=== PATIENT | female | born 1960 | race Caucasian/White ===

== ENCOUNTER 2019-09-30 13:43 | Outpatient (CLI) | payer MEDICARE, MEDICAID, SELFPAY ==
--- NOTE | 2019-09-30 13:53 | USCV_ITS ---
BarbraTorie blair Age: 59 Gender: F : 1960 Exam Date: 09/30/2019 14:28 Ordering Phys: Carlito Donato MD (Andy) ([email or web address] – [place]) Technologist: Cinthia Hearn Exam Location: [facility] [place] Indication: STENOSIS Risk Factors: Previous Vascular Surgery: Right Brachial BP: / Left Brachial BP: / Right Left Velocity (cm/s) Spectral Plaque Velocity (cm/s) Spectral Plaque Syst/Diast Broadening Syst/Diast Broadening 68.40/ 13.20 Prox CCA 75.90 / 25.30 75.00/ 19.80 Mid CCA 77.90 / 19.20 57.30/ 17.60 Distal CCA 70.90 / 28.30 65.70/ 18.40 Prox ICA 72.70 / 28.50 78.60/ 23.10 Mid ICA 112.70/ 37.10 84.20/ 32.80 Distal ICA 141.20/ 30.00 131.30 ECA 186.60 1.12 ICA/CCA 1.81 Antegrade Vertebral Antegrade 59.60/ 14.10 cm/s 81.30/ 21.40 cm/s Tri Subclavian Tri 119.8 56.30 0 CONCLUSIONS Right ICA stenosis <50%. Mild atheromatous plaque right carotid bulb/ICA. Left ICA stenosis <50%. Mild atheromatous plaque left carotid bulb/ICA. Normal antegrade Doppler flow noted in the right vertebral artery. Normal antegrade Doppler flow noted in the left vertebral artery. Americo Hopkins MD (Electronically Signed) Final Date: 30 September 2019 16:59 S
== END 2019-09-30 13:44 | disposition home or self-care (01) ==
PROVIDERS: Family Provider Family Medicine; PCP Family Medicine; Visit Provider Thoracic Surgery (Cardiothoracic Vascular Surgery)
DX: I65.23 Occlusion and stenosis of bilateral carotid arteries (principal)
CPT/HCPCS: 93880

== ENCOUNTER → 2020-05-05 11:37 | Outpatient (BNVA) | payer MEDICARE, MEDICAID, SELFPAY | PROVIDERS: Family Provider Family Medicine; PCP Family Medicine; Visit Provider Family Medicine | DX: S90.32XA Contusion of left foot, initial encounter (principal); N63.20 Unspecified lump in the left breast, unspecified quadrant; S99.929A Unspecified injury of unspecified foot, initial encounter; G89.11 Acute pain due to trauma; M25.511 Pain in right shoulder | CPT/HCPCS: 73030; 73630 ==

== ENCOUNTER → 2020-05-19 09:16 | Outpatient (BNVA) | payer MEDICARE, MEDICAID, SELFPAY | PROVIDERS: Family Provider Family Medicine; PCP Family Medicine; Visit Provider Family Medicine | DX: E78.5 Hyperlipidemia, unspecified (principal); E13.9 Other specified diabetes mellitus without complications; N63.20 Unspecified lump in the left breast, unspecified quadrant; S40.011A Contusion of right shoulder, initial encounter; S90.32XA Contusion of left foot, initial encounter; I10 Essential (primary) hypertension | CPT/HCPCS: 80053; 80061; 83036; 85025 ==

== ENCOUNTER 2020-05-29 10:00 | Outpatient (CLI) | payer MEDICARE, MEDICAID, SELFPAY ==
--- NOTE | 2020-05-29 10:00 | MM_ITS ---
WS: [id number] Bilateral diagnostic digital mammogram, 05/29/2020 Clinical Data: lump lower left breast Comparison: None. Findings: The breast parenchymal pattern shows fat replacement. There is a marker on the left breast at the inf erior aspect below the areola at approximately the 6:00 position. No masses are seen. There are no ab normal calcifications present. Additional compression views in the CC and MLO projection reveal no ab normalities in the region of the marker. MM/[place] [id number] Impression: 1. Negative bilateral mammogram. 2. Recommend left breast ultrasound. BIRADS: 2-Benign FOLLOW UP: See Report The CAD gun stock checker was used.
--- NOTE | 2020-05-29 10:08 | US_ITS ---
WS: [id number] Left breast ultrasound, 05/29/2020 Clinical Data: LEFT BREAST LUMP Comparison: None. Findings: Imaging at the 6:00 position of the left breast at the site of the marker revealed only normal breast tissue. No cysts or masses could be seen. US/US breast LT limited* [id number] Impression: 1. Normal left breast imaging from the 5:00 to 7:00 position at the left breast . 2. Recommend annual screening mammograms. 3. Recommend clinical follow-up of any palpable lesion. BIRADS: 2-Benign FOLLOW UP: 1 Year Follow-up
== END 2020-05-29 10:01 | disposition home or self-care (01) ==
LOC: RADSHAW 10:04
PROVIDERS: PCP Family Medicine; Visit Provider Family Medicine
DX: N63.25 Unspecified lump in the left breast, overlapping quadrants (principal)
CPT/HCPCS: 76642; 77066

== ENCOUNTER → 2020-09-14 10:31 | Outpatient (BNVA) | payer MEDICARE, MEDICAID, SELFPAY | PROVIDERS: PCP Family Medicine; Visit Provider Family Medicine | DX: E13.9 Other specified diabetes mellitus without complications (principal) | CPT/HCPCS: 80048; 83036 ==

== ENCOUNTER 2020-10-20 15:05 | Outpatient (CLI) | payer MEDICARE, MEDICAID, SELFPAY ==
--- NOTE | 2020-10-20 15:15 | MR_ITS ---
WS: [id number] MRI RIGHT SHOULDER NONCONTRAST TECHNIQUE: Sagittal T2, coronal T1, T2 and proton density imaging. Axial gradient PDE imaging. CLINICAL INFORMATION: M75.101 - Unspecified rotator cuff tear or rupture of right shoulder, not speci fied as traumatic COMPARISON: None. FINDINGS: Mild degenerative arthritis AC joint with mild downsloping of the acromion. Subacromial and subdeltoi d fluid. Chronic full-thickness tear involving the supraspinatus with retraction to the level of the glenohumeral joint. Infraspinatus is intact with T2 signal abnormality consistent with tendinopathy. Mild chronic thinning of the infraspinatus distally. Normal teres minor. Normal subscapularis tendon. Small subcoracoid effusion. Biceps tendon appears intact within the bicipital groove. Normal biceps l abral anchor. Intra-articular biceps tendon appears intact. Glenoid labrum appears grossly normal. Donovan bchondral cystic change involving the greater tuberosity. MR/MR shoulder RT wo con* [id number] IMPRESSION: 1. High-grade full-thickness supraspinatus tear appears chronic with retractio n to the level of the glenohumeral joint. 2. Tendinopathy involving the infraspinatus distally which appears intact. 3. Teres minor and subscapularis are intact. 4. Moderate degenerative arthritis at the AC joint with subacromial and subdel toid fluid. Mild downsloping acromion with slight subacromial spurring. 5. Normal biceps tendon in the bicipital groove. Normal biceps labral anchor. 6. Small subcoracoid effusion.
== END 2020-10-20 15:06 | disposition home or self-care (01) ==
LOC: RADSHAW 15:09
PROVIDERS: PCP Family Medicine; Visit Provider Orthopaedic Surgery
DX: M75.101 Unspecified rotator cuff tear or rupture of right shoulder, not specified as traumatic (principal); M25.411 Effusion, right shoulder; M19.011 Primary osteoarthritis, right shoulder
CPT/HCPCS: 73221

== ENCOUNTER 2020-11-04 06:00 | Day surgery (SDC) | payer MEDICARE, MEDICAID, SELFPAY ==
[2020-11-04 10:20] VITALS: BMI 31.8
--- NOTE | 2020-11-04 10:27 | ECG_ITS ---
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 Measurements Intervals [place] Rate: 62 P: 74 IA: 166 QRS: 73 QRSD: 98 T: 82 QT: 411 QTc: 418 Interpretive Statements SINUS RHYTHM INCOMPLETE RIGHT BUNDLE BRANCH BLOCK [90+ ms QRS DURATION, TERMINAL R IN V1/V2, 40+ ms S IN I/aVL/V4/V5/V6] MINIMAL ST DEPRESSION [0.025+ mV ST DEPRESSION] Compared to ECG 09/21/2015 11:24:38 Incomplete right bundle-branch block now present ST (T wave) deviation now present Sinus bradycardia no longer present T-wave abnormality no longer present Electronically Signed On 11-04-2020 19:55:08 CDT by Jony Arellano M.D. [id number]
--- NOTE | 2020-11-04 10:38 | P.ANESASSM_ITS ---
Pre-Anesthetic Assessment Pre-Anesthetic Assessment: Height/Weight: Height 1.6 m Weight 81.647 kg Preop Diagnosis: Rotator cuff tear Right shoulder Proposed Procedure: Operation Date: 11/12/20 08:35 Proposed Procedures p right Rotator Cuff Repair [id number] M75.101(Right) - Sang Hennessy MD Familial anesthetic complications: none Social: Social History: Tobacco and No alcohol Exam: Pre-Anes Outpt Exam: alert, oriented x 3, clear to auscultation bilaterally and regular rate & rhythm Airway: Cervical ROM: WNL MP: 3 Dentition: Other (none) Pulmonary: Comments: bronchitis ocassional CV/HEM: CV/HEM: CAD (10 stents before cabg) and HTN Comments: CABG 2008 - doing very well, achieves 4 mets GI: GI: GERD Metabolic: Metabolic: DM and Hyperlipidemia Musc/skel: Musc/skel: OA/DJD Anesthetic Plan: ASA status: 3 Anesthesia: General and Regional (specify below) Risk of > 500 ml blood loss (7ml/kg in children): No PFSH Anesthesia PFSH: Medical History (Updated 11/02/20 @ 11:33 by Sang Hennessy MD) Anxiety ASHD (arteriosclerotic heart disease) Carotid stenosis, bilateral Coracoid impingement of right shoulder Depression Diabetes 1.5, managed as type 2 Dyslipidemia Essential hypertension Lumbar disc disease Renal insufficiency Tobacco abuse Traumatic injury of foot Surgical History (Updated 11/04/20 @ 10:25 by Mitzi Brown) S/P CABG (coronary artery bypass graft) S/P carotid endarterectomy Carotid endarterectomy on the left Family History Other CAD (coronary artery disease) Hypertension Social History Smoking and tobacco status: current every day smoker cigarettes Packs smoked per day: 1.5 Alcohol intake: never Household members: spouse Marital status: Current occupational status: retired Previous occupational history: [employer] Current gender identity: Female Lynette/Church: [employer] Data Anesthesia Cardiac Studies: 2 No Data to Display
[2020-11-04 10:51] LABS: Basophils % 0.3 %; Eosinophils # 0.2 10^3/uL (0.0-0.8); Eosinophils % 1.9 %; Hematocrit 42.5 % (37.0-47.0); Hemoglobin 13.5 g/dL (11.5-15.3); Lymphocytes # 4.4 10^3/uL (0.8-4.8); Lymphocytes % 42.6 %; Mean Corpuscular HGB Conc 31.8 g/dL (30.0-36.0); Mean Corpuscular Hemoglobin 29.9 pg (28.0-34.0); Mean Corpuscular Volume 94.2 fL (81-99); Mean Platelet Volume 11.3 fL (7.4-10.4); Monocytes # 0.7 10^3/uL (0.2-0.9); Monocytes % 6.4 %; Neutrophils % 48.7 %; Nucleated Red Blood Cells % 0 %; Platelet Count 344 10^3/cmm (130-400); Red Blood Count 4.51 10^6/uL (4.1-5.3); Red Cell Distribution Width 13.8 % (12.1-15.1); White Blood Count 10.3 10^3/uL (4.0-10.0)
[2020-11-04 11:10] LABS: Anion Gap 14.5 (5-19); Blood Urea Nitrogen 17 mg/dL (8-23); Calcium 8.8 mg/dL (8.5-10.5); Carbon Dioxide 25 mmol/L (22-29); Chloride 101 mmol/L (98-107); Glomerular Filtration Rate 63.7 mL/min (90-130); Glucose 148 mg/dL (65-115); Osmolality Calculated 286 mOsm/kg (285-295); Potassium 4.5 mmol/L (3.5-5.1); Sodium 136 mmol/L (136-145)
== END 2020-11-04 06:01 | disposition home or self-care (01) ==
LOC: OR 10-07 14:37
PROVIDERS: Anesthesiology; PCP Family Medicine; Visit Provider Orthopaedic Surgery
DX: Z01.818 Encounter for other preprocedural examination (principal)
CPT/HCPCS: 80048; 85025

== ENCOUNTER → 2020-11-04 | Day surgery (SDC) | payer MEDICARE, MEDICAID, SELFPAY | PROVIDERS: PCP Family Medicine; Visit Provider Orthopaedic Surgery | DX: Z01.818 Encounter for other preprocedural examination (principal); M75.101 Unspecified rotator cuff tear or rupture of right shoulder, not specified as traumatic | CPT/HCPCS: 93005; J2795 ==

== ENCOUNTER → 2020-11-13 16:08 | Outpatient (BNVA) | payer MEDICARE, MEDICAID, SELFPAY | PROVIDERS: PCP Family Medicine; Visit Provider Orthopaedic Surgery | DX: Z20.822 Contact with and (suspected) exposure to COVID-19 (principal) | CPT/HCPCS: 87635 ==

== ENCOUNTER 2020-11-19 09:21 | Day surgery (SDC) | payer MEDICARE, MEDICAID, SELFPAY ==
[2020-11-19] VITALS (8 sets, daily range): BP systolic 102–188; BP diastolic 35–89; PULSE 56–64; RESP 16–23; TEMP 36.2–36.4; O2SAT 92–96; BMI 32.8
--- NOTE | 2020-11-19 09:51 | P.ANESUD_ITS ---
Pre-Anesthetic Update Pre-Anesthetic Assessment: Date of Surgery/Procedure: 11/19/20 Preop Saray gnosis: Rotator cuff tear Right shoulder Proposed Procedure: Operation Date: 11/19/20 12:10 Proposed Procedures p right Rotator Cuff Repair [id number] M75.101(Right) - Sang Hennessy MD Any changes to Pre-Anesthetic Assessment?: No Exam: Pre-Anes Outpt Exam: alert, oriented x 3, clear to auscultation bilaterally and regular rate & rhythm Cardiac Studies: No Data to Display
[2020-11-19] MEDS: sodium chloride 0.9% 1,000 ML 30 ML IV (10:00)
[2020-11-19 10:07] LABS: Glucose Point of Care 151 mg/dL (70-110)
--- NOTE | 2020-11-19 10:29 | W.PM.OPSUD ---
Surgery/Procedure H&P Update DATE OF PROCEDURE: November 19, 2020 DATE H&P PERFORMED: 11/02/20 PREOP DIAGNOSIS: Rotator cuff tear Right shoulder PLANNED PROCEDURE: Operation Date: 11/19/20 12:10 Proposed Procedures p right Rotator Cuff Repair [id number] M75.101(Right) - Sang Hennessy MD
[2020-11-19] MEDS: midazolam 1 mg/mL INJ 5 ML 5 MG IVP (10:40)
--- NOTE | 2020-11-19 10:41 | ANES.PROC ---
Anesthesia Procedures Procedure/Date: 11/19/20 Nerve Block ^: Nerve Block 1: Main Anesthesia: general anesthesia Time Out Performed: Yes Consent: requested by attending/covering physician, from patient, risks and benefits reviewed and patient agrees to proceed Nerve block location: interscalene (right) Anesthesia monitors applied: pulse oximetry, EKG, BP cuff and oxygen Nerve block position: semi sitting Anesthetic Used: ropivicaine 0.5% Amount of anesthesia used (mL): 30 Ultrasound used to: recognize landmarks, visualize and ID brachial plexus and visualize and ID interscalene groove Nerve Stimulator Used?: No Interscalene/Femoral BLK: 2 stimuplex 22 g needle used for position and inplane approach and visualize local anesthetic spread Injection: neg aspiration of heme Patient Tolerated Procedure: well Complications: none
[2020-11-19] MEDS: fentaNYL 50 mcg/mL INJ 2mL 100 MCG IVP (10:42)
[2020-11-19] MEDS: EPINEPHrine 1 mg/mL INJ 2 MG (13:44)
--- NOTE | 2020-11-19 14:44 | P.OP_ITS ---
Operative Report Date of procedure: November 19, 2020 Pre-op Diagnosis: Rotator cuff tear Right shoulder Post-op diagnosis: same Post-op Diagnosis: Rotator cuff tear right shoulder, impingement Post-op Findings: High-grade bursal tear right rotator cuff Procedure Done: Arthroscopic repair right rotator cuff Implants: 4.5 mm Rendon and Nephew Helicoil anchor. Rendon and Nephew Regeneten patch Pathology: none sent Surgeon: Sang Hennessy Anesthesia: General and Nerve Block (Interscalene) Estimated blood loss (mL): 5 Findings: The patient had a high-grade bursal tear of the right rotator cuff approximately a centimeter and a half from anterior to posterior with a centimeter retraction. She had no glenohumeral degenerative changes. Her labrum was healthy. Her biceps tendon was healthy. She had prominent anterior spurring of her acromion Condition: stable Disposition: PACU Procedure: The patient was given a interscalene block in the holding taken to the operating room. She was given 2 g of Ancef. She was provided with a general anesthesia and positioned in the lateral position with the right arm in 15 pounds of traction. A timeout was performed. A posterior portal was made 2 cm inferior medial to the posterior corner of the acromion. A scope cannula and trocar were driven into the glenohumeral joint. An anterior working portal was made beneath the biceps tendon. The diagnostic portion of the arthroscopy was performed. There is no chondromalacia, labral or biceps pathology. The articular side of the rotator cuff was inspected and found to be intact. Arthroscopy equipment was removed and then directed to the subacromial space. A lateral portal was opened up with a scalpel and a cannula introduced. Similar cannulas placed through the anterior portal. The high-grade bursal tear was removed. The undersurface acromion revealed some spurring. Through the lateral portal the Rendon and Nephew Werewolf probe was introduced. The anterior inferior edge of acromion was outlined. A 5.5 mm acromionizer is used in approximately 4 mm of anterior inferior acromion removed. This provided a vascular subacromial surface that would facilitate healing of the intended bioinductive implant. Next the greater tuberosity was debrided with the acromionizer shaver. Through a lateral stab wound a Rendon and Nephew Helicoil 4.5 mm anchor was placed with a tape suture. A Rendon and Nephew FirstPass suture passer used to shuttle each li mb of tape through the lateral apex of the bursal tear. The tear was lateralized over the debrided bone with a sliding Arizmendi knot and alternating half hitches. Next through a lower lateral portal the Regeneten implant was introduced. It was fixed medially and anteriorly and posteriorly with 3 soft tissue stables and out laterally and anterior laterally with 3 bone ursula all with good purchase. Arthroscopy was removed. Portals were closed with 3-0 Prolene. Sterile 4 x 4's and OpSite dressings were applied. The patient was placed in a sling, extubated, and taken to recovery room in stable condition.
--- NOTE | 2020-11-19 15:52 | PC.NURSE ---
PT'S TOOK ALL HER BELONGINGS WITH HIM WHEN PT WENT TO SURGERY AND BROUGHT THEM BACK TO HER AT POST OP.
--- NOTE | 2020-11-19 16:56 | PC.NURSE ---
pt waiting on ready transport.
== END 2020-11-19 18:00 | disposition home or self-care (01) ==
PROVIDERS: PCP Family Medicine; Visit Provider Orthopaedic Surgery
PROC: (CPT 29827; principal; 2020-11-19 12:00)
DX: M75.101 Unspecified rotator cuff tear or rupture of right shoulder, not specified as traumatic (principal); M25.811 Other specified joint disorders, right shoulder; M19.011 Primary osteoarthritis, right shoulder; G89.29 Other chronic pain; Z79.891 Long term (current) use of opiate analgesic; F41.9 Anxiety disorder, unspecified; F32.9 Major depressive disorder, single episode, unspecified; E78.5 Hyperlipidemia, unspecified; I10 Essential (primary) hypertension; E13.9 Other specified diabetes mellitus without complications; F17.210 Nicotine dependence, cigarettes, uncomplicated; Z95.1 Presence of aortocoronary bypass graft; Z82.49 Family history of ischemic heart disease and other diseases of the circulatory system
CPT/HCPCS: 29827; 36416; 64415; 76942; 82962; 96374; 96375; C1713; J0171; J0690; J1100; J2250; J2405; J2704; J3010; J3490; J7030

== ENCOUNTER 2021-05-18 10:16 | Outpatient (CLI) | payer MEDICARE, MEDICAID, SELFPAY ==
--- NOTE | 2021-05-18 10:21 | XR_ITS ---
WS: [id number] LUMBAR SPINE TECHNIQUE: 3 views of the lumbar spine CLINICAL INFORMATION: worsening back pain COMPARISON: None. FINDINGS: Mild lumbar curve convex right. 5 nonrib-bearing lumbar vertebral bodies. Iliac stents. Slight marjan listhesis L4 on L5 measuring 4 mm. Disc space narrowing worse L4-5 and L5-S1. Chronic anterior wedgin g lower thoracic spine. Advanced facet arthropathy L4-5. IMPRESSION: 1. Mild lumbar curve convex right. No acute compression. 2. Grade 1 anterolisthesis L4 on L5. 3. Disc space narrowing worse L4-L5 and L5-S1. 4. Advanced facet arthropathy L4-5.
== END 2021-05-18 10:17 | disposition home or self-care (01) ==
PROVIDERS: PCP Family Medicine; Visit Provider Family Medicine
DX: M54.50 Low back pain, unspecified (principal); M47.816 Spondylosis without myelopathy or radiculopathy, lumbar region
CPT/HCPCS: 72100

== ENCOUNTER → 2021-11-16 11:13 | Outpatient (BNVA) | payer MEDICARE, MEDICAID, SELFPAY | PROVIDERS: PCP Family Medicine; Visit Provider Family Medicine | DX: E78.5 Hyperlipidemia, unspecified (principal); I10 Essential (primary) hypertension; E11.8 Type 2 diabetes mellitus with unspecified complications; M51.9 Unspecified thoracic, thoracolumbar and lumbosacral intervertebral disc disorder; Z72.0 Tobacco use | CPT/HCPCS: 80053; 80061; 83036; 85025 ==

== ENCOUNTER → 2022-03-14 13:44 | Outpatient (BNVA) | payer MEDICARE, MEDICAID, SELFPAY | PROVIDERS: PCP Family Medicine; Visit Provider Internal Medicine | DX: I25.10 Atherosclerotic heart disease of native coronary artery without angina pectoris (principal); I10 Essential (primary) hypertension; F17.210 Nicotine dependence, cigarettes, uncomplicated; Z95.1 Presence of aortocoronary bypass graft | CPT/HCPCS: 99214 ==

== ENCOUNTER → 2022-04-25 09:48 | Outpatient (BNVA) | payer MEDICARE, MEDICAID, SELFPAY | PROVIDERS: PCP Family Medicine; Visit Provider Family Medicine | DX: E13.9 Other specified diabetes mellitus without complications (principal); I10 Essential (primary) hypertension; L82.1 Other seborrheic keratosis; M51.9 Unspecified thoracic, thoracolumbar and lumbosacral intervertebral disc disorder | CPT/HCPCS: 80053; 83036 ==

== ENCOUNTER 2022-05-20 08:21 | Outpatient (CLI) | payer MEDICARE, MEDICAID, SELFPAY ==
--- NOTE | 2022-05-20 08:30 | USCV_ITS ---
Torie Belle Age: 62 Gender: F : 1960 Exam Date: 05/20/2022 08:54 Ordering Phys: Shaun Hickey M.D ([email or web address]) Technologist: Jerry Clarke Exam Location: [facility] – [place] Indication: lt side endart Risk Factors: Smoker Previous Vascular Surgery: Right Brachial BP: / Left Brachial BP: / Right Left Velocity (cm/s) Spectral Plaque Velocity (cm/s) Spectral Plaque Syst/Diast Broadening Syst/Diast Broadening 81.60/ 11.00 Prox CCA 82.30 / 17.10 68.40/ 9.90 Mid CCA 99.40 / 14.00 73.90/ 13.20 Hetro Distal CCA 75.20 / 13.70 116.50/18.60 Hetro Prox ICA 106.10/ 16.20 155.40/29.50 Hetro Mid ICA 134.90/ 28.80 166.20/34.20 Distal ICA 160.10/ 36.00 167.80 ECA 223.10 2.04 ICA/CCA 1.61 Antegrade Vertebral Antegrade 102.5/ 15.50 cm/s 136.7/ 21.60 cm/s 0 0 Tri Subclavian Tri 144.5 232.1 0 0 FINDINGS Comparison:. 09/30/19 Mild, new elevation of systolic velocities. Mild carotid atherosclerosis. Antegrade vertebral arteries. CONCLUSIONS Bilateral ICA stenosis less than 50%. Velocities have progressed since the prior exam. Dr. Jacey Corona DO (Electronically Signed) Final Date: 20 May 2022 10:36 S
== END 2022-05-20 08:22 | disposition home or self-care (01) ==
LOC: RAD 08:22
PROVIDERS: PCP Family Medicine; Visit Provider Internal Medicine
DX: I65.23 Occlusion and stenosis of bilateral carotid arteries (principal)
CPT/HCPCS: 93880

== ENCOUNTER 2022-05-26 08:45 | Outpatient (CLI) | payer MEDICARE, MEDICAID, SELFPAY ==
--- NOTE | 2022-05-26 09:10 | XRR_ITS ---
PROCEDURE INFORMATION: Exam: XR Chest Exam date and time: 05/26/2022 9:26 AM Age: 62 years old Clinical indication: Sternal or substernal pain. Prior triple bypass. Sternal pain. TECHNIQUE: Imaging protocol: Radiologic exam of the chest. Views: 2 views. COMPARISON: CR XR chest 2V* [id number] 09/21/2015 11:41 AM FINDINGS: Lungs: Calcified right hilar lymph nodes. Subsegmental atelectasis or scarring in the lower chest bilaterally. There is mild peribronchial wall thickening. Pleural spaces: No pleural effusion. No pneumothorax. Heart/Mediastinum: Coronary stents are seen. Mediastinal clips are noted. Cardiomegaly appears worsened; an underlying pericardial effusion is a consideration. No gross evidence of pneumomediastinum. Bones/joints: Median sternotomy wires are noted. No gross fracture. XR/XR chest 2V* [id number] IMPRESSION: 1. Cardiomegaly appears worsened; an underlying pericardial effusion is a consideration. 2. There is mild peribronchial wall thickening; query viral infection/bronchitis, chronic bronchitis and/or asthma.
== END 2022-05-26 08:46 | disposition home or self-care (01) ==
LOC: RAD 08:50
PROVIDERS: PCP Family Medicine; Visit Provider Thoracic Surgery (Cardiothoracic Vascular Surgery)
DX: R07.89 Other chest pain (principal); I51.7 Cardiomegaly; I31.39 Other pericardial effusion (noninflammatory); I65.23 Occlusion and stenosis of bilateral carotid arteries; Z95.1 Presence of aortocoronary bypass graft; Z98.890 Other specified postprocedural states; F17.210 Nicotine dependence, cigarettes, uncomplicated
CPT/HCPCS: 71046; 99213

== ENCOUNTER 2022-07-12 07:09 | Outpatient (CLI) | payer MEDICARE, MEDICAID, SELFPAY ==
--- NOTE | 2022-07-12 07:15 | USCV_ITS ---
Barbra Torie Age: 62 Gender: F : 1960 Exam Date: 07/12/2022 07:35 Ordering Phys: Carlito Donato MD (Andy) Technologist: Edmar Dickinson [place] [facility] [place]: sob BP: 140 / 60 HR: 57 Rhythm: Sinus Technical Quality: Adequate MEASUREMENTS (Male / Female) Normal Values 2D ECHO LV Diastolic Diameter PLAX 5.2 cm 4.2 - 5.9 / 3.9 - 5.3 cm LV Systolic Diameter PLAX 3.6 cm IVS Diastolic Thickness 0.9 cm 0.6 - 1.0 / 0.6 - 0.9 cm IVS Systolic Thickness 1.4 cm LVPW Diastolic Thickness 1.0 cm 0.6 - 1.0 / 0.6 - 0.9 cm LVPW Systolic Thickness 1.6 cm LVOT Diameter 2.0 cm LV Ejection Fraction 2D Teich 58.4 % LV Ejection Fraction MOD 2C 56.0 % LV Ejection Fraction 2C AL 55.0 % LA Diameter 3.5 cm LA Width 3.9 cm LA Height 5.0 cm RA Width 3.3 cm RA Height 4.6 cm Aorta at Sinotubular Diameter 2.0 cm IVC Diameter 1.5 cm M-MODE Aortic Annulus Diameter 2.7 cm LA Ao Ratio MM 1.3 MV E Point Septal Separation 0.9 cm DOPPLER AV Peak Velocity 213.5 cm/s LVOT Peak Velocity 131.0 cm/s AV Area Cont Eq vti 2.0 cm squared AV Area Cont Eq pk 1.9 cm squared MV Peak Velocity 117.0 cm/s MV Area PHT 3.9 cm squared Mitral E to A Ratio 0.8 MV E' Velocity 48.0 cm/s Mitral E to MV E' Ratio 8.7 Mitral E to LV E' Lateral Ratio 8.5 Mitral E to LV E' Septal Ratio 9.1 TR Peak Velocity 324.3 cm/s TR Peak Gradient 42.1 mmHg TR Mean Velocity 246.5 cm/s TR Mean Gradient 26.3 mmHg TR Velocity Time Integral 109.9 cm Right Atrial Pressure 3.0 mmHg Pulmonary Artery Systolic Pressu 45.1 mmHg PV Peak Velocity 99.7 cm/s RV Acceleration Time 0.1 s RV Ejection Time 0.3 s RV AcT/ET 0.3 FINDINGS Left Ventricle Left ventricle is normal in size. LV systolic function is normal with EF of 55 to 60%. No regional wall motion abnormalities are seen. Grade 1 diastolic dysfunction Right Ventricle Normal in size and function Right Atrium Normal in size Left Atrium Normal in size Mitral Valve Structurally normal mitral valve. Mild mitral regurgitation Aortic Valve Structurally normal aortic valve. No significant stenosis. Moderate aortic regurgitation. Tricuspid Valve Mild tricuspid regurgitation. RVSP is 45-50mmHg. This is consistent with moderate pulmonary hypertension Pulmonic Valve Not well visualized. Mild pulmonic regurgitation Pericardium Normal Aorta Normal in size IVC Appears to be normal. CONCLUSIONS LV systolic function is normal with EF of 55-60% Grade 1 diastolic dysfunction Mild mitral regurgitation Moderate aortic regurgitation Mild tricuspid regurgitation Moderate pulmonary hypertension Mild pulmnoic regurgitation No comparison studies are available Shaun Hickey MD (Electronically Signed) Final Date: 26 July 2022 17:42 S
== END 2022-07-12 07:10 | disposition home or self-care (01) ==
LOC: RAD 07:11
PROVIDERS: PCP Family Medicine; Visit Provider Thoracic Surgery (Cardiothoracic Vascular Surgery)
DX: I08.3 Combined rheumatic disorders of mitral, aortic and tricuspid valves (principal); R06.02 Shortness of breath
CPT/HCPCS: 93306

== ENCOUNTER → 2022-07-18 14:06 | Outpatient (BNVA) | payer MEDICARE, MEDICAID, SELFPAY | PROVIDERS: PCP Family Medicine; Visit Provider Podiatrist Foot & Ankle Surgery | DX: Q82.8 Other specified congenital malformations of skin (principal); E13.9 Other specified diabetes mellitus without complications; Z79.84 Long term (current) use of oral hypoglycemic drugs | CPT/HCPCS: 17110; 73630; 99204 ==

== ENCOUNTER → 2022-08-05 08:51 | Outpatient (BNVA) | payer MEDICARE, MEDICAID, SELFPAY | PROVIDERS: PCP Family Medicine; Visit Provider Podiatrist Foot & Ankle Surgery | DX: E13.9 Other specified diabetes mellitus without complications (principal); Q82.8 Other specified congenital malformations of skin; G62.9 Polyneuropathy, unspecified; Z79.84 Long term (current) use of oral hypoglycemic drugs | CPT/HCPCS: 11055; 99214 ==

== ENCOUNTER → 2022-09-20 15:24 | Outpatient (BNVA) | payer MEDICARE, MEDICAID, SELFPAY | PROVIDERS: PCP Family Medicine; Visit Provider Internal Medicine | DX: I25.10 Atherosclerotic heart disease of native coronary artery without angina pectoris (principal); I77.9 Disorder of arteries and arterioles, unspecified; I10 Essential (primary) hypertension; F17.210 Nicotine dependence, cigarettes, uncomplicated; Z95.1 Presence of aortocoronary bypass graft | CPT/HCPCS: 99214 ==

== ENCOUNTER 2023-01-11 09:43 | Outpatient (CLI) | payer MEDICARE, MEDICAID, SELFPAY ==
--- NOTE | 2023-01-11 10:00 | USCV_ITS ---
Torie Belle Age: 62 Gender: F : 1960 Exam Date: 01/11/2023 10:00 Ordering Phys: Carlito Donato MD (Andy) ([email or web address] [place]) Technologist: CT Exam Location: [facility] [place] Indication: stenosis Risk Factors: Previous Vascular Surgery: Right Brachial BP: / Left Brachial BP: / Right Left Velocity (cm/s) Spectral Plaque Velocity (cm/s) Spectral Plaque Syst/Diast Broadening Syst/Diast Broadening 67.50/ 13.70 Prox CCA 92.70 / 17.70 76.00/ 13.40 Mid CCA 79.70 / 14.90 85.90/ 14.90 Distal CCA 87.70 / 21.70 121.10/22.30 Prox ICA 124.60/ 27.00 121.10/29.40 Mid ICA 202.60/ 41.60 161.10/32.00 Distal ICA 198.60/ 43.70 208.50 ECA 170.50 1.88 ICA/CCA 2.19 Antegrade Vertebral Antegrade 101.4/ 18.10 cm/s 100.8/ 19.50 cm/s 0 0 Bi Subclavian Bi 148.6 210.5 0 0 FINDINGS hx of lt cea CONCLUSIONS Right ICA stenosis <50%, at the upper end of the range. Moderate calcified atheromatous plaque right carotid bulb/ICA. Left ICA stenosis 50-69%, at the lower end of the range near 50% LEFT CEA Normal antegrade Doppler flow noted in the right vertebral artery. Normal antegrade Doppler flow noted in the left vertebral artery. Americo Hopkins MD (Electronically Signed) Final Date: 11 January 2023 11:22 S
== END 2023-01-11 09:44 | disposition home or self-care (01) ==
PROVIDERS: PCP Family Medicine; Visit Provider Thoracic Surgery (Cardiothoracic Vascular Surgery)
DX: I65.23 Occlusion and stenosis of bilateral carotid arteries (principal)
CPT/HCPCS: 93880

== ENCOUNTER → 2023-01-19 12:58 | Outpatient (BNVA) | payer MEDICARE, MEDICAID, SELFPAY | PROVIDERS: PCP Family Medicine; Visit Provider Thoracic Surgery (Cardiothoracic Vascular Surgery) | DX: I65.23 Occlusion and stenosis of bilateral carotid arteries (principal); I10 Essential (primary) hypertension; F17.210 Nicotine dependence, cigarettes, uncomplicated | CPT/HCPCS: 99213 ==

== ENCOUNTER → 2023-01-30 08:11 | Outpatient (BNVA) | payer MEDICARE, MEDICAID, SELFPAY | PROVIDERS: PCP Family Medicine; Visit Provider Podiatrist Foot & Ankle Surgery | DX: E11.42 Type 2 diabetes mellitus with diabetic polyneuropathy (principal); Z79.84 Long term (current) use of oral hypoglycemic drugs; G62.9 Polyneuropathy, unspecified; L84 Corns and callosities | CPT/HCPCS: 99213 ==

== ENCOUNTER → 2023-03-28 13:47 | Outpatient (BNVA) | payer MEDICARE, MEDICAID, SELFPAY | PROVIDERS: PCP Family Medicine; Visit Provider Internal Medicine | DX: I25.10 Atherosclerotic heart disease of native coronary artery without angina pectoris (principal); I77.9 Disorder of arteries and arterioles, unspecified; I10 Essential (primary) hypertension; F17.210 Nicotine dependence, cigarettes, uncomplicated; Z95.1 Presence of aortocoronary bypass graft | CPT/HCPCS: 99214 ==

== ENCOUNTER → 2023-04-17 09:46 | Outpatient (BNVA) | payer MEDICARE, MEDICAID, SELFPAY | PROVIDERS: PCP Family Medicine; Visit Provider Podiatrist Foot & Ankle Surgery | DX: G62.9 Polyneuropathy, unspecified; L84 Corns and callosities; Q82.8 Other specified congenital malformations of skin; E11.42 Type 2 diabetes mellitus with diabetic polyneuropathy; L60.8 Other nail disorders; Z79.84 Long term (current) use of oral hypoglycemic drugs | CPT/HCPCS: 11055; 11721; 99204 ==

== ENCOUNTER 2023-05-08 06:11 | Outpatient (CLI) | payer MEDICARE, MEDICAID, SELFPAY ==
--- NOTE | 2023-05-08 06:30 | MR_ITS ---
WS: [id number] MRI PELVIS, WITH AND WITHOUT CONTRAST. COMPARISON: Soft tissue ultrasound 03/23/2023 Multiplanar, multisequence imaging is performed with and without contrast. MultiHance 16 mL IV. Reidentified is a soft tissue mass in the LEFT perineum that was previously described by ultrasound. Mass has significantly decreased in size as compared to the prior ultrasound. This mass is within the LEFT perineal soft tissues and measures 1.7 x 1.4 x 1.3 cm this is intermediate signal on the T1 seq uences and increased but heterogeneous on the T2 sequences. There is peripheral and internal enhancem ent. There is a mild amount of soft tissue inflammation in the adjacent perineal soft tissues. There does not appear to be in connection to the rectum or the vaginal canal. Abnormal soft tissue surrounding the RIGHT hip and extending into the RIGHT obturator externus muscle s and the muscle surrounding the RIGHT hip. Soft tissue mass with peripheral enhancement measures 4.3 x 2.3 cm and is closely associated with the RIGHT femoral head, hip joint and the obturator muscle g roup. Mild thickening and enhancement of the synovium. There is additional very mild edema with enhan cement involving the obturator muscle of the LEFT hip also. There is no evidence for synovitis on the LEFT hip. Increased T2 signal with enhancement involving the hamstring attachments at the ischial tu berosities. IMPRESSION: 1. Moderate decrease in size of the LEFT perineum heterogeneous mass which does enhance. Mass now tea sures 1.7 x 1.4 x 1.3 cm. Complex abscess within the differential. Due to the decrease in size this i s less likely neoplastic. As there is enhancement and has not completely resolved recommend continued close follow-up. Surgical excision may be necessary. 2. Abnormal appearance to the RIGHT hip. There is marked thickening with enhancement of the synovium with edema and cystic changes extending into the obturator muscles. There may be some small loose bod ies. No enhancement within the femoral head. There are additional changes of mild myositis involving the LEFT hip obturator muscles and hamstring attachments to the ischial tuberosities consider evaluat ion by rheumatology. In particular the RIGHT hip needs further evaluation due to the extensive synovi tis.
[2023-05-08] MEDS: gadobenate dimeglumine 20 mL vial IV (07:30)
== END 2023-05-08 06:12 | disposition home or self-care (01) ==
LOC: RAD 06:12
PROVIDERS: PCP Family Medicine; Visit Provider Surgery
DX: K66.8 Other specified disorders of peritoneum (principal)
CPT/HCPCS: 72197; A9577

== ENCOUNTER → 2023-06-08 13:49 | Outpatient (BNVA) | payer MEDICARE, MEDICAID, SELFPAY | PROVIDERS: PCP Family Medicine; Visit Provider Surgery | DX: Z09 Encounter for follow-up examination after completed treatment for conditions other than malignant neoplasm (principal) | CPT/HCPCS: 99213 ==

== ENCOUNTER 2023-06-21 08:30 | Outpatient (CLI) | payer MEDICARE, MEDICAID, SELFPAY ==
--- NOTE | 2023-06-21 08:15 | USCV_ITS ---
Torie Belle Age: 63 Gender: F : 1960 Exam Date: 06/21/2023 08:44 Ordering Phys: Carlito Donato MD (Andy) ([email or web address] [place]) Technologist: MORRIS [place] [facility] [place] Indication: H/O LEFT CEA. EVAL FOR CAROTID STENOSIS Risk Factors: Previous Vascular Surgery: Right Brachial BP: / Left Brachial BP: / Right Left Velocity (cm/s) Spectral Plaque Velocity (cm/s) Spectral Plaque Syst/Diast Broadening Syst/Diast Broadening 119.10/13.20 Prox CCA 112.50/ 20.90 88.00/ 13.70 Mid CCA 91.40 / 17.10 91.40/ 10.30 Distal CCA 98.30 / 21.40 120.70/19.30 Prox ICA 165.60/ 27.60 125.30/21.10 Mid ICA 183.30/ 28.00 136.70/29.90 Distal ICA 153.00/ 35.60 191.10 ECA 154.50 1.15 ICA/CCA 1.63 Antegrade Vertebral Antegrade 88.20/ 12.10 cm/s 115.1/ 27.00 cm/s 0 Tri Subclavian Tri 143.3 369.8 0 0 CONCLUSIONS Right ICA stenosis <50% at the upper end of the range.Moderate atheromatous plaque right carotid bulb/ICA. Left ICA stenosis 50-69%. Left CEA. Intimal thickening in the common carotid arteries and internal carotid arteries bilaterally. Normal antegrade Doppler flow noted in the right vertebral artery. Normal antegrade Doppler flow noted in the left vertebral artery. Americo Hopkins MD (Electronically Signed) Final Date: 21 June 2023 10:36 S
== END 2023-06-21 08:31 | disposition home or self-care (01) ==
LOC: RAD 08:30
PROVIDERS: PCP Family Medicine; Visit Provider Thoracic Surgery (Cardiothoracic Vascular Surgery)
DX: I65.23 Occlusion and stenosis of bilateral carotid arteries (principal)
CPT/HCPCS: 93880

== ENCOUNTER → 2023-07-17 08:47 | Outpatient (BNVA) | payer MEDICARE, MEDICAID, SELFPAY | PROVIDERS: PCP Family Medicine; Visit Provider Surgery | DX: N90.89 Other specified noninflammatory disorders of vulva and perineum (principal) | CPT/HCPCS: 99213 ==

== ENCOUNTER → 2023-07-19 10:21 | Outpatient (BNVA) | payer MEDICARE, MEDICAID, SELFPAY | PROVIDERS: PCP Family Medicine; Visit Provider Nurse Practitioner | DX: R39.9 Unspecified symptoms and signs involving the genitourinary system (principal) | CPT/HCPCS: 81000 ==

== ENCOUNTER → 2023-07-20 13:03 | Outpatient (BNVA) | payer MEDICARE, MEDICAID, SELFPAY | PROVIDERS: PCP Family Medicine; Visit Provider Thoracic Surgery (Cardiothoracic Vascular Surgery) | DX: I65.23 Occlusion and stenosis of bilateral carotid arteries (principal); F17.210 Nicotine dependence, cigarettes, uncomplicated; I10 Essential (primary) hypertension | CPT/HCPCS: 99213 ==

== ENCOUNTER → 2023-07-24 09:07 | Outpatient (BNVA) | payer MEDICARE, MEDICAID, SELFPAY | PROVIDERS: PCP Family Medicine; Visit Provider Podiatrist Foot & Ankle Surgery | DX: M20.11 Hallux valgus (acquired), right foot (principal); G62.9 Polyneuropathy, unspecified; L84 Corns and callosities; Q82.8 Other specified congenital malformations of skin; E11.42 Type 2 diabetes mellitus with diabetic polyneuropathy; L60.8 Other nail disorders; Z79.84 Long term (current) use of oral hypoglycemic drugs; Z46.89 Encounter for fitting and adjustment of other specified devices | CPT/HCPCS: 11721; 97760; 99213; L3100 ==

== ENCOUNTER 2023-07-24 11:32 | Outpatient (CLI) | payer MEDICARE, MEDICAID, SELFPAY | END 2023-07-24 11:33 | disposition home or self-care (01) | LOC: SPT 11:32 | PROVIDERS: PCP Family Medicine; Visit Provider Podiatrist Foot & Ankle Surgery | DX: Z46.89 Encounter for fitting and adjustment of other specified devices (principal); M20.11 Hallux valgus (acquired), right foot | CPT/HCPCS: 97760; L3100 ==

== ENCOUNTER 2023-08-18 09:15 | Outpatient (CLI) | payer MEDICARE, MEDICAID, SELFPAY ==
--- NOTE | 2023-08-18 10:15 | USCV_ITS ---
Torie Belle Age: 63 Gender: F : 1960 Exam Date: 08/18/2023 09:41 Ordering Phys: Shaun Hickey M.D ([email or web address]) Technologist: MORRIS [place] [facility] [place] Indication: CHEST PAIN AND SHORTNESS OF BREATH BP: 150 / 60 HR: 52 Rhythm: Sinus Technical Quality: Adequate MEASUREMENTS (Male / Female) Normal Values 2D ECHO LVOT Diameter 2.0 cm LV Ejection Fraction MOD 2C 53.5 % LV Ejection Fraction 2C AL 53.2 % LA Diameter 3.7 cm LA Width 3.9 cm LA Height 5.1 cm RA Width 3.0 cm RA Height 4.3 cm Aorta at Sinotubular Diameter 2.1 cm IVC Diameter 1.3 cm M-MODE Aortic Annulus Diameter 2.6 cm LA Ao Ratio MM 1.3 MV E Point Septal Separation 1.7 cm DOPPLER AV Peak Velocity 199.0 cm/s LVOT Peak Velocity 146.0 cm/s AV Area Cont Eq vti 2.3 cm squared AV Area Cont Eq pk 2.2 cm squared MV Peak Velocity 99.0 cm/s MV Area PHT 3.0 cm squared Mitral E to A Ratio 1.3 MV E' Velocity 54.0 cm/s Mitral E to MV E' Ratio 10.9 Mitral E to LV E' Lateral Ratio 10.5 Mitral E to LV E' Septal Ratio 11.4 TR Peak Velocity 226.5 cm/s TR Peak Gradient 20.5 mmHg TR Mean Velocity 170.9 cm/s TR Mean Gradient 12.9 mmHg TR Velocity Time Integral 77.6 cm TV Peak E Velocity 51.0 cm/s Right Atrial Pressure 3.0 mmHg Pulmonary Artery Systolic Pressu 23.5 mmHg PV Peak Velocity 95.0 cm/s RV Acceleration Time 0.2 s RV Ejection Time 0.4 s RV AcT/ET 0.4 FINDINGS Left Ventricle LV systolic function is normal with EF of 50 to 55%. No regional wall motion abnormalities. Right Ventricle Normal in size and function Right Atrium Normal in size Left Atrium Dilated Mitral Valve Structurally normal mitral valve. Mild to moderate mitral regurgitation. Aortic Valve Structurally normal aortic valve. No significant stenosis. Moderate aortic regurgitation Tricuspid Valve Mild tricuspid regurgitation. Pulmonic Valve Not well visualized. Mild to moderate pulmonic regurgitation. Pericardium Normal Aorta Normal in size IVC Appears to be normal CONCLUSIONS LV systolic function is normal with EF 50 to 55%. Left atrial dilation Mild to moderate mitral regurgitation Moderate aortic regurgitation Mild tricuspid regurgitation Mild to moderate pulmonic regurgitation. Shaun Hickey MD (Electronically Signed) Final Date: 31 August 2023 17:05 S
== END 2023-08-18 09:16 | disposition home or self-care (01) ==
LOC: RAD 09:16
PROVIDERS: PCP Family Medicine; Visit Provider Internal Medicine
DX: R06.02 Shortness of breath (principal)
CPT/HCPCS: 93306

== ENCOUNTER → 2023-08-23 12:39 | Outpatient (BNVA) | payer MEDICARE, MEDICAID, SELFPAY | PROVIDERS: PCP Family Medicine; Visit Provider Internal Medicine Cardiovascular Disease | DX: R07.9 Chest pain, unspecified (principal); I25.10 Atherosclerotic heart disease of native coronary artery without angina pectoris; Z98.890 Other specified postprocedural states; I10 Essential (primary) hypertension; E78.5 Hyperlipidemia, unspecified; I65.23 Occlusion and stenosis of bilateral carotid arteries; Z95.1 Presence of aortocoronary bypass graft; Z72.0 Tobacco use | CPT/HCPCS: 99214 ==

== ENCOUNTER 2023-09-05 08:44 | Outpatient (CLI) | payer MEDICARE, MEDICAID, SELFPAY ==
--- NOTE | 2023-09-05 | ECG_ITS ---
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 Interpretive Statements NAME OF STUDY: LEXISCAN SESTAMIBI STRESS TEST INDICATION: [Chest Pain] Procedure: At the baseline, the blood pressure was 207/60 mmHg with a heart rate of 79 bpm. The electrocardiogram showed normal sinus rhythm, normal axis with normal ST and T's. Interventricular conduction delay. The Lexiscan was infused over a period of 20 seconds. A total of 0.4 mg of Lexiscan was infused. The stress phase was continued for a total of 5 minutes. Heart rate was at the end of stress phase was 87 bpm and a blood pressure of 157/61 mmHg. The EKG at the peak infusion revealed normal sinus rhythm with no significant ST-T wave changes. Sestamibi was injected 20 seconds after the Lexiscan infusion. Blood pressure at the end of recovery phase was not recorded. Heart rate was 87 bpm. Conclusion: 1. Normal EKG response to Lexiscan infusion 2. No Lexiscan induced chest pain or cardiac arrhythmia. 3. Normal blood pressure and heart rate response. 4. Sestamibi/sestamibi perfusion scan pending; see separate report. Electronically Signed On 09-10-2023 12:04:00 VEGETABLE FARMWORKER by Shaun Hickey M.D. [email or web address]
[2023-09-05 08:46] VITALS: BMI 28.5
--- NOTE | 2023-09-05 08:50 | NMCV_ITS ---
NM homer perf SPECT r/s* [id number] Torie Belle Age: 63 Gender: F : 1960 Exam Date: 09/05/2023 09:46 Ordering Phys: Eliel Marcelino MD ([email or web address]) Technologist: KENYA Almanza Exam Location: [facility] Indications: ATHEROSCLEROTIC HEART DISEASE STRESS TEST Please see separate stress test report in [facility] for full findings IMAGE PROTOCOL Rest/Stress 1 Lexiscan Day Radiopharmaceutical Dose (mCi) Administration Site Administered by Rest: Tc-99m 10.6 IV KENYA Robledo Sestamibi Stress:Tc-99m 32.7 IV KENYA Robledo Sestamibi Rest: 09/05/2023 60 Discovery 630 Stress: 09/05/2023 30 Discovery 630 0.4mg Lexiscan. Images obtained in supine and prone position. SPECT RESULTS Technical Quality: Excellent Raw Data Analysis: Normal Image Corrections: No attenuation or motion correction applied Summed Stress Score: 15 Summed Rest Score: 7 Summed Difference Score: 8 PERFUSION FINDINGS There is a partially reversible perfusion defect seen in apical, apical anterior and anterior fajardo. This is consistent with large sized prior infarct with significant monique-infarct ischemia in LAD territory. There is a large sized area of reversible perfusion defect noted in lateral and anterolateral fajardo. This is consistent with large sized area of ischemia in left circumflex artery territory. FUNCTIONAL RESULTS (calculated via Gated SPECT) Stress Image LV EF (%): 34 Stress EDV (mL):167 TID: 1.1 Stress ESV (mL):110 FUNCTIONAL FINDINGS: LV systolic function is moderate to severely reduced with EF of 34%. Moderate to severe global hypokinesis. IMPRESSIONS 1. Abnormal myocardial perfusion imaging with large sized prior infarct in LAD territory with significant monique-infarct ischemia. 2. Moderate sized area of ischemia seen in left circumflex artery territory. 3. LV systolic function is moderate to severely reduced with EF of 34%. Shaun Hickey MD (Electronically Signed) Final Date: 09 September 2023 13:33 S
[2023-09-05 10:58] VITALS: BP 157/68; PULSE 72
[2023-09-05] MEDS: regadenoson 0.4 Mg/5 ml Syringe IVP (10:59)
== END 2023-09-05 08:45 | disposition home or self-care (01) ==
PROVIDERS: PCP Family Medicine; Visit Provider Internal Medicine Cardiovascular Disease
DX: R07.9 Chest pain, unspecified (principal)
CPT/HCPCS: 36415; 78452; 93017; 96374; A9500; J2785

== ENCOUNTER 2023-09-19 12:34 | Outpatient (CLI) | payer MEDICARE, MEDICAID, SELFPAY ==
--- NOTE | 2023-09-19 12:41 | XRR_ITS ---
PROCEDURE INFORMATION: Exam: XR Lumbosacral Spine Exam date and time: 09/19/2023 1:00 PM Age: 63 years old Clinical indication: Low back pain; Additional info: Spondylolisthesis TECHNIQUE: Imaging protocol: Radiologic exam of the lumbosacral spine. Views: 2 or 3 views. COMPARISON: CR XR lumbar spine 2-3V* [id number] 05/18/2021 10:27 AM FINDINGS: Bones/joints: There is mild anterolisthesis of L4 over L5 due to severe bilateral facet joint arthropathy. No compression deformity of vertebral bodies. There is narrowing of the L4-L5 and L5-S1 disc spaces with endplate osteophytes. No dynamic instability. Soft tissues: Unremarkable. Vasculature: There is a right common iliac stent. There are aortic calcifications. XR/XR lumbar spine f/e only [id number] IMPRESSION: Multilevel [id number]-[id number]-[id number] degenerative of the lumbar spine, most prominent at L4-L5.
== END 2023-09-19 12:35 | disposition home or self-care (01) ==
LOC: RAD 12:36
PROVIDERS: PCP Family Medicine; Visit Provider Nurse Practitioner
DX: M43.16 Spondylolisthesis, lumbar region (principal); M47.817 Spondylosis without myelopathy or radiculopathy, lumbosacral region; M48.07 Spinal stenosis, lumbosacral region
CPT/HCPCS: 72120

== ENCOUNTER → 2023-09-20 11:35 | Outpatient (BNVA) | payer MEDICARE, MEDICAID, SELFPAY | PROVIDERS: PCP Family Medicine; Visit Provider Internal Medicine | DX: I25.10 Atherosclerotic heart disease of native coronary artery without angina pectoris (principal); I77.9 Disorder of arteries and arterioles, unspecified; I10 Essential (primary) hypertension; F17.210 Nicotine dependence, cigarettes, uncomplicated | CPT/HCPCS: 99214 ==

== ENCOUNTER → 2023-09-22 11:01 | Outpatient (BNVA) | payer MEDICARE, MEDICAID, SELFPAY | PROVIDERS: PCP Family Medicine; Visit Provider Family Medicine | DX: E13.9 Other specified diabetes mellitus without complications (principal); E78.5 Hyperlipidemia, unspecified | CPT/HCPCS: 80053; 80061; 83036; 84439; 84443; 85025 ==

== ENCOUNTER 2023-09-27 13:32 | Outpatient (CLI) | payer MEDICARE, MEDICAID, SELFPAY ==
--- NOTE | 2023-09-27 13:42 | MR_ITS ---
WS: [id number] MRI LUMBAR SPINE NONCONTRAST HISTORY: VERTEBROGENIC LOW BACK PAIN , Low back pain radiating to LEFT hip. COMPARISON: None available. TECHNIQUE: Sagittal and axial multisequence imaging is submitted. Mild cervical stenosis at C5-6 due to osteophyte and facet disease. T8-9 central disc protrusion cont acting the ventral thoracic cord but no stenosis. Mild increase in lumbar lordosis. L4 anterolisthesis by 2.7 mm. Disc spaces and vertebral body heights are well-preserved. Conus terminates normally at L1. L1-L2: Normal. L2-L3: Mild bilateral facet joint arthritis. No stenosis. L3-L4: Mild annular disc bulging with moderate ligamentum flavum and facet arthritis. No stenosis. L4-L5: Mild annular disc bulging. Moderate bilateral facet joint arthritis. No focal disc protrusions . L5-S1: Very mild disc bulging. No significant stenosis. There is a very shallow RIGHT foraminal disc protrusion without stenosis. Paravertebral soft tissues are normal. IMPRESSION: 1. Grade 1 anterolisthesis of L4 by 2.7 mm. 2. No significant central or foraminal stenosis. 3. Facet joint arthropathy most significant at L3-4 and L4-5.
== END 2023-09-27 13:33 | disposition home or self-care (01) ==
LOC: RAD 13:32
PROVIDERS: PCP Family Medicine; Visit Provider Nurse Practitioner
DX: M47.816 Spondylosis without myelopathy or radiculopathy, lumbar region (principal)
CPT/HCPCS: 72148

== ENCOUNTER 2023-12-19 08:37 | Outpatient (CLI) | payer MEDICARE, MEDICAID, SELFPAY ==
--- NOTE | 2023-12-19 09:00 | USCV_ITS ---
Torie Belle Age: 63 Gender: F : 1960 Exam Date: 12/19/2023 08:57 Ordering Phys: Carlito Donato MD (Andy) [email or web address] [place] Technologist: KONRAD Exam Location: [facility] – [place] Indication: RECHECK ON LCEA AND STENOSIS Risk Factors: Unknown Previous Vascular Surgery: L CEA Right Brachial BP: / Left Brachial BP: / Right Left Velocity (cm/s) Spectral Plaque Velocity (cm/s) Spectral Plaque Syst/Diast Broadening Syst/Diast Broadening 62.90/ 17.20 Prox CCA 95.40 / 19.30 110.90/21.60 Mid CCA 92.50 / 16.40 100.00/17.20 Distal CCA 83.70 / 13.50 109.10/27.10 Prox ICA 92.40 / 16.40 115.40/27.10 Mid ICA 188.30/ 28.50 140.60/30.30 Distal ICA 175.10/ 34.30 173.00 ECA 130.60 1.30 ICA/CCA 2.30 Antegrade Vertebral Antegrade 89.90/ 17.00 cm/s 109.2/ 12.30 cm/s 0 Bi Subclavian Tri 130.0 49.50 0 CONCLUSIONS Right ICA stenosis <50%. Moderate atheromatous plaque right carotid bulb/ICA. Left ICA stenosis <50%. Left CEA. Mild stenosis mid ICA unchanged since 2022 Intimal thickening in the common carotid arteries and internal carotid arteries bilaterally. Normal antegrade Doppler flow noted in the right vertebral artery. Normal antegrade Doppler flow noted in the left vertebral artery. Americo Hopkins MD (Electronically Signed) Final Date: 19 Dec 2023 13:15 S
== END 2023-12-19 08:38 | disposition home or self-care (01) ==
LOC: RAD 08:37
PROVIDERS: PCP Family Medicine; Visit Provider Thoracic Surgery (Cardiothoracic Vascular Surgery)
DX: I65.23 Occlusion and stenosis of bilateral carotid arteries (principal)
CPT/HCPCS: 93880

== ENCOUNTER 2023-12-19 20:00 | Outpatient (CLI) | payer MEDICARE, MEDICAID, SELFPAY | END 2023-12-19 20:01 | disposition home or self-care (01) | LOC: SLEEP 12-20 18:54 | PROVIDERS: PCP Family Medicine; Visit Provider Anesthesiology Pain Medicine | DX: G47.33 Obstructive sleep apnea (adult) (pediatric) (principal) | CPT/HCPCS: 95810 ==

== ENCOUNTER → 2023-12-21 12:48 | Outpatient (BNVA) | payer MEDICARE, MEDICAID, SELFPAY | PROVIDERS: PCP Family Medicine; Visit Provider Internal Medicine | DX: I25.10 Atherosclerotic heart disease of native coronary artery without angina pectoris (principal); I77.9 Disorder of arteries and arterioles, unspecified; I10 Essential (primary) hypertension; F17.210 Nicotine dependence, cigarettes, uncomplicated | CPT/HCPCS: 99214 ==

== ENCOUNTER → 2024-01-15 12:28 | Outpatient (BNVA) | payer MEDICARE, MEDICAID, SELFPAY | PROVIDERS: PCP Family Medicine; Visit Provider Thoracic Surgery (Cardiothoracic Vascular Surgery) | DX: I65.23 Occlusion and stenosis of bilateral carotid arteries (principal); F17.210 Nicotine dependence, cigarettes, uncomplicated; I10 Essential (primary) hypertension | CPT/HCPCS: 99213 ==

== ENCOUNTER 2024-03-18 20:00 | Outpatient (CLI) | payer MEDICARE, MEDICAID, SELFPAY | END 2024-03-18 20:01 | disposition home or self-care (01) | LOC: SLEEP 03-19 00:53 | PROVIDERS: PCP Family Medicine; Visit Provider Anesthesiology Pain Medicine | DX: G47.33 Obstructive sleep apnea (adult) (pediatric) (principal) | CPT/HCPCS: 95811 ==

== ENCOUNTER → 2024-03-22 10:12 | Outpatient (BNVA) | payer MEDICARE, MEDICAID, SELFPAY | PROVIDERS: PCP Family Medicine; Visit Provider Family Medicine | DX: E13.9 Other specified diabetes mellitus without complications (principal) | CPT/HCPCS: 80053; 80061; 83036; 85025 ==

== ENCOUNTER → 2024-06-12 09:34 | Outpatient (BNVA) | payer MEDICARE, MEDICAID, SELFPAY | PROVIDERS: PCP Family Medicine; Visit Provider Family Medicine | DX: E87.5 Hyperkalemia (principal) | CPT/HCPCS: 80048 ==

== ENCOUNTER 2024-06-13 11:56 | Outpatient (CLI) | payer MEDICARE, MEDICAID, SELFPAY ==
--- NOTE | 2024-06-13 12:15 | USCV_ITS ---
BarbraTorie Age: 64 Gender: F : 1960 Exam Date: 06/13/2024 12:07 Ordering Phys: Carlito Donato MD (Andy) ([email or web address] [place] Technologist: Exam Location: [facility] [place] Indication: Risk Factors: Previous Vascular Surgery: Right Brachial BP: / Left Brachial BP: / Right Left Velocity (cm/s) Spectral Plaque Velocity (cm/s) Spectral Plaque Syst/Diast Broadening Syst/Diast Broadening 105.70/16.20 Prox CCA 82.20 / 17.80 100.20/14.40 Mid CCA 126.00/ 22.90 109.30/16.20 Distal CCA 125.20/ 20.20 120.80/12.60 Prox ICA 76.30 / 9.60 105.40/15.20 Mid ICA 199.60/ 27.10 113.10/15.20 Distal ICA 196.10/ 22.70 211.00 ECA 182.60 1.10 ICA/CCA 1.60 Antegrade Vertebral Antegrade 95.10/ 10.00 cm/s 96.00/ cm/s Bi Subclavian Bi 226.5 283.9 0 0 FINDINGS copy messenger 12/19/23 CONCLUSIONS Right ICA stenosis <50%. Mild atheromatous plaque right carotid bulb/ICA. Left ICA stenosis 50-69% in the mid ICA unchanged. Prior Left CEA. Moderate atheromatous plaque left carotid Normal antegrade Doppler flow noted in the right vertebral artery. Normal antegrade Doppler flow noted in the left vertebral artery. . Americo Hopkins MD (Electronically Signed) Final Date: 14 June 2024 10:21 S
== END 2024-06-13 11:57 | disposition home or self-care (01) ==
LOC: RAD 11:57
PROVIDERS: PCP Family Medicine; Visit Provider Thoracic Surgery (Cardiothoracic Vascular Surgery)
DX: I65.22 Occlusion and stenosis of left carotid artery (principal)
CPT/HCPCS: 93880

== ENCOUNTER 2024-12-13 06:52 | Outpatient (CLI) | payer MEDICARE, MEDICAID, SELFPAY ==
--- NOTE | 2024-12-13 06:55 | USCV_ITS ---
Barbra Torie Age: 64 Gender: F : 1960 Exam Date: 12/13/2024 07:06 Ordering Phys: Shaun Hickey M.D ([email or web address]) Technologist: COLLETTE [place]am [place] [facility] [place]ication: bilat stenosis lt sided endarterectomy Risk Factors: Previous Vascular Surgery: Right Brachial BP: / Left Brachial BP: / Right Left Velocity (cm/s) Spectral Plaque Velocity (cm/s) Spectral Plaque Syst/Diast Broadening Syst/Diast Broadening 104.80/15.40 Prox CCA 77.40 / 10.80 88.70/ 10.50 Mid CCA 96.10 / 15.00 85.90/ 11.60 Distal CCA 97.50 / 12.50 106.60/16.20 Prox ICA 145.80/ 24.60 121.10/16.10 Mid ICA 142.20/ 26.40 106.40/13.80 Distal ICA 88.70 / 20.00 230.90 ECA 88.30 1.20 ICA/CCA 1.50 Antegrade Vertebral Antegrade 99.70/ 12.90 cm/s 67.90/ 11.30 cm/s Bi Subclavian Bi 158.4 183.7 0 0 CONCLUSIONS Right ICA stenosis <50%. Moderate atheromatous plaque right carotid bulb/ICA. Left ICA stenosis 50-69%. Prior LEFT CEA. Mild atheromatous plaque left carotid bulb/ICA. Normal antegrade Doppler flow noted in the right vertebral artery. Normal antegrade Doppler flow noted in the left vertebral artery. Americo Hokpins MD (Electronically Signed) Final Date: 13 Dec 2024 09:37 S
== END 2024-12-13 06:53 | disposition home or self-care (01) ==
PROVIDERS: PCP Family Medicine; Visit Provider Internal Medicine
DX: I65.23 Occlusion and stenosis of bilateral carotid arteries (principal)
CPT/HCPCS: 93880

== ENCOUNTER 2024-12-29 19:03 | Inpatient (IN) | payer OTHER, MEDICAID, SELFPAY ==
[2024-12-29] VITALS (7 sets, daily range): BP systolic 161–198; BP diastolic 50–113; PULSE 59–68; RESP 15–18; TEMP 36.3–36.6; O2SAT 96–100; BMI 20.2
--- NOTE | 2024-12-29 19:25 | ECG_ITS ---
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1960 Requested By: Yuval Newman Order Number: [id number] Dayanara MD: SONA DE LA ROSA Measurements Intervals [place] Rate: 61 P: 95 RI: 177 QRS: 90 QRSD: 125 T: 90 QT: 457 QTc: 462 Interpretive Statements SINUS RHYTHM POSSIBLE RIGHT ATRIAL ENLARGEMENT [0.25mV P-WAVE] POSSIBLE RIGHT VENTRICULAR CONDUCTION DELAY [RSR (QR) IN V1/V2] NONSPECIFIC ST & T-WAVE ABNORMALITY Compared to ECG 11/04/2020 10:58:42 T-wave abnormality now present Incomplete right bundle-branch block no longer present ST (T wave) deviation no longer present Electronically Signed On 12-30-2024 19:04:03 CDT by SONA DE LA ROSA [email or web address]
[2024-12-29 19:38] LABS: Glucose Point of Care 287 mg/dL (70-110)
[2024-12-29 19:59] LABS: Basophils # 0.1 10^3/uL (0.0-0.1); Basophils % 0.5 %; Eosinophils # 0.3 10^3/uL (0.0-0.8); Eosinophils % 2.4 %; Hematocrit 34.8 % (36-47); Lymphocytes # 3.1 10^3/uL (0.8-4.8); Mean Corpuscular HGB Conc 31.9 g/dL (30-55); Mean Corpuscular Hemoglobin 31.1 pg (27-33); Mean Corpuscular Volume 97.5 fl (85-98); Mean Platelet Volume 11.6 fL (7.4-10.4); Monocytes # 0.9 10^3/uL (0.2-0.9); Neutrophils # 6.46 10^3/uL (1.8-7.7); Neutrophils % 59.7 %; Nucleated Red Blood Cells % 0 %; Platelet Count 405 10^3/cmm (157-399); Red Blood Count 3.57 10^6/uL (3.85-5.65); Red Cell Distribution Width 13.4 % (12.1-15.1); White Blood Count 10.81 10^3/uL (3.29-11.43)
[2024-12-29 20:20] LABS: Alanine Aminotransferase 128 U/L (0-33); Albumin Level 3.7 g/dL (3.5-5.2); Alkaline Phosphatase 344 U/L (35-105); Anion Gap 20.2 (5-19); Aspartate Amino Transferase 261 U/L (0-32); Blood Urea Nitrogen 57 mg/dL (8-23); Calcium 9.7 mg/dL (8.5-10.5); Carbon Dioxide 20 mmol/L (22-29); Chloride 101 mmol/L (98-107); Creatinine Clr Calc Pharmacy 17.0931; Globulin 4.7 g/dL (1.3-4.6); Glomerular Filtration Rate 17.7 mL/min (90-130); Glucose 253 mg/dL (65-115); Lipase 143 U/L (13-60); Magnesium 2.3 mg/dL (1.7-2.3); Osmolality Calculated 310 mOsm/kg (285-295); Potassium 3.2 mmol/L (3.5-5.1); Sodium 138 mmol/L (136-145); Total Bilirubin 2.1 mg/dL (0.15-1.2); Total Protein 8.4 g/dL (6.6-8.7)
[2024-12-29 20:21] LABS: Bilirubin Urine Negative (Negative); Blood Urine 3+ (Negative); Glucose Urine UA Negative (Normal); Ketones Urine Negative (Negative); Leukocyte Esterase Urine 1+ (Negative); Nitrate Urine Negative (Negative); Protein Urine 3+ (Negative); Specific Gravity, Urine 1.015 (1.005-1.030); Urine Appearance Turbid (CLEAR); Urine Color Dark Yellow (Yellow); pH Urine 5.5 (5-7)
[2024-12-29 20:22] LABS: Lactic Sepsis W/Reflex 1.6 mmol/L (0.5-2.2)
[2024-12-29 20:26] LABS: Add Urine Microscopic? YES; Bacteria Urine EXCEEDS /hpf; Hyaline Casts Urine 5.36 /lpf; RBC Urine 51-100 /hpf (0-2)
--- NOTE | 2024-12-29 20:34 | CTR_ITS ---
PROCEDURE INFORMATION: Exam: CT Chest Without Contrast; Diagnostic Exam date and time: 12/29/2024 8:53 PM Age: 64 years old Clinical indication: Abnormal findings; Abnormal lab test; Abnormal kidney function lab tests and elevated lipase and elevated liver enzymes; Other: N/a; Prior surgery; Surgery date: 6+ months; Surgery type: Cabg; General weakness with anemia and elevated lfts and lipase. Acute renal failure. ; Additional info: Weakness, anemia, acute renal failure, elevated lfts TECHNIQUE: Imaging protocol: Diagnostic computed tomography of the chest without contrast. Radiation optimization: All CT scans at this facility use at least one of these dose optimization techniques: automated exposure control; mA and/or kV adjustment per patient size (includes targeted exams where dose is matched to clinical indication); or iterative reconstruction. COMPARISON: CR XR chest 2V* [id number] 05/26/2022 9:26 AM RADIATION DOSE METRICS: Total DLP (mGy-cm): 436.46 FINDINGS: Lungs: Unremarkable. No consolidation. No masses. Pleural spaces: Unremarkable. No pneumothorax. No pleural effusion. Heart: Unremarkable. No cardiomegaly. No pericardial effusion. Coronary arteries: Postsurgical changes of prior CABG. Lymph nodes: Unremarkable. No enlarged lymph nodes. Vasculature: Scattered atherosclerosis within the aortic arch. Bones/joints: Unremarkable. No acute fracture. Soft tissues: Unremarkable. PROCEDURE INFORMATION: Exam: CT Abdomen And Pelvis Without Contrast Exam date and time: 12/29/2024 8:53 PM Age: 64 years old Clinical indication: Abnormal findings; Abnormal lab test; Abnormal kidney function lab tests and elevated lipase and elevated liver enzymes; Other: N/a; Prior surgery; Surgery date: 6+ months; Surgery type: Cabg; General weakness with anemia and elevated lfts and lipase. Acute renal failure. ; Additional info: Weakness, anemia, acute renal failure, elevated lfts TECHNIQUE: Imaging protocol: Computed tomography of the abdomen and pelvis without contrast. Radiation optimization: All CT scans at this facility use at least one of these dose optimization techniques: automated exposure control; mA and/or kV adjustment per patient size (includes targeted exams where dose is matched to clinical indication); or iterative reconstruction. COMPARISON: MR pelvis wo/w con [id number] 05/08/2023 6:46 AM RADIATION DOSE METRICS: Total DLP (mGy-cm): 436.46 FINDINGS: Lungs: Unremarkable. Liver: Calcified granulomas within liver. Gallbladder and biliary ducts: Distended gallbladder without gallstones. Pancreas: Normal. No ductal dilation. Spleen: Punctate calcified granulomas within the spleen. Adrenal glands: Normal. No mass. Kidneys and ureters: No hydronephrosis or obstructing calculi bilaterally. Stomach and bowel: Large colonic stool burden. Few scattered colonic diverticula. No small bowel obstruction. Appendix: No evidence of appendicitis. Intraperitoneal space: Unremarkable. No free air. No significant fluid collection. Vasculature: Severe atherosclerosis. Lymph nodes: Unremarkable. No enlarged lymph nodes. Urinary bladder: Urinary bladder is underdistended and demonstrates mural thickening. Reproductive: Unremarkable as visualized. Bones/joints: No acute displaced fracture. Moderate narrowing of right acetabular femoral joint. Mild compression deformity of superior endplate of L3 vertebral body with approximately 10% loss of vertebral body height. No retropulsion. Soft tissues: Unremarkable. CT/[place] [id number] IMPRESSION: No acute intrathoracic findings. IMPRESSION: 1. No acute abdominopelvic findings. 2. Distended gallbladder without gallstones. No intra or extrahepatic biliary ductal dilatation. 3. Sequela of prior healed granulomatous disease. 4. Large colonic stool burden which may be seen with constipation. 5. Mural bladder wall thickening, most likely due to underdistention. Correlate with urinalysis to exclude cystitis. 6. Few scattered colonic diverticula without CT evidence of acute diverticulitis.
[2024-12-29 20:36] LABS: Coarse Granular Casts Urine 0-4 /lpf; UA Slide Review UA Slide Review Perf
[2024-12-29 20:51] LABS: Glucose Point of Care 245 mg/dL (70-110)
[2024-12-29] MEDS: sodium chloride 0.9% 1,000 ML 999 ML IV (22:07)
[2024-12-29] MEDS: potassium chloride ER 20 mEq Tablet 40 MEQ PO (22:07)
[2024-12-29] MEDS: cefTRIAXone 1,000 mg SDV 1000 MG IVP (22:07)
--- NOTE | 2024-12-29 22:22 | CTR_ITS ---
PROCEDURE INFORMATION: Exam: CT Thoracic Spine Without Contrast Exam date and time: 12/29/2024 8:53 PM Age: 64 years old Clinical indication: Pain in thoracic spine; C/O back pain. No injury. TECHNIQUE: Imaging protocol: Computed tomography of the thoracic spine without contrast. Radiation optimization: All CT scans at this facility use at least one of these dose optimization techniques: automated exposure control; mA and/or kV adjustment per patient size (includes targeted exams where dose is matched to clinical indication); or iterative reconstruction. COMPARISON: MR lumbar spine wo con* [id number] 09/27/2023 2:30 PM RADIATION DOSE METRICS: Total DLP (mGy-cm): 436.46 FINDINGS: Bones/joints: Diffuse osseous demineralization. No acute compression deformity or traumatic subluxation within thoracic spine. Vertebral body heights are relatively well-maintained. Mild multilevel narrowing of intervertebral disc spaces. Extensive anterior osteophyte formation. Soft tissues: Unremarkable. CT/CT thoracic spine recon [id number] IMPRESSION: 1. No acute compression deformity or traumatic subluxation. 2. Moderate multilevel degenerative change.
--- NOTE | 2024-12-29 22:22 | CTR_ITS ---
PROCEDURE INFORMATION: Exam: CT Lumbar Spine Without Contrast Exam date and time: 12/29/2024 8:53 PM Age: 64 years old Clinical indication: Low back pain; C/O back pain. No injury. TECHNIQUE: Imaging protocol: Computed tomography of the lumbar spine without contrast. Radiation optimization: All CT scans at this facility use at least one of these dose optimization techniques: automated exposure control; mA and/or kV adjustment per patient size (includes targeted exams where dose is matched to clinical indication); or iterative reconstruction. COMPARISON: MR lumbar spine wo con* [id number] 09/27/2023 2:30 PM RADIATION DOSE METRICS: Total DLP (mGy-cm): 436.46 FINDINGS: Bones/joints: Compression deformity of superior endplate of L3 vertebral body (, 04/02). A proximally 40% loss of vertebral body height within midportion. No retropulsion. Remaining vertebral bodies are relatively well-maintained. Intervertebral disc spaces are relatively well-maintained. Moderate multilevel bilateral facet joint arthritis. Soft tissues: Unremarkable. CT/CT lumbar spine recon [id number] IMPRESSION: Acute compression deformity of superior endplate of L3 vertebral body with approximately 40% loss of vertebral body height within mid portion. No retropulsion.
--- NOTE | 2024-12-29 22:29 | W.ED.GENADLT ---
HPI - General Adult General: Chief complaint: General Medical Stated complaint: Weakness Time Seen by Provider: 12/29/24 20:07 History of Present Illness: Patient is a 64-year-old female presenting with progressive generalized weakness that began on Monday and has significantly worsened today. She reports difficulty lifting both legs and arms, with particular emphasis on bilateral lower extremity weakness. She is unable to elevate her legs off the stretcher. Patient also reports loss of appetite and some congestion, noting difficulty coughing effectively. She denies shortness of breath, chest pain, or abdominal pain. Of note, patient reports recent episodes of black stools occurring twice in the past few days. She denies use of Pepto-Bismol or other medications that might cause black stools. No history of GI bleeding. Patient denies being around sick contacts. No vomiting reported. Related Data Home Medications ?Medication ?Instructions ?Recorded ?Confirmed aspirin 81 mg tablet,delayed 81 mg PO QDAY 08/26/19 06/12/24 release (Adult Low Dose Aspirin) diphenhydramine HCl 25 mg capsule 25 mg PO BID PRN Allergy Symptoms 08/26/19 06/12/24 (Benadryl) Previous Rx's ?Medication ?Instructions ?Recorded Diabetic Shoes #1 ea 07/18/22 Heated and molding inserts #1 ea 07/18/22 alcohol swabs (Alcohol Pads) See Rx Instructions .Route 02/16/23 .COMPLEX #100 pad blood glucose control, normal #1 ea 02/16/23 (OneTouch Ultra Control solution) blood-glucose meter (OneTouch #1 ea 02/16/23 Ultra2 Meter) hydrocodone 7.5 mg-acetaminophen 1 tab PO Q12H PRN pain 30 days #46 05/26/23 325 mg tablet tabs Toe alignment splint #1 ea 07/24/23 cyclobenzaprine 10 mg tablet See Rx Instructions .Route 07/24/23 .COMPLEX #60 tabs nitroglycerin 0.4 mg sublingual 0.4 mg sublingual Q5M PRN chest 08/23/23 tablet pain #25 tabs CPAP 5-10cm setting #1 ea 03/22/24 CPAP mask, tubing, supplies #1 ea 03/22/24 hydrochlorothiazide 25 mg tablet See Rx Instructions .Route 04/22/24 .COMPLEX #90 tabs metformin 1,000 mg tablet See Rx Instructions .Route 05/27/24 .COMPLEX #60 tabs diabetic shoes with 3 inserts #1 ea 06/03/24 blood sugar diagnostic (OneTouch #50 ea 06/12/24 Ultra Test strips) lancets 28 gauge (Easy Touch #100 ea 06/12/24 Safety Lancets) trazodone 50 mg tablet See Rx Instructions .Route 06/24/24 .COMPLEX #90 tabs metoprolol succinate 50 mg See Rx Instructions .Route 07/19/24 tablet,extended release 24 hr .COMPLEX #180 tabs alprazolam 0.5 mg tablet 0.5 mg PO BID PRN sleep #45 tabs 09/06/24 potassium chloride 10 mEq See Rx Instructions .Route 10/14/24 capsule,extended release .COMPLEX #90 caps amlodipine 5 mg tablet See Rx Instructions .Route 11/18/24 .COMPLEX #90 tabs albuterol sulfate 90 mcg/actuation See Rx Instructions .Route 11/21/24 aerosol inhaler .COMPLEX #8.5 grams bupropion HCl 300 mg 24 hr tablet, 300 mg PO QAM #30 tabs 12/16/24 extended release (Wellbutrin XL) furosemide 20 mg tablet 20 mg PO QAM #30 tabs 12/19/24 glipizide 5 mg tablet 2.5 mg (1/2 x 5 mg) PO BID #60 tabs 12/19/24 rosuvastatin 10 mg tablet See Rx Instructions .Route 12/19/24 .COMPLEX #30 tabs sulindac 200 mg tablet See Rx Instructions .Route 12/19/24 .COMPLEX #60 tabs Allergies Allergy/AdvReac Type Severity Reaction Status Date / Time niacin (From Niaspan Allergy Intermediate ADR-Itching Verified 05/03/24 10:26 Extended-Release) prednisone AdvReac Intermediate ADR-Gastrointestinal Verified 05/03/24 10:26 Upset [facility] ED [facility]: Medical History (Updated 12/29/24 @ 22:34 by Yuval Newman MD) AWILDA (obstructive sleep apnea) Lower extremity edema Chronic pain Chest pain Moderate major depression Lumbar disc disease Coracoid impingement of right shoulder Traumatic injury of foot Tobacco abuse ASHD (arteriosclerotic heart disease) Carotid stenosis, bilateral Dyslipidemia Essential hypertension Anxiety Depression Diabetes 1.5, managed as type 2 Renal insufficiency Lumbar disc disease Surgical History S/P CABG (coronary artery bypass graft) S/P carotid endarterectomy Carotid endarterectomy on the left Family History Sister Cancer stomach Mother No problems noted. Sister No problems noted. Other CAD (coronary artery disease) Dementia Depression Diabetes Heart disease Hyperlipidemia Hypertension Hypothyroidism Stroke TIA (transient ischemic attack) Denies family history of Immunodeficiency disorder Autoimmune disease Clotting disorder Chronic kidney disease (CKD) Lung disease Social History Smoking and tobacco/nicotine status: current every day tobacco/nicotine user cigarettes Packs smoked per day: 0.5 Alcohol intake: never Substance/Drug Use: never Household members: spouse Marital status: Number of children: 0 Current occupational status: retired and disabled Previous occupational history: [employer] Current gender identity: Female Lynette/Voodoo: Rastafarian Special lynette needs: No Agree to transfusion: Yes Course Vital Signs: Vital signs: Vital Signs Temperature 97.9 F 12/29/24 19:21 Pulse Rate 59 L 12/29/24 20:15 Respiratory Rate 16 12/29/24 20:15 Blood Pressure 195/82 12/29/24 22:11 Pulse Oximetry 97 12/29/24 22:11 Oxygen Delivery Me thod Room Air 12/29/24 19:21 MDM - General Adult Medical Decision Making ROS: Constitutional: Reports weakness and decreased appetite Respiratory: Reports congestion with ineffective cough, denies shortness of breath Cardiovascular: Denies chest pain Gastrointestinal: Reports black stools, denies abdominal pain Musculoskeletal: Reports bilateral upper and lower extremity weakness All other systems reviewed and negative MEDICATIONS AND ALLERGIES: Current Medications: - Metformin - Glipizide - Potassium - Hydrochlorothiazide - Citalopram - Metoprolol - Aspirin 81mg - Rosuvastatin - Alprazolam - Cyclobenzaprine - Hydrocodone - Amlodipine Allergies: None reported PAST HISTORICAL DATA: Past Medical History: - Hypertension - Diabetes Past Surgical History: - CABG (2008) - Carotid artery surgery Social History: - Current smoker (1 pack per day) - Denies alcohol use VITAL SIGNS: Initial Vitals: BP: 198/113 HR: 59 RR: 16 Temp: 97.9?F O2 Sat: 100% on room air Repeat Vital: BP: 174/55 PHYSICAL EXAM: General: Patient appears frail but in no acute distress HEENT: Pale conjunctiva, dry mucous membranes Neck: Supple Respiratory: Lungs clear, no increased work of breathing Cardiovascular: Regular rate and rhythm Chest: Well-healed sternotomy scar noted Abdomen: Soft, nontender Extremities: No clubbing, cyanosis, or edema Neurological: - Profound bilateral lower extremity weakness with inability to elevate legs off stretcher - Absent or significantly diminished patellar reflexes bilaterally - Equal hospital pharmacist strength in bilateral upper extremities - No pronator drift INITIAL IMPRESSION AND PLAN: Given the history and presentation, 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 Additional considerations include GI bleeding, metabolic derangement, and spinal cord pathology. Plan: 1. IV access and fluid resuscitation 2. Complete blood count, comprehensive metabolic panel 3. CT chest, abdomen, and pelvis 4. Urinalysis 5. MRI head and cervical spine 6. Neurology consultation 7. Hospitalist consultation 8. Negative inspiratory flow monitoring TEST INTERPRETATIONS: Labs: - WBC: 10.8 - Hgb: 11.1 (previous 11.3 in Mar 2024) - Hct: 34 - Platelets: 405 - Sodium: 138 - Potassium: 3.2 - Bicarbonate: 20 - BUN: 57 (previous 21) - Creatinine: 2.7 (previous 1.2) - Bilirubin: 2.1 - AST: 261 - ALT: 128 - Alk Phos: 344 - Lipase: 143 Urinalysis: - RBC: 51-100 - WBC: 11-20 - Squamous epithelial cells: 11-20 - Blood: 3+ - Protein: 3+ Imaging: CT Chest: No acute findings CT Abdomen/Pelvis: - Distended gallbladder without stones - Large colonic stool burden - Bladder wall thickening - Scattered colonic diverticula without diverticulitis PROCEDURES: Peripheral IV access established Digital rectal exam performed CONSIDERED BUT NOT PERFORMED: IVIG treatment considered but deferred due to multiple concurrent medical issues and pending further neurological workup FINAL IMPRESSION: Based on all the above, my clinical impression is most compatible with: 1. 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 Urinary Tract Infection 3. Acute Kidney Injury 4. Elevated Liver Function Tests 5. Hypokalemia CLINICAL DISPOSITION: The patient's current condition is serious but stable in my estimation and the most appropriate and indicated disposition at this time is admission to the hospital under hospitalist service. Admission is warranted due to: 1. Progressive neurological symptoms concerning for Guillain-Arora? Syndrome requiring close monitoring 2. Acute kidney injury requiring IV fluid resuscitation and monitoring 3. Active urinary tract infection requiring IV antibiotics 4. Abnormal liver function tests requiring further evaluation 5. Need for specialized neurological evaluation and potential IVIG treatment RISK STRATIFICATION AND CLINICAL DECISION RULES APPLIED: No specific clinical decision rules were applicable to this presentation given the clear indication for admission based on multiple acute medical issues and neurological symptoms. CASE SUMMARY: 64-year-old female with multiple comorbidities presented with progressive generalized weakness over several days, particularly affecting bilateral lower extremities. Initial workup revealed acute kidney injury, urinary tract infection, and elevated liver function tests. Physical examination demonstrated significant bilateral lower extremity weakness with diminished reflexes, raising concern for Guillain-Arora? Syndrome. Patient received IV fluids, antibiotics, and potassium replacement. Neurology was consulted, and MRI studies were ordered. Patient admitted to hospital under hospitalist service for further management and monitoring. Lab Data I reviewed the patient's lab results. 12/29/24 19:41 12/29/24 19:41 Radiology Impressions Chest/Abdomen/Pelvis CT 12/29/24 20:34 IMPRESSION: No acute intrathoracic findings. IMPRESSION: 1. No acute abdominopelvic findings. 2. Distended gallbladder without gallstones. No intra or extrahepatic biliary ductal dilatation. 3. Sequela of prior healed granulomatous disease. 4. Large colonic stool burden which may be seen with constipation. 5. Mural bladder wall thickening, most likely due to underdistention. Correlate with urinalysis to exclude cystitis. 6. Few scattered colonic diverticula without CT evidence of acute diverticulitis. Laboratory Results WBC 10.81 10^3/uL (3.29-11.43) 12/29/24 19: RBC 3.57 10^6/uL (3.85-5.65) L 12/29/24 19:41 Hgb 11.10 g/dL (11.27-16.99) L 12/29/24 19: Hct 34.8 % (36-47) L 12/29/24 19: MCV 97.5 fl (85-98) 12/29/24 19: MCH 31.1 pg (27-33) 12/29/24 19:41 MCHC 31.9 g/dL (30-55) 12/29/24 19:41 RDW 13.4 % (12.1-15.1) 12/29/24 19:41 Plt Count 405 10^3/cmm (157-399) H 12/29/24 19:41 MPV 11.6 fL (7.4-10.4) H 12/29/24 19:41 Neut % (Auto) 59.7 % 12/29/24 19:41 Lymph % (Auto) 29.0 % 12/29/24 19:41 Trigg % (Auto) 8.0 % 12/29/24 19:41 Eos % (Auto) 2.4 % 12/29/24 19:41 Baso % (Auto) 0.5 % 12/29/24 19:41 Neut # (Auto) 6.46 10^3/uL (1.8-7.7) 12/29/24 19:41 Lymph # (Auto) 3.1 10^3/uL (0.8-4.8) 12/29/24 19:41 Trigg # (Auto) 0.9 10^3/uL (0.2-0.9) 12/29/24 19:41 Eos # (Auto) 0.3 10^3/uL (0.0-0.8) 12/29/24 19:41 Baso # (Auto) 0.1 10^3/uL (0.0-0.1) 12/29/24 19:41 Nucleated RBC % (auto) 0 % 12/29/24 19:41 Nucleated RBCs # 0.0 /100WBC 12/29/24 19:41 Sodium 138 mmol/L (136-145) 12/29/24 19:41 Potassium 3.2 mmol/L (3.5-5.1) L 12/29/24 19:41 Chloride 101 mmol/L (98-107) 12/29/24 19:41 Carbon Dioxide 20 mmol/L (22-29) L 12/29/24 19:41 Anion Gap 20.2 (5-19) H 12/29/24 19:41 BUN 57 mg/dL (8-23) H 12/29/24 19:41 Creatinine 2.7 mg/dL (0.5-0.9) H 12/29/24 19:41 GFR Calculation 17.7 mL/min (90-130) L 12/29/24 19:41 Glucose 253 mg/dL (65-115) H 12/29/24 19:41 POC Glucose 245 mg/dL (70-110) H 12/29/24 20:35 Calculated Osmolality 310 mOsm/kg (285-295) H 12/29/24 19:41 Lactic Acid 1.6 mmol/L (0.5-2.2) 12/29/24 19:41 Calcium 9.7 mg/dL (8.5-10.5) 12/29/24 19:41 Magnesium 2.3 mg/dL (1.7-2.3) 12/29/24 19:41 Total Bilirubin 2.1 mg/dL (0.15-1.2) H 12/29/24 19:41 AST 261 U/L (0-32) H 12/29/24 19:41 ALT 128 U/L (0-33) H 12/29/24 19:41 Alkaline Phosphatase 344 U/L (35-105) H 12/29/24 19:41 Total Protein 8.4 g/dL (6.6-8.7) 12/29/24 19:41 Albumin 3.7 g/dL (3.5-5.2) 12/29/24 19:41 Globulin 4.7 g/dL (1.3-4.6) H 12/29/24 19:41 Lipase 143 U/L (13-60) H 12/29/24 19:41 Urine Color Dark yellow (Yellow) A 12/29/24 20:10 Urine Appearance Turbid (CLEAR) A 12/29/24 20:10 Urine pH 5.5 (5-7) 12/29/24 20:10 Ur Specific [place] 1.015 (1.005-1.030) 12/29/24 20:10 Urine Protein 3+ (Negative) A 12/29/24 20: Urine Glucose (UA) Negative (Normal) 12/29/24 20:10 Urine Ketones Negative (Negative) 12/29/24 20:10 Urine Blood 3+ (Negative) A 12/29/24 20:10 Urine Nitrate Negative (Negative) 12/29/24 20: Urine Bilirubin Negative (Negative) 12/29/24 20:10 Urine Urobilinogen 1.0 mg/dL (Negative) 12/29/24 20:10 Ur Leukocyte Esterase 1+ (Negative) A 12/29/24 20:10 Urine RBC 51-100 /hpf (0-2) H 12/29/24 20:10 Urine WBC 11-20 /hpf (0-5) H 12/29/24 20:10 Ur Squamous Epith Cells 11-20 /hpf (0-5) H 12/29/24 20:10 Amorphous Sediment Not Reportable 12/29/24 20:10 Urine Bacteria Exceeds /hpf (NONE) 12/29/24 20:10 Hyaline Casts 5.36 /lpf 12/29/24 20:10 Fine Granular Casts 5-10 /lpf H 12/29/24 20:10 Coarse Granular Casts 0-4 /lpf H 12/29/24 20:10 All radiology interpretation(s) finalized by discharge Discharge Plan Discharge Patient Disposition: Admitted As Inpatient Clinical Impression: Leg weakness, bilateral, Acute renal failure, Elevated liver function tests, Urinary tract infection, Acute hypokalemia Condition: Stable Coding Level of Care Code ED [place] for Vinicius Bailey
[2024-12-30] VITALS (10 sets, daily range): BP systolic 151–172; BP diastolic 50–55; PULSE 59–82; RESP 16–18; TEMP 36.4–36.8; O2SAT 92–99
--- NOTE | 2024-12-30 01:46 | P.HP_ITS ---
Providers/Chief Complaint 2 Admitting Physician: Dinora Raymond MD Primary Care Provider: Tera Maher MD Chief Complaint: Weakness History of Present Illness Torie Belle is a 64 year old female Medications/Allergies Home Medications ?Medication ?Instructions ?Recorded ?Confirmed ?Last Taken ?Type aspirin 81 mg tablet,delayed 81 mg PO QDAY 08/26/1912/29/24 History release (Adult Low Dose Aspirin) diphenhydramine HCl 25 mg capsule 25 mg PO BID PRN All ergy Symptoms 08/26/19 12/29/24 12/29/24 History (Benadryl) Diabetic Shoes #1 ea 07/18/22 12/29/24 Unkn own Rx Heated and molding inserts #1 ea 07/18/22 12/29/24 Un known Rx alcohol swabs (Alcohol Pads) See Rx Instructions .Rout e 02/16/23 12/29/24 Unknown Rx .COMPLEX #100 pad blood glucose control, normal #1 ea 02/16/23 12/29/24 Unknown Rx (OneTouch Ultra Control solution) blood-glucose meter (OneTouch #1 ea 02/16/23 12/29/24 Unknown Rx Ultra2 Meter) hydrocodone 7.5 mg-acetaminophen 1 tab PO Q12H PRN anabelle n 30 days #46 05/26/23 12/29/24 12/29/24 Rx 325 mg tablet tabs Toe alignment splint #1 ea 07/24/23 12/29/24 Unkn own Rx nitroglycerin 0.4 mg sublingual 0.4 mg sublingual Q5M PRN chest 08/23/23 12/29/24 Unknown Rx tablet pain #25 tabs hydrochlorothiazide 25 mg tablet See Rx Instructions . Route 04/22/24 12/29/24 12/29/24 Rx .COMPLEX #90 tabs metformin 1,000 mg tablet See Rx Instructions .Route 1 12/29/24 12/29/24 Rx .COMPLEX #60 tabs diabetic shoes with 3 inserts #1 ea 06/03/24 12/29/24 Unknown Rx blood sugar diagnostic (OneTouch #50 ea 06/12/2412/29 Unknown Rx Ultra Test strips) lancets 28 gauge (Easy Touch #100 ea 06/12/24 12/29/24 Unknown Rx Safety Lancets) trazodone 50 mg tablet See Rx Instructions .Route 1 08/24/23 12/29/24 12/28/24 Rx .COMPLEX #90 tabs metoprolol succinate 50 mg See Rx Instructions .Route 07/19/24 12/29/24 12/29/24 Rx tablet,extended release 24 hr .COMPLEX #180 tabs alprazolam 0.5 mg tablet 0.5 mg PO BID PRN sleep #45 tabs 09/06/24 12/29/24 12/25/24 Rx potassium chloride 10 mEq See Rx Instructions .Route 0 10/14/24 12/29/24 12/29/24 Rx capsule,extended release .COMPLEX #90 caps furosemide 20 mg tablet 20 mg PO QAM #30 tabs 12/29/24 Unknown Rx glipizide 5 mg tablet 2.5 mg (1/2 x 5 mg) PO BID # 60 tabs 12/19/24 12/29/24 12/29/24 Rx rosuvastatin 10 mg tablet See Rx Instructions .Route 0 12/19/24 12/29/24 12/28/24 Rx .COMPLEX #30 tabs sulindac 200 mg tablet See Rx Instructions .Route 0 12/19/24 12/29/24 12/29/24 Rx .COMPLEX #60 tabs albuterol sulfate 90 mcg/actuation See Rx Instructions .Route 12/29/24 12/29/24 Unknown History aerosol inhaler .COMPLEX PRN Shortness Of Br eath cyclobenzaprine 10 mg tablet See Rx Instructions .Rout e 12/29/24 12/29/24 Unknown History .COMPLEX PRN Muscle Spasm Allergies Allergy/AdvReac Type Severity Reaction Status Date / Time niacin (From Niaspan Allergy Intermediate ADR-Itching Verified 05/03/24 10:26 Extended-Release) prednisone AdvReac Intermediate ADR-Gastrointestinal Verified 05/03/24 10:26 Upset PFSH Acute 2 PFSH: Medical History (Updated 12/29/24 @ 22:34 by Yuval Newman MD) AWILDA (obstructive sleep apnea) Lower extremity edema Chronic pain Chest pain Moderate major depression Lumbar disc disease Coracoid impingement of right shoulder Traumatic injury of foot Tobacco abuse ASHD (arteriosclerotic heart disease) Carotid stenosis, bilateral Dyslipidemia Essential hypertension Anxiety Depression Diabetes 1.5, managed as type 2 Renal insufficiency Lumbar disc disease Surgical History S/P CABG (coronary artery bypass graft) S/P carotid endarterectomy Carotid endarterectomy on the left Family History Sister Cancer stomach Mother No problems noted. Sister No problems noted. Other CAD (coronary artery disease) Dementia Depression Diabetes Heart disease Hyperlipidemia Hypertension Hypothyroidism Stroke TIA (transient ischemic attack) Denies family history of Immunodeficiency disorder Autoimmune disease Clotting disorder Chronic kidney disease (CKD) Lung disease Social History Smoking and tobacco/nicotine status: current every day tobacco/nicotine user cigarettes Packs smoked per day: 0.5 Alcohol intake: never Substance/Drug Use: never Household members: spouse Marital status: Number of children: 0 Current occupational status: retired and disabled Previous occupational history: [employer] Current gender identity: Female Lynette/Congregation: [employer] Special lynette needs: No Agree to transfusion: Yes Vitals/I&O/Wt Last Vital Signs Temp 97.4 F L 12/29/24 23:55 Pulse 68 12/29/24 23:55 Resp 15 12/29/24 23:55 BP 191/65 12/29/24 23:55 Pulse Ox 92 12/30/24 00:14 O2 Del Method Room Air 12/30/24 00:14 12/29/24 12/29/24 12/30/24 14:59 22:59 06:59 Intake Total 1000 / 1000 Balance 1000 / 1000 Weight last 48 hrs Weight 51.71 kg Weight 51.71 kg Data 12/29/24 19:41 12/29/24 19:41 A&P PDMP PDMP Reviewed: Not Reviewed Coding Level of Care Code Acute Code for Chg Fwd
--- NOTE | 2024-12-30 03:18 | PC.NURSE ---
patient came to floor from the ER department per wheel chair, patient alert and oriented to person date time and place. patients blood pressure elevated to 191/65. hospitalist dr mckeon notified, waiting on orders at this time. patient is on room air and sating in the mid 90's. patient has an ultrasound guided 20g in her right ac space, flushes well. patient gets up to bedside commode with 1 assist. patient has no complaints of pain or discomfort at this time.
[2024-12-30 06:46] LABS: Glucose Point of Care 166 mg/dL (70-110)
--- NOTE | 2024-12-30 07:00 | MRR_ITS ---
PROCEDURE INFORMATION: Exam: MR Head Without Contrast Exam date and time: 12/30/2024 7:07 AM Age: 64 years old Clinical indication: Weakness, extremity; Bilateral; Additional info: Lower extremity weakness TECHNIQUE: Imaging protocol: Magnetic resonance imaging of the head without contrast. COMPARISON: US CV carotid duplex BI* [id number] 06/13/2024 12:07 PM FINDINGS: Brain: There is no mass effect, midline shift, extra-axial fluid collection or acute infarct. Small foci of susceptibility are noted in the hemispheres, possibly representing sites of remote prior hemorrhage. Underlying vascular malformation such as cavernoma is can not be excluded. There is cortical signal abnormality in the right posterior parietal lobe, indeterminate but probably chronic. Suggest contrast enhanced MRI of the brain to further assess. There is heterogeneous signal within the lucie, probably representing chronic disease. Cerebral ventricles: Normal. No ventriculomegaly. Bones: Unremarkable. Paranasal sinuses: Normal as visualized. No acute sinusitis. Mastoid air cells: Normal as visualized. No mastoid effusion. Orbital cavities: Unremarkable. Soft tissues: Unremarkable. MR/MR head wo con* [id number] IMPRESSION: No definite acute intracranial process. Signal abnormality within the right parietal lobe and lucie, age-indeterminate but probably chronic. Contrast MRI of the brain is suggested to more completely assess. Evidence of remote prior hemorrhage, possibly associated underlying vascular malformation such as cavernomas.
--- NOTE | 2024-12-30 07:00 | MRR_ITS ---
PROCEDURE INFORMATION: Exam: MR Cervical Spine Without Contrast Exam date and time: 12/30/2024 7:32 AM Age: 64 years old Clinical indication: Weakness; Additional info: Lower extremity weakness TECHNIQUE: Imaging protocol: Magnetic resonance imaging of the cervical spine without contrast. COMPARISON: MR head wo con* [id number] 12/30/2024 7:07 AM FINDINGS: Bones/joints: Vertebral body heights are preserved. Slight degenerative anterior positioning of C4 on C5, C5 on C6 and C6 relative to C7 on the order of 1 mm at each level. Lower cervical spondylosis is noted with disc ridging, facet arthropathy and uncovertebral spurring. Spinal cord: Normal signal. No cord compression. C2-C3: No significant disc bulge or herniation. No severe spinal canal stenosis. No significant neural foraminal narrowing. C3-C4: At C3-C4 there is mild disc ridging, or on the left but no cord impingement and moderate left neural foraminal narrowing. C4-C5: At C4-C5 there is disc ridging with arthropathy and uncovertebral spurring causing concentric narrowing of the canal around the cord but no compression. There is minor neural foraminal narrowing. C5-C6: At C5-C6 there is disc ridging, more prominent on the left which effaces the anterior thecal sac and flattens the anterior surface of the cord. There is mild neural foraminal narrowing more on the left. C6-C7: At C6-C7 there is disc ridging more on the left which effaces the anterior thecal sac but does not compress the cord. There is mild neural foraminal narrowing. C7-T1: No significant disc bulge or herniation. No severe spinal canal stenosis. No significant neural foraminal narrowing. Soft tissues: Unremarkable. Vasculature: Expected flow voids in the vertebral arteries. MR/MR cervical spin wo con* [id number] IMPRESSION: Cervical spondylosis as noted.
--- NOTE | 2024-12-30 08:12 | USR_ITS ---
PROCEDURE INFORMATION: Exam: US Abdomen, Limited; Right Upper Quadrant Exam date and time: 12/30/2024 12:21 PM Age: 64 years old Clinical indication: Screening exam; Other: US liver and gallbladder; Additional info: US liver and gallbladder, ate at 4am. Will scan around 11-12. CR TECHNIQUE: Imaging protocol: Real time ultrasound of the abdomen with image documentation. Limited exam focused on the right upper quadrant. COMPARISON: US pelvic limited [id number] 03/23/2023 3:12 PM FINDINGS: Liver: The liver measures 13.6 cm. Scattered subcentimeter granulomas in the liver. Gallbladder: No gallbladder wall thickening. There is no pericholecystic fluid. Scattered debris, sludge and/or cholelithiasis within the gallbladder. No definitive vascular polypoid lesion is noted within the gallbladder. Biliary ducts: The common bile duct measures 4 mm and is nondilated. Pancreas: Visualized pancreas is unremarkable. Right kidney: The right kidney measures 9.8 cm. No right hydronephrosis. Portal venous: The portal vein is patent with normal direction of flow with a peak systolic velocity of 43 cm/s. US/US gall bladder [id number] IMPRESSION: Cholelithiasis and/or gallbladder sludge without definitive sonographic evidence to suggest acute cholecystitis.
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
[2024-12-30 09:24] LABS: Basophils # 0.1 10^3/uL (0.0-0.1); Basophils % 0.5 %; Eosinophils # 0.3 10^3/uL (0.0-0.8); Eosinophils % 2.4 %; Hematocrit 35.5 % (36-47); Lymphocytes # 2.7 10^3/uL (0.8-4.8); Lymphocytes % 22.3 %; Mean Corpuscular HGB Conc 31.5 g/dL (30-55); Mean Corpuscular Hemoglobin 31.5 pg (27-33); Mean Corpuscular Volume 99.7 fl (85-98); Mean Platelet Volume 11.2 fL (7.4-10.4); Monocytes # 1.3 10^3/uL (0.2-0.9); Monocytes % 10.7 %; Neutrophils # 7.56 10^3/uL (1.8-7.7); Neutrophils % 63.5 %; Nucleated Red Blood Cells % 0 %; Platelet Count 365 10^3/cmm (157-399); Red Blood Count 3.56 10^6/uL (3.85-5.65); Red Cell Distribution Width 13.3 % (12.1-15.1); White Blood Count 11.89 10^3/uL (3.29-11.43)
[2024-12-30 09:31] LABS: Erythrocyte Sedimentation Rate 81 mm/hr (0-15)
[2024-12-30 09:39] LABS: Estmated Average Glucose 134; Hemoglobin A1C 6.3 % (4.0-6.0)
[2024-12-30] MEDS: sodium chloride 0.9% 1,000 ML 75 ML IV ×2 (09:44→22:35)
[2024-12-30] MEDS: nicotine 14 mg Patch 1 PATCH TRANSDERMA (09:44)
[2024-12-30] MEDS: pantoprazole 40 mg SDV IVP (09:44)
[2024-12-30 09:48] LABS: Lactic Sepsis W/Reflex 1.8 mmol/L (0.5-2.2)
[2024-12-30 09:55] LABS: HIV 1 & 2 Antibody Non-Reactive (Non-Reactiv); HIV 1 & 2 Antigen Non-Reactive (Non-Reactiv)
[2024-12-30 09:59] LABS: Procalcitonin 0.39 ng/mL (0-0.5); Thyroid Stimulating Hormone 4.49 uIU/mL (0.27-4.20)
[2024-12-30 10:00] LABS: Hepatitis A Antibody IgM Non-Reactive (Nonreactive); Hepatitis B Core IgM Non-Reactive (Nonreactive); Hepatitis B Surface Antigen Non-Reactive (Nonreactive); Hepatitis C Virus Antibody Non-Reactive (Nonreactive)
[2024-12-30 10:10] LABS: Alanine Aminotransferase 140 U/L (0-33); Albumin Level 3.3 g/dL (3.5-5.2); Alkaline Phosphatase 324 U/L (35-105); Anion Gap 18.9 (5-19); Aspartate Amino Transferase 314 U/L (0-32); Blood Urea Nitrogen 49 mg/dL (8-23); C Reactive Protein 22.7 mg/L (0.0-4.9); Calcium 9.1 mg/dL (8.5-10.5); Carbon Dioxide 18 mmol/L (22-29); Chloride 109 mmol/L (98-107); Gamma Glutamyl Transferase 298 U/L (5-36); Glomerular Filtration Rate 21.3 mL/min (90-130); Glucose 106 mg/dL (65-115); Osmolality Calculated 307 mOsm/kg (285-295); Potassium 3.9 mmol/L (3.5-5.1); Sodium 142 mmol/L (136-145); Total Bilirubin 1.8 mg/dL (0.15-1.2); Total Protein 7.3 g/dL (6.6-8.7)
[2024-12-30 10:37] LABS: Creatine Phosphokinase 8119 U/L (26-192)
[2024-12-30 10:40] LABS: Glucose Point of Care 112 mg/dL (70-110)
[2024-12-30 11:15] LABS: Free T4 Free Thyroxine 0.57 ng/dL (0.82-1.77)
[2024-12-30 11:41] LABS: Vitamin B12 424 pg/mL (232-1245)
--- NOTE | 2024-12-30 11:56 | PM.CONSULT ---
Providers/Reason For Consult Consulting Physician/Specialty*: Roshan Reason for Consult*: weakness Requesting Physician: Trent Attending Physician: Filipe Islas Primary Care Provider: Tera Maher MD History of Present Illness History of Present Illness 64 year old woman with a history of triple bypass surgery (in 2008) and prior compression fracture of the back (fell backward off of porch when she passed out a few years ago), presents with muscle weakness that began about a week ago. The patient reports a significant unintentional weight loss, from 225 pounds two years ago to 114 pounds currently, which they attribute in part to taking (and recently discontinuing) Wellbutrin two weeks ago. The patient denies muscle pain, joint pain, feeling achy, fever, chills, double vision, trouble chewing, chest pain, and shortness of breath. Bowel movements are reported as normal. The patient describes a prior episode three years ago where she blacked out and fell backward off of the porch, landing on a step. She did not seek medical attention at that time. The patient was able to walk until the day before this encounter, with the inability to walk beginning yesterday morning. There is no history of recent falls or passing out prior to this visit. The patient denies eating shellfish. The patient is concerned about the cause of their symptoms and is undergoing further evaluation. Review of Systems General: Reports: 10 or more systems reviewed and unremarkable except in HPI and below Const: Reports: change in weight; Denies: fever(s), chills, body aches, change in appetite, fatigue, malaise or diaphoresis Eyes: Denies: change in vision or blurry vision ENMT: Denies: throat pain or odynophagia Card: Reports: other (Stress test August 2023 old LAD no vascular compromise); Denies: chest pain, palpitations, swelling of feet/ankles, lightheadedness, syncope, dyspnea on exertion or orthopnea Resp: Denies: dyspnea or productive cough GI: Denies: abdominal pain, nausea, vomiting, dysphagia, diarrhea or constipation : Denies: flank pain or difficulty voiding Musc: Reports: back pain (Follow with Dr. Odonnell) and muscle weakness; Denies: extremity pain, joint swelling, joint stiffness, muscle cramps or decrease in muscle mass Skin/Breast: Denies: rash Neuro: Reports: weakness in extremities, lack of coordination and difficulty walking; Denies: headache(s), numbness in extremities, sensory changes or behavioral changes Psych: Denies: anxiety, depression or mood swings Endo: Reports: polyuria (She is diabetic, well-controlled) and polydipsia [place]/Lymph: Denies: easy bruising or easy bleeding Medications/Allergies Home Medications ?Medication ?Instructions ?Recorded ?Confirmed ?Last Taken ?Type aspirin 81 mg tablet,delayed 81 mg PO QDAY 08/26/19 12/29/24 12/29/24 History release (Adult Low Dose Aspirin) diphenhydramine HCl 25 mg capsule 25 mg PO BID PRN Allergy Symptoms 08/26/19 12/29/24 12/29/24 History (Benadryl) Diabetic Shoes #1 ea 07/18/22 12/29/24 Unknown Rx Heated and molding inserts #1 ea 07/18/22 12/29/24 Unknown Rx alcohol swabs (Alcohol Pads) See Rx Instructions .Route 02/16/23 12/29/24 Unknown Rx .COMPLEX #100 pad blood glucose control, normal #1 ea 02/16/23 12/29/24 Unknown Rx (OneTouch Ultra Control solution) blood-glucose meter (OneTouch #1 ea 02/16/23 12/29/24 Unknown Rx Ultra2 Meter) hydrocodone 7.5 mg-acetaminophen 1 tab PO Q12H PRN pain 30 days #46 05/26/23 12/29/24 12/29/24 Rx 325 mg tablet tabs Toe alignment splint #1 ea 07/24/23 12/29/24 Unknown Rx nitroglycerin 0.4 mg sublingual 0.4 mg sublingual Q5M PRN chest 08/23/23 12/29/24 Unknown Rx tablet pain #25 tabs hydrochlorothiazide 25 mg tablet See Rx Instructions .Route 04/22/24 12/29/24 12/29/24 Rx .COMPLEX #90 tabs metformin 1,000 mg tablet See Rx Instructions .Route 05/27/24 12/29/24 12/29/24 Rx .COMPLEX #60 tabs diabetic shoes with 3 inserts #1 ea 06/03/24 12/29/24 Unknown Rx blood sugar diagnostic (OneTouch #50 ea 06/12/24 12/29/24 Unknown Rx Ultra Test strips) lancets 28 gauge (Easy Touch #100 ea 06/12/24 12/29/24 Unknown Rx Safety Lancets) trazodone 50 mg tablet See Rx Instructions .Route 06/24/24 12/29/24 12/28/24 Rx .COMPLEX #90 tabs metoprolol succinate 50 mg See Rx Instructions .Route 07/19/24 12/29/24 12/29/24 Rx tablet,extended release 24 hr .COMPLEX #180 tabs alprazolam 0.5 mg tablet 0.5 mg PO BID PRN sleep #45 tabs 09/06/24 12/29/24 12/25/24 Rx potassium chloride 10 mEq See Rx Instructions .Route 10/14/24 12/29/24 12/29/24 Rx capsule,extended release .COMPLEX #90 caps furosemide 20 mg tablet 20 mg PO QAM #30 tabs 12/19/24 12/29/24 Unknown Rx glipizide 5 mg tablet 2.5 mg (1/2 x 5 mg) PO BID #60 tabs 12/19/24 12/29/24 12/29/24 Rx rosuvastatin 10 mg tablet See Rx Instructions .Route 12/19/24 12/29/24 12/28/24 Rx .COMPLEX #30 tabs sulindac 200 mg tablet See Rx Instructions .Route 12/19/24 12/29/24 12/29/24 Rx .COMPLEX #60 tabs albuterol sulfate 90 mcg/actuation See Rx Instructions .Route 12/29/24 12/29/24 Unknown History aerosol inhaler .COMPLEX PRN Shortness Of Breath cyclobenzaprine 10 mg tablet See Rx Instructions .Route 12/29/24 12/29/24 Unknown History .COMPLEX PRN Muscle Spasm Allergies Allergy/AdvReac Type Severity Reaction Status Date / Time niacin (From Niaspan Allergy Intermediate ADR-Itching Verified 05/03/24 10:26 Extended-Release) prednisone AdvReac Intermediate ADR-Gastrointestinal Verified 05/03/24 10:26 Upset Current Medications Generic Name Dose Route Start Last Admin Trade Name Freq PRN Reason Stop Dose Admin Sodium Chloride 1,000 mls @ 75 mls/hr 12/30/24 08:15 12/30/24 09:44 Sodium Chloride 0.9% IV 75 mls/hr .[id number] KENA Administration Nicotine 1 patch 12/30/24 09:00 12/30/24 09:44 Nicotine 14 Mg Patch TRANSDERMA 1 patch DAILY KENA Administration Pantoprazole Sodium 40 mg 12/30/24 09:00 12/30/24 09:44 Pantoprazole 40 Mg Sdv IVP 40 mg Q24H KENA Administration PFSH Acute PFSH: Medical History AWILDA (obstructive sleep apnea) Lower extremity edema Chronic pain Chest pain Moderate major depression Lumbar disc disease Coracoid impingement of right shoulder Traumatic injury of foot Tobacco abuse ASHD (arteriosclerotic heart disease) Carotid stenosis, bilateral Dyslipidemia Essential hypertension Anxiety Depression Diabetes 1.5, managed as type 2 Renal insufficiency Lumbar disc disease Surgical History S/P CABG (coronary artery bypass graft) S/P carotid endarterectomy Carotid endarterectomy on the left Family History Sister Cancer stomach Mother No problems noted. Sister No problems noted. Other CAD (coronary artery disease) Dementia Depression Diabetes Heart disease Hyperlipidemia Hypertension Hypothyroidism Stroke TIA (transient ischemic attack) Denies family history of Immunodeficiency disorder Autoimmune disease Clotting disorder Chronic kidney disease (CKD) Lung disease Social History Smoking and tobacco/nicotine status: current every day tobacco/nicotine user cigarettes Packs smoked per day: 0.5 Alcohol intake: never Substance/Drug Use: never Household members: spouse Marital status: Number of children: 0 Current occupational status: retired and disabled Previous occupational history: [employer] Current gender identity: Female Lynette/Restorationism: Christianity Special lynette needs: No Agree to transfusion: Yes Vitals/I&O/Wt Last Vital Signs Temp 97.8 F 12/30/24 11:10 Pulse 68 12/30/24 11:10 Resp 16 12/30/24 11:10 BP 167/51 12/30/24 11:10 Pulse Ox 97 12/30/24 11:10 O2 Del Method Room Air 12/30/24 11:10 12/29/24 12/30/24 12/30/24 22:59 06:59 14:59 Intake Total 1060 / 1060 Balance 1060 / 1060 Weight last 48 hrs Weight 125 lb 1.6 oz Weight 114 lb Weight 114 lb Physical Exam Narrative: GENERAL: The patient was well-nourished with a healthy appearance and appropriately groomed. MENTAL STATUS: Orientation was full to 10 of 10 questions of orientation. Speech was fluent without word hesitation. No difficulty following a complex command. The affect was euthymic. She is of above average intelligence. CRANIAL NERVES: Visual acuity was intact to reading small print. Visual rashid were full to confrontation, direct and consensual. Extraocular movements were full without nystagmus. Both slow pursuit and saccadic eye movements were normal. PERRLA. Face was symmetric at rest and with grimace. Facial sensation was intact in all three distributions of the fifth cranial nerve bilaterally to touch. Hearing was intact to soft spoken voice. Tongue and palate were midline at rest and with protrusion of the tongue and elevation of the palate. Shoulders were symmetric at rest and with shoulder shrug. MOTOR: She has profound proximal weakness in both legs in all proximal muscles. Distal strength 5 out of 5. In the upper extremities I can overcome her deltoids with little effort but her distal muscles are strong. SENSATION: Pin, touch, vibration intact in the four extremities distally. COORDINATION: Tflsde-emrs-thebok, yvip-wrbg-swav and rapid alternating movements were performed smoothly without evidence of tremor or ataxia. DEEP TENDON REFLEXES: 2/4 throughout including ankle jerks. GAIT: She would not be strong enough to walk based on my exam and I did not feel safe getting her out of bed. HEENT: Normocephalic without dysmorphic features. Conjunctivae were not injected and sclerae were nonicteric. NECK: Carotid upstroke was strong bilaterally without bruits. The thyroid was not enlarged and there were no palpable lymph nodes. CHEST: Clear to auscultation. CARDIOVASCULAR: The heart sounds were normal without murmur or gallop. Regular rate and rhythm. EXTREMITIES: No fasciculations. Calf muscles are thin. Data 12/30/24 09:00 12/30/24 09:00 Micro: Microbiology 12/30/24 09:02 Blood Culture - Preliminary Blood SPECIMEN COLLECTED 12/30/24 09:00 Blood Culture - Preliminary Blood SPECIMEN COLLECTED A&P Assessment and plan (1) Myopathy: Muscle weakness and suspected myopathy/myositis : The patient presents with acute muscle weakness of about one week's duration, with no associated muscle pain, joint pain, fever, chills, or other systemic symptoms. There is a history of significant weight loss and recent discontinuation of Wellbutrin. The provider suspects a myopathy or myositis, possibly leading to elevated muscle enzymes and contributing to kidney dysfunction. Guillain-Ellsworth syndrome was considered but she has good reflexes. The differential includes viral causes, but no clear evidence supports this at present. - Serial muscle enzymes - Consider EMG (electromyography) to further evaluate muscle function - Monitor for further progression of weakness Connective tissue workup Kidney dysfunction : The patient has a history of kidney problems, now reportedly worsened, possibly related to muscle inflammation and elevated muscle enzymes. Strong possibility that rhabdomyolysis is behind her kidney injury but the cause of her rhabdo remains uncertain. She stopped Wellbutrin weeks ago and is fully aware that she did not have an occult seizure. - Monitor kidney function with laboratory tests - Assess for possible rhabdomyolysis secondary to muscle inflammation Liver inflammation : Mild liver inflammation is noted, not severe. The provider considers hepatitis A as a possible cause but deems it unlikely due to the absence of gastrointestinal symptoms and no recent shellfish consumption. - Check for hepatitis A, although she does not have symptoms to point to that diagnosis - Monitor liver function tests History of compression fracture : The patient suffered a compression fracture of the back three years ago after a fall but did not seek medical attention at the time. No current symptoms related to this injury are reported. The lesion in her right parietal occurred when she was 1 years old and was knocked out of a rocking chair by her older brother.. She is aware of a scalp lesion that corresponds. (2) Acute hepatitis: (3) Acute kidney injury: (4) S/P CABG (coronary artery bypass graft): (5) S/P carotid endarterectomy: PDMP PDMP Reviewed: Not Reviewed Consult Attestations Medical Necessity Statement: Multiple system dysfunction and patient cannot walk. She is acutely ill. Coding Level of Care Code Acute Code for [facility] Diagnoses Myopathy G72.9 Acute hepatitis B17.9 Acute kidney injury N17.9 S/P CABG (coronary artery bypass graft) Z95.1 S/P carotid endarterectomy Z98.890
[2024-12-30] MEDS: bisacodyl 10 mg Supp PR (12:17)
[2024-12-30] MEDS: polyethylene glycol 3350 Pkt 17 gm PO ×2 (12:19→17:31)
[2024-12-30] MEDS: metoprolol tartrate 25 mg Tablet 12.5 MG PO ×2 (12:44→22:35)
--- NOTE | 2024-12-30 12:46 | PC.NURSE ---
Notified Dr. Islas BP 167/51, HR 68 to give metoprolol 12.5. Dr. Islas gave verbal orders to give due to Kidney function.
[2024-12-30 13:28] LABS: Hepatitis B Surface AB 129.1 (11.5-1000)
--- NOTE | 2024-12-30 13:46 | PC.RESP ---
fvc pred 2.9 ach 2.37 nif -28
[2024-12-30 16:39] LABS: Glucose Point of Care 144 mg/dL (70-110)
[2024-12-30] MEDS: insulin lispro 100 unit/1 mL SUBCUT (17:30)
[2024-12-30 20:25] LABS: Glucose Point of Care 50 mg/dL (70-110)
[2024-12-30 20:45] LABS: Glucose Point of Care 92 mg/dL (70-110)
[2024-12-30] MEDS: cefTRIAXone 1,000 mg SDV 1000 MG IVP (22:34)
[2024-12-30] MEDS: trazodone 50 mg Tablet PO (22:35)
[2024-12-30] MEDS: ALPRAZolam 0.5 mg Tablet PO (22:35)
[2024-12-31] VITALS (13 sets, daily range): BP systolic 148–192; BP diastolic 49–70; PULSE 55–92; RESP 15–19; TEMP 36.1–36.7; O2SAT 94–97
[2024-12-31 05:14] LABS: Basophils % 0.3 %; Eosinophils # 0.3 10^3/uL (0.0-0.8); Eosinophils % 2.7 %; Hematocrit 29.1 % (36-47); Lymphocytes # 2.6 10^3/uL (0.8-4.8); Lymphocytes % 26.2 %; Mean Corpuscular HGB Conc 31.6 g/dL (30-55); Mean Corpuscular Hemoglobin 31.7 pg (27-33); Mean Corpuscular Volume 100.3 fl (85-98); Mean Platelet Volume 11.7 fL (7.4-10.4); Monocytes % 9.7 %; Neutrophils % 60.2 %; Nucleated Red Blood Cells % 0 %; Platelet Count 295 10^3/cmm (157-399); Red Cell Distribution Width 13.5 % (12.1-15.1)
[2024-12-31 05:39] LABS: Alanine Aminotransferase 138 U/L (0-33); Albumin Level 2.7 g/dL (3.5-5.2); Alkaline Phosphatase 316 U/L (35-105); Anion Gap 16.2 (5-19); Aspartate Amino Transferase 311 U/L (0-32); Blood Urea Nitrogen 40 mg/dL (8-23); Calcium 8.8 mg/dL (8.5-10.5); Carbon Dioxide 18 mmol/L (22-29); Chloride 110 mmol/L (98-107); Creatinine Clr Calc Pharmacy 25.2286; Globulin 3.5 g/dL (1.3-4.6); Glomerular Filtration Rate 26.5 mL/min (90-130); Glucose 65 mg/dL (65-115); Osmolality Calculated 300 mOsm/kg (285-295); Potassium 3.2 mmol/L (3.5-5.1); Sodium 141 mmol/L (136-145); Total Bilirubin 1.7 mg/dL (0.15-1.2); Total Protein 6.2 g/dL (6.6-8.7)
[2024-12-31 06:10] LABS: Creatine Phosphokinase 7922 U/L (26-192)
[2024-12-31 06:34] LABS: Glucose Point of Care 86 mg/dL (70-110)
[2024-12-31 07:29] LABS: Magnesium 1.8 mg/dL (1.7-2.3); Phosphorus 3.2 mg/dL (2.5-4.5)
[2024-12-31] MEDS: pantoprazole 40 mg SDV IVP ×2 (07:43→20:18)
[2024-12-31] MEDS: nicotine 14 mg Patch 1 PATCH TRANSDERMA (07:44)
[2024-12-31] MEDS: potassium chloride ER 20 mEq Tablet 40 MEQ PO ×2 (07:44→11:49)
[2024-12-31] MEDS: polyethylene glycol 3350 Pkt 17 gm PO (07:44)
[2024-12-31] MEDS: bisacodyl 10 mg Supp PR (07:44)
[2024-12-31] MEDS: metoprolol tartrate 25 mg Tablet 12.5 MG PO ×2 (07:45→20:18)
[2024-12-31] MEDS: lactated ringers 1,000 ML 500 ML IV ×2 (07:45→09:46)
[2024-12-31] MEDS: FUROsemide 10 mg/mL SDV 2mL 20 MG IVP (07:51)
--- NOTE | 2024-12-31 09:02 | ECG_ITS ---
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
--- NOTE | 2024-12-31 09:13 | P.PN_ITS ---
Subjective 2 Subjective: She feels the same. She had trouble swallowing a potassium tablet because it was very large. Her muscles do not hurt. No fever. She has developed anemia. CPK remains very high with no change. ESR is 81 and further immunology studies pending. Vitals/I&O/Wt Last Vital Signs Temp 96.9 F L 12/31/24 07:50 Pulse 66 12/31/24 07:50 Resp 18 12/31/24 07:50 BP 154/57 12/31/24 07:50 Pulse Ox 96 12/31/24 07:50 O2 Del Method Room Air 12/31/24 07:50 12/30/24 12/31/24 12/31/24 22:59 06:59 14:59 Intake Total 1213.75 / 1213.75 200 / 1413.75 758.75 / 758.75 Balance 1213.75 / 913.75 200 / 1113.75 758.75 / 758.75 Weight last 48 hrs Weight 135 lb Weight 125 lb 1.6 oz Weight 114 lb Weight 114 lb Physical Exam 2 Narrative: She has less than antigravity strength in the legs and her deltoids are easily overcome. Severe proximal muscle weakness. Intact reflexes which are actually brisk at the knees and ankles. No sensory deficit. Data 12/31/24 04:31 12/31/24 04:31 Micro: Microbiology 12/30/24 13:12 Occult Blood (FIT) - Final Stool - Stool Aspirate 12/30/24 09:02 Blood Culture - Preliminary Blood SPECIMEN COLLECTED 12/30/24 09:00 Blood Culture - Preliminary Blood SPECIMEN COLLECTED A&P Assessment and plan (1) Myopathy: She presents with probable rhabdomyolysis although she had chronic kidney failure even prior to this hospitalization and now has acute superimposed upon chronic. In the presence of myositis and a sed rate of 81 it is tempting to start her on steroids. This may be a viral syndrome in which case steroids may still be helpful. Inflammatory studies pending. Consider Solu-Medrol 1 g daily for 3 days. Consider doxycycline although she says she has not been bitten by a tick for 2 years. (2) Acute hepatitis: (3) Acute kidney injury superimposed on CKD: PDMP PDMP Reviewed: Not Reviewed Attestations 2 Medical Necessity Statement*: Multisystem disease with acute change in strength, inflammation of the liver and acute kidney injury. Coding Level of Care Code Acute Code for [facility] Diagnoses Myopathy G72.9 Acute hepatitis B17.9 Acute kidney injury superimposed on CKD N17.9; N18.9
--- NOTE | 2024-12-31 09:16 | PC.NURSE ---
Pt complains of sharp chest pain to left chest that radiates down left arm. States left hand is numb. BP 201/47, HR 71. EKG performed. NSR. Dr. Browne notified of all of the above, awaiting response.
--- NOTE | 2024-12-31 09:18 | PC.NURSE ---
Pt BP now 192/49. States pain has eased up now. Still awaiting response from Dr. Brenner.
--- NOTE | 2024-12-31 10:15 | P.PN_ITS ---
Subjective 2 Subjective: She is feeling little bit better. Vitals/I&O/Wt Last Vital Signs Temp 96.9 F L 12/31/24 07:50 Pulse 59 L 12/31/24 09:33 Resp 18 12/31/24 07:50 BP 148/58 12/31/24 09:33 Pulse Ox 96 12/31/24 07:50 O2 Del Method Room Air 12/31/24 07:50 12/30/24 12/31/24 12/31/24 22:59 06:59 14:59 Intake Total 1213.75 / 1213.75 200 / 1413.75 1758.75 / 1758.75 Balance 1213.75 / 913.75 200 / 1113.75 1758.75 / 1758.75 Weight last 48 hrs Weight 61.235 kg Weight 56.744 kg Weight 51.71 kg Weight 51.71 kg Physical Exam 2 Const: COMMON NORMALS: patient oriented x3 and alert GENERAL APPEARANCE: c ooperative ORIENTATION/CONSCIOUSNESS: Yes awake HENMT: COMMON NORMALS: oropharynx normal Neck/C-Spine: COMMON NORMALS: no JVD Resp: COMMON NORMALS: normal respiratory effort and clear to auscultation bilaterally AUSCULTATION: clear to auscultation bilaterally Cardio: COMMON NORMALS: no JVD, regular rhythm, S1 normal heart sound present, S2 normal heart sound present and No murmurs present (Cardio) RHYTHM: regular rhythm HEART SOUNDS: S1 normal heart sound present and S2 normal heart sound present GI: COMMON NORMALS: Normal to inspection, nondistended, normoactive bowel sounds present, Soft to palpation and non-tender PALPATION: Yes Soft to palpation Extremity: COMMON NORMALS: no joint enlargement and no pedal edema N ARRATIVE EXTREMITY EXAM: Unable to lift bilateral lower extremities off the bed. OTHER: She is awake and alert, keenly responsive. No difficulty following directions. No facial droop. No difficulty tracking horizontally. Visual rashid full to confrontation without visual extinction. No difficulty with FNF. No drift in upper extremities, able to elevate and hold arms for the duration of the test. Unable to elevate either lower extremity. Sensory exam symmetrical without diminished sensation, no sensory extinction. No myoclonus. Upper and lower reflexes normal to slightly hyperreflexive. Negative icepack test. Neuro: COMMON NORMALS: patient oriented x3 and moves all extremities S ENSORIUM/ORIENTATION: Yes alert Skin: COMMON NORMALS: no rashes or lesions noted GENERAL SKIN EXAM: no rashes or lesions noted Data 12/31/24 04:31 12/31/24 04:31 Micro: Microbiology 12/30/24 12:00 Urine Culture - Preliminary Urine,Clean Catch 12/30/24 09:02 Blood Culture - Preliminary Blood NEGATIVE TO DATE 12/30/24 09:00 Blood Culture - Preliminary Blood NEGATIVE TO DATE 12/30/24 13:12 Occult Blood (FIT) - Final Stool - Stool Aspirate A&P Assessment and plan (1) Leg weakness, bilateral: With finding of significant rhabdomyolysis, CK reviewed initial 8119, was continued on IV hydration with monitoring of intake and output, reassessment of renal function. CK rechecked this morning, down to 7922. Overnight started on 2 L boluses of 500 mL/h with Lasix of 20 mg IV. She is reporting feeling slightly better today. NIF repeated still low 34. However, without shortness of breath, saturating well on room air, no dyspnea, no signs of aspiration. She was reassessed by neurology, discussed with neurologist, appreciate recommendations, on further consideration with recommendation for initiation of corticosteroid treatment with concern for possible myositis, possibly postviral with 1 g Solu-Medrol daily for the next 3 days. Discussed with her risks with high-dose IV corticosteroid, including hyperglycemia, hypertension, gastritis, encephalopathy. Additionally with recommendation for coverage for possible tickborne illness with doxycycline discussed with her and started due to high- dose corticosteroids, although as per discussion with her otherwise suspicion is lower with no history of tick bite, without cytopenias, hyponatremia and other features. Continue IV hydration, monitor for risk of fluid overload. Reassess CK. Discussed with respiratory, NIF with some improvement today to 35. Difficulties with obtaining bedside FVC, was taken down for a reading. FVC with some worsening today down to 1.78. She is reporting some chest pain today and left-side, reporting that she has had history of blockages . Requested troponin and EKG series. First EKG with limb reversal, otherwise unremarkable. Continue twice daily bedside swallow assessments. Monitor for dysphagia. Continue clear liquids for now with protein supplement. Consider muscle biopsy after resolution of rhabdomyolysis. Discontinue statin. Discontinue muscle relaxer while recovering. Requesting PT assessment. CM following. Could not reach her for an update at the listed phone number. Presents with progressive generalized weakness, more pronounced in the legs since last Monday, possibly worsening in the evenings and significant impact on mobility. Unable to walk for the past day and a half. No focal neurological deficits, no numbness, no trouble speaking or swallowing. Progressive weakness more pronounced in the legs without focal abnormality. CT thoracic and lumbar spine with some moderate degenerative changes, L3 vertebral body compression 40% height loss without retropulsion. No diminished sensation or paresthesia. Reflexes are present, normal to possibly mildly hyperreflexive. No rigidity, myoclonus or tremor. Icepack test is negative. No diplopia. Neurology consult is pending to evaluate for possible AIDP. MRI shows old small brain bleeds and right parietal lobe abnormality, possibly related to childhood trauma. However, additional normality of the lucie. Contrast MRI suggested, but unable to perform correctly due to renal dysfunction. Weakness may also be multifactorial, possible AIDP, including medication effects, or metabolic derangements with MAGDALENA, UTI. Reviewed also MRI neck, with noted spondylosis. Noted hypokalemia, consider periodic hypokalemic paralysis, however, tendon reflexes are normal to slightly hyperactive. Replacement has been provided. Repeat potassium. TSH with mild elevation, check free T3, free T4 with consideration of thyrotoxic periodic paralysis, but does not have hyperthyroid symptoms. With granulomatous disease in the liver, sarcoidosis may be considered. However, without hilar lymphadenopathy, no dyspnea or other respiratory symptoms, no skin changes. (2) Acute kidney injury superimposed on CKD: Reviewed intake and output, potassium, BUN, CK, noted with improvement in creatinine down to 1.9. Recently with significantly decreased appetite, reduced oral intake of food and water. Discontinue sulindac. Hold statin. Follow CK. CT abdomen pelvis, without obstructive nephropathy. Received fluid challenge with dehydration, continue gentle IV hydration, monitor for risk of fluid overload. Monitor intake and output. Reassess renal function. (3) Transaminitis: Mild improvement. Reviewed gallbladder ultrasound, with noted sludge, likely exacerbated by dehydration/cholestasis with elevation of T. bili and alk phos 1.7 and 316. With noted rhabdomyolysis with elevated CK. Hold statin. Stop and discontinue sulindac. Reassess liver parameters. (4) Urinary tract infection: Continue ceftriaxone. Request urine culture. (5) Hypokalemia: Received replacement. Follow-up chemistry. Reviewed magnesium. (6) Constipation: Add bowel regimen. (7) Abnormal findings on diagnostic imaging of gall bladder: Incidentally noted distended gallbladder without gallstones, no ductal dilation. Calcified granulomas within the liver. Plan Dark stools: Mildly anemia 11.2. Reviewed Hemoccult, noted positive. Hemoglobin reviewed today down to 9.2. Stop and discontinue sulindac. SCD DVT prophylaxis. Increase PPI frequency to every 12 hours. Hypokalemia: Reviewed potassium 3.2. Received potassium replacement this morning. Magnesium reviewed 1.8, will give 1 g magnesium. Recheck potassium and magnesium. CAD, CABG, carotid disease status post endarterectomy: Hold statin. Resume aspirin if no concern by neurology and lower GI bleeding. With episode of chest pain this morning that lasted briefly, resolved on its own, and left-sided chest rating to the left arm. EKG obtained, with limb lead reversal, but otherwise unremarkable. Complete troponin EKG series. Smoking addiction: Discussed with her smoking cessation, she is okay with nicotine replacement. Continue to encourage cessation. HTN: Monitor blood pressures, resume metoprolol at lower dose due to renal dysfunction. Monitor on telemetry. Hold HCTZ. Diabetes: Consistent carb diet. SSI. Monitor POC glucose. A1c reviewed, 6.3 Lumbar disc disease, compression fracture L4: With some chronic back pain. Takes sulindac, discussed with her to stop and discontinue. Takes hydrocodone as needed for pain. Valvular heart disease: Moderate aortic regurgitation, mild to moderate mitral regurgitation, tricuspid regurgitation, mild to moderate pulmonary regurgitation on review most recent echo 08/18/2023. PDMP PDMP Reviewed: Not Reviewed Attestations 2 Medical Necessity Statement*: Continue admission for assessment management of rhabdomyolysis with MAGDALENA, severe weakness with loss of ability to ambulate, with statin myopathy, rhabdomyolysis, possible myositis, monitor for respiratory decompensation, treat UTI. Post discharge planning and arrangements. Diagnoses Leg weakness, bilateral R29.898 Acute kidney injury superimposed on CKD N17.9; N18.9 Transaminitis R74.01 Urinary tract infection N39.0 Hypokalemia E87.6 Constipation K59.00 Abnormal findings on diagnostic imaging of gall bladder R93.2
--- NOTE | 2024-12-31 10:15 | PC.CHAP ---
Pastoral Care Encounter/Spiritual Assessment Type of Contact [] Declined rubberizing mechanic visit [] Patient/Family/Request visit [] Outpatient visit [] Follow-up visit [] Physician referral [] Code/Alert [] Routine visit [] Staff referral [] Actively dying [] Patient sleeping [] Family support [] [] Out of room [] Palliative care [] [x] Receiving care in room [] Pre-surgical visit [] Trauma [] Long length of stay [] ICU visit [] Other: Relational/Emotional Strength [] Patient feels connected with others/family/visitors/staff [] Distress [] Loneliness/isolation [] Abandonment Spirituality of Patient [] Person of Lynette [] Attends Lutheran of their Lynette [] Believes in Prayer [] Reads Bible or Tenriism materials [] There are Spiritual issues to be addressed Belt Sander Interventions [] Prayer [] Active listening [] Non-anxious presence [] Spiritual/emotional support [] Crisis/trauma care [] Spiritual counseling [] Bereavement support [] Provided bereavement packet [] Provided Bible/devotional materials [] Provided toy/stuffed animal, coloring book to patient or family member [] Provided Communion [] Anointing/[place] [] Salvation [] Completed spiritual assessment [] Other: Impact on Illness or Injury [] Angry [] Fearful [] Anxious [] Often cries [] Exhaustion [] Unable to work [] Unable to attend rastafarian [] Unable to walk/stand [] Unable to read [] Unable to drive [] Unable to eat/drink [] Unable to sleep [] Unable to be with family [] Patient intubated [] Other: Summary Time spent with patient
--- NOTE | 2024-12-31 10:40 | PC.RESP ---
FVC PREDICTED 2.90 ACHIEVED 1.78
[2024-12-31] MEDS: doxycycline 100 MG in sodium chloride 0.9% (plus) 100 ML IV ×2 (10:44→21:42)
--- NOTE | 2024-12-31 10:48 | PC.RESP ---
FVC PRED .2.90 ACHIEVED 1.78 Patient effort is questionable , had to reinstruct several times.
[2024-12-31 11:03] LABS: Glucose Point of Care 184 mg/dL (70-110)
--- NOTE | 2024-12-31 11:43 | ECG_ITS ---
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
[2024-12-31 11:45] LABS: Troponin(5th) Baseline 105 ng/L (0-10)
[2024-12-31] MEDS: methylPREDNISolone sod succ 1,000 MG in sodium chloride 0.9% 250 ML 258 MG IV (11:48)
[2024-12-31] MEDS: sodium chloride 0.9% 1,000 ML 75 ML IV (11:48)
[2024-12-31] MEDS: magnesium sulfate premix 1 GM/100 ML PIGGYBACK IV (11:48)
[2024-12-31] MEDS: insulin lispro 100 unit/1 mL SUBCUT ×2 (11:49→17:00)
[2024-12-31 12:00] LABS: COMPLEMENT COMPONENT C3C 195 mg/dL (83-193); COMPLEMENT COMPONENT C4C 40 mg/dL (15-57)
[2024-12-31 14:39] LABS: COMPLEMENT, TOTAL (CH50) >60 U/mL (31-60)
[2024-12-31 14:39] LABS: Troponin 5 2HR 101.5 ng/L (0-10); Troponin 5 2HR Delta -3.5 ABS# (0-10)
[2024-12-31 16:53] LABS: Glucose Point of Care 150 mg/dL (70-110)
--- NOTE | 2024-12-31 17:07 | ECG_ITS ---
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: : 1960 Requested By: Filipe Islas Order Number: [id number] Reading MD: SONA DE LA ROSA Measurements Intervals [place] Rate: 80 P: 68 [place]: 161 QRS: 51 QRSD: 113 T: 77 QT: 443 QTc: 512 Interpretive Statements SINUS RHYTHM INCOMPLETE RIGHT BUNDLE BRANCH BLOCK [90+ ms QRS DURATION, TERMINAL R IN V1/V2, 40+ ms S IN I/aVL/V4/V5/V6] NONSPECIFIC ST & T-WAVE ABNORMALITY PROLONGED QT INTERVAL Compared to ECG 12/31/2024 11:43:38 Incomplete right bundle-branch block now present Prolonged QT interval now present Sinus bradycardia no longer present T-wave abnormality still present Electronically Signed On 01-08-2025 22:54:00 CDT by SONA DE LA ROSA [email or web address] [id number]
--- NOTE | 2024-12-31 17:40 | ECG_ITS ---
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: : 1960 Requested By: Filipe Islas Order Number: [id number] Reading MD: SONA DE LA ROSA Measurements Intervals [place] Rate: 85 P: 66 [place]: 182 QRS: 53 QRSD: 106 T: 66 QT: 410 QTc: 489 Interpretive Statements SINUS RHYTHM INCOMPLETE RIGHT BUNDLE BRANCH BLOCK [90+ ms QRS DURATION, TERMINAL R IN V1/V2, 40+ ms S IN I/aVL/V4/V5/V6] MINIMAL ST DEPRESSION [0.025+ mV ST DEPRESSION] Compared to ECG 12/31/2024 17:07:51 ST (T wave) deviation now present T-wave abnormality no longer present Prolonged QT interval no longer present Electronically Signed On 01-08-2025 22:46:10 CDT by SONA DE LA ROSA [id number] [id number]
--- NOTE | 2024-12-31 17:52 | PC.NURSE ---
Pt complains of chest pain to left side of chest. Rates 7/10 sharp pain that is non-radiating. VS: 170/63, 94% RA, P-86. EKG performed at bedside. Dr. Islas advised of above. New orders received for NTG SL.
[2024-12-31 18:13] LABS: Troponin 5 6HR 100.9 ng/L (0-10); Troponin 5 6HR Delta -4.1 ng/L (0-12)
--- NOTE | 2024-12-31 18:14 | USCV_ITS ---
Torie Belle Age: 64 Gender: F : 1960 Exam Date: 12/31/2024 22:04 Ordering Phys: Filipe Islas MD Technologist: BIRD [place] [facility] [place]: chest pain, possible myositis, elev trop, hx CAD s/p CABG, chronic renal dz BP: 170 / 63 HR: 61 Rhythm: Sinus Technical Quality: Adequate MEASUREMENTS (Male / Female) Normal Values 2D ECHO LV Diastolic Diameter PLAX 4.5 cm 4.2 - 5.9 / 3.9 - 5.3 cm IVS Diastolic Thickness 0.9 cm 0.6 - 1.0 / 0.6 - 0.9 cm IVS Systolic Thickness 1.2 cm LVPW Diastolic Thickness 0.9 cm 0.6 - 1.0 / 0.6 - 0.9 cm LVPW Systolic Thickness 1.3 cm LVOT Diameter 1.7 cm LV Ejection Fraction 2D Teich 63.8 % LV Ejection Fraction MOD 4C 66.7 % LV Ejection Fraction MOD 2C 80.2 % LV Ejection Fraction 2C AL 83.1 % LA Diameter 3.6 cm Aorta at Sinotubular Diameter 2.2 cm IVC Diameter 1.0 cm M-MODE LA Ao Ratio MM 1.3 AV Cusp Separation MM 2.0 cm DOPPLER AV Peak Velocity 223.0 cm/s LVOT Peak Velocity 119.0 cm/s AV Area Cont Eq vti 1.7 cm squared AV Area Cont Eq pk 1.2 cm squared MV Peak Velocity 131.0 cm/s MV Area PHT 2.0 cm squared Mitral E to A Ratio 0.6 TR Peak Velocity 205.0 cm/s TR Peak Gradient 16.8 mmHg TV Peak E Velocity 51.0 cm/s PV Peak Velocity 94.0 cm/s FINDINGS Left Ventricle Normal left ventricular size, systolic function and wall thickness, with no regional wall motion abnormalities. Left ventricular ejection fraction is estimated at 55-60 %. Grade I/IV diastolic dysfunction (abnormal relaxation filling pattern), normal to mildly elevated filling pressures. Right Ventricle The right ventricle is normal in size and function. Right Atrium The right atrium is normal in size. Left Atrium The left atrium is normal in size. Mitral Valve Moderately thickened mitral valve. No mitral valve stenosis. Mild-moderate mitral valve regurgitation. Aortic Valve Moderate aortic valve calcification. No aortic valve stenosis. [id number] aortic valve regurgitation. Tricuspid Valve Structurally normal tricuspid valve without significant stenosis or regurgitation. Pulmonary artery systolic pressure is normal. Pulmonic Valve Mild pulmonary valve regurgitation. Pericardium Normal pericardium without effusion. Aorta Normal ascending aorta dimension. IVC The inferior vena cava appears normal. CONCLUSIONS Normal left ventricular size, systolic function and wall thickness, with no regional wall motion abnormalities. Left ventricular ejection fraction is estimated at 55-60 %. Grade I/IV diastolic dysfunction (abnormal relaxation filling pattern), normal to mildly elevated filling pressures. Moderate aortic valve calcification. No aortic valve stenosis. [id number] aortic valve regurgitation. Moderately thickened mitral valve. No mitral valve stenosis. Mild-moderate mitral valve regurgitation. There is no pericardial effusion. Right atrial pressure is around 5 mm of mercury. Flavio Rios MD (Electronically Signed) Final Date: 01 Jan 2025 14:52 S
[2024-12-31] MEDS: cefTRIAXone 1,000 mg SDV 1000 MG IVP (20:18)
[2024-12-31] MEDS: trazodone 50 mg Tablet PO (20:19)
[2024-12-31 20:51] LABS: Glucose Point of Care 325 mg/dL (70-110)
[2024-12-31] MEDS: citalopram 20 mg Tablet 40 MG PO (20:55)
[2024-12-31] MEDS: amlodipine 5 mg Tablet PO (22:42)
[2024-12-31] MEDS: ALPRAZolam 0.5 mg Tablet PO (22:46)
[2025-01-01] VITALS (48 sets, daily range): BP systolic 134–194; BP diastolic 51–93; PULSE 59–102; RESP 15–29; TEMP 36.3–36.7; O2SAT 95–100
[2025-01-01] MEDS: sodium chloride 0.9% 1,000 ML 75 ML IV ×2 (02:11→23:08)
[2025-01-01 03:55] LABS: CENTROMERE B ANTIBODY <1.0 NEG AI (<1.0 NEG); JO-1 ANTIBODY <1.0 NEG AI (<1.0 NEG); RNP ANTIBODY <1.0 NEG AI (<1.0 NEG); SCL-70 ANTIBODY <1.0 NEG AI (<1.0 NEG); SJOGREN'S ANTIBODY (SS-A) <1.0 NEG AI (<1.0 NEG); SM ANTIBODY <1.0 NEG AI (<1.0 NEG); SS-B <1.0 NEG AI (<1.0 NEG)
[2025-01-01] MEDS: nitroglycerin 0.4 mg sublingual Tablet SUBLINGUAL ×5 (04:03→19:39)
--- NOTE | 2025-01-01 04:55 | PC.NURSE ---
at 0400 pt c/o chest pain rating pain at 12, ekg showed sinus rhythm , anterior MT of unknown age, BP elevated, nitro given, after 3 minutes pt verbalized pain at 2, BP tending down, Dr. Melo notified, order for IV metoprolol 5 mg received.
[2025-01-01] MEDS: metoprolol tartrate 1 mg/1 mL SDV 5 mL 5 MG IVP (05:14)
[2025-01-01 05:50] LABS: Basophils % 0.2 %; Hematocrit 30.6 % (36-47); Lymphocytes # 1.1 10^3/uL (0.8-4.8); Lymphocytes % 5.8 %; Mean Corpuscular HGB Conc 32.7 g/dL (30-55); Mean Corpuscular Hemoglobin 32.1 pg (27-33); Mean Corpuscular Volume 98.1 fl (85-98); Mean Platelet Volume 11.7 fL (7.4-10.4); Monocytes # 0.5 10^3/uL (0.2-0.9); Monocytes % 2.4 %; Neutrophils # 17.48 10^3/uL (1.8-7.7); Neutrophils % 90.1 %; Nucleated Red Blood Cells % 0 %; Platelet Count 337 10^3/cmm (157-399); Red Blood Count 3.12 10^6/uL (3.85-5.65); Red Cell Distribution Width 13.5 % (12.1-15.1); White Blood Count 19.39 10^3/uL (3.29-11.43)
[2025-01-01 06:09] LABS: Alanine Aminotransferase 173 U/L (0-33); Albumin Level 2.9 g/dL (3.5-5.2); Alkaline Phosphatase 335 U/L (35-105); Anion Gap 17.7 (5-19); Aspartate Amino Transferase 324 U/L (0-32); Blood Urea Nitrogen 28 mg/dL (8-23); Calcium 8.6 mg/dL (8.5-10.5); Carbon Dioxide 18 mmol/L (22-29); Chloride 108 mmol/L (98-107); Creatinine Clr Calc Pharmacy 33.0166; Globulin 3.4 g/dL (1.3-4.6); Glomerular Filtration Rate 34.9 mL/min (90-130); Glucose 195 mg/dL (65-115); Magnesium 1.6 mg/dL (1.7-2.3); Osmolality Calculated 301 mOsm/kg (285-295); Potassium 3.7 mmol/L (3.5-5.1); Sodium 140 mmol/L (136-145); Total Protein 6.3 g/dL (6.6-8.7)
[2025-01-01 06:33] LABS: Creatine Phosphokinase 9270 U/L (26-192)
[2025-01-01 06:42] LABS: Glucose Point of Care 199 mg/dL (70-110)
--- NOTE | 2025-01-01 07:16 | ECG_ITS ---
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: : 1960 Requested By: Filipe Islas Order Number: [id number] Reading MD: SONA DE LA ROSA Measurements Intervals [place] Rate: 97 P: 95 CT: 183 QRS: 100 QRSD: 104 T: -80 QT: 326 QTc: 415 Interpretive Statements SINUS RHYTHM BORDERLINE RIGHT AXIS DEVIATION [QRS AXIS > 90] ST DEVIATION AND MODERATE T-WAVE ABNORMALITY, CONSIDER ANTEROLATERAL ISCHEMIA [-0.1+ mV T-WAVE IN V3-V6] ST DEVIATION AND MODERATE T-WAVE ABNORMALITY, CONSIDER INFERIOR ISCHEMIA [-0.1+ mV T-WAVE IN II/aVF] Compared to ECG 12/31/2024 17:45:32 T-wave abnormality now present Possible ischemia now present Incomplete right bundle-branch block no longer present ST (T wave) deviation no longer present Electronically Signed On 01-08-2025 22:46:28 CDT by SONA DE LA ROSA [id number]
[2025-01-01] MEDS: potassium chloride ER 20 mEq Tablet 40 MEQ PO ×2 (07:17→11:38)
[2025-01-01] MEDS: magnesium sulfate premix 2 GM/50 ML PIGGYBACK IV (07:17)
--- NOTE | 2025-01-01 07:31 | PC.NURSE ---
Pt complains of sharp chest pain left chest that radiates down left arm. Rates 12/10. States worse than yesterday. Heart pounding in chest and pulse in chest visible. VS: 97.7, 18, P-78, 158/64, O2 96% RA. EKG obtained. Some t wave depression noted new from yesterday. One NTG SL given per orders. Pt states that pain decreased from a [address] Islas advised of all of the above as well as critical CK from this am. States will consult cardiology.
[2025-01-01] MEDS: sodium bicarbonate 150 MEQ in dextrose 5% 1,000 ML 100 MEQ IV (07:42)
[2025-01-01] MEDS: insulin lispro 100 unit/1 mL SUBCUT ×3 (07:44→17:24)
[2025-01-01] MEDS: aspirin 81 mg EC Tablet PO (07:44)
[2025-01-01] MEDS: pantoprazole 40 mg SDV IVP ×2 (07:45→21:16)
[2025-01-01] MEDS: nicotine 14 mg Patch 1 PATCH TRANSDERMA (07:45)
[2025-01-01] MEDS: citalopram 20 mg Tablet 40 MG PO (07:45)
[2025-01-01] MEDS: metoprolol tartrate 25 mg Tablet 12.5 MG PO (07:45)
--- NOTE | 2025-01-01 07:52 | P.CONIM_ITS ---
<Statement entered by Shaun Hickey M.D - 01/04/25 13:12> Patient was evaluated and cared for in conjunction with an advanced practice practitioner.? I personally examined the patient and reviewed the chart and all pertinent data including imaging, telemetry, and laboratory results.? I discussed the patient in detail with the advanced practice practitioner.? Please see? their note for complete H&P, testing results and agreed upon plan of care for the patient. Patient's chest pain is in a pattern of unstable angina. Having severe left- sided chest pain radiating to left arm. However had recent rhabdomyolysis and renal function is not normal at this time. Continue IV fluids. Will need coronary angiogram once renal function improves. Start nitro gtt as pain improves with that. GENERAL: Patient is alert, awake and oriented x3. HEART: Regular S1 and S2 LUNGS: Clear to auscultate bilaterally. CENTRAL NERVOUS SYSTEM: Grossly nonfocal. EXTREMITIES: Lower extremities without edema bilaterally. Providers/Reason For Consult 2 Consulting Physician/Specialty*: Dr Hickey, cardiology Reason for Consult*: troponin elevation, chest pain Requesting Physician: Dr Islas Attending Physician: Filipe Islas Primary Care Provider: Tera Maher MD History of Present Illness History of Present Illness Torie Belle is a 64 year old female with past medical history of CAD (s/p CABG x 3 in 2008), CKD. She presented to the emergency room 12/29/2024 with weakness progressing over the last week, dark stools beginning Monday. Laboratory testing revealed MAGDALENA on CKD, initial creatinine 2.7, down to 1.5 today. She was also found to have rhabdomyolysis, [place] 8119, increased to 9270 today. She has been evaluated by neurology and testing is in process, including testing for tickborne illness. She had an episode of chest pain yesterday, resolved spontaneously but was located in the left chest, radiating down the left arm. EKG and troponin series were completed: 105-> 101-> 100. EKG shows T wave inversions in the inferior and lateral leads this morning. Elevated AST and ALT (324 and 173 today respectively), elevated CRP 22. Statin is on hold. Hemoglobin initially 11, dropped to 9.2 yesterday, up to 10 today. Most recent echo was in August 2023 showing normal LVEF 50 to 55%, left atrial dilation, mild to moderate MR, moderate AR, mild TR, mild to moderate AR. Review of Systems 2 Const: Denies: fever(s), chills, change in weight, fatigue or diaphoresis Eyes: Denies: change in vision ENMT: Denies: epistaxis Card: Reports: chest pain; Denies: palpitations, irregular heart rhythm, edema, syncope, pre-syncope, dyspnea on exertion, orthopnea or leg pain with exertion Resp: Denies: dyspnea, productive cough or wheezing GI: Denies: nausea, vomiting, hematemesis, hematochezia or melena : Denies: hematuria Musc: Denies: extremity swelling [place]/Lymph: Denies: easy bruising or easy bleeding Medications/Allergies Home Medications ?Medication ?Instructions ?Recorded ?Confirmed ?Last Taken ?Type aspirin 81 mg tablet,delayed 81 mg PO QDAY 08/26/1912/29/24 History release (Adult Low Dose Aspirin) diphenhydramine HCl 25 mg capsule 25 mg PO BID PRN All ergy Symptoms 08/26/19 12/29/24 12/29/24 History (Benadryl) Diabetic Shoes #1 ea 07/18/22 12/29/24 Unkn own Rx Heated and molding inserts #1 ea 07/18/22 12/29/24 Un known Rx alcohol swabs (Alcohol Pads) See Rx Instructions .Rout e 02/16/23 12/29/24 Unknown Rx .COMPLEX #100 pad blood glucose control, normal #1 ea 02/16/23 12/29/24 Unknown Rx (OneTouch Ultra Control solution) blood-glucose meter (OneTouch #1 ea 02/16/23 12/29/24 Unknown Rx Ultra2 Meter) hydrocodone 7.5 mg-acetaminophen 1 tab PO Q12H PRN anabelle n 30 days #46 05/26/23 12/29/24 12/29/24 Rx 325 mg tablet tabs Toe alignment splint #1 ea 07/24/23 12/29/24 Unkn own Rx nitroglycerin 0.4 mg sublingual 0.4 mg sublingual Q5M PRN chest 08/23/23 12/29/24 Unknown Rx tablet pain #25 tabs hydrochlorothiazide 25 mg tablet See Rx Instructions . Route 09/12/29/24 12/29/24 Rx .COMPLEX #90 tabs metformin 1,000 mg tablet See Rx Instructions .Route 1 12/29/24 12/29/24 Rx .COMPLEX #60 tabs diabetic shoes with 3 inserts #1 ea 06/03/24 12/29/24 Unknown Rx blood sugar diagnostic (OneTouch #50 ea 06/12/2412/29 Unknown Rx Ultra Test strips) lancets 28 gauge (Easy Touch #100 ea 06/12/24 12/29/24 Unknown Rx Safety Lancets) trazodone 50 mg tablet See Rx Instructions .Route 1 08/24/23 12/29/24 12/28/24 Rx .COMPLEX #90 tabs metoprolol succinate 50 mg See Rx Instructions .Route 07/19/24 12/29/24 12/29/24 Rx tablet,extended release 24 hr .COMPLEX #180 tabs alprazolam 0.5 mg tablet 0.5 mg PO BID PRN sleep #45 tabs 09/06/24 12/29/24 12/25/24 Rx potassium chloride 10 mEq See Rx Instructions .Route 0 10/14/24 12/29/24 12/29/24 Rx capsule,extended release .COMPLEX #90 caps furosemide 20 mg tablet 20 mg PO QAM #30 tabs 12/29/24 Unknown Rx glipizide 5 mg tablet 2.5 mg (1/2 x 5 mg) PO BID # 60 tabs 12/19/24 12/29/24 12/29/24 Rx rosuvastatin 10 mg tablet See Rx Instructions .Route 0 12/19/24 12/29/24 12/28/24 Rx .COMPLEX #30 tabs sulindac 200 mg tablet See Rx Instructions .Route 0 12/19/24 12/29/24 12/29/24 Rx .COMPLEX #60 tabs albuterol sulfate 90 mcg/actuation See Rx Instructions .Route 12/29/24 12/29/24 Unknown History aerosol inhaler .COMPLEX PRN Shortness Of Br eath cyclobenzaprine 10 mg tablet See Rx Instructions .Rout e 12/29/24 12/29/24 Unknown History .COMPLEX PRN Muscle Spasm Allergies Allergy/AdvReac Type Severity Reaction Status Date / Time [facility] Intermediate ADR-Itching Verified 05/03/24 10:26 Extended-Release) prednisone AdvReac Intermediate ADR-Gastrointestinal Verified 05/03/24 10:26 Upset Current Medications Generic Name Dose Route Start Last Admin Trade Name Arnulfo PRN Reason Stop Dose Admin Alprazolam 0.5 mg 12/30/24 08:18 12/31/24 22:46 Alprazolam 0.5 Mg Tablet PO 0.5 mg BID PRN Administration SLEEP Aspirin 81 mg 01/01/25 07:30 01/01/25 07:46 Aspirin 81 Mg Ec Tablet PO Not Given DAILY KENA Bisacodyl 10 mg 12/30/24 10:30 12/31/24 07:44 Bisacodyl 10 Mg Supp AR 10 mg On Hold: 12/31/24 10:46 DAILY KENA Administration Ceftriaxone Sodium 1,000 mg 12/30/24 21:00 12/31/24 20:18 Ceftriaxone 1,000 Mg Sdv IVP 1,000 mg BEDTIME KENA Administration Protocol Citalopram Hydrobromide 40 mg 12/31/24 20:10 01/01/25 07:45 Citalopram 20 Mg Tablet PO 40 mg DAILY KENA Administration Sodium Chloride 1,000 mls @ 75 mls/hr 12/30/24 08:15 01/01/25 02:11 Sodium Chloride 0.9% IV 75 mls/hr .[id number] KENA Administration Doxycycline Hyclate 100 mg/ 100 mls @ 100 mls/hr 12/31/24 10:00 12/31/24 22:48 Sodium Chloride IV Infused Q12H KENA Infusion Protocol Methylprednisolone Sodium 258 mls @ 258 mls/hr 12/31/24 11:00 12/31/24 13:25 Succinate 1,000 mg/ Sodium IV Infused Chloride Q24H KENA Infusion Sodium Bicarbonate 150 meq/ 1,150 mls @ 100 mls/hr 01/01/25 07:00 01/01/25 07:42 Dextrose IV 01/01/25 18:29 100 mls/hr .[id number] ONE Administration Insulin Human Lispro 0 unit 12/30/24 12:00 01/01/25 07:44 Insulin Lispro 100 Unit/1 Ml SUBCUT 4 unit TIDWM KENA Administration Protocol Metoprolol Tartrate 12.5 mg 12/30/24 10:05 01/01/25 07:45 Metoprolol Tartrate 25 Mg Tablet PO 12.5 mg BID@0900,2100 KENA Administration Nicotine 1 patch 12/30/24 09:00 01/01/25 07:45 Nicotine 14 Mg Patch TRANSDERMA 1 patch DAILY KENA Administration Nitroglycerin 0.4 mg 12/31/24 17:52 01/01/25 07:17 Nitroglycerin 0.4 Mg Sublingual Tablet SUBLINGUAL 0.4 mg Q5M PRN Administration CHEST PAIN Pantoprazole Sodium 40 mg 12/31/24 20:00 01/01/25 07:45 Pantoprazole 40 Mg Sdv IVP 40 mg Q12H KENA Administration Polyethylene Glycol 17 gm 12/30/24 10:30 01/01/25 07:46 Polyethylene Glycol 3350 Pkt 17 Gm PO Not Given BID KENA Potassium Chloride 40 meq 01/01/25 06:45 01/01/25 07:17 Potassium Chloride Er 20 Meq Tablet PO 01/01/25 12:46 40 meq Q6H KENA Administration Trazodone HCl 50 mg 12/30/24 21:00 12/31/24 20:19 Trazodone 50 Mg Tablet PO 50 mg BEDTIME KENA Administration PFSH Acute 2 PFSH: Medical History AWILDA (obstructive sleep apnea) Lower extremity edema Chronic pain Chest pain Moderate major depression Lumbar disc disease Coracoid impingement of right shoulder Traumatic injury of foot Tobacco abuse ASHD (arteriosclerotic heart disease) Carotid stenosis, bilateral Dyslipidemia Essential hypertension Anxiety Depression Diabetes 1.5, managed as type 2 Renal insufficiency Lumbar disc disease Surgical History S/P CABG (coronary artery bypass graft) S/P carotid endarterectomy Carotid endarterectomy on the left Family History Sister Cancer stomach Mother No problems noted. Sister No problems noted. Other CAD (coronary artery disease) Dementia Depression Diabetes Heart disease Hyperlipidemia Hypertension Hypothyroidism Stroke TIA (transient ischemic attack) Denies family history of Immunodeficiency disorder Autoimmune disease Clotting disorder Chronic kidney disease (CKD) Lung disease Social History Smoking and tobacco/nicotine status: current every day tobacco/nicotine user cigarettes Packs smoked per day: 0.5 Alcohol intake: never Substance/Drug Use: never Household members: spouse Marital status: Number of children: 0 Current occupational status: retired and disabled Previous occupational history: [employer] Current gender identity: Female Lynette/Holiness: Druze Special lynette needs: No Agree to transfusion: Yes Vitals/I&O/Wt Last Vital Signs Temp 97.7 F 01/01/25 07:34 Pulse 99 01/01/25 07:35 Resp 18 01/01/25 07:34 BP 157/67 01/01/25 07:35 Pulse Ox 96 01/01/25 07:34 O2 Del Method Room Air 01/01/25 07:34 12/31/24 01/01/25 01/01/25 22:59 06:59 14:59 Intake Total 220 / 4556.75 1000 / 4556.75 120 / 120 Balance 220 / 4556.75 1000 / 4556.75 120 / 120 Weight last 48 hrs Weight 135 lb Weight 135 lb Physical Exam 2 Const: COMMON NORMALS: no acute distress and patient oriented x3 GENERAL APPEARANCE: cooperative and comfortable ORIENTATION/CONSCIOUSNESS: Yes awake, Yes oriented to person, Yes oriented to place and Yes oriented to time Chest: COMMONS NORMALS: normal inspection of the chest and normal palpation of entire chest wall CHEST: Yes Symmetrical chest wall rise Resp: COMMON NORMALS: normal respiratory effort, No retractions, No use of accessory muscles and clear to auscultation bilaterally EFFORT & INSPECTION: Yes symmetric chest movement AUSCULTATION: clear to auscultation bilaterally Cardio: COMMON NORMALS: regular rate, regular rhythm, S1 normal heart sound present, S2 normal heart sound present, No gallops present (Cardio), No clicks present (Cardio), No murmurs present (Cardio) and No rub (Cardio) RATE: r egular rate RHYTHM: regular rhythm HEART SOUNDS: S1 normal heart sound present and S2 normal heart sound present PERIPHERAL PULSES: radial pulses present Extremity: COMMON NORMALS: no pedal edema Neuro: COMMON NORMALS: patient oriented x3 and moves all extremities S ENSORIUM/ORIENTATION: Yes oriented to person, Yes oriented to place and Yes oriented to time Data 01/01/25 04:52 01/01/25 04:52 Micro: Microbiology 12/30/24 12:00 Urine Culture - Preliminary Urine,Clean Catch 12/30/24 09:02 Blood Culture - Preliminary Blood NEGATIVE TO DATE 12/30/24 09:00 Blood Culture - Preliminary Blood NEGATIVE TO DATE A&P Assessment and plan (1) Troponin level elevated: (2) Coronary artery disease: (3) Tobacco abuse: (4) S/P CABG (coronary artery bypass graft): (5) S/P carotid endarterectomy: (6) Diabetes 1.5, managed as type 2: (7) Acute kidney injury superimposed on CKD: Plan History of CAD status post CABG in 2008. She was seen in the office noting some chest pain, previously started on amlodipine which had resolved her chest pain. Now it is returned, accompanied with EKG changes. She can be started on nitroglycerin paste for chest pain. She does note the episodes are worse than before and feels like the first time she had a heart attack. She has had 2 episodes of chest pain in the last 24 hours. Will plan for stress testing to further evaluate myocardial ischemia, if she develops an unstable angina pattern may consider coronary angiogram. Noting heme positive stool this may require endoscopic evaluation. Agree with statin on hold. Continue metoprolol tartrate recommend increase to 25 twice daily due to uncontrolled hypertension. PDMP PDMP Reviewed: Not Reviewed Consult Attestations 2 Medical Necessity Statement: Ischemic workup Coding Level of Care Code Acute Code for Chg Fwd Diagnoses Troponin level elevated R79.89 Coronary artery disease I25.10 Tobacco abuse Z72.0 S/P CABG (coronary artery bypass graft) Z95.1 S/P carotid endarterectomy Z98.890 Diabetes 1.5, managed as type 2 E13.9 Acute kidney injury superimposed on CKD N17.9; N18.9
--- NOTE | 2025-01-01 09:21 | PC.RESP ---
fvc pred:2.90 achieved 1.98 nif -35
--- NOTE | 2025-01-01 09:50 | PC.SOCIAL ---
IMM Update pg 2 IMM Updated and reviewed w/ patient. Copy provided and copy dated, initialed and placed in chart.
--- NOTE | 2025-01-01 10:05 | PC.CHAP ---
Pastoral Care Encounter/Spiritual Assessment Type of Contact [] Declined marine oiler visit [] Patient/Family/Request visit [] Outpatient visit [] Follow-up visit [] Physician referral [] Code/Alert [x] Routine visit [] Staff referral [] Actively dying [] Patient sleeping [] Family support [] [] Out of room [] Palliative care [] [] Receiving care in room [] Pre-surgical visit [] Trauma [] Long length of stay [] ICU visit [] Other: Relational/Emotional Strength [x] Patient feels connected with others/family/visitors/staff [] Distress [] Loneliness/isolation [] Abandonment Spirituality of Patient [x] Person of Lynette [] Attends Denominational of their Lynette [x] Believes in Prayer [] Reads Bible or Adventism materials [] There are Spiritual issues to be addressed Industrial Waste Inspector Interventions [x] Prayer [x] Active listening [x] Non-anxious presence [x] Spiritual/emotional support [] Crisis/trauma care [] Spiritual counseling [] Bereavement support [] Provided bereavement packet [] Provided Bible/devotional materials [] Provided toy/stuffed animal, coloring book to patient or family member [] Provided Communion [] Anointing/[place] [] Salvation [x] Completed spiritual assessment [] Other: Impact on Illness or Injury [] Angry [] Fearful [] Anxious [] Often cries [] Exhaustion [] Unable to work [] Unable to attend confucianist [] Unable to walk/stand [] Unable to read [] Unable to drive [] Unable to eat/drink [] Unable to sleep [] Unable to be with family [] Patient intubated [] Other: Summary Time spent with patient 10 min
[2025-01-01] MEDS: nitroglycerin 1 gm/inch oint Pkt 0.5 INCH TOPICAL ×2 (11:00→15:05)
[2025-01-01] MEDS: methylPREDNISolone sod succ 1,000 MG in sodium chloride 0.9% 250 ML 125 MG IV (11:00)
[2025-01-01] MEDS: doxycycline 100 MG in sodium chloride 0.9% (plus) 100 ML IV ×2 (11:00→23:03)
[2025-01-01 11:26] LABS: Glucose Point of Care 306 mg/dL (70-110)
[2025-01-01 13:40] LABS: Lyme AB Screen <0.90 index
--- NOTE | 2025-01-01 15:15 | ECG_ITS ---
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 Measurements Intervals [place] Rate: 89 P: 84 WI: 167 QRS: 101 QRSD: 113 T: 72 QT: 393 QTc: 480 Interpretive Statements SINUS RHYTHM LATERAL MYOCARDIAL INFARCTION , AGE INDETERMINATE Compared to ECG 01/01/2025 07:16:03 Myocardial infarct finding now present T-wave abnormality no longer present Possible ischemia no longer present Electronically Signed On 01-07-2025 11:56:37 CDT by Shaun Hickey M.D. [email or web address]
--- NOTE | 2025-01-01 15:24 | PC.NURSE ---
Pt complaining of sharp chest pain left chest. Rates 6/10. States radiating down left arm. EKG performed and one NTG sl given. DR. Islas advised. He advises that I call cardiology.
--- NOTE | 2025-01-01 15:27 | PC.NURSE ---
Martha Howard INSURANCE BILLER advised of chest pain. She looks at current EKG. States she will show to the DrAlana and call me back.
--- NOTE | 2025-01-01 15:36 | PC.NURSE ---
Pt reports chest pain now 0/10
--- NOTE | 2025-01-01 16:02 | PC.NURSE ---
Pt complains of chest pain 5/10. Sharp pain to left chest , left arm numbness.BP 194/69, HR 87. One NTG Sl given. Will notifiy Dr. Islas
--- NOTE | 2025-01-01 16:07 | PC.NURSE ---
Dr. Islas advised of chest pain and BP of 194/69. Awaiting response.
[2025-01-01 16:28] LABS: Glucose Point of Care 299 mg/dL (70-110)
[2025-01-01] MEDS: hyDRALAzine 20 mg/mL INJ 1 mL 10 MG IVP ×2 (16:29→20:17)
[2025-01-01 16:43] LABS: Troponin T (5th) Once 136 ng/L (0-10)
--- NOTE | 2025-01-01 17:01 | P.PN_ITS ---
Subjective 2 Subjective: This morning again had an episode of chest pain radiating to left arm. EKG obtained with some T wave inversions. Resolved with nitroglycerin. In the afternoon additional episode of chest pain. Otherwise she is feeling stronger today. She has been able to ambulate, able to lift her legs up on bed which she had not been able to do previously. Vitals/I&O/Wt Last Vital Signs Temp 97.7 F 01/01/25 15:45 Pulse 98 01/01/25 16:50 Resp 19 H 01/01/25 15:45 BP 173/73 01/01/25 16:50 Pulse Ox 97 01/01/25 15:45 O2 Del Method Room Air 01/01/25 15:45 01/01/25 01/01/25 01/01/25 06:59 14:59 22:59 Intake Total 1000 / 4556.75 1648 / 1648 Balance 1000 / 4556.75 1648 / 1648 Weight last 48 hrs Weight 61.235 kg Weight 61.235 kg Physical Exam 2 Const: COMMON NORMALS: patient oriented x3 and alert GENERAL APPEARANCE: c ooperative ORIENTATION/CONSCIOUSNESS: Yes awake HENMT: COMMON NORMALS: oropharynx normal Neck/C-Spine: COMMON NORMALS: no JVD Resp: COMMON NORMALS: normal respiratory effort and clear to auscultation bilaterally AUSCULTATION: clear to auscultation bilaterally Cardio: COMMON NORMALS: no JVD, regular rhythm, S1 normal heart sound present, S2 normal heart sound present and No murmurs present (Cardio) RHYTHM: regular rhythm HEART SOUNDS: S1 normal heart sound present and S2 normal heart sound present GI: COMMON NORMALS: Normal to inspection, nondistended, normoactive bowel sounds present, Soft to palpation and non-tender PALPATION: Yes Soft to palpation Extremity: COMMON NORMALS: no joint enlargement and no pedal edema N ARRATIVE EXTREMITY EXAM: Able to lift bilateral lower extremities off the bed. Neuro: COMMON NORMALS: patient oriented x3 and moves all extremities S ENSORIUM/ORIENTATION: Yes alert Skin: COMMON NORMALS: no rashes or lesions noted GENERAL SKIN EXAM: no rashes or lesions noted Data 01/01/25 04:52 01/01/25 04:52 Micro: Microbiology 12/30/24 12:00 Urine Culture - Final Urine,Clean Catch A&P Assessment and plan (1) Angina at rest: Recurrent episodes of chest pain yesterday and again today. Possible unstable angina. Discussed with her. So far responsive nitroglycerin. On EKG today noted with T wave inversions inferolaterally. Moderate troponin elevation without peak. Resumed on aspirin. Consult by cardiology appreciated, discussed with cardiology, reviewed note. has not been started on anticoagulation with some worsening of chronic anemia with heme-onc positive and stool, concern for possible GI bleed. Beta-merlin has been switched to carvedilol. Hydralazine is added as needed by cardiology. Continue to optimize blood pressure control. Further consideration of stress testing. Reaching out to cardiology to further discuss anemia and consideration of endoscopic evaluation. (2) Leg weakness, bilateral: Improving strength. She is not able to lift her legs up on the bed and ambulate which she was not able to do previously. However, increasing CK today up to 9270. Started on bicarbonate overnight. Continue. Monitor for risk of fluid overload. Reassess chemistry, CK. Renal function is showing improvement, creatinine down to 1.5. Continue with high-dose corticosteroid for possible myositis, possibly post viral. Monitor for risk of including hyperglycemia, hypertension, gastritis, encephalopathy. Additionally with recommendation for coverage for possible tickborne illness with doxycycline discussed with her and started due to high- dose corticosteroids, although as per discussion with her otherwise suspicion is lower with no history of tick bite, without cytopenias, hyponatremia and other features. Continue IV hydration, monitor for risk of fluid overload. Reassess CK. FVC with improvement today on review. Continue respiratory assessments. She is reporting some chest pain today and left-side, reporting that she has had history of blockages . Requested troponin and EKG series. First EKG with limb reversal, otherwise unremarkable. Additional cardiac assessment in progress. Continue twice daily bedside swallow assessments. Monitor for dysphagia. Continue clear liquids for now with protein supplement. Consider muscle biopsy after resolution of rhabdomyolysis. Discontinue statin. Discontinue muscle relaxer while recovering. PT. CM following. Discussed with nurse case management and PT. Still no answer and no voicemail available on 's phone number. Presents with progressive generalized weakness, more pronounced in the legs since last Monday, possibly worsening in the evenings and significant impact on mobility. Unable to walk for the past day and a half. No focal neurological deficits, no numbness, no trouble speaking or swallowing. Progressive weakness more pronounced in the legs without focal abnormality. CT thoracic and lumbar spine with some moderate degenerative changes, L3 vertebral body compression 40% height loss without retropulsion. Noted hypokalemia, consider periodic hypokalemic paralysis, however, tendon reflexes are normal to slightly hyperactive. Replacement has been provided. Repeat potassium. TSH with mild elevation, check free T3, free T4 with consideration of thyrotoxic periodic paralysis, but does not have hyperthyroid symptoms. With granulomatous disease in the liver, sarcoidosis may be considered. However, without hilar lymphadenopathy, no dyspnea or other respiratory symptoms, no skin changes. (3) Acute kidney injury superimposed on CKD: Reviewed intake and output, potassium, BUN, CK, noted with improvement in creatinine down to 1.5. Continue to monitor intake and output, reassess chemistry. Recently with significantly decreased appetite, reduced oral intake of food and water. Discontinue sulindac. Hold statin. Follow CK. CT abdomen pelvis, without obstructive nephropathy. Received fluid challenge with dehydration, continue gentle IV hydration, monitor for risk of fluid overload. Monitor intake and output. Reassess renal function. (4) Transaminitis: Secondary to rhabdomyolysis. Reassess. Reviewed gallbladder ultrasound, with noted sludge, likely exacerbated by dehydration/cholestasis with elevation of T. bili and alk phos 1.7 and 316. With noted rhabdomyolysis with elevated CK. Hold statin. Stop and discontinue sulindac. Reassess liver parameters. (5) Urinary tract infection: Continue ceftriaxone. Reviewed urine culture, no growth. Blood culture. (6) Hypokalemia: Received replacement. Follow-up chemistry. Reviewed magnesium. (7) Constipation: Add bowel regimen. (8) Abnormal findings on diagnostic imaging of gall bladder: Incidentally noted distended gallbladder without gallstones, no ductal dilation. Calcified granulomas within the liver. Plan Hypomagnesemia: Received replacement. Check magnesium. Dark stools: Worsened anemia to 10. Hemoccult, noted positive. Stop and discontinue sulindac. SCD DVT prophylaxis. Continue PPI frequency to every 12 hours. Consider endoscopic evaluation, currently also with unstable angina, will confer with cardiology. Hypokalemia: R replaced. Recheck potassium and magnesium. CAD, CABG, carotid disease status post endarterectomy: Hold statin. Resume aspirin if no concern by neurology and lower GI bleeding. With episode of chest pain this morning that lasted briefly, resolved on its own, and left-sided chest rating to the left arm. EKG obtained, with limb lead reversal, but otherwise unremarkable. Complete troponin EKG series. Smoking addiction: Discussed with her smoking cessation, she is okay with nicotine replacement. Continue to encourage cessation. HTN: Monitor blood pressures, resume metoprolol at lower dose due to renal dysfunction. Monitor on telemetry. Hold HCTZ. Diabetes: Consistent carb diet. SSI. Monitor POC glucose. A1c reviewed, 6.3 Lumbar disc disease, compression fracture L4: With some chronic back pain. Takes sulindac, discussed with her to stop and discontinue. Takes hydrocodone as needed for pain. Valvular heart disease: Moderate aortic regurgitation, mild to moderate mitral regurgitation, tricuspid regurgitation, mild to moderate pulmonary regurgitation on review most recent echo 08/18/2023. PDMP PDMP Reviewed: Not Reviewed Attestations 2 Medical Necessity Statement*: Continue admission for assessment management of recurrent chest pain, rhabdomyolysis with MAGDALENA, severe weakness, with statin myopathy, rhabdomyolysis, possible myositis, monitor for respiratory decompensation, treat UTI. Diagnoses Angina at rest I20.89 Leg weakness, bilateral R29.898 Acute kidney injury superimposed on CKD N17.9; N18.9 Transaminitis R74.01 Urinary tract infection N39.0 Hypokalemia E87.6 Constipation K59.00 Abnormal findings on diagnostic imaging of gall bladder R93.2
[2025-01-01] MEDS: carvedilol 3.125 mg Tablet PO (17:25)
--- NOTE | 2025-01-01 17:37 | PC.NURSE ---
1610-Pt states chest pain gone.
--- NOTE | 2025-01-01 17:37 | PC.NURSE ---
Pt states chest pain back 10/10. Sharp pain to left chest radiating to left arm. NTG SL given.
--- NOTE | 2025-01-01 17:46 | PC.NURSE ---
BP 139/54, HR 99. Pt states chest pain now 0/10.
[2025-01-01] MEDS: nitroglycerin 1 gm/inch oint Pkt 1 INCH TOPICAL (18:43)
[2025-01-01] MEDS: cyclobenzaprine 10 mg Tablet 5 MG PO (19:10)
--- NOTE | 2025-01-01 19:26 | PC.NURSE ---
denied chest pain at this time, stated as long as I don't move my left arm I don't get chest pain
[2025-01-01] MEDS: heparin drip 25,000 UNIT/500 ML PREMIX 17 UNIT IV (19:51)
[2025-01-01] MEDS: heparin 5,000 unit/mL INJ 1 mL 3100 UNIT IVP (19:52)
--- NOTE | 2025-01-01 20:31 | PC.NURSE ---
report given to Bri in ICU, pt tranferred to ICU 12
[2025-01-01] MEDS: nitroglycerin drip 50 MG/250 ML PREMIX IV (21:08)
[2025-01-01] MEDS: cefTRIAXone 1,000 mg SDV 1000 MG IVP (21:16)
--- NOTE | 2025-01-01 21:42 | ECG_ITS ---
[facility] Pat Name: Torie Belle Department: Room: ICU12 Gender: Female Manager Revenue: : 1960 Requested By: Americo Partida Order Number: [id number] Dayanara MD: Shaun Hickey M.D. Measurements Intervals [place] Rate: 99 P: 92 SC: 178 QRS: 68 QRSD: 105 T: 129 QT: 369 QTc: 474 Interpretive Statements SINUS RHYTHM SEPTAL MYOCARDIAL INFARCTION , OF INDETERMINATE AGE [40+ ms Q WAVE IN V1/V2] MODERATE T-WAVE ABNORMALITY, CONSIDER ANTEROLATERAL ISCHEMIA [-0.1+ mV T-WAVE IN V3-V6] Compared to ECG 01/01/2025 15:19:47 T-wave abnormality now present Possible ischemia now present Myocardial infarct finding still present Electronically Signed On 01-07-2025 11:52:33 CDT by Shaun Hickey M.D. [email or web address]
[2025-01-01] MEDS: morphine 4 mg/mL SDV 1 mL 2 MG IVP (21:59)
--- NOTE | 2025-01-01 22:00 | PC.NURSE ---
EKG Patient complaining of severely increased chest pain despite increase in nitro drip. Slight changes noted on bedside radiation monitor. EKG obtained; morphine administered per OCT. Picture of EKG sent to Dr. Hickey. Order received to obtain a troponin level.
[2025-01-01] MEDS: trazodone 50 mg Tablet PO (23:03)
[2025-01-01 23:39] LABS: Basophils # 0.1 10^3/uL (0.0-0.1); Basophils % 0.3 %; Hematocrit 27.9 % (36-47); Lymphocytes % 5.4 %; Mean Corpuscular HGB Conc 33.7 g/dL (30-55); Mean Corpuscular Hemoglobin 32.3 pg (27-33); Mean Corpuscular Volume 95.9 fl (85-98); Mean Platelet Volume 11.5 fL (7.4-10.4); Monocytes # 1.6 10^3/uL (0.2-0.9); Monocytes % 4.2 %; Neutrophils # 32.78 10^3/uL (1.8-7.7); Neutrophils % 86.9 %; Nucleated Red Blood Cells % 0 %; Platelet Count 390 10^3/cmm (157-399); Red Blood Count 2.91 10^6/uL (3.85-5.65); Red Cell Distribution Width 13.6 % (12.1-15.1)
[2025-01-01 23:47] LABS: Troponin T (5th) Once 216 ng/L (0-10)
[2025-01-02] VITALS (130 sets, daily range): BP systolic 122–180; BP diastolic 49–137; PULSE 59–100; RESP 7–33; TEMP 36.7–36.9; O2SAT 90–100
[2025-01-02 00:12] LABS: Glucose Point of Care 252 mg/dL (70-110)
[2025-01-02 03:09] LABS: Basophils # 0.1 10^3/uL (0.0-0.1); Basophils % 0.2 %; Hematocrit 29.1 % (36-47); Lymphocytes # 2.1 10^3/uL (0.8-4.8); Lymphocytes % 6.2 %; Mean Corpuscular HGB Conc 32.6 g/dL (30-55); Mean Corpuscular Hemoglobin 31.7 pg (27-33); Mean Platelet Volume 11.4 fL (7.4-10.4); Monocytes # 1.8 10^3/uL (0.2-0.9); Monocytes % 5.3 %; Neutrophils # 29.39 10^3/uL (1.8-7.7); Nucleated Red Blood Cells % 0 %; Platelet Count 345 10^3/cmm (157-399); Red Cell Distribution Width 13.9 % (12.1-15.1)
[2025-01-02 03:32] LABS: Alanine Aminotransferase 212 U/L (0-33); Albumin Level 2.7 g/dL (3.5-5.2); Alkaline Phosphatase 280 U/L (35-105); Anion Gap 17.1 (5-19); Aspartate Amino Transferase 334 U/L (0-32); Blood Urea Nitrogen 26 mg/dL (8-23); Calcium 8.6 mg/dL (8.5-10.5); Carbon Dioxide 20 mmol/L (22-29); Chloride 108 mmol/L (98-107); Creatinine Clr Calc Pharmacy 45.0226; Globulin 3.6 g/dL (1.3-4.6); Glomerular Filtration Rate 49.8 mL/min (90-130); Glucose 180 mg/dL (65-115); Osmolality Calculated 301 mOsm/kg (285-295); Potassium 4.1 mmol/L (3.5-5.1); Sodium 141 mmol/L (136-145); Total Bilirubin 0.7 mg/dL (0.15-1.2); Total Protein 6.3 g/dL (6.6-8.7)
[2025-01-02 03:38] LABS: Partial Thromboplastin Time 155.7 SECONDS (23.9-36.7)
--- NOTE | 2025-01-02 03:46 | PC.NURSE ---
Contacted Dr. Melo and reported ptt. Physician gave orders to shut off heparin drip and retake ptt in 2 hours.
[2025-01-02 03:54] LABS: Creatine Phosphokinase 11000 U/L (26-192)
[2025-01-02 06:10] LABS: Partial Thromboplastin Time 49.1 SECONDS (23.9-36.7)
--- NOTE | 2025-01-02 06:33 | PC.NURSE ---
Received order from Physician to run Heparin at 11.5 units/kg/hr and check ptt in 4 hours.
[2025-01-02 07:58] LABS: Glucose Point of Care 180 mg/dL (70-110)
[2025-01-02] MEDS: insulin lispro 100 unit/1 mL SUBCUT ×3 (08:21→17:15)
[2025-01-02] MEDS: citalopram 20 mg Tablet 40 MG PO (08:21)
[2025-01-02] MEDS: aspirin 81 mg EC Tablet PO (08:21)
[2025-01-02] MEDS: nicotine 14 mg Patch 1 PATCH TRANSDERMA (08:21)
[2025-01-02] MEDS: carvedilol 6.25 mg Tablet PO ×2 (08:21→17:15)
[2025-01-02] MEDS: pantoprazole 40 mg SDV IVP ×2 (08:21→21:42)
[2025-01-02] MEDS: polyethylene glycol 3350 Pkt 17 gm PO (08:22)
--- NOTE | 2025-01-02 08:48 | P.PN_ITS ---
Subjective 2 Subjective: She had chest pain yesterday and was transferred to ICU. The first thing she shows me is the improved strength in her legs. No fever. Her muscles do not hurt. No trouble swallowing. Appetite is good. Medications: Medication Review Details: 3 days Solu-Medrol 1 g daily completed Vitals/I&O/Wt Last Vital Signs Temp 98.3 F 01/02/25 04:00 Pulse 95 01/02/25 08:30 Resp 18 01/02/25 08:30 BP 167/83 01/02/25 08:30 Pulse Ox 100 01/02/25 08:30 O2 Del Method Room Air 01/01/25 21:00 01/01/25 01/02/25 01/02/25 22:59 06:59 14:59 Intake Total 1051.95 / 2699.95 263.783 / 2963.733 250 / 250 Output Total 400 / 400 975 / 1375 Balance 651.95 / 2299.95 -711.217 / 1588.733 250 / 250 Weight last 48 hrs Weight 130 lb 1.164 oz Weight 135 lb Physical Exam 2 Narrative: Her strength has improved. I did not do full muscle exam but she was able to demonstrate excellent strength in the legs and arms. Reflexes remain intact. Data 01/02/25 02:35 01/02/25 02:35 Micro: Microbiology 12/30/24 12:00 Urine Culture - Final Urine,Clean Catch A&P Assessment and plan (1) Benign acute myositis: 64-year-old woman with acute myositis with rhabdomyolysis and acute kidney injury. Her CPK has risen today to 11,000. Clinically she is much better with improved strength after several days of steroids. Plan to continue 2 more days of IV steroids. Her hepatitis serologies negative. This is almost certainly acute viral myositis but she has massive rhabdomyolysis with acute kidney injury. She needs to be well-hydrated. Her muscles are not sore and she has not had chronic weakness but I will follow her in the clinic to determine whether she has an inflammatory myositis that will require further evaluation with muscle biopsy, etc., after discharge from the hospital. I am hoping that she will regain enough strength to go back home. Will continue to follow with you (2) Rhabdomyolysis: (3) Acute kidney injury superimposed on CKD: PDMP PDMP Reviewed: Not Reviewed Attestations 2 Medical Necessity Statement*: Acute kidney injury secondary to rhabdomyolysis Coding Level of Care Code Acute Code for [facility] Diagnoses Benign acute myositis M60.80 Rhabdomyolysis M62.82 Acute kidney injury superimposed on CKD N17.9; N18.9
[2025-01-02] MEDS: doxycycline 100 MG in sodium chloride 0.9% (plus) 100 ML IV ×2 (09:06→21:42)
--- NOTE | 2025-01-02 09:09 | P.PN_ITS ---
Subjective 2 Subjective: She is feeling better today with nitroglycerin drip, no chest pain. Reports history of current chest pain on the left side, radiating to left arm feeling like numbness of the arm. Sometimes triggered when she would be using her arm like pushing a table. Reports very responsive to nitroglycerin. Vitals/I&O/Wt Last Vital Signs Temp 98.3 F 01/02/25 04:00 Pulse 95 01/02/25 08:30 Resp 18 01/02/25 08:30 BP 167/83 01/02/25 08:30 Pulse Ox 100 01/02/25 08:30 O2 Del Method Room Air 01/01/25 21:00 01/01/25 01/02/25 01/02/25 22:59 06:59 14:59 Intake Total 1051.95 / 2699.95 263.783 / 2963.733 250 / 250 Output Total 400 / 400 975 / 1375 Balance 651.95 / 2299.95 -711.217 / 1588.733 250 / 250 Weight last 48 hrs Weight 59 kg Weight 61.235 kg Physical Exam 2 Const: COMMON NORMALS: patient oriented x3 and alert GENERAL APPEARANCE: c ooperative ORIENTATION/CONSCIOUSNESS: Yes awake HENMT: COMMON NORMALS: oropharynx normal Neck/C-Spine: COMMON NORMALS: no JVD Resp: COMMON NORMALS: normal respiratory effort and clear to auscultation bilaterally AUSCULTATION: clear to auscultation bilaterally Cardio: COMMON NORMALS: no JVD, regular rhythm, S1 normal heart sound present, S2 normal heart sound present and No murmurs present (Cardio) RHYTHM: regular rhythm HEART SOUNDS: S1 normal heart sound present and S2 normal heart sound present GI: COMMON NORMALS: Normal to inspection, nondistended, normoactive bowel sounds present, Soft to palpation and non-tender PALPATION: Yes Soft to palpation Extremity: COMMON NORMALS: no joint enlargement and no pedal edema N ARRATIVE EXTREMITY EXAM: Able to lift bilateral lower extremities off the bed. OTHER: Improving strength in upper and lower extremities. Has been able to ambulate. Able to elevate legs without drift. Still residual weakness. Neuro: COMMON NORMALS: patient oriented x3 and moves all extremities S ENSORIUM/ORIENTATION: Yes alert Skin: COMMON NORMALS: no rashes or lesions noted GENERAL SKIN EXAM: no rashes or lesions noted Data 01/02/25 02:35 01/02/25 02:35 Micro: Microbiology 12/30/24 12:00 Urine Culture - Final Urine,Clean Catch A&P Assessment and plan (1) Angina at rest: Recurrent episodes of chest pain yesterday radiating to left arm with left arm numbness. Improved/resolved with nitroglycerin drip. Has been initiated on heparin drip, discussed with her discussed risk of bleeding, so far has tolerated well without melena or hematochezia. Reviewed hemoglobin, 9.5, reviewed platelets, normal. Discussed with cardiology, plans for coronary angiography for tomorrow. Repeat blood counts, renal function, noted MAGDALENA has been improving with creatinine down to 1.1. Continue anticoagulation, monitor PTTs with risk of bleeding. Reassess blood counts. Continue aspirin, beta-merlin. Statin is on hold. (2) Leg weakness, bilateral: Noted worsening CK on review today up to 11,000. Discussed with neurology. Functionally she did show improvement, has been able to ambulate, although does have residual weakness. With worsening CK, suspected myositis, as prescription with neurology extend high-dose Solu-Medrol additional 2 days. Noted leukocytosis suspected secondary to margination. Reassess blood counts. Noted elevated POC glucose, continue insulin sliding scale. Consistent carb diet. Discussed with cardiology additional relation of CKD, consideration of possible contribution of troponin/cardiac CK-MB. Continue with high-dose corticosteroid for possible myositis, possibly post viral. Monitor for risk of including hyperglycemia, hypertension, gastritis, encephalopathy. Additionally with recommendation for coverage for possible tickborne illness with doxycycline discussed with her and started due to high- dose corticosteroids, although as per discussion with her otherwise suspicion is lower with no history of tick bite, without cytopenias, hyponatremia and other features. Continue IV hydration. Increase IV fluid rate 250 mL/h, monitor for risk of fluid overload. Reassess CK. Discussed with nursing, social work case manager NIF has been steady around 35. Discussed with RT. FVC changed to as needed for now due to machine malfunction. Continue twice daily bedside swallow assessments. Monitor for dysphagia. Continue clear liquids for now with protein supplement. Consider muscle biopsy after resolution of rhabdomyolysis. Discontinue statin. Discontinue muscle relaxer while recovering. PT. CM following. Presents with progressive generalized weakness, more pronounced in the legs since last Monday, possibly worsening in the evenings and significant impact on mobility. Unable to walk for the past day and a half. No focal neurological deficits, no numbness, no trouble speaking or swallowing. Progressive weakness more pronounced in the legs without focal abnormality. CT thoracic and lumbar spine with some moderate degenerative changes, L3 vertebral body compression 40% height loss without retropulsion. Noted hypokalemia, consider periodic hypokalemic paralysis, however, tendon reflexes are normal to slightly hyperactive. Replacement has been provided. Repeat potassium. TSH with mild elevation, check free T3, free T4 with consideration of thyrotoxic periodic paralysis, but does not have hyperthyroid symptoms. With granulomatous disease in the liver, sarcoidosis may be considered. However, without hilar lymphadenopathy, no dyspnea or other respiratory symptoms, no skin changes. (3) Acute kidney injury superimposed on CKD: Reviewed intake and output, potassium, BUN, CK, noted with improvement in creatinine down to 1.5. Continue to monitor intake and output, reassess chemistry. Recently with significantly decreased appetite, reduced oral intake of food and water. Discontinue sulindac. Hold statin. Follow CK. CT abdomen pelvis, without obstructive nephropathy. Received fluid challenge with dehydration, continue gentle IV hydration, monitor for risk of fluid overload. Monitor intake and output. Reassess renal function. (4) Transaminitis: Secondary to rhabdomyolysis. Reassess. Reviewed gallbladder ultrasound, with noted sludge, likely exacerbated by dehydration/cholestasis with elevation of T. bili and alk phos 1.7 and 316. With noted rhabdomyolysis with elevated CK. Hold statin. Stop and discontinue sulindac. Reassess liver parameters. (5) Urinary tract infection: Continue ceftriaxone. Reviewed urine culture, no growth. Blood culture. (6) Hypokalemia: Received replacement. Follow-up chemistry. Reviewed magnesium. (7) Constipation: Add bowel regimen. (8) Abnormal findings on diagnostic imaging of gall bladder: Incidentally noted distended gallbladder without gallstones, no ductal dilation. Calcified granulomas within the liver. Plan Hypomagnesemia: Received replacement. Reviewed magnesium. Dark stools: Worsened anemia to 10. Hemoccult, noted positive. Stop and discontinue sulindac. SCD DVT prophylaxis. Continue PPI frequency to every 12 hours. Consider endoscopic evaluation, currently also with unstable angina, will confer with cardiology. Hypokalemia: R replaced. Recheck potassium and magnesium. CAD, CABG, carotid disease status post endarterectomy: Hold statin. Resume aspirin if no concern by neurology and lower GI bleeding. With episode of chest pain this morning that lasted briefly, resolved on its own, and left-sided chest rating to the left arm. EKG obtained, with limb lead reversal, but otherwise unremarkable. Complete troponin EKG series. Smoking addiction: Discussed with her smoking cessation, she is okay with nicotine replacement. Continue to encourage cessation. HTN: Monitor blood pressures, resume metoprolol at lower dose due to renal dysfunction. Monitor on telemetry. Hold HCTZ. Diabetes: Consistent carb diet. SSI. Monitor POC glucose. A1c reviewed, 6.3 Lumbar disc disease, compression fracture L4: With some chronic back pain. Takes sulindac, discussed with her to stop and discontinue. Takes hydrocodone as needed for pain. Valvular heart disease: Moderate aortic regurgitation, mild to moderate mitral regurgitation, tricuspid regurgitation, mild to moderate pulmonary regurgitation on review most recent echo 08/18/2023. PDMP PDMP Reviewed: Not Reviewed Attestations 2 Medical Necessity Statement*: Continue admission for assessment management of recurrent chest pain, rhabdomyolysis with MAGDALENA, severe weakness, with statin myopathy, rhabdomyolysis, possible myositis, monitor for respiratory decompensation, treat UTI. Coding Level of Care Code Critical Care >/= 30 minutes Critical care time (in minutes): 35 The high probability of a clinically significant, sudden or life threatening deterioration, as referenced in this documentation, required my full and direct attention, intervention and personal management. The critical care time shown is in addition to time spent performing any reported separately billable procedures and includes the following: [x] Data and vital sign review and interpretation [x ] Patient assessment, examination and intervention [x] Medication orders and management [x] Patient/Family updates as able [x] Care Coordination and Documentation. Diagnoses Angina at rest I20.89 Leg weakness, bilateral R29.898 Acute kidney injury superimposed on CKD N17.9; N18.9 Transaminitis R74.01 Urinary tract infection N39.0 Hypokalemia E87.6 Constipation K59.00 Abnormal findings on diagnostic imaging of gall bladder R93.2
[2025-01-02 10:29] LABS: THYROID PEROXIDASE ANTIBODIES <1 IU/mL (<9)
--- NOTE | 2025-01-02 10:40 | P.PN_ITS ---
<Statement entered by Shaun Hickey M.D - 01/04/25 13:53> Patient was evaluated and cared for in conjunction with an advanced practice practitioner.? I personally examined the patient and reviewed the chart and all pertinent data including imaging, telemetry, and laboratory results.? I discussed the patient in detail with the advanced practice practitioner.? Please see? their note for complete progress note, testing results and agreed upon plan of care for the patient. Patient continues having on and also had chest pain. Has some dynamic EKG changes as well. Continue IV fluids today with plans for coronary angigram GENERAL: Patient is alert, awake and oriented x3. HEART: Regular S1 and S2 LUNGS: Clear to auscultate bilaterally. CENTRAL NERVOUS SYSTEM: Grossly nonfocal. EXTREMITIES: Lower extremities without edema bilaterally. Subjective 2 Subjective: She was moved to ICU overnight. Continued to have atypical chest pain, occurring only when pushing the bedside table with her arm. However after starting nitroglycerin infusion that pain has never returned. Random troponin at 10 PM last night was 216, higher than the previous 136. Of note this morning WBC up to 34, she is on high-dose steroids. CK increased to 11,000, AST and ALT elevated as well. Will plan for coronary angiogram tomorrow. Vitals/I&O/Wt Last Vital Signs Temp 98.3 F 01/02/25 04:00 Pulse 68 01/02/25 16:30 Resp 17 01/02/25 16:30 BP 149/88 01/02/25 16:30 Pulse Ox 100 01/02/25 16:30 O2 Del Method Room Air 01/01/25 21:00 01/02/25 01/02/25 01/02/25 06:59 14:59 22:59 Intake Total 263.783 / 2963.733 1285.175 / 1285.175 Output Total 975 / 1375 Balance -711.217 / 9753.288 3110.175 / 1285.175 Weight last 48 hrs Weight 130 lb 1.164 oz Weight 135 lb Physical Exam 2 Const: COMMON NORMALS: no acute distress and patient oriented x3 GENERAL APPEARANCE: cooperative and comfortable ORIENTATION/CONSCIOUSNESS: Yes awake, Yes oriented to person, Yes oriented to place and Yes oriented to time Chest: COMMONS NORMALS: normal inspection of the chest and normal palpation of entire chest wall CHEST: Yes Symmetrical chest wall rise Resp: COMMON NORMALS: normal respiratory effort, No retractions, No use of accessory muscles and clear to auscultation bilaterally EFFORT & INSPECTION: Yes symmetric chest movement AUSCULTATION: clear to auscultation bilaterally Cardio: COMMON NORMALS: regular rate, regular rhythm, S1 normal heart sound present, S2 normal heart sound present, No gallops present (Cardio), No clicks present (Cardio), No murmurs present (Cardio) and No rub (Cardio) RATE: r egular rate RHYTHM: regular rhythm HEART SOUNDS: S1 normal heart sound present and S2 normal heart sound present PERIPHERAL PULSES: radial pulses present Extremity: COMMON NORMALS: no pedal edema Neuro: COMMON NORMALS: patient oriented x3 and moves all extremities S ENSORIUM/ORIENTATION: Yes oriented to person, Yes oriented to place and Yes oriented to time Data 01/02/25 02:35 01/02/25 02:35 Micro: Microbiology 12/30/24 12:00 Urine Culture - Final Urine,Clean Catch A&P Assessment and plan (1) Coronary artery disease: (2) Chest pain: (3) Troponin level elevated: (4) Tobacco abuse: (5) S/P CABG (coronary artery bypass graft): (6) Diabetes 1.5, managed as type 2: (7) Acute kidney injury superimposed on CKD: Plan She continues to have atypical chest pain, relieved by nitroglycerin infusion. Troponin was elevated. Renal function is normal today, will plan for coronary angiogram tomorrow. N.p.o. after midnight tonight. PDMP PDMP Reviewed: Not Reviewed Attestations 2 Medical Necessity Statement*: Ischemic workup Coding Level of Care Code Acute Code for [facility] Diagnoses Coronary artery disease I25.10 Chest pain R07.9 Troponin level elevated R79.89 Tobacco abuse Z72.0 S/P CABG (coronary artery bypass graft) Z95.1 Diabetes 1.5, managed as type 2 E13.9 Acute kidney injury superimposed on CKD N17.9; N18.9
[2025-01-02 10:52] LABS: Partial Thromboplastin Time 112.4 SECONDS (23.9-36.7)
[2025-01-02 11:15] LABS: Glucose Point of Care 233 mg/dL (70-110)
[2025-01-02] MEDS: methylPREDNISolone sod succ 1,000 MG in sodium chloride 0.9% 250 ML 258 MG IV (11:54)
[2025-01-02] MEDS: sodium chloride 0.9% 1,000 ML 75 ML IV (11:54)
[2025-01-02 14:03] LABS: ANA SCREEN, IFA POSITIVE (NEGATIVE)
[2025-01-02 14:14] LABS: ANA PATTERN Nuclear, Homogeneous; ANA TITER 1:40 titer
[2025-01-02 16:53] LABS: Glucose Point of Care 195 mg/dL (70-110)
[2025-01-02 17:21] LABS: Partial Thromboplastin Time 70.8 SECONDS (23.9-36.7)
[2025-01-02] MEDS: trazodone 50 mg Tablet PO (21:41)
[2025-01-02] MEDS: cefTRIAXone 1,000 mg SDV 1000 MG IVP (21:42)
[2025-01-02] MEDS: sodium chloride 0.9% 1,000 ML 150 ML IV (22:53)
[2025-01-02 23:11] LABS: Partial Thromboplastin Time 49.5 SECONDS (23.9-36.7)
--- NOTE | 2025-01-02 23:15 | PC.NURSE ---
Spoke to Dr. Melo about changing xanax order to 0.25 mg per pt request. Order given to change dose to 0.25 mg.
[2025-01-02] MEDS: ALPRAZolam 0.5 mg Tablet 0.25 MG PO (23:19)
[2025-01-02] MEDS: heparin 5,000 unit/mL INJ 1 mL IVP (23:28)
[2025-01-03] VITALS (57 sets, daily range): BP systolic 107–171; BP diastolic 41–104; PULSE 61–122; RESP 10–31; TEMP 36.2–36.3; O2SAT 89–98
[2025-01-03 00:11] LABS: Glucose Point of Care 188 mg/dL (70-110)
[2025-01-03] MEDS: HYDROcodone-acetaminophen 5-325 mg Tablet 1 TAB PO (04:17)
[2025-01-03] MEDS: morphine 4 mg/mL SDV 1 mL 2 MG IVP (04:31)
[2025-01-03] MEDS: nitroglycerin drip 50 MG/250 ML PREMIX IV (05:22)
[2025-01-03 06:05] LABS: Basophils % 0.1 %; Hematocrit 32.5 % (36-47); Lymphocytes # 3.7 10^3/uL (0.8-4.8); Lymphocytes % 6.2 %; Mean Corpuscular Hemoglobin 31.3 pg (27-33); Mean Corpuscular Volume 97.9 fl (85-98); Mean Platelet Volume 11.8 fL (7.4-10.4); Monocytes # 1.9 10^3/uL (0.2-0.9); Monocytes % 3.2 %; Neutrophils # 50.43 10^3/uL (1.8-7.7); Nucleated Red Blood Cells % 0 %; Platelet Count 533 10^3/cmm (157-399); Positive M 1; Red Blood Count 3.32 10^6/uL (3.85-5.65); Red Cell Distribution Width 14.3 % (12.1-15.1)
--- NOTE | 2025-01-03 06:09 | XRR_ITS ---
PROCEDURE INFORMATION: Exam: XR Chest Exam date and time: 01/03/2025 6:39 AM Age: 64 years old Clinical indication: Shortness of breath; Prior surgery; Surgery date: 6+ months; Surgery type: Heart TECHNIQUE: Imaging protocol: Radiologic exam of the chest. Views: 1 view. COMPARISON: CT chest abdpel [id number] 12/29/2024 8:53 PM FINDINGS: Tubes, catheters and devices: Median sternotomy suture wires. Lungs: Mild bibasilar hypoventilatory changes. Pleural spaces: Unremarkable. No pleural effusion. No pneumothorax. Heart/Mediastinum: Unremarkable. No cardiomegaly. Bones/joints: Unremarkable. XR/XR chest 1V portable [id number] IMPRESSION: No acute findings.
[2025-01-03 06:19] LABS: Alanine Aminotransferase 244 U/L (0-33); Albumin Level 2.9 g/dL (3.5-5.2); Alkaline Phosphatase 324 U/L (35-105); Anion Gap 18.7 (5-19); Aspartate Amino Transferase 292 U/L (0-32); Blood Urea Nitrogen 29 mg/dL (8-23); Calcium 8.4 mg/dL (8.5-10.5); Carbon Dioxide 18 mmol/L (22-29); Chloride 110 mmol/L (98-107); Creatinine Clr Calc Pharmacy 48.7333; Globulin 3.6 g/dL (1.3-4.6); Glomerular Filtration Rate 55.6 mL/min (90-130); Glucose 195 mg/dL (65-115); Osmolality Calculated 307 mOsm/kg (285-295); Potassium 3.7 mmol/L (3.5-5.1); Sodium 143 mmol/L (136-145); Total Bilirubin 0.8 mg/dL (0.15-1.2); Total Protein 6.5 g/dL (6.6-8.7)
--- NOTE | 2025-01-03 06:20 | ECG_ITS ---
Where's Up [facility] Test Date: 2025-01-03 Pat Name: Torie Belle Department: Room: ICU12 Gender: Female Courtesy Clerk: : 1960 Requested By: Shaun Hickey Order Number: [id number] Dayanara MD: Shaun Hickey M.D. Measurements Intervals [place] Rate: 109 P: 32 [place]: 181 QRS: 46 QRSD: 108 T: 143 QT: 352 QTc: 474 Interpretive Statements SINUS TACHYCARDIA SEPTAL MYOCARDIAL INFARCTION , AGE INDETERMINATE Compared to ECG 01/01/2025 21:42:01 Sinus rhythm no longer present T-wave abnormality no longer present Myocardial infarct finding still present Electronically Signed On 01-07-2025 11:47:41 CDT by Shaun Hickey M.D. [email or web address] [id number]
[2025-01-03] MEDS: FUROsemide 10 mg/mL SDV 2mL 20 MG IVP ×2 (06:22→08:16)
[2025-01-03 06:26] LABS: Partial Thromboplastin Time 118.7 SECONDS (23.9-36.7)
[2025-01-03 06:41] LABS: Creatine Phosphokinase 7807 U/L (26-192)
--- NOTE | 2025-01-03 07:27 | PC.NURSE ---
Chest Pain/Lasix At approximately 0415, patient started complaining of chest pain due to movement of left arm. Pain medication options discussed; hydrocodone and morphine administered per MAR with escalation of pain. Patient requested milan catheter due to movement exacerbating chest pain. Dr. Melo contacted and orders received to insert milan catheter and administer 10 mg metoprolol IVP once. Milan catheter inserted, patient stated chest pain decreased to a 4 following morphine. Then at 0522, patient stated chest pain increasing to unbearable levels while also complaining of shortness of breath. Patient noted to have tachypnea, labored breathing with coarse lung sounds. Nitro drip initiated and 4LNC placed on patient. Dr. Hickey contacted; orders received to stop maintenance fluids, obtain chest xray, administer 20 mg lasix IVP once, and to hold metoprolol IVP previously ordered. EKG also obtained and sent to Dr. Hickey.
[2025-01-03 07:47] LABS: Glucose Point of Care 227 mg/dL (70-110)
[2025-01-03] MEDS: citalopram 20 mg Tablet 40 MG PO (08:16)
[2025-01-03] MEDS: insulin lispro 100 unit/1 mL SUBCUT ×2 (08:16→11:10)
[2025-01-03] MEDS: aspirin 81 mg EC Tablet PO (08:16)
[2025-01-03] MEDS: pantoprazole 40 mg SDV IVP ×2 (08:16→21:09)
[2025-01-03] MEDS: nicotine 14 mg Patch 1 PATCH TRANSDERMA (08:16)
[2025-01-03] MEDS: carvedilol 6.25 mg Tablet PO ×2 (08:16→17:12)
--- NOTE | 2025-01-03 09:14 | P.PN_ITS ---
<Statement entered by Shaun Hickey M.D - 01/04/25 14:26> Patient was evaluated and cared for in conjunction with an advanced practice practitioner.? I personally examined the patient and reviewed the chart and all pertinent data including imaging, telemetry, and laboratory results.? I discussed the patient in detail with the advanced practice practitioner.? Please see? their note for complete progress note, testing results and agreed upon plan of care for the patient. Patient was receiving IV fluids in preparation for coronary angiogram today however patient went into flash pulmonary edema. Requiring oxygen. We have postponed cardiac catheterization for tomorrow. We will hold fluids and give Lasix today. NPO past midnights. Continue heparin. Monitor H and H GENERAL: Patient is alert, awake and oriented x3. HEART: Regular S1 and S2 LUNGS: Diminished air entry bilaterally CENTRAL NERVOUS SYSTEM: Grossly nonfocal. EXTREMITIES: Lower extremities without edema bilaterally. Subjective 2 Subjective: She had a episode of pulmonary edema last night, required increased oxygen and additional dose of diuretic. Will hold off on coronary angiogram today, plan for tomorrow. Her white blood cell count continues to increase, with high-dose steroids. Hemoglobin improving, 10.4. Renal function continues to improve, 1.0 today. Vitals/I&O/Wt Last Vital Signs Temp 97.2 F L 01/03/25 05:45 Pulse 96 01/03/25 08:00 Resp 23 H 01/03/25 08:00 BP 169/85 01/03/25 08:00 Pulse Ox 96 01/03/25 08:00 O2 Del Method Oxymask 01/03/25 07:00 O2 Flow Rate 6 01/03/25 07:00 01/02/25 01/03/25 01/03/25 22:59 06:59 14:59 Intake Total 1277.833 / 3147.941 236.333 / 3147.941 1000 / 1000 Output Total 750 / 1350 300 / 1350 Balance 527.833 / 1797.941 -63.667 / 0896.524 4184 / 1000 Weight last 48 hrs Weight 136 lb 10.986 oz Weight 130 lb 1.164 oz Physical Exam 2 Const: COMMON NORMALS: no acute distress and patient oriented x3 GENERAL APPEARANCE: cooperative and comfortable ORIENTATION/CONSCIOUSNESS: Yes awake, Yes oriented to person, Yes oriented to place and Yes oriented to time Chest: COMMONS NORMALS: normal inspection of the chest and normal palpation of entire chest wall CHEST: Yes Symmetrical chest wall rise Resp: COMMON NORMALS: normal respiratory effort, No retractions and No use of accessory muscles EFFORT & INSPECTION: Yes symmetric chest movement A USCULTATION: crackles (bases) Laterality: bilateral and posterior Cardio: COMMON NORMALS: regular rate, regular rhythm, S1 normal heart sound present, S2 normal heart sound present, No gallops present (Cardio), No clicks present (Cardio), No murmurs present (Cardio) and No rub (Cardio) RATE: r egular rate RHYTHM: regular rhythm HEART SOUNDS: S1 normal heart sound present and S2 normal heart sound present PERIPHERAL PULSES: radial pulses present Extremity: COMMON NORMALS: no pedal edema Neuro: COMMON NORMALS: patient oriented x3 and moves all extremities S ENSORIUM/ORIENTATION: Yes oriented to person, Yes oriented to place and Yes oriented to time Urinary Catheter Management: Dwyer: Cath Placed During This Visit: yes Reason for Continuing Indwelling Catheter: Accurate Measurement of Urinary Output in Critically Ill Patients Urinary Catheter Date of Insertion: 01/03/25 Urinary Catheter Time of Insertion: 05:13 Data 01/03/25 05:29 01/03/25 05:29 A&P Assessment and plan (1) Coronary artery disease: (2) Chest pain: (3) Troponin level elevated: (4) Tobacco abuse: (5) S/P CABG (coronary artery bypass graft): (6) Diabetes 1.5, managed as type 2: (7) Acute kidney injury superimposed on CKD: Plan Since she had episode of pulmonary edema will wait for her to diurese a bit before coronary angiogram, planning for tomorrow. She is still on oxygen, requiring elevation of the head of the bed. Requesting CT of the chest prior to procedure tomorrow. PDMP PDMP Reviewed: Not Reviewed Attestations 2 Medical Necessity Statement*: Ischemic workup for atypical chest pain, troponin elevation Coding Level of Care Code Acute Code for [facility] Diagnoses Coronary artery disease I25.10 Chest pain R07.9 Troponin level elevated R79.89 Tobacco abuse Z72.0 S/P CABG (coronary artery bypass graft) Z95.1 Diabetes 1.5, managed as type 2 E13.9 Acute kidney injury superimposed on CKD N17.9; N18.9
[2025-01-03] MEDS: doxycycline 100 MG in sodium chloride 0.9% (plus) 100 ML IV ×2 (09:31→21:33)
--- NOTE | 2025-01-03 10:51 | CTR_ITS ---
PROCEDURE INFORMATION: Exam: CT Chest Without Contrast; Diagnostic Exam date and time: 01/03/2025 1:08 PM Age: 64 years old Clinical indication: Abnormal findings; Abnormal diagnostic tests; Other: Leukocytosis; Prior surgery; Surgery date: 6+ months; Surgery type: Cabg; Additional info: Recurrent L side chest pain, hypoxia, leukocytosis TECHNIQUE: Imaging protocol: Diagnostic computed tomography of the chest without contrast. Radiation optimization: All CT scans at this facility use at least one of these dose optimization techniques: automated exposure control; mA and/or kV adjustment per patient size (includes targeted exams where dose is matched to clinical indication); or iterative reconstruction. COMPARISON: [place] [id number] 12/29/2024 8:53 PM RADIATION DOSE METRICS: Total DLP (mGy-cm): 306.52 FINDINGS: Lungs: Dependent atelectasis or infiltrate in each lower lobe. Pleural spaces: Small bilateral pleural effusions. Heart: Unremarkable. No cardiomegaly. No pericardial effusion. Coronary arteries: Coronary artery calcifications. Lymph nodes: Unremarkable. No enlarged lymph nodes. Vasculature: Unremarkable. No aortic aneurysm. Liver: Calcified granulomata in the liver and spleen. Bones/joints: Median sternotomy suture wires. Soft tissues: Unremarkable. CT/CT chest wo con [id number] IMPRESSION: Small bilateral pleural effusions. Mild dependent atelectasis or infiltrate.
[2025-01-03 11:08] LABS: Glucose Point of Care 148 mg/dL (70-110)
[2025-01-03] MEDS: methylPREDNISolone sod succ 1,000 MG in sodium chloride 0.9% 250 ML 258 MG IV (11:09)
--- NOTE | 2025-01-03 14:04 | P.PN_ITS ---
Subjective 2 Subjective: Early this morning with flash pulm edema with dyspnea, worsening hypoxia requiring 6 L of oxygen, IV fluids were held, was given diuretic. Vitals/I&O/Wt Last Vital Signs Temp 97.2 F L 01/03/25 05:45 Pulse 80 01/03/25 12:00 Resp 24 H 01/03/25 12:00 BP 141/72 01/03/25 13:00 Pulse Ox 91 01/03/25 13:00 O2 Del Method Oxymask 01/03/25 07:00 O2 Flow Rate 6 01/03/25 07:00 01/02/25 01/03/25 01/03/25 22:59 06:59 14:59 Intake Total 1277.833 / 3169.608 236.333 / 3405.941 1200 / 1200 Output Total 750 / 1050 300 / 1350 Balance 527.833 / 2119.608 -63.667 / 2055.941 1200 / 1200 Weight last 48 hrs Weight 62 kg Weight 59 kg Physical Exam 2 Narrative: Accompanied by her . Const: COMMON NORMALS: patient oriented x3 and alert GENERAL APPEARANCE: c ooperative ORIENTATION/CONSCIOUSNESS: Yes awake HENMT: COMMON NORMALS: oropharynx normal Neck/C-Spine: COMMON NORMALS: no JVD Resp: COMMON NORMALS: normal respiratory effort and clear to auscultation bilaterally AUSCULTATION: clear to auscultation bilaterally Cardio: COMMON NORMALS: no JVD, regular rhythm, S1 normal heart sound present, S2 normal heart sound present and No murmurs present (Cardio) RHYTHM: regular rhythm HEART SOUNDS: S1 normal heart sound present and S2 normal heart sound present GI: COMMON NORMALS: Normal to inspection, nondistended, normoactive bowel sounds present, Soft to palpation and non-tender PALPATION: Yes Soft to palpation Extremity: COMMON NORMALS: no joint enlargement and no pedal edema N ARRATIVE EXTREMITY EXAM: Able to lift bilateral lower extremities off the bed. OTHER: Improving strength in upper and lower extremities. Has been able to ambulate. Able to elevate legs without drift. Still residual weakness. Neuro: COMMON NORMALS: patient oriented x3 and moves all extremities S ENSORIUM/ORIENTATION: Yes alert Skin: COMMON NORMALS: no rashes or lesions noted GENERAL SKIN EXAM: no rashes or lesions noted Urinary Catheter Management: Dwyer: Cath Placed During This Visit: yes Reason for Continuing Indwelling Catheter: Accurate Measurement of Urinary Output in Critically Ill Patients Urinary Catheter Date of Insertion: 01/03/25 Urinary Catheter Time of Insertion: 05:13 Data 01/03/25 05:29 01/03/25 05:29 A&P Assessment and plan (1) Angina at rest: So far resolved. Cholangiogram this morning was postponed due to flash pulm edema while in ICU. IV fluids were stopped. Received Lasix. With improvement in symptoms. Angiogram tentatively rescheduled for tomorrow morning. Recurrent episodes of chest pain yesterday radiating to left arm with left arm numbness. Improved/resolved with nitroglycerin drip. Has been initiated on heparin drip, discussed with her discussed risk of bleeding, so far has tolerated well without melena or hematochezia. Reviewed hemoglobin, 9.5, reviewed platelets, normal. Discussed with cardiology, plans for coronary angiography for tomorrow. Repeat blood counts, renal function, noted MAGDALENA has been improving with creatinine down to 1.1. Continue anticoagulation, monitor PTTs with risk of bleeding. Reassess blood counts. Continue aspirin, beta-merlin. Statin is on hold. (2) Acute respiratory failure: Acute respiratory failure this morning with dyspnea, tachypnea, hypoxia, requiring 6 L nasal oxygen, with flash pulmonary edema, IV fluids were stopped, was given diuretic. With improvement in symptoms. Weaning down on oxygen through the day, currently down to room air still with some intermittent dyspnea. CT of the chest obtained with recurrent chest pain, with respiratory failure, noted small pleural effusions, atelectasis, possible pneumonia not excluded. With severe leukocytosis rise up to 54,000, still suspected due to high-dose corticosteroid, however, will empirically broaden antibiotics to cefepime and linezolid. Requested MRSA PCR. Reviewed blood culture, negative so far. (3) Leg weakness, bilateral: Reviewed vitals, CBC, noted worsening leukocytosis up to 15.6, reviewed CK, noted improving down to 7807. Reviewed BUN, creatinine noted 29, 1. IV fluid discontinued this morning and received Lasix due to acute respiratory failure and flash pulmonary edema. Hold further diuretics, recheck CK. Consider if still needing further IV hydration. On high-dose Solu-Medrol with suspected myositis, tomorrow will be anticipated the last dose of the course.However, consider withholding in case of further improvement admission of over 2 midnights is anticipated for assessment of management of symptoms/CKD and/or worsening of leukocytosis. CK MM not available, requested CK-MB fraction. Reviewed, pending. Discussed with nursing, case management, PT. Functionally she did show improvement, has been able to ambulate, although does have residual weakness. With worsening CK, suspected myositis, as prescription with neurology extend high-dose Solu-Medrol additional 2 day(Last day 01/04)s. Noted leukocytosis suspected secondary to margination. Reassess blood counts. Noted elevated POC glucose, continue insulin sliding scale. Consistent carb diet. Discussed with cardiology additional relation of CKD, consideration of possible contribution of troponin/cardiac CK-MB. High-dose corticosteroid for susepcted myositis, possibly post viral. Monitor for risk of including hyperglycemia, hypertension, gastritis, encephalopathy. Additionally with recommendation for coverage for possible tickborne illness with doxycycline discussed with her and started due to high-dose corticosteroids, although as per discussion with her otherwise suspicion is lower with no history of tick bite, without cytopenias, hyponatremia and other features. NIF has been steady around 35. Discussed with RT. FVC changed to as needed for now due to machine malfunction. Continue twice daily bedside swallow assessments. Monitor for dysphagia. Continue clear liquids for now with protein supplement. Consider muscle biopsy after resolution of rhabdomyolysis. Discontinue statin. Discontinue muscle relaxer while recovering. Discharge disposition tentatively home with home health. (4) Acute kidney injury superimposed on CKD: MAGDALENA resolving. Reviewed intake and output, potassium, BUN, CK, noted with improvement in creatinine down to 1.1. Recently with significantly decreased appetite, reduced oral intake of food and water. Discontinue sulindac. Hold statin. Follow CK. CT abdomen pelvis, without obstructive nephropathy. Received fluid challenge with dehydration, continue gentle IV hydration, monitor for risk of fluid overload. Monitor intake and output. Reassess renal function. (5) Transaminitis: Secondary to rhabdomyolysis. Reassess. Reviewed gallbladder ultrasound, with noted sludge, likely exacerbated by dehydration/cholestasis with elevation of T. bili and alk phos 1.7 and 316. With noted rhabdomyolysis with elevated CK. Hold statin. Stop and discontinue sulindac. Reassess liver parameters. (6) Urinary tract infection: Discontinue ceftriaxone. Reviewed urine culture, no growth. Blood culture. (7) Hypokalemia: Received replacement. Follow-up chemistry. (8) Constipation: Add bowel regimen. (9) Abnormal findings on diagnostic imaging of gall bladder: Incidentally noted distended gallbladder without gallstones, no ductal dilation. Calcified granulomas within the liver. Plan Hypomagnesemia: Received replacement. Dark stools: So far has tolerated heparin drip, hemoglobin remaining stable, 10.4 today. Without melena or hematochezia. Worsened anemia to 10. Hemoccult, noted positive. Stop and discontinue sulindac. SCD DVT prophylaxis. Continue PPI frequency to every 12 hours. Consider endoscopic evaluation, currently also with unstable angina, will confer with cardiology. Hypokalemia: Replaced. CAD, CABG, carotid disease status post endarterectomy: Hold statin. Resume aspirin if no concern by neurology and lower GI bleeding. With episode of chest pain this morning that lasted briefly, resolved on its own, and left-sided chest rating to the left arm. EKG obtained, with limb lead reversal, but otherwise unremarkable. Complete troponin EKG series. Smoking addiction: Discussed with her smoking cessation, she is okay with nicotine replacement. Continue to encourage cessation. HTN: Monitor blood pressures, resume metoprolol at lower dose due to renal dysfunction. Monitor on telemetry. Hold HCTZ. Diabetes: Consistent carb diet. SSI. Monitor POC glucose. A1c reviewed, 6.3 Lumbar disc disease, compression fracture L4: With some chronic back pain. Takes sulindac, discussed with her to stop and discontinue. Takes hydrocodone as needed for pain. Valvular heart disease: Moderate aortic regurgitation, mild to moderate mitral regurgitation, tricuspid regurgitation, mild to moderate pulmonary regurgitation on review most recent echo 08/18/2023. PDMP PDMP Reviewed: Not Reviewed Attestations 2 Medical Necessity Statement*: Continue admission for assessment management of recurrent chest pain, possible unstable angina, rhabdomyolysis with MAGDALENA, weakness, with statin myopathy, rhabdomyolysis, possible myositis, monitor for respiratory decompensation, treat UTI. Coding Level of Care Code Critical Care >/= 30 minutes Critical care time (in minutes): 35 The high probability of a clinically significant, sudden or life threatening deterioration, as referenced in this documentation, required my full and direct attention, intervention and personal management. The critical care time shown is in addition to time spent performing any reported separately billable procedures and includes the following: [x] Data and vital sign review and interpretation [x ] Patient assessment, examination and intervention [x] Medication orders and management [x] Patient/Family updates as able [x] Care Coordination and Documentation. Diagnoses Angina at rest I20.89 Acute respiratory failure J96.00 Leg weakness, bilateral R29.898 Acute kidney injury superimposed on CKD N17.9; N18.9 Transaminitis R74.01 Urinary tract infection N39.0 Hypokalemia E87.6 Constipation K59.00 Abnormal findings on diagnostic imaging of gall bladder R93.2
[2025-01-03] MEDS: heparin 5,000 unit/mL INJ 1 mL IVP (16:15)
[2025-01-03 16:53] LABS: Glucose Point of Care 122 mg/dL (70-110)
[2025-01-03 16:55] LABS: MRSA PCR OZH (swab) NOT DETECTED (Not Detecte)
[2025-01-03] MEDS: cefepime 1,000 mg SDV 1000 MG IVP (18:42)
[2025-01-03] MEDS: linezolid premix 600 MG/300 ML PREMIX 300 MG IV (18:42)
--- NOTE | 2025-01-03 18:57 | PC.RESP ---
Patient refused to do nif
[2025-01-03 19:26] LABS: Partial Thromboplastin Time 95.7 SECONDS (23.9-36.7)
[2025-01-03] MEDS: albuterol 2.5 MG/0.5 ML NEB INHALATION (20:38)
[2025-01-03 20:40] LABS: DNA AB (DS) CRITHIDIA TITER 1:40 titer (<1:10); DNA AB (DS) CRITHIDIA,IFA POSITIVE (NEGATIVE)
[2025-01-03] MEDS: ALPRAZolam 0.5 mg Tablet 0.25 MG PO (21:09)
[2025-01-03] MEDS: trazodone 50 mg Tablet PO (21:09)
[2025-01-03] MEDS: heparin drip 25,000 UNIT/500 ML PREMIX 4 UNIT IV (22:31)
[2025-01-03 22:54] LABS: RMSF IGG NOT DETECTED; RMSF IGM NOT DETECTED
[2025-01-03 23:24] LABS: Glucose Point of Care 188 mg/dL (70-110)
[2025-01-04] VITALS (29 sets, daily range): BP systolic 114–169; BP diastolic 45–111; PULSE 66–89; RESP 13–23; TEMP 36.1–37; O2SAT 91–97; BMI 25.4
[2025-01-04 02:15] LABS: Basophils # 0.1 10^3/uL (0.0-0.1); Basophils % 0.2 %; Hematocrit 27.6 % (36-47); Lymphocytes # 2.2 10^3/uL (0.8-4.8); Lymphocytes % 5.5 %; Mean Corpuscular HGB Conc 32.2 g/dL (30-55); Mean Corpuscular Hemoglobin 32.2 pg (27-33); Mean Platelet Volume 11.1 fL (7.4-10.4); Monocytes # 0.9 10^3/uL (0.2-0.9); Monocytes % 2.2 %; Neutrophils # 36.48 10^3/uL (1.8-7.7); Neutrophils % 90.9 %; Nucleated Red Blood Cells % 0 %; Platelet Count 349 10^3/cmm (157-399); Red Blood Count 2.76 10^6/uL (3.85-5.65); Red Cell Distribution Width 14.4 % (12.1-15.1)
[2025-01-04 02:28] LABS: Partial Thromboplastin Time 30.3 SECONDS (23.9-36.7)
[2025-01-04 02:31] LABS: Alanine Aminotransferase 193 U/L (0-33); Albumin Level 2.4 g/dL (3.5-5.2); Alkaline Phosphatase 247 U/L (35-105); Anion Gap 16.5 (5-19); Aspartate Amino Transferase 163 U/L (0-32); Blood Urea Nitrogen 34 mg/dL (8-23); Calcium 8.2 mg/dL (8.5-10.5); Carbon Dioxide 18 mmol/L (22-29); Chloride 107 mmol/L (98-107); Creatinine Clr Calc Pharmacy 55.3287; Glomerular Filtration Rate 62.8 mL/min (90-130); Glucose 154 mg/dL (65-115); Osmolality Calculated 297 mOsm/kg (285-295); Potassium 3.5 mmol/L (3.5-5.1); Sodium 138 mmol/L (136-145); Total Bilirubin 0.6 mg/dL (0.15-1.2); Total Protein 5.4 g/dL (6.6-8.7)
[2025-01-04 02:44] LABS: White Blood Count 40.13 10^3/uL (3.29-11.43)
[2025-01-04 03:15] LABS: Creatine Phosphokinase 2636 U/L (26-192)
[2025-01-04] MEDS: cefepime 1,000 mg SDV 1000 MG IVP ×2 (05:16→18:10)
[2025-01-04] MEDS: linezolid premix 600 MG/300 ML PREMIX 300 MG IV ×2 (05:20→18:10)
[2025-01-04] MEDS: pantoprazole 40 mg SDV IVP ×2 (07:27→19:23)
[2025-01-04] MEDS: insulin lispro 100 unit/1 mL SUBCUT ×2 (07:35→18:05)
[2025-01-04 07:44] LABS: Glucose Point of Care 198 mg/dL (70-110)
--- NOTE | 2025-01-04 08:12 | W.PM.OPSUD ---
Surgery/Procedure H&P Update DATE OF PROCEDURE: January 04, 2025 DATE H&P PERFORMED: 01/04/25 H&P UPDATE INFORMATION: I have reviewed H&P completed within last 30 days, I have examined patient prior to procedure and Changes to prior documentation as noted here CHANGES TO PREVIOUS DOCUMENTATION: Patient had developed unstable angina/NSTEMI. Has been having on and off severe chest pain with dynamic EKG changes in lateral leads. Plan for coronary angiogram with possible PCI. She did have positive Hemoccult however as tolerated anticoagulation and antiplatelet medication. PREOP DIAGNOSIS: Unstable angina/NSTEMI PRIMARY INDICATION FOR PROCEDURE: Unstable angina/NSTEMI PLANNED PROCEDURE: Left heart cath with possible PCI PATIENT REASSESSED PRIOR TO SEDATION, WITH NO CHANGE NOTED: Yes PHYSICAL EXAM: alert, oriented x 3, clear to auscultation bilaterally and regular rate & rhythm AIRWAY EVAL/ANESTHESIA PLAN: normal airway, ASA III, Local Anesthesia, Risks, benefits & alternatives of sedation and/or procedure discussed and Patient agrees to continue as planned ADDITIONAL INFORMATION: Moderate sedation
[2025-01-04] MEDS: sucralfate 1 gm/10 mL Oral Liq UDC PO ×3 (09:45→22:32)
[2025-01-04] MEDS: doxycycline 100 MG in sodium chloride 0.9% (plus) 100 ML IV ×2 (09:47→22:32)
[2025-01-04] MEDS: carvedilol 6.25 mg Tablet PO ×2 (09:47→18:09)
[2025-01-04] MEDS: citalopram 20 mg Tablet 40 MG PO (09:47)
[2025-01-04] MEDS: nicotine 14 mg Patch 1 PATCH TRANSDERMA (09:47)
[2025-01-04 09:52] LABS: Hematocrit 28.9 % (36-47)
--- NOTE | 2025-01-04 10:21 | PC.NURSE ---
Received patient back form label stamper at 0923. Patient is awake, alert and oriented. BP: 156/74, HR: 93, SPO2: 93% on room air. Temp: 97.6. Right groin sheath in place. attached to pressure bag. No external bleeding. No hematoma identified. Nurse educated patient on need to lay flat and reportable symptoms. PTT ordered in 2 hours.
--- NOTE | 2025-01-04 11:52 | P.CONIM_ITS ---
Providers/Reason For Consult 2 Consulting Physician/Specialty*: General Surgery Reason for Consult*: Upper GI bleeding Attending Physician: Louie Young MD Primary Care Provider: Tera Maher MD History of Present Illness History of Present Illness Torie Belle is a 64 year With multiple medical problems who was admitted with possible polymyositis and also noted to have Acute cardiac changes requiring cardiac cath and stent placement. She has also noted to have black tarry stools and that is slowly resolving but since patient needs to be on dual antiplatelet therapy have been asked to proceed with upper endoscopy to ensure no significant active bleeding as patient is suspected to have possible upper GI bleed Review of Systems 2 General: Reports: 10 or more systems reviewed and unremarkable except in HPI and below Medications/Allergies Home Medications ?Medication ?Instructions ?Recorded ?Confirmed ?Last Taken ?Type aspirin 81 mg tablet,delayed 81 mg PO QDAY 08/26/1912/29/24 History release (Adult Low Dose Aspirin) diphenhydramine HCl 25 mg capsule 25 mg PO BID PRN All ergy Symptoms 08/26/19 12/29/24 12/29/24 History (Benadryl) Diabetic Shoes #1 ea 07/18/22 12/29/24 Unkn own Rx Heated and molding inserts #1 ea 07/18/22 12/29/24 Un known Rx alcohol swabs (Alcohol Pads) See Rx Instructions .Rout e 02/16/23 12/29/24 Unknown Rx .COMPLEX #100 pad blood glucose control, normal #1 ea 02/16/23 12/29/24 Unknown Rx (OneTouch Ultra Control solution) blood-glucose meter (OneTouch #1 ea 02/16/23 12/29/24 Unknown Rx Ultra2 Meter) hydrocodone 7.5 mg-acetaminophen 1 tab PO Q12H PRN anabelle n 30 days #46 05/26/23 12/29/24 12/29/24 Rx 325 mg tablet tabs Toe alignment splint #1 ea 07/24/23 12/29/24 Unkn own Rx nitroglycerin 0.4 mg sublingual 0.4 mg sublingual Q5M PRN chest 08/23/23 12/29/24 Unknown Rx tablet pain #25 tabs hydrochlorothiazide 25 mg tablet See Rx Instructions . Route 04/22/24 12/29/24 12/29/24 Rx .COMPLEX #90 tabs metformin 1,000 mg tablet See Rx Instructions .Route 1 12/29/24 12/29/24 Rx .COMPLEX #60 tabs diabetic shoes with 3 inserts #1 ea 06/03/24 12/29/24 Unknown Rx blood sugar diagnostic (OneTouch #50 ea 06/12/2412/29 Unknown Rx Ultra Test strips) lancets 28 gauge (Easy Touch #100 ea 06/12/24 12/29/24 Unknown Rx Safety Lancets) trazodone 50 mg tablet See Rx Instructions .Route 1 08/24/23 12/29/24 12/28/24 Rx .COMPLEX #90 tabs metoprolol succinate 50 mg See Rx Instructions .Route 07/19/24 12/29/24 12/29/24 Rx tablet,extended release 24 hr .COMPLEX #180 tabs alprazolam 0.5 mg tablet 0.5 mg PO BID PRN sleep #45 tabs 09/06/24 12/29/24 12/25/24 Rx potassium chloride 10 mEq See Rx Instructions .Route 0 10/14/24 12/29/24 12/29/24 Rx capsule,extended release .COMPLEX #90 caps furosemide 20 mg tablet 20 mg PO QAM #30 tabs 12/29/24 Unknown Rx glipizide 5 mg tablet 2.5 mg (1/2 x 5 mg) PO BID # 60 tabs 12/19/24 12/29/24 12/29/24 Rx rosuvastatin 10 mg tablet See Rx Instructions .Route 0 12/19/24 12/29/24 12/28/24 Rx .COMPLEX #30 tabs sulindac 200 mg tablet See Rx Instructions .Route 0 12/19/24 12/29/24 12/29/24 Rx .COMPLEX #60 tabs albuterol sulfate 90 mcg/actuation See Rx Instructions .Route 12/29/24 12/29/24 Unknown History aerosol inhaler .COMPLEX PRN Shortness Of Br eath cyclobenzaprine 10 mg tablet See Rx Instructions .Rout e 12/29/24 12/29/24 Unknown History .COMPLEX PRN Muscle Spasm Allergies Allergy/AdvReac Type Severity Reaction Status Date / Time niacin (From [facility] Allergy Intermediate ADR-Itching Verified 09/27/24 10:26 Extended-Release) prednisone AdvReac Intermediate ADR-Gastrointestinal Verified 05/03/24 10:26 Upset Current Medications Generic Name Dose Route Start Last Admin Trade Name Arnulfo PRN Reason Stop Dose Admin Hydrocodone Bitart/Acetaminophen 1 tab 12/30/24 10:09 01/03/25 04:17 Hydrocodone-Acetaminophen 5-325 Mg Tablet PO 1 tab BID PRN Administration MODERATE PAIN Albuterol Sulfate 2.5 mg 01/03/25 18:54 01/03/25 20:38 Albuterol 2.5 Mg/0.5 Ml Neb INHALATION 2.5 mg Q4H.RESPIRATORY PRN Administration SHORTNESS OF BREATH Alprazolam 0.25 mg 01/02/25 23:10 01/03/25 21:09 Alprazolam 0.5 Mg Tablet PO 0.25 mg BID PRN Administration SLEEP, ANXIETY Aspirin 81 mg 01/01/25 07:30 01/04/25 09:15 Aspirin 81 Mg Ec Tablet PO Not Given DAILY KENA Carvedilol 6.25 mg 01/02/25 09:00 01/04/25 09:47 Carvedilol 6.25 Mg Tablet PO 6.25 mg BID KENA Administration Cefepime HCl 1,000 mg 01/03/25 18:00 01/04/25 05:16 Cefepime 1,000 Mg Sdv IVP 1,000 mg Q12H KENA Administration Protocol Citalopram Hydrobromide 40 mg 12/31/24 20:10 01/04/25 09:47 Citalopram 20 Mg Tablet PO 40 mg DAILY KENA Administration Cyclobenzaprine HCl 5 mg 01/01/25 18:13 01/01/25 19:10 Cyclobenzaprine 10 Mg Tablet PO 5 mg TID PRN Administration MUSCLE SPASMS Heparin Sodium (Porcine) 0 unit 01/01/25 19:27 01/03/25 16:15 Heparin 5,000 Unit/Ml Inj 1 Ml IVP 1,200 unit PRN PRN Administration Heparin Weight Based Protocol -Subsequent Bolus Protocol Hydralazine HCl 10 mg 01/01/25 17:01 01/01/25 20:17 Hydralazine 20 Mg/Ml Inj 1 Ml IVP 10 mg Q4H PRN Administration blood pressure above 160/90 Doxycycline Hyclate 100 mg/ 100 mls @ 100 mls/hr 12/31/24 10:00 01/04/25 09:47 Sodium Chloride IV 100 mls/hr Q12H KENA Administration Protocol Methylprednisolone Sodium 258 mls @ 258 mls/hr 12/31/24 11:00 01/04/25 07:21 Succinate 1,000 mg/ Sodium IV Infused Chloride Q24H KENA Infusion Heparin Sodium/Sodium Chloride 25,000 unit in 500 mls @ 0 mls/hr 01/01/25 19:30 01/04/25 02:47 Heparin Drip IV 6.67 unit/kg/hr CONT KENA 8 mls/hr Protocol Titration Per Protocol Nitroglycerin/Dextrose 50 mg in 250 mls @ 0 mls/hr 01/01/25 20:32 01/03/25 13:00 Nitroglycerin Drip IV 0 mcg/min .Q0M KENA 0 mls/hr Protocol Titration Per Protocol Linezolid 600 mg in 300 mls @ 300 mls/hr 01/03/25 18:00 01/04/25 06:44 Zyvox Premix IV Infused Q12H KENA Infusion Protocol Insulin Human Lispro 0 unit 12/30/24 12:00 01/04/25 07:35 Insulin Lispro 100 Unit/1 Ml SUBCUT 4 unit TIDWM KENA Administration Protocol Morphine Sulfate 2 mg 12/30/24 10:10 01/03/25 04:31 Morphine 4 Mg/Ml Sdv 1 Ml IVP 2 mg Q8H PRN Administration SEVERE PAIN Nicotine 1 patch 12/30/24 09:00 01/04/25 09:47 Nicotine 14 Mg Patch TRANSDERMA 1 patch DAILY KENA Administration Nitroglycerin 0.4 mg 12/31/24 17:52 01/01/25 19:39 Nitroglycerin 0.4 Mg Sublingual Tablet SUBLINGUAL 0.4 mg Q5M PRN Administration CHEST PAIN Pantoprazole Sodium 40 mg 12/31/24 20:00 01/04/25 07:27 Pantoprazole 40 Mg Sdv IVP 40 mg Q12H KENA Administration Polyethylene Glycol 17 gm 12/30/24 10:30 01/04/25 10:20 Polyethylene Glycol 3350 Pkt 17 Gm PO Not Given BID KENA Sucralfate 1 gm 01/04/25 09:00 01/04/25 09:45 Sucralfate 1 Gm/10 Ml Oral Liq Udc PO 1 gm Q6H KENA Administration Trazodone HCl 50 mg 12/30/24 21:00 01/03/25 21:09 Trazodone 50 Mg Tablet PO 50 mg BEDTIME KENA Administration PFSH Acute 2 PFSH: Medical History AWILDA (obstructive sleep apnea) Lower extremity edema Chronic pain Chest pain Moderate major depression Lumbar disc disease Coracoid impingement of right shoulder Traumatic injury of foot Tobacco abuse ASHD (arteriosclerotic heart disease) Carotid stenosis, bilateral Dyslipidemia Essential hypertension Anxiety Depression Diabetes 1.5, managed as type 2 Renal insufficiency Lumbar disc disease Surgical History S/P CABG (coronary artery bypass graft) S/P carotid endarterectomy Carotid endarterectomy on the left Family History Sister Cancer stomach Mother No problems noted. Sister No problems noted. Other CAD (coronary artery disease) Dementia Depression Diabetes Heart disease Hyperlipidemia Hypertension Hypothyroidism Stroke TIA (transient ischemic attack) Denies family history of Immunodeficiency disorder Autoimmune disease Clotting disorder Chronic kidney disease (CKD) Lung disease Social History Smoking and tobacco/nicotine status: current every day tobacco/nicotine user cigarettes Packs smoked per day: 0.5 Alcohol intake: never Substance/Drug Use: never Household members: spouse Marital status: Number of children: 0 Current occupational status: retired and disabled Previous occupational history: [employer] Current gender identity: Female Lynette/Restoration: Spiritism Special lynette needs: No Agree to transfusion: Yes Vitals/I&O/Wt Last Vital Signs Temp 97.6 F 01/04/25 10:00 Pulse 83 01/04/25 10:00 Resp 20 H 01/04/25 10:00 BP 155/80 01/04/25 10:00 Pulse Ox 95 01/04/25 10:00 O2 Del Method Room Air 01/04/25 07:00 O2 Flow Rate 6 01/03/25 07:00 01/03/25 01/04/25 01/04/25 22:59 06:59 14:59 Intake Total 457.076 / 2047.926 317.067 / 2364.993 258 / 258 Output Total 700 / 700 Balance 457.076 / 2047.926 -382.933 / 1664.993 258 / 258 Weight last 48 hrs Weight 143 lb 4.807 oz Weight 136 lb 10.986 oz Physical Exam 2 GI: OTHER: Benign abdominal exam abdomen soft nontender nondistended Urinary Catheter Management: Dwyer: Cath Placed During This Visit: yes Reason for Continuing Indwelling Catheter: Accurate Measurement of Urinary Output in Critically Ill Patients Urinary Catheter Date of Insertion: 01/03/25 Urinary Catheter Time of Insertion: 05:13 Data 01/04/25 09:42 01/04/25 02:02 Micro: Microbiology 12/30/24 09:02 Blood Culture - Final Blood NO GROWTH AFTER 5 DAYS 12/30/24 09:00 Blood Culture - Final Blood NO GROWTH AFTER 5 DAYS A&P Assessment and plan (1) Angina at rest: (2) GI bleed: Plan I had extensive discussion with the patient regarding the possibility of upper endoscopy. After discussion of all risk and benefits including the risk of perforation of the stomach duodenum esophagus requiring surgical intervention possible transfer to high-level care, recurrent bleeding, unable to control bleeding with endoscopic measures, injury to soft tissue of the mouth and pharynx. Patient shows understanding and she wishes to proceed. I think proceeding with upper endoscopy is appropriate in this setting as patient will require to be indwell antiplatelet therapy and any GI bleeding can turn into life-threatening in the setting of coagulopathy. We will proceed today PDMP PDMP Reviewed: Not Reviewed Coding Level of Care Code 21965 Diagnoses Angina at rest I20.89 GI bleed K92.2
[2025-01-04 11:56] LABS: INR 1.25 (0.8-1.2)
[2025-01-04 12:09] LABS: Partial Thromboplastin Time > 250.0 SECONDS (23.9-36.7)
[2025-01-04] MEDS: methylPREDNISolone sod succ 1,000 MG in sodium chloride 0.9% 250 ML 258 MG IV (12:18)
--- NOTE | 2025-01-04 12:18 | P.ANESASSM_ITS ---
Pre-Anesthetic Assessment Height/Weight: Height 5 ft 3 in Weight 143 lb 4.807 oz Temp Pulse Resp BP Pulse Ox O2 Del Method O2 Flow Rate 97.6 F 83 20 H 155/80 95 Room Air 6 01/04/25 10:00 01/04/25 10:00 01/04/25 10:00 01/04/25 10:00 01/04/25 10:00 01/04/25 07:00 01/03/25 07:00 Preop Diagnosis: Unstable angina/NSTEMI Operation Date: 01/04/25 08:30 Proposed Procedures p Cardiac Catheterization(Not Applicable) - Shaun Hickey M.D Was Beta Loi taken within 24 hours: Yes Was Clonidine taken within 24 hours: N/A Social Tobacco and No alcohol Exam alert and oriented x 3 Airway Submandibular: within normal limits Cervical ROM: within normal limits Mallampati: Class III Dentition: false Anesthetic Plan ASA status: 4 Anesthesia: MAC Other: Patient initially admitted 12/29/2024 with 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 Mast Patient remained stable in the ICU currently History of hypertension on metoprolol AWILDA Current smoker Type 2 diabetes Labs reviewed from today, severe leukocytosis noted, WBC 40 today PTT 250 Echo 12/31/2024 showing EF of 55 to 60% Discussed anesthesia extensively with patient and explained that she is very high risk for a cardiac event in the intraoperative. Due to recent stent placement this morning. Cardiology would like to place patient on dual antiplatelet therapy and so they are wanting to evaluate for potential of GI bleed, hemoglobin 9.3 this morning Plan for MAC anesthesia Medications/Allergies Home Medications ?Medication ?Instructions ?Recorded ?Confirmed ?Last Taken ?Type aspirin 81 mg tablet,delayed 81 mg PO QDAY 08/26/1912/29/24 History release (Adult Low Dose Aspirin) diphenhydramine HCl 25 mg capsule 25 mg PO BID PRN All ergy Symptoms 08/26/19 12/29/24 12/29/24 History (Benadryl) Diabetic Shoes #1 ea 07/18/22 12/29/24 Unkn own Rx Heated and molding inserts #1 ea 07/18/22 12/29/24 Un known Rx alcohol swabs (Alcohol Pads) See Rx Instructions .Rout e 02/16/23 12/29/24 Unknown Rx .COMPLEX #100 pad blood glucose control, normal #1 ea 02/16/23 12/29/24 Unknown Rx (OneTouch Ultra Control solution) blood-glucose meter (OneTouch #1 ea 02/16/23 12/29/24 Unknown Rx Ultra2 Meter) hydrocodone 7.5 mg-acetaminophen 1 tab PO Q12H PRN anabelle n 30 days #46 05/26/23 12/29/24 12/29/24 Rx 325 mg tablet tabs Toe alignment splint #1 ea 07/24/23 12/29/24 Unkn own Rx nitroglycerin 0.4 mg sublingual 0.4 mg sublingual Q5M PRN chest 08/23/23 12/29/24 Unknown Rx tablet pain #25 tabs hydrochlorothiazide 25 mg tablet See Rx Instructions . Route 04/22/24 12/29/24 12/29/24 Rx .COMPLEX #90 tabs metformin 1,000 mg tablet See Rx Instructions .Route 1 12/29/24 12/29/24 Rx .COMPLEX #60 tabs diabetic shoes with 3 inserts #1 ea 06/03/24 12/29/24 Unknown Rx blood sugar diagnostic (OneTouch #50 ea 06/12/2412/29 Unknown Rx Ultra Test strips) lancets 28 gauge (Easy Touch #100 ea 06/12/24 12/29/24 Unknown Rx Safety Lancets) trazodone 50 mg tablet See Rx Instructions .Route 1 08/24/23 12/29/24 12/28/24 Rx .COMPLEX #90 tabs metoprolol succinate 50 mg See Rx Instructions .Route 07/19/24 12/29/24 12/29/24 Rx tablet,extended release 24 hr .COMPLEX #180 tabs alprazolam 0.5 mg tablet 0.5 mg PO BID PRN sleep #45 tabs 09/06/24 12/29/24 12/25/24 Rx potassium chloride 10 mEq See Rx Instructions .Route 0 10/14/24 12/29/24 12/29/24 Rx capsule,extended release .COMPLEX #90 caps furosemide 20 mg tablet 20 mg PO QAM #30 tabs 12/29/24 Unknown Rx glipizide 5 mg tablet 2.5 mg (1/2 x 5 mg) PO BID # 60 tabs 12/19/24 12/29/24 12/29/24 Rx rosuvastatin 10 mg tablet See Rx Instructions .Route 0 12/19/24 12/29/24 12/28/24 Rx .COMPLEX #30 tabs sulindac 200 mg tablet See Rx Instructions .Route 0 12/19/24 12/29/24 12/29/24 Rx .COMPLEX #60 tabs albuterol sulfate 90 mcg/actuation See Rx Instructions .Route 12/29/24 12/29/24 Unknown History aerosol inhaler .COMPLEX PRN Shortness Of Br eath cyclobenzaprine 10 mg tablet See Rx Instructions .Rout e 12/29/24 12/29/24 Unknown History .COMPLEX PRN Muscle Spasm Allergies Allergy/AdvReac Type Severity Reaction Status Date / Time niacin (From [facility] Allergy Intermediate ADR-Itching Verified 05/03/24 10:26 Extended-Release) prednisone AdvReac Intermediate ADR-Gastrointestinal Verified 05/03/24 10:26 Upset Current Medications Generic Name Dose Route Start Last Admin Trade Name Freq PRN Reason Stop Dose Admin Hydrocodone Bitart/Acetaminophen 1 tab 12/30/24 10:09 01/03/25 04:17 Hydrocodone-Acetaminophen 5-325 Mg Tablet PO 1 tab BID PRN Administration MODERATE PAIN Albuterol Sulfate 2.5 mg 01/03/25 18:54 01/03/25 20:38 Albuterol 2.5 Mg/0.5 Ml Neb INHALATION 2.5 mg Q4H.RESPIRATORY PRN Administration SHORTNESS OF BREATH Alprazolam 0.25 mg 01/02/25 23:10 01/03/25 21:09 Alprazolam 0.5 Mg Tablet PO 0.25 mg BID PRN Administration SLEEP, ANXIETY Aspirin 81 mg 01/01/25 07:30 01/04/25 09:15 Aspirin 81 Mg Ec Tablet PO Not Given DAILY KENA Carvedilol 6.25 mg 01/02/25 09:00 01/04/25 09:47 Carvedilol 6.25 Mg Tablet PO 6.25 mg BID KENA Administration Cefepime HCl 1,000 mg 01/03/25 18:00 01/04/25 05:16 Cefepime 1,000 Mg Sdv IVP 1,000 mg Q12H KENA Administration Protocol Citalopram Hydrobromide 40 mg 12/31/24 20:10 01/04/25 09:47 Citalopram 20 Mg Tablet PO 40 mg DAILY KENA Administration Cyclobenzaprine HCl 5 mg 01/01/25 18:13 01/01/25 19:10 Cyclobenzaprine 10 Mg Tablet PO 5 mg TID PRN Administration MUSCLE SPASMS Hydralazine HCl 10 mg 01/01/25 17:01 01/01/25 20:17 Hydralazine 20 Mg/Ml Inj 1 Ml IVP 10 mg Q4H PRN Administration blood pressure above 160/90 Doxycycline Hyclate 100 mg/ 100 mls @ 100 mls/hr 12/31/24 10:00 01/04/25 09:47 Sodium Chloride IV 100 mls/hr Q12H [facility] Administration Protocol Methylprednisolone Sodium 258 mls @ 258 mls/hr 12/31/24 11:00 01/04/25 07:21 Succinate 1,000 mg/ Sodium IV Infused Chloride Q24H KENA Infusion Linezolid 600 mg in 300 mls @ 300 mls/hr 01/03/25 18:00 01/04/25 06:44 Zyvox Premix IV Infused Q12H KENA Infusion Protocol Insulin Human Lispro 0 unit 12/30/24 12:00 01/04/25 07:35 Insulin Lispro 100 Unit/1 Ml SUBCUT 4 unit TIDWM [facility] Administration Protocol Morphine Sulfate 2 mg 12/30/24 10:10 01/03/25 04:31 Morphine 4 Mg/Ml Sdv 1 Ml IVP 2 mg Q8H PRN Administration SEVERE PAIN Nicotine 1 patch 12/30/24 09:00 01/04/25 09:47 Nicotine 14 Mg Patch TRANSDERMA 1 patch DAILY [facility] Administration Nitroglycerin 0.4 mg 12/31/24 17:52 01/01/25 19:39 Nitroglycerin 0.4 Mg Sublingual Tablet SUBLINGUAL 0.4 mg Q5M PRN Administration CHEST PAIN Pantoprazole Sodium 40 mg 12/31/24 20:00 01/04/25 07:27 Pantoprazole 40 Mg Sdv IVP 40 mg Q12H KENA Administration Polyethylene Glycol 17 gm 12/30/24 10:30 01/04/25 10:20 Polyethylene Glycol 3350 Pkt 17 Gm PO Not Given BID [facility] Sucralfate 1 gm 01/04/25 09:00 01/04/25 09:45 Sucralfate 1 Gm/10 Ml Oral Liq Udc PO 1 gm Q6H KENA Administration Trazodone HCl 50 mg 12/30/24 21:00 01/03/25 21:09 Trazodone 50 Mg Tablet PO 50 mg BEDTIME KENA Administration Additional Medication Information 3 days Solu-Medrol 1 g daily completed [facility] Anesthesia Medical History AWILDA (obstructive sleep apnea) Lower extremity edema Chronic pain Chest pain Moderate major depression Lumbar disc disease Coracoid impingement of right shoulder Traumatic injury of foot Tobacco abuse ASHD (arteriosclerotic heart disease) Carotid stenosis, bilateral Dyslipidemia Essential hypertension Anxiety Depression Diabetes 1.5, managed as type 2 Renal insufficiency Lumbar disc disease Surgical History S/P CABG (coronary artery bypass graft) S/P carotid endarterectomy Carotid endarterectomy on the left Family History Sister Cancer stomach Mother No problems noted. Sister No problems noted. Other CAD (coronary artery disease) Dementia Depression Diabetes Heart disease Hyperlipidemia Hypertension Hypothyroidism Stroke TIA (transient ischemic attack) Denies family history of Immunodeficiency disorder Autoimmune disease Clotting disorder Chronic kidney disease (CKD) Lung disease Social History Smoking and tobacco/nicotine status: current every day tobacco/nicotine user cigarettes Packs smoked per day: 0.5 Alcohol intake: never Substance/Drug Use: never Household members: spouse Marital status: Number of children: 0 Current occupational status: retired and disabled Previous occupational history: [id number] Current gender identity: Female Lynette/Christianity: Yarsanism Special lynette needs: No Agree to transfusion: Yes Data Anesthesia 01/04/25 09:42 01/04/25 02:02 Short CBC 01/03/25 01/04/25 01/04/25 Range/Units 05: 02:02 09:42 WBC 58.60 H* 40.13 H* (3.29-11.43) 10^3/uL Hgb 10.40 L 8.90 L 9.30 L (11.27-16.99) g/dL Hct 32.5 L 27.6 L 28.9 L (36-47) % MCV 97.9 100.0 H (85-98) fl Plt Count 533 H D 349 D (157-399) 10^3/cmm Neut % (Auto) 86.0 90.9 % Neut # (Auto) 50.43 H 36.48 H (1.8-7.7) 10^3/uL BMP 01/03/25 01/04/25 05:29 02:02 Sodium 143 138 Potassium 3.7 3.5 Chloride 110 H 107 Carbon Dioxide 18 L 18 L BUN 29 H 34 H Creatinine 1.0 H 0.9 Glucose 195 H 154 H Calcium 8.4 L 8.2 L Cardiac Enzymes 01/03/25 01/04/25 Range/Units 05: 02:02 Creatine Kinase 7807 H* 2636 H* (26-192) U/L Liver Function 01/03/25 01/04/25 Range/Units : 02:02 Total Bilirubin 0.8 0.6 (0.15-1.2) mg/dL AST 292 H 163 H (0-32) U/L ALT 244 H 193 H (0-33) U/L Alkaline Phosphatase 324 H 247 H (35-105) U/L Albumin 2.9 L 2.4 L (3.5-5.2) g/dL Coags 01/02/25 01/02/25 01/03/25 16:42 22:48 05: PT INR APTT 70.8 H 49.5 H 118.7 H D 01/03/25 01/03/25 01/04/25 12:18 18:35 02:02 PT INR APTT 49.0 H D 95.7 H D 30.3 D 01/04/25 11:28 PT 16.60 H INR 1.25 H APTT > 250.0 H* D Microbiology 12/30/24 09:02 Blood Culture - Final Blood NO GROWTH AFTER 5 DAYS 12/30/24 09:00 Blood Culture - Final Blood NO GROWTH AFTER 5 DAYS Cardiac Studies: 2 Echocardiogram 12/31/24 Sestamibi Stress Test (Cardiology) 09/05
[2025-01-04 12:35] LABS: Glucose Point of Care 141 mg/dL (70-110)
--- NOTE | 2025-01-04 12:48 | PM.MISC ---
Miscellaneous Note Purpose of Documentation: Update on patient care Note: EGD was done today, unfortunately patient has a distal esophageal stricture at the level of the cardia that is impossible to transversed with my scope. Balloon dilation is not an option at this point as patient is anticoagulated. In the case of active GI bleeding demonstrated by hematemesis or melena patient will require evaluation in higher level of care for GI intervention that may include dilation under fluoroscopy and bleeding control
--- NOTE | 2025-01-04 12:49 | SUR.OPER ---
Pt back to ICU via bed. Sheath to right groin remains intact with no new bleeding noted. Bedside RN, Bryson, assisted with transfer. Pt responding to verbal stimuli after procedure. VSS.
--- NOTE | 2025-01-04 12:49 | ANE.PACU2 ---
Inpatient post-anesthesia follow up: Airway intact: Yes Vital signs: Temperature 97.4 F Pulse Rate 53 Respiratory Rate 16 Blood Pressure 141/69 Pulse Oximetry 94 Oxygen Delivery Me thod Room Air Oxygen Flow Rate 2 Fraction of Inspir ed Oxygen Hydration adequate: Yes Nausea and vomiting: No Pain level: 1 Mental status: Baseline
--- NOTE | 2025-01-04 13:03 | PM.PROC ---
Procedure Note: Date of procedure: 01/04/25 Pre-procedure diagnosis: NSTEMI/ Unstable angina Post-procedure diagnosis: other (Severe mid left circumflex artery stenosis s/p PCI 1 stent) Procedure: Left main artery is patent. LAD is ostially occluded. TIWARI to LAD is patent. Left circumflex artery has severe mid vessel stenosis (Dynamic EKG changes seen in lateral leads). Status post successful revascularization with 1 stent. RCA is totally occluded. SVG to RCA is patent. SVG to small sized OM is patent Dual antiplatelet therapy with aspirin and plavix GI workup per primary team Estimated blood loss (mL): 10 Complications: None Condition: stable Disposition: ICU Coding Level of Care Code Acute Code for Chg [place]
[2025-01-04 15:00] LABS: Acetylcholine Recept Modulatin 13
[2025-01-04 15:25] LABS: Hematocrit 27.8 % (36-47)
[2025-01-04 15:48] LABS: Partial Thromboplastin Time 71.7 SECONDS (23.9-36.7)
[2025-01-04 16:49] LABS: E. Chaffeensis AB IGG <1:64; E. Chaffeensis AB IGM <1:20
--- NOTE | 2025-01-04 17:01 | P.PN_ITS ---
Subjective 2 Subjective: - Patient was seen this morning - She seen after her coronary angiogram, she had a stent placed to her left circumflex - She is currently chest pain-free - Denies any nausea, no vomiting, no blo jenni or black stools reported -She reports that her lower extremity we akness is significantly improving, she has good range of motion, she tells me she has good strength, no paresthesias -She denies any current chest pain or sh ortness of breath - We discussed her anemia, her complaint s of black tarry stools on admission, and her Hemoccult positive stools - Certainly this is a difficult situatio n, with her stent placement, as she is going to be committed to aspirin and Plavix, however she has increased risk of bleeding on aspirin and Plavix - Discussed with her monitoring her hemo globin closely every 6 hours, monitoring hemodynamics closely, I have her on Protonix and Carafate - If her hemoglobin drops below 8 we amador l give her 1 unit PRBC - However as now she has a stent placed to her left circumflex, I think it would be reasonable to proceed with an EGD, to evaluate for possible source of upper GI bleed - If there could be a source of upper GI bleed found, we could certainly consider interventions -But her risk of GI bleed is higher give n that now she is on aspirin, Plavix and she has been on high-dose steroids since 12/31 - Or if there is disease pathology found that we will necessary transfer it is better to know this sooner rather than later - Discussed possibility of transfer to [facility] if she does develop life-threatening bleed - After discussing risk and benefits, gumaro e voiced understanding, all question answered, agreed to proceed - Spoke to Dr. Warren, cardiology - Spoke to Dr. Gr[facility] ry plans on EGD this afternoon possibly based on clinical progress Vitals/I&O/Wt Last Vital Signs Temp 97.0 F L 01/04/25 12:35 Pulse 66 01/04/25 14:00 Resp 15 01/04/25 12:35 BP 161/69 01/04/25 12:35 Pulse Ox 97 01/04/25 12:35 O2 Del Method Simple Mask 01/04/25 12:35 O2 Flow Rate 10 01/04/25 12:35 05/01/04/25 01/04/25 06:59 14:59 22:59 Intake Total 317.067 / 2364.993 258 / 258 Output Total 700 / 700 Balance -382.933 / 1664.993 258 / 258 Weight last 48 hrs Weight 65 kg Weight 62 kg Physical Exam 2 Const: COMMON NORMALS: no acute distress and patient oriented x3 Resp: COMMON NORMALS: normal respiratory effort, No retractions, No use of accessory muscles and clear to auscultation bilaterally AUSCULTATION: clear to auscultation bilaterally Cardio: COMMON NORMALS: regular rate, regular rhythm, S1 normal heart sound present and S2 normal heart sound present RATE: regular rate RHYTHM: r egular rhythm HEART SOUNDS: S1 normal heart sound present and S2 normal heart sound present GI: COMMON NORMALS: Normal to inspection, nondistended, normoactive bowel sounds present and non-tender Extremity: COMMON NORMALS: no pedal edema Neuro: COMMON NORMALS: patient oriented x3 Psych: COMMON NORMALS: mental status grossly normal Urinary Catheter Management: Dwyer: Cath Placed During This Visit: yes Reason for Continuing Indwelling Catheter: Accurate Measurement of Urinary Output in Critically Ill Patients Urinary Catheter Date of Insertion: 01/03/25 Urinary Catheter Time of Insertion: 05:13 Data 01/04/25 15:08 01/04/25 02:02 Micro: Microbiology 12/30/24 09:02 Blood Culture - Final Blood NO GROWTH AFTER 5 DAYS 12/30/24 09:00 Blood Culture - Final Blood NO GROWTH AFTER 5 DAYS A&P Assessment and plan (1) Angina at rest: - Status post coronary angiogram - LAD is occluded, TIWARI to LAD is patent, left circumflex has severe mid vessel stenosis, status post PCI 1 stent - Is on aspirin, Plavix (2) Acute respiratory failure: - Concern for flash pulmonary edema - Currently on room air - Further doses of Lasix based on clinical progress (3) Leg weakness, bilateral: - Bilateral extremity weakness improving - Concerns for viral myositis - On Solu-Medrol 1 g IV every 24 hours since 12/31/2024 last date 01/04/2025 - De-escalate to prednisone 60 mg daily - On doxycycline for possible tickborne illness -Consider muscle biopsy after resolution of rhabdomyolysis. (4) Acute kidney injury superimposed on CKD: - Monitor (5) Transaminitis: - Improving (6) Urinary tract infection: (7) Constipation: (8) Abnormal findings on diagnostic imaging of gall bladder: (9) GI bleed: Dark stools: - Hemoccult positive stools - Is on high dose steroids - Was on heparin drip, aspirin - Now will be on aspirin, Plavix - Long taper of prednisone - Monitor hemoglobin 6 hours -Is on Protonix, Carafate -Transfuse if hemoglobin less than 8 - Plans on EGD (10) Rhabdomyolysis: - Continue IV fluids - Plavix on hold Plan Leukocytosis -Leukocytosis trending downwards - Blood cultures so far negative -Remains afebrile -Likely the effect of steroids -Remains on Zyvox, doxycycline Dark stools: - Hemoccult positive stools - Is on high dose steroids - Was on heparin drip, aspirin - Now will be on aspirin, Plavix - Long taper of prednisone - Monitor hemoglobin 6 hours - Plans on EGD Hypokalemia: Replaced. CAD, CABG, carotid disease status post endarterectomy: Hold statin. Smoking addiction: Discussed with her smoking cessation, she is okay with nicotine replacement. Continue to encourage cessation. HTN: Monitor blood pressures, resume metoprolol at lower dose due to renal dysfunction. Diabetes: Consistent carb diet. SSI. Monitor POC glucose. A1c reviewed, 6.3 Lumbar disc disease, compression fracture L4: With some chronic back pain. Takes sulindac, discussed with her to stop and discontinue. Takes hydrocodone as needed for pain. Valvular heart disease: Moderate aortic regurgitation, mild to moderate mitral regurgitation, tricuspid regurgitation, mild to moderate pulmonary regurgitation on review most recent echo 08/18/2023. PDMP PDMP Reviewed: Last Reviewed 12/30/24 08:19 by Louie Young MD Attestations 2 Medical Necessity Statement*: Patient requires hospitalization for viral myositis, chest pain requiring stent placement, GI bleed Diagnoses Angina at rest I20.89 Acute respiratory failure J96.00 Leg weakness, bilateral R29.898 Acute kidney injury superimposed on CKD N17.9; N18.9 Transaminitis R74.01 Urinary tract infection N39.0 Constipation K59.00 Abnormal findings on diagnostic imaging of gall bladder R93.2 GI bleed K92.2 Rhabdomyolysis M62.82
[2025-01-04 18:01] LABS: Glucose Point of Care 210 mg/dL (70-110)
[2025-01-04 18:05] LABS: Partial Thromboplastin Time 32.5 SECONDS (23.9-36.7)
[2025-01-04] MEDS: efferdent effervescent 1 EACH DENTAL (18:22)
[2025-01-04 18:34] LABS: Acetylcholine Receptor Binding <0.30 nmol/L
--- NOTE | 2025-01-04 19:11 | PC.NURSE ---
Addendum entered by Bryson Burroughs RN 01/04/25 19:14: Patient received IV fluids, 50ml/hr for 6 hrs post cath procedure. Scanned and started in [employer]. Original Note: Shift Summary: Went to [employer], 1 stent placed. Sheath being removed at this time. In for most of the day due to high PTTs. Went to GI lab for EGD. Unable to complete scope due to esophageal strictures.
[2025-01-04] MEDS: morphine 4 mg/mL SDV 1 mL 2 MG IVP (20:26)
--- NOTE | 2025-01-04 21:37 | PC.NURSE ---
Sheath Pull Arterial sheath pulled at 2035. 20 minutes held of firm pressure. At 2056, right groin site started bleeding. 20 additional minutes held of firm pressure. At 2116, no bleeding or hematoma noted. All vital signs stable and clear dressing applied.
[2025-01-04 21:54] LABS: Hematocrit 29.4 % (36-47)
[2025-01-04] MEDS: trazodone 50 mg Tablet PO (22:32)
[2025-01-04] MEDS: albuterol 2.5 MG/0.5 ML NEB INHALATION (23:23)
[2025-01-04 23:40] LABS: Glucose Point of Care 197 mg/dL (70-110)
[2025-01-05] VITALS (187 sets, daily range): BP systolic 122–177; BP diastolic 49–111; PULSE 53–89; RESP 10–34; TEMP 36.3–36.7; O2SAT 91–100
[2025-01-05] MEDS: ALPRAZolam 0.5 mg Tablet 0.25 MG PO ×2 (00:05→20:39)
[2025-01-05 02:42] LABS: Hematocrit 25.9 % (36-47)
[2025-01-05] MEDS: sucralfate 1 gm/10 mL Oral Liq UDC PO ×4 (04:09→20:39)
[2025-01-05 04:53] LABS: Basophils % 0.1 %; Hematocrit 28.7 % (36-47); Lymphocytes # 1.6 10^3/uL (0.8-4.8); Lymphocytes % 5.9 %; Mean Corpuscular HGB Conc 30.7 g/dL (30-55); Mean Corpuscular Hemoglobin 30.8 pg (27-33); Mean Corpuscular Volume 100.3 fl (85-98); Mean Platelet Volume 10.9 fL (7.4-10.4); Monocytes # 0.5 10^3/uL (0.2-0.9); Monocytes % 1.9 %; Neutrophils # 25.18 10^3/uL (1.8-7.7); Neutrophils % 90.5 %; Nucleated Red Blood Cells % 0.1 %; Platelet Count 371 10^3/cmm (157-399); Red Blood Count 2.86 10^6/uL (3.85-5.65); Red Cell Distribution Width 14.1 % (12.1-15.1); White Blood Count 27.82 10^3/uL (3.29-11.43)
[2025-01-05 05:15] LABS: Alanine Aminotransferase 158 U/L (0-33); Albumin Level 2.6 g/dL (3.5-5.2); Alkaline Phosphatase 225 U/L (35-105); Aspartate Amino Transferase 76 U/L (0-32); Blood Urea Nitrogen 40 mg/dL (8-23); Carbon Dioxide 18 mmol/L (22-29); Creatinine Clr Calc Pharmacy 56.5093; Globulin 2.8 g/dL (1.3-4.6); Glomerular Filtration Rate 62.8 mL/min (90-130); Glucose 158 mg/dL (65-115); Magnesium 1.5 mg/dL (1.7-2.3); Phosphorus 4.1 mg/dL (2.5-4.5); Total Bilirubin 0.8 mg/dL (0.15-1.2); Total Protein 5.4 g/dL (6.6-8.7)
[2025-01-05 05:18] LABS: Creatine Phosphokinase 847 U/L (26-192)
[2025-01-05 05:53] LABS: Anion Gap 16.4 (5-19); Chloride 107 mmol/L (98-107); Osmolality Calculated 299 mOsm/kg (285-295); Potassium 3.4 mmol/L (3.5-5.1); Sodium 138 mmol/L (136-145)
[2025-01-05] MEDS: cefepime 1,000 mg SDV 1000 MG IVP (05:53)
[2025-01-05] MEDS: linezolid premix 600 MG/300 ML PREMIX 300 MG IV (05:53)
[2025-01-05] MEDS: clopidogrel 75 mg Tablet PO (07:58)
[2025-01-05] MEDS: citalopram 20 mg Tablet 40 MG PO (07:58)
[2025-01-05] MEDS: carvedilol 6.25 mg Tablet PO ×2 (07:58→16:47)
[2025-01-05] MEDS: aspirin 81 mg EC Tablet PO (07:59)
[2025-01-05] MEDS: insulin lispro 100 unit/1 mL SUBCUT ×3 (07:59→16:47)
[2025-01-05] MEDS: nicotine 14 mg Patch 1 PATCH TRANSDERMA (07:59)
[2025-01-05] MEDS: pantoprazole 40 mg SDV IVP ×2 (08:00→20:39)
[2025-01-05] MEDS: albuterol 2.5 MG/0.5 ML NEB INHALATION ×2 (09:11→20:16)
[2025-01-05 09:15] LABS: Hematocrit 30.1 % (36-47)
[2025-01-05] MEDS: doxycycline 100 MG in sodium chloride 0.9% (plus) 100 ML IV (09:31)
[2025-01-05] MEDS: dexamethasone 10 mg/mL INJ 9 MG PO (09:36)
[2025-01-05 09:53] LABS: Glucose Point of Care 207 mg/dL (70-110)
[2025-01-05 11:13] LABS: Glucose Point of Care 191 mg/dL (70-110)
--- NOTE | 2025-01-05 13:11 | P.PN_ITS ---
Subjective 2 Subjective: Patient was seen this morning, currently alert oriented x 3, following all commands, sitting up in a chair she tells me her strength is getting better, no fevers, no chills, she tells me that she has had this history of esophageal stricture in the past, she tells me back in back in 2003 she had an episode in which she vomited undigested food she thinks she had a scope at that point with possible dilatation, discussed aspiration precautions, transition to GI soft diet, removing for Dwyer catheter, PT OT today Vitals/I&O/Wt Last Vital Signs Temp 97.4 F L 01/05/25 07:30 Pulse 70 01/05/25 10:30 Resp 23 H 01/05/25 10:30 BP 162/66 01/05/25 11:00 Pulse Ox 97 01/05/25 10:30 O2 Del Method Room Air 01/05/25 09:11 O2 Flow Rate 2 01/04/25 23:23 01/04/25 01/05/25 01/05/25 22:59 06:59 14:59 Intake Total 558 / 961.733 100 / 1061.733 240 / 240 Output Total 510 / 510 450 / 960 Balance 48 / 451.733 -350 / 101.733 240 / 240 Weight last 48 hrs Weight 63.1 kg Weight 65 kg Physical Exam 2 Const: COMMON NORMALS: no acute distress and patient oriented x3 Resp: COMMON NORMALS: normal respiratory effort, No retractions, No use of accessory muscles and clear to auscultation bilaterally AUSCULTATION: clear to auscultation bilaterally Cardio: COMMON NORMALS: regular rate, regular rhythm, S1 normal heart sound present and S2 normal heart sound present RATE: regular rate RHYTHM: r egular rhythm HEART SOUNDS: S1 normal heart sound present and S2 normal heart sound present GI: COMMON NORMALS: Normal to inspection, nondistended, normoactive bowel sounds present and non-tender Extremity: COMMON NORMALS: no pedal edema Neuro: COMMON NORMALS: patient oriented x3 Psych: COMMON NORMALS: mental status grossly normal Urinary Catheter Management: Dwyer: Cath Placed During This Visit: yes Reason for Continuing Indwelling Catheter: Accurate Measurement of Urinary Output in Critically Ill Patients Urinary Catheter Date of Insertion: 01/03/25 Urinary Catheter Time of Insertion: 05:13 Data 01/05/25 09:05 01/05/25 04:40 Micro: Microbiology 12/30/24 09:02 Blood Culture - Final Blood NO GROWTH AFTER 5 DAYS 12/30/24 09:00 Blood Culture - Final Blood NO GROWTH AFTER 5 DAYS A&P Assessment and plan (1) Angina at rest: - Status post coronary angiogram - LAD is occluded, TIWARI to LAD is patent, left circumflex has severe mid vessel stenosis, status post PCI 1 stent - Is on aspirin, Plavix (2) Acute respiratory failure: - Concern for flash pulmonary edema - Currently on room air - Further doses of Lasix based on clinical progress (3) Leg weakness, bilateral: - Bilateral extremity weakness improving - Concerns for viral myositis - On Solu-Medrol 1 g IV every 24 hours since 12/31/2024 last date 01/04/2025 - De-escalate to prednisone 60 mg daily patient has a intolerance, switch to Decadron 9 mg daily - On doxycycline for possible tickborne illness -Consider muscle biopsy after resolution of rhabdomyolysis. (4) Acute kidney injury superimposed on CKD: - Monitor (5) Transaminitis: - Improving (6) Urinary tract infection: (7) Constipation: (8) Abnormal findings on diagnostic imaging of gall bladder: (9) GI bleed: Dark stools: - Hemoccult positive stools - Is on high dose steroids - Was on heparin drip, aspirin - Now will be on aspirin, Plavix - Long taper of prednisone - Monitor hemoglobin 6 hours -Is on Protonix, Carafate -Transfuse if hemoglobin less than 8 - Plans on EGD, could not evaluate stomach, continue to monitor hemoglobin closely (10) Rhabdomyolysis: - Continue IV fluids have been discontinued - Plavix (11) Esophageal stricture: - Patient was found to have a distal esophageal stricture - Will need to follow-up with GI in the near future for dilatation of esophageal stricture, possible biopsy - However cannot be currently done as patient is on Plavix - Continue GI soft diet, aspiration precautions (12) Candidiasis: - Start Diflucan - Oral candidiasis Plan Leukocytosis -Leukocytosis trending downwards - Blood cultures so far negative -Remains afebrile -Likely the effect of steroids -Remains on Zyvox, cefepime which have been discontinued - Switch to p.o. doxycycline Dark stools: - Hemoccult positive stools - Is on high dose steroids - Was on heparin drip, aspirin - Now will be on aspirin, Plavix - Long taper of prednisone - Monitor hemoglobin 6 hours - Plans on EGD, as above - If she does start to bleed she will need to be transferred to tertiary level center Hypokalemia: Replaced. CAD, CABG, carotid disease status post endarterectomy: Hold statin. Smoking addiction: Discussed with her smoking cessation, she is okay with nicotine replacement. Continue to encourage cessation. HTN: Monitor blood pressures, resume metoprolol at lower dose due to renal dysfunction. Diabetes: Consistent carb diet. SSI. Monitor POC glucose. A1c reviewed, 6.3 Lumbar disc disease, compression fracture L4: With some chronic back pain. Takes sulindac, discussed with her to stop and discontinue. Takes hydrocodone as needed for pain. Valvular heart disease: Moderate aortic regurgitation, mild to moderate mitral regurgitation, tricuspid regurgitation, mild to moderate pulmonary regurgitation on review most recent echo 08/18/2023. DVT prophylaxis, will place patient on SCDs, I am holding off on putting her on any anticoagulant therapy as there is concerns for GI bleed, and as patient is already on aspirin and Plavix Plan for today monitor hemoglobin, moved to medical floors, remove Dwyer catheter, PT OT, switch to Decadron PDMP PDMP Reviewed: Last Reviewed 12/30/24 08:19 by Louie Young MD Attestations 2 Medical Necessity Statement*: Patient requires hospitalization for viral myositis, chest pain, rhabdomyolysis, esophageal stricture Diagnoses Angina at rest I20.89 Acute respiratory failure J96.00 Leg weakness, bilateral R29.898 Acute kidney injury superimposed on CKD N17.9; N18.9 Transaminitis R74.01 Urinary tract infection N39.0 Constipation K59.00 Abnormal findings on diagnostic imaging of gall bladder R93.2 GI bleed K92.2 Rhabdomyolysis M62.82 Esophageal stricture K22.2 Candidiasis B37.9
--- NOTE | 2025-01-05 14:27 | P.PN_ITS ---
Subjective 2 Subjective: Patient is doing well. No chest pain today. Vitals/I&O/Wt Last Vital Signs Temp 97.4 F L 01/05/25 07:30 Pulse 70 01/05/25 10:30 Resp 23 H 01/05/25 10:30 BP 162/66 01/05/25 11:00 Pulse Ox 97 01/05/25 10:30 O2 Del Method Room Air 01/05/25 09:11 O2 Flow Rate 2 01/04/25 23:23 01/04/25 01/05/25 01/05/25 22:59 06:59 14:59 Intake Total 558 / 961.733 100 / 1061.733 240 / 240 Output Total 510 / 510 450 / 960 Balance 48 / 451.733 -350 / 101.733 240 / 240 Weight last 48 hrs Weight 139 lb 1.787 oz Weight 143 lb 4.807 oz Physical Exam 2 Narrative: GENERAL: Patient is alert, awake and oriented x3. [] NECK: No jugular vein distension. [] HEENT: No cyanosis. No icterus. No pallor. [] HEART: Regular S1 and S2. No murmur, rub or gallop. [] LUNGS: Clear to auscultate bilaterally. [] CENTRAL NERVOUS SYSTEM: Grossly nonfocal. [] EXTREMITIES: Lower extremities with 1+ edema bilaterally. Urinary Catheter Management: Dwyer: Cath Placed During This Visit: yes Reason for Continuing Indwelling Catheter: Accurate Measurement of Urinary Output in Critically Ill Patients Urinary Catheter Date of Insertion: 01/03/25 Urinary Catheter Time of Insertion: 05:13 Data 01/06/25 06:30 01/06/25 06:30 Micro: Microbiology 12/30/24 09:02 Blood Culture - Final Blood NO GROWTH AFTER 5 DAYS 12/30/24 09:00 Blood Culture - Final Blood NO GROWTH AFTER 5 DAYS A&P Assessment and plan (1) Unstable angina: (2) Coronary artery disease: (3) Essential hypertension: (4) Dyslipidemia: Plan Patient is doing well. Status post PCI of circumflex artery. Continue aspirin and Plavix. Hemoglobin is stable. Continue to monitor. GI workup per primary team. Thank you for involving us with care of this patient. We will continue to follow. Please call with question PDMP PDMP Reviewed: Not Reviewed Attestations 2 Medical Necessity Statement*: Care expected to cross 2 midnights. Coding Level of Care Code Acute Code for Chg Fwd Diagnoses Unstable angina I20.0 Coronary artery disease I25.10 Essential hypertension I10 Dyslipidemia E78.5
[2025-01-05 15:09] LABS: Hematocrit 27.7 % (36-47)
[2025-01-05 16:00] LABS: Glucose Point of Care 217 mg/dL (70-110)
[2025-01-05] MEDS: fluconazole 100 mg Tablet PO (16:06)
[2025-01-05 20:25] LABS: Hematocrit 27.9 % (36-47)
[2025-01-05] MEDS: trazodone 50 mg Tablet PO (20:39)
[2025-01-05 20:40] LABS: Glucose Point of Care 203 mg/dL (70-110)
[2025-01-06] VITALS (179 sets, daily range): BP systolic 117–181; BP diastolic 51–87; PULSE 62–97; RESP 8–26; TEMP 36.7–36.8; O2SAT 90–99; BMI 24.6
[2025-01-06 01:59] LABS: Acetylcholine Receptor Block <15 (<15)
[2025-01-06] MEDS: sucralfate 1 gm/10 mL Oral Liq UDC PO ×2 (02:45→08:34)
[2025-01-06 06:05] LABS: Glucose Point of Care 138 mg/dL (70-110)
[2025-01-06 06:40] LABS: Basophils # 0.1 10^3/uL (0.0-0.1); Basophils % 0.2 %; Hematocrit 30.6 % (36-47); Lymphocytes % 11.5 %; Mean Corpuscular Hemoglobin 31.3 pg (27-33); Mean Corpuscular Volume 97.8 fl (85-98); Mean Platelet Volume 11.1 fL (7.4-10.4); Monocytes # 1.4 10^3/uL (0.2-0.9); Monocytes % 5.6 %; Neutrophils % 80.9 %; Nucleated Red Blood Cells # 0.1 /100WBC; Nucleated Red Blood Cells % 0.2 %; Platelet Count 397 10^3/cmm (157-399); Red Blood Count 3.13 10^6/uL (3.85-5.65); Red Cell Distribution Width 14.1 % (12.1-15.1); White Blood Count 25.72 10^3/uL (3.29-11.43)
[2025-01-06 06:59] LABS: Alanine Aminotransferase 152 U/L (0-33); Albumin Level 2.9 g/dL (3.5-5.2); Alkaline Phosphatase 244 U/L (35-105); Anion Gap 16.1 (5-19); Aspartate Amino Transferase 59 U/L (0-32); Blood Urea Nitrogen 41 mg/dL (8-23); Calcium 8.4 mg/dL (8.5-10.5); Carbon Dioxide 20 mmol/L (22-29); Chloride 108 mmol/L (98-107); Creatinine Clr Calc Pharmacy 55.7616; Globulin 2.4 g/dL (1.3-4.6); Glomerular Filtration Rate 62.8 mL/min (90-130); Glucose 127 mg/dL (65-115); Magnesium 1.5 mg/dL (1.7-2.3); Osmolality Calculated 304 mOsm/kg (285-295); Phosphorus 3.2 mg/dL (2.5-4.5); Potassium 3.1 mmol/L (3.5-5.1); Sodium 141 mmol/L (136-145); Total Bilirubin 0.8 mg/dL (0.15-1.2); Total Protein 5.3 g/dL (6.6-8.7)
[2025-01-06 07:24] LABS: Creatine Phosphokinase 457 U/L (26-192)
[2025-01-06] MEDS: nicotine 14 mg Patch 1 PATCH TRANSDERMA (08:34)
[2025-01-06] MEDS: fluconazole 100 mg Tablet PO (08:43)
[2025-01-06] MEDS: aspirin 81 mg EC Tablet PO (08:43)
[2025-01-06] MEDS: citalopram 20 mg Tablet 40 MG PO (08:43)
[2025-01-06] MEDS: carvedilol 6.25 mg Tablet PO (08:43)
[2025-01-06] MEDS: pantoprazole 40 mg SDV IVP (08:43)
[2025-01-06] MEDS: doxycycline 100 mg Tablet PO (08:43)
[2025-01-06] MEDS: dexamethasone 10 mg/mL INJ 9 MG PO (08:43)
[2025-01-06] MEDS: clopidogrel 75 mg Tablet PO (08:43)
[2025-01-06] MEDS: magnesium sulfate premix 1 GM/100 ML PIGGYBACK IV (08:44)
[2025-01-06] MEDS: lidocaine 1% 5 ML in potassium chloride premix 100 ML 26.25 ML IV (08:44)
[2025-01-06 11:29] LABS: Glucose Point of Care 266 mg/dL (70-110)
--- NOTE | 2025-01-06 12:09 | P.DS_ITS ---
Discharge Providers Date of Admission: 12/29/24 22:24 Date of Discharge: January 06, 2025 Attending Provider at Admission: Dinora Raymond MD Attending Provider at Discharge: Louie Young MD Primary Care Provider: Tera Maher MD Diagnoses at Discharge Discharge Diagnosis (1) Unstable angina: Status: Acute (2) Coronary artery disease: Status: Acute (3) Essential hypertension: Status: Acute (4) Dyslipidemia: Status: Acute Reason for Visit Reason for Visit: Weakness Hospital Course Hospital Course Torie Belle is a 64 year old female with a history of heart disease (status post triple bypass, valvular heart disease), chronic kidney disease, and prior back problems (compression fracture, compressed disc), presenting with generalized weakness in both arms and legs worse in the legs since last Monday. Patient had a prolonged and extensive hospitalization please look at my last progress note for further detail Patient was admitted to [facility] for generalized weakness bilateral extremities, neurology was consulted, had an extensive workup, found to have acute myositis, possibly viral myositis. Was started on high-dose IV steroids, overall patient's lower extremity weakness improved, she is ambulating without significant symptomatology. Will be discharged on a Decadron taper, with close follow-up with neurology as outpatient. Patient's lupus titers were positive, potentially myositis is a rare presentation of lupus. Patient's ADRIAN was positive, dsDNA was positive, will have patient follow-up with immunology as outpatient. Lupus can cause myalgias For patient's angina, underwent coronary angiogram, status post left circumflex stenting, discharged on aspirin, Plavix On admission patient had complaints of dark-colored stools, Hemoccult positive, is on high-dose steroids, no hemodynamic compromise, no recurrent bloody or black stools, EGD was unable to have a view of the stomach due to esophageal stricture. Discharged on Protonix, Carafate with close follow-up with GI in [place] For esophageal stricture, seen on EGD, follow-up with GI in [place] for consideration of dilatation, dilatation could not be performed as patient is on Plavix, discussed adhering to GI soft diet, aspiration precautions, hydration, monitoring for aspiration risk, hydration with pills, mastication/avoiding large volume feeds - Patient reports a history of dilatation in the past For candidiasis, discharged on Diflucan For leukocytosis, likely due to side effect of steroids, managed on broad- spectrum antibiotic therapy, so far cultures negative For acute respiratory failure, likely sec to flash pulm edema, received Lasix, will hold Lasix on discharge, will resume based on discussion with cardiology as outpatient For her significant rhabdomyolysis, received IV fluids, CPK downward trending, myalgias improving, Crestor has been held on discharge. Follow-up with cardiology for decision if and when to resume Crestor For type 2 diabetes mellitus, discharged on low-dose sliding scale Physical Exam 2 Const: COMMON NORMALS: no acute distress and patient oriented x3 Resp: COMMON NORMALS: normal respiratory effort, No retractions, No use of accessory muscles and clear to auscultation bilaterally AUSCULTATION: clear to auscultation bilaterally Cardio: COMMON NORMALS: regular rate, regular rhythm, S1 normal heart sound present and S2 normal heart sound present RATE: regular rate RHYTHM: regular rhythm HEART SOUNDS: S1 normal heart sound present and S2 normal heart sound present GI: COMMON NORMALS: Normal to inspection, nondistended, normoactive bowel sounds present and non-tender Extremity: COMMON NORMALS: no pedal edema Neuro: COMMON NORMALS: patient oriented x3 Psych: COMMON NORMALS: mental status grossly normal Urinary Catheter Management: Dwyer: Cath Placed During This Visit: yes, but has since been removed by the nurse Reason for Continuing Indwelling Catheter: Accurate Measurement of Urinary Output in Critically Ill Patients Urinary Catheter Date of Insertion: 01/03/25 Urinary Catheter Time of Insertion: 05:13 Date Urinary Catheter Removed: 01/05/25 Discharge Data Studies Completed and Pending Completed Studies During Hospitalization Category Date Time Status CT chest abdomen pelvis [[place] [id number] Cat Scan 12/29/24 20 :34 Completed ] Stat CT chest wo con [id number] Routine Cat Scan 01/03/25 10:51 Completed XR chest 1V portable [id number] Stat Exams 01/03/25 06:09 Completed MR cervical spin wo con* [id number] Stat MRI 12/30/24 07:00 Completed MR head wo con* [id number] Stat MRI 12/30/24 07:00 Completed CV. echo complete* [id number] Routine Ultrasound 12/31/24 18:14 Completed US gall bladder [id number] Stat Ultrasound 12/30/24 08:12 Completed Pending at discharge Category Date Time Status V[employer] request for service Routine Exams 01/04/25 07:50 Taken CK-MB (CK-2) Routine Lab 01/02/25 22:48 Received C.Diff PCR (Lab) Routine Lab 12/31/24 10:13 Uncollected Complete Blood Count w/Auto AM LABS Lab 01/07/25 04:00 Ordered Comprehensive Metabolic Panel AM LABS Lab 01/07/25 04:00 Ordered Creatine Phosphokinase AM LABS Lab 01/07/25 04:00 Ordered Magnesium AM LABS Lab 01/07/25 04:00 Ordered Phosphorus AM LABS Lab 01/07/25 04:00 Ordered T3 Free Tracer Dialysis Routine Lab 12/30/24 09:00 Received Radiology Impressions Chest/Abdomen/Pelvis CT 12/29/24 20:34 IMPRESSION: No acute intrathoracic findings. IMPRESSION: 1. No acute abdominopelvic findings. 2. Distended gallbladder without gallstones. No intra or extrahepatic biliary ductal dilatation. 3. Sequela of prior healed granulomatous disease. 4. Large colonic stool burden which may be seen with constipation. 5. Mural bladder wall thickening, most likely due to underdistention. Correlate with urinalysis to exclude cystitis. 6. Few scattered colonic diverticula without CT evidence of acute diverticulitis. Lumbar Spine CT 12/29/24 22:22 IMPRESSION: Acute compression deformity of superior endplate of L3 vertebral body with approximately 40% loss of vertebral body height within mid portion. No retropulsion. Thoracic Spine CT 12/29/24 22:22 IMPRESSION: 1. No acute compression deformity or traumatic subluxation. 2. Moderate multilevel degenerative change. Cervical Spine MRI 12/30/24 07:00 IMPRESSION: Cervical spondylosis as noted. Head MRI 12/30/24 07:00 IMPRESSION: No definite acute intracranial process. Signal abnormality within the right parietal lobe and lucie, age-indeterminate but probably chronic. Contrast MRI of the brain is suggested to more completely assess. Evidence of remote prior hemorrhage, possibly associated underlying vascular malformation such as cavernomas. Gallbladder Ultrasound 12/30/24 08:12 IMPRESSION: Cholelithiasis and/or gallbladder sludge without definitive sonographic evidence to suggest acute cholecystitis. Chest X-Ray 01/03/25 06:09 IMPRESSION: No acute findings. Chest CT 01/03/25 10:51 IMPRESSION: Small bilateral pleural effusions. Mild dependent atelectasis or infiltrate. Laboratory Results WBC 25.72 10^3/uL (3.29-11.43) H 01/06/25 06:30 RBC 3.13 10^6/uL (3.85-5.65) L 01/06/25 06:30 Hgb 9.80 g/dL (11.27-16.99) L 01/06/25 06:30 Hct 30.6 % (36-47) L 01/06/25 06:30 MCV 97.8 fl (85-98) 01/06/25 06:30 MCH 31.3 pg (27-33) 01/06/25 06:30 MCHC 32.0 g/dL (30-55) 01/06/25 06:30 RDW 14.1 % (12.1-15.1) 01/06/25 06:30 Plt Count 397 10^3/cmm (157-399) 01/06/25 06:30 MPV 11.1 fL (7.4-10.4) H 01/06/25 06:30 Neut % (Auto) 80.9 % 01/06/25 06:30 Lymph % (Auto) 11.5 % 01/06/25 06:30 Frio % (Auto) 5.6 % 01/06/25 06:30 Eos % (Auto) 0.0 % 01/06/25 06:30 Baso % (Auto) 0.2 % 01/06/25 06:30 Neut # (Auto) 20.80 10^3/uL (1.8-7.7) H 01/06/25 06:30 Lymph # (Auto) 3.0 10^3/uL (0.8-4.8) 01/06/25 06:30 Frio # (Auto) 1.4 10^3/uL (0.2-0.9) H 01/06/25 06:30 Eos # (Auto) 0.0 10^3/uL (0.0-0.8) 01/06/25 06:30 Baso # (Auto) 0.1 10^3/uL (0.0-0.1) 01/06/25 06:30 Nucleated RBC % (auto) 0.2 % 01/06/25 06:30 Nucleated RBCs # 0.1 /100WBC 01/06/25 06:30 ESR 81 mm/hr (0-15) H 12/30/24 09:00 PT 16.60 SECONDS (12.1-14.9) H 01/04/25 11:28 INR 1.25 (0.8-1.2) H 01/04/25 11:28 APTT 32.5 SECONDS (23.9-36.7) D 01/04/25 17:45 Sodium 141 mmol/L (136-145) 01/06/25 06:30 Potassium 3.1 mmol/L (3.5-5.1) L 01/06/25 06:30 Chloride 108 mmol/L (98-107) H 01/06/25 06:30 Carbon Dioxide 20 mmol/L (22-29) L 01/06/25 06:30 Anion Gap 16.1 (5-19) 01/06/25 06:30 BUN 41 mg/dL (8-23) H 01/06/25 06:30 Creatinine 0.9 mg/dL (0.5-0.9) 01/06/25 06:30 GFR Calculation 62.8 mL/min (90-130) L 01/06/25 06:30 Glucose 127 mg/dL (65-115) H 01/06/25 06:30 POC Glucose 266 mg/dL (70-110) H 01/06/25 11:24 Estimat Average Glucose 134 12/30/24 09:00 Hemoglobin A1c 6.3 % (4.0-6.0) H 12/30/24 09:00 Calculated Osmolality 304 mOsm/kg (285-295) H 01/06/25 06:30 Lactic Acid 1.8 mmol/L (0.5-2.2) 12/30/24 09:00 Calcium 8.4 mg/dL (8.5-10.5) L 01/06/25 06:30 Phosphorus 3.2 mg/dL (2.5-4.5) 01/06/25 06:30 Magnesium 1.5 mg/dL (1.7-2.3) L 01/06/25 06:30 Total Bilirubin 0.8 mg/dL (0.15-1.2) 01/06/25 06:30 GGT 298 U/L (5-36) H 12/30/24 09:00 AST 59 U/L (0-32) H 01/06/25 06:30 ALT 152 U/L (0-33) H 01/06/25 06:30 Alkaline Phosphatase 244 U/L (35-105) H 01/06/25 06:30 Creatine Kinase 457 U/L (26-192) H* 01/06/25 06:30 Troponin T 5th Gen ng/L 216 ng/L (0-10) H* 01/01/25 22:49 Troponin T Baseline 105 ng/L (0-10) H* 12/31/24 11:17 Troponin T 120 Minute 101.5 ng/L (0-10) H 12/31/24 13:50 Delta Troponin T -3.5 ABS# (0-10) L 12/31/24 13:50 Troponin T Hi Sens 6Hr 100.9 ng/L (0-10) H 12/31/24 17:35 Troponin T Hi Sens 6Hr Delta -4.1 ng/L (0-12) L 12/31/24 17:35 C-Reactive Protein 22.7 mg/L (0.0-4.9) H 12/30/24 09:00 Total Protein 5.3 g/dL (6.6-8.7) L 01/06/25 06:30 Albumin 2.9 g/dL (3.5-5.2) L 01/06/25 06:30 Globulin 2.4 g/dL (1.3-4.6) 01/06/25 06:30 Lipase 143 U/L (13-60) H 12/29/24 19:41 Vitamin B12 Cancelled 12/30/24 11:45 Procalcitonin 0.39 ng/mL (0-0.5) 12/30/24 09:00 TSH 4.49 uIU/mL (0.27-4.20) H 12/30/24 09:00 Free T4 0.57 ng/dL (0.82-1.77) L 12/30/24 09:00 Urine Color Dark yellow (Yellow) A 12/29/24 20:10 Urine Appearance Turbid (CLEAR) A 12/29/24 20:10 Urine pH 5.5 (5-7) 12/29/24 20:10 Ur Specific [place] 1.015 (1.005-1.030) 12/29/24 20:10 Urine Protein 3+ (Negative) A 12/29/24 20:10 Urine Glucose (UA) Negative (Normal) 12/29/24 20:10 Urine Ketones Negative (Negative) 12/29/24 20:10 Urine Blood 3+ (Negative) A 12/29/24 20:10 Urine Nitrate Negative (Negative) 12/29/24 20:10 Urine Bilirubin Negative (Negative) 12/29/24 20:10 Urine Urobilinogen 1.0 mg/dL (Negative) 12/29/24 20:10 Ur Leukocyte Esterase 1+ (Negative) A 12/29/24 20:10 Urine RBC 51-100 /hpf (0-2) H 12/29/24 20:10 Urine WBC 11-20 /hpf (0-5) H 12/29/24 20:10 Ur Squamous Epith Cells 11-20 /hpf (0-5) H 12/29/24 20:10 Amorphous Sediment Not Reportable 12/29/24 20:10 Urine Bacteria Exceeds /hpf (NONE) 12/29/24 20:10 Hyaline Casts 5.36 /lpf 12/29/24 20:10 Fine Granular Casts 5-10 /lpf H 12/29/24 20:10 Coarse Granular Casts 0-4 /lpf H 12/29/24 20:10 Nasal MRSA (PCR) Not detected (Not Detecte) 01/03/25 15:22 ADRIAN Nuclear Membr Pat Nuclear, homogeneous A 12/30/24 11:45 ADRIAN IFA Animal Tis Ttr 1:40 titer H 12/30/24 11:45 ADRIAN IFA Animal Tis Res Positive (NEGATIVE) A 12/30/24 11:45 CHERELLE-1 Antibody <1.0 neg AI (<1.0 NEG) 12/30/24 11:45 SS-A Antibody <1.0 neg AI (<1.0 NEG) 12/30/24 11:45 SS-B Antibody <1.0 neg AI (<1.0 NEG) 12/30/24 11:45 Sm (Rendon) Antibody <1.0 neg AI (<1.0 NEG) 12/30/24 11:45 SCRAP PICKER Antibody <1.0 neg AI (<1.0 NEG) 12/30/24 11:45 Scl-70 Antibody <1.0 neg AI (<1.0 NEG) 12/30/24 11:45 Anti-ds DNA IgG (Crith) Positive (NEGATIVE) A 12/30/24 11:45 Anti-ds DNA Titer (Crith) 1:40 titer (<1:10) H 12/30/24 11:45 Centromere B Antibody <1.0 neg AI (<1.0 NEG) 12/30/24 11:45 Thyroid Peroxidase Ab <1 IU/mL (<9) 12/30/24 11:45 Acetylchol Rcpt Block Ab <15 (<15) 12/30/24 11:45 Acetylchol Rcpt Bind Ab <0.30 nmol/L 12/30/24 11:45 Acetylchol Rcpt Modu Ab 13 12/30/24 11:45 Complement C3c 195 mg/dL (83-193) H 12/30/24 11:45 Complement C4c 40 mg/dL (15-57) 12/30/24 11:45 CH50 Classical Pathway >60 U/mL (31-60) H 12/30/24 11:45 Lyme Ab (Western Blot) <0.90 index 12/31/24 11:17 E. chaffeensis IgG Ab <1:64 12/31/24 11:17 E. chaffeensis IgM Ab <1:20 12/31/24 11:17 E. chaffeensis Interp See note 12/31/24 11:17 E. chaffeensis Comment Not Reportable 12/31/24 11:17 Hepatitis A IgM Ab Cancelled 12/30/24 11:45 Hep Bs Antigen Cancelled 12/30/24 11:45 Hep Bs Antibody Cancelled 12/30/24 11:45 Hep B Core Total Ab Cancelled 12/30/24 11:45 Hep B Core IgM Ab Non-reactive (Nonreactive) 12/30/24 09:00 Hepatitis C Antibody Cancelled 12/30/24 11:45 HIV 1&2 Ab & HIV 1 Ag Non-reactive (Non-Reactiv) 12/30/24 09:00 HIV 1&2 Antibody Non-reactive (Non-Reactiv) 12/30/24 09:00 Rickettsia IgG Ab Not detected 12/31/24 11:17 Rickettsia IgM Ab Not detected 12/31/24 11:17 Vitals Last Vital Signs Temp 98.2 F 06/02/25 06:00 Pulse 74 01/06/25 10:00 Resp 25 H 01/06/25 10:00 BP 146/83 01/06/25 10:00 Pulse Ox 90 01/06/25 10:00 O2 Del Method Room Air 01/05/25 20:17 O2 Flow Rate 2 01/04/25 23:23 Discharge Plan Discharge Patient Disposition: Home Health Service Condition: Stable Prescriptions: New carvedilol 6.25 mg Tablet 6.25 mg PO BID 30 Days Qty: 60 0RF clopidogrel 75 mg Tablet 75 mg PO DAILY 30 Days Qty: 30 0RF citalopram 20 mg Tablet 40 mg PO DAILY 30 Days Qty: 30 0RF fluconazole 100 mg Tablet 100 mg PO DAILY 7 Days Qty: 7 0RF doxycycline monohydrate 100 mg Tablet 100 mg PO BID 5 Days Qty: 10 0RF pantoprazole [Protonix] 40 mg tablet,delayed release (DR/EC) 40 mg PO BID 30 Days Qty: 60 0RF sucralfate [Carafate] 1 gram tablet 1 g PO BID 28 Days Qty: 56 0RF dexamethasone 1 mg tablet See Rx Instructions .ROUTE .COMPLEX 27 Days Qty: 135 0RF Rx Instructions: 9mg (9tabs) for 3 days, 8mg(8tabs) for 3 days, 7mg(7 tabs) for 3, 6mg(6tab) for 3days,5mg(5tab) for 3days, 4mg(4tab) for 3days, 3mg(3tabs) for 3 days, 2mg (2tab) for 3day, 1mg(1tab) for 3day insulin aspart U-100 [Novolog FlexPen U-100 Insulin] 100 unit/mL (3 mL) insulin pen See Rx Instructions .ROUTE .COMPLEX MDD 30 Qty: 15 0RF Rx Instructions: Inject, subcu, 3 times daily, after meals, based on low-dose insulin sliding scale Continued diphenhydramine HCl [Benadryl] 25 mg capsule 25 mg PO BID PRN (Reason: Allergy Symptoms) (DME) Diabetic Shoes See Rx Instructions .Route .MEDSUPPLY Qty: 1 0RF Rx Instructions: As directed by Octavia (DORIAN) Heated and molding inserts See Rx Instructions .Route .MEDSUPPLY Qty: 1 0RF Rx Instructions: As directed to [place] [facility] [place] nitroglycerin 0.4 mg tablet, sublingual 0.4 mg sublingual Q5M PRN (Reason: chest pain) Qty: 25 5RF Rx Instructions: do not exceed 3 doses per episode (DME) OneTouch Ultra Test Strip See Rx Instructions .Route Qty: 50 11RF Rx Instructions: Use once a day (DME) lancets [Easy Touch Safety Lancets] 28 gauge misc See Rx Instructions .Route Qty: 100 11RF Rx Instructions: Use once a day (DME) Toe alignment splint See Rx Instructions .Route .MEDSUPPLY Qty: 1 0RF Rx Instructions: As directed (DME) blood glucose control, normal [OneTouch Ultra Control] Solution See Rx Instructions .ROUTE .COMPLEX Qty: 1 6RF Dose Instruction: USE TO CALIBRATE METER Rx Instructions: USE TO CALIBRATE METER (DME) blood-glucose meter [OneTouch Ultra2 Meter] [facility] [place] See Rx Instructions .ROUTE .COMPLEX Qty: 1 6RF Dose Instruction: USE TO TEST BLOOD GLUCOSE Rx Instructions: USE TO TEST BLOOD GLUCOSE alcohol swabs [Alcohol Pads] Pads, Medicated See Rx Instructions .ROUTE .COMPLEX Qty: 100 5RF Dose Instruction: USE TO TEST BLOOD GLUCOSE ONCE DAILY Rx Instructions: USE TO TEST BLOOD GLUCOSE ONCE DAILY hydrocodone-acetaminophen 7.5-325 mg tablet 1 tab PO Q12H PRN (Reason: pain) 30 Days Qty: 46 0RF Rx Instructions: may take 1/2 during day and 1 at bedtime as needed metformin 1,000 mg tablet See Rx Instructions .ROUTE .COMPLEX Qty: 60 0RF Dose Instruction: take 1/2 tablet BY MOUTH EVERY MORNING and now ONE-HALF EVERY EVENING Rx Instructions: take 1/2 tablet BY MOUTH EVERY MORNING and now ONE-HALF EVERY EVENING (DME) diabetic shoes with 3 inserts See Rx Instructions .Route .MEDSUPPLY Qty: 1 0RF Rx Instructions: As directed trazodone 50 mg tablet See Rx Instructions .ROUTE .COMPLEX Qty: 90 0RF Dose Instruction: TAKE 1 TABLET BY MOUTH EVERY DAY Rx Instructions: TAKE 1 TABLET BY MOUTH EVERY DAY alprazolam 0.5 mg tablet 0.5 mg PO BID PRN (Reason: sleep) Qty: 45 4RF cyclobenzaprine 10 mg tablet See Rx Instructions .ROUTE .COMPLEX PRN (Reason: Muscle Spasm) Rx Instructions: TAKE 1 TABLET BY MOUTH TWICE DAILY NEEDED FOR MUSCLE SPASMS albuterol sulfate 90 mcg/actuation HFA aerosol inhaler See Rx Instructions .ROUTE .COMPLEX PRN (Reason: Shortness Of Breath) Rx Instructions: INHALE TWO PUFFS EVERY 6 HOURS NEEDED FOR SHORTNESS OF BREATH aspirin [Adult Low Dose Aspirin] 81 mg tablet,delayed release (DR/EC) 81 mg PO QDAY 30 Days Qty: 30 0RF Held rosuvastatin 10 mg tablet See Rx Instructions .ROUTE .COMPLEX Qty: 30 0RF Hold Instructions: Resume on 02/03/25. hold until you see cardiology Dose Instruction: TAKE 1 TABLET BY MOUTH EVERY DAY Rx Instructions: TAKE 1 TABLET BY MOUTH EVERY DAY Discontinued hydrochlorothiazide 25 mg tablet See Rx Instructions .ROUTE .COMPLEX Qty: 90 3RF Dose Instruction: TAKE 1 TABLET BY MOUTH EVERY DAY Rx Instructions: TAKE 1 TABLET BY MOUTH EVERY DAY metoprolol succinate 50 mg tablet extended release 24 hr See Rx Instructions .ROUTE .COMPLEX Qty: 180 3RF Dose Instruction: TAKE ONE TABLET BY MOUTH TWICE DAILY Rx Instructions: TAKE ONE TABLET BY MOUTH TWICE DAILY potassium chloride 10 mEq capsule, extended release See Rx Instructions .ROUTE .COMPLEX Qty: 90 3RF Dose Instruction: TAKE ONE CAPSULE BY MOUTH EVERY DAY Rx Instructions: TAKE ONE CAPSULE BY MOUTH EVERY DAY glipizide 5 mg tablet 2.5 mg PO BID Qty: 60 0RF furosemide 20 mg tablet 20 mg PO QAM Qty: 30 0RF sulindac 200 mg tablet See Rx Instructions .ROUTE .COMPLEX Qty: 60 0RF Dose Instruction: TAKE 1 TABLET BY MOUTH TWICE DAILY Rx Instructions: TAKE 1 TABLET BY MOUTH TWICE DAILY Discharge Orders: Discharge Order (Routine); Ordered 01/06/25 Ordered By: Louie Young Other Ambulatory Orders: DME: Walker (Order) Location: None Selected Ordered By: Louie Young Referrals: [facility] [place]] [facility] Home [facility] ([facility]) [Outside] Jalyn Linn MD [Physician, Neurology] - 2 weeks Referral Note: We have notified your physician's clinic of the need for a follow-up appointment to be scheduled. If you have not heard from them within the next 2 business days, please call them directly. Shaun Hickey M.D [Physician, Cardiology] - 01/13/25 3:00 pm Julio Cornelius MD [Referring, Gastroenterology] - 2 weeks Referral Note: We have sent referral paperwork to Zaira Triana to schedule this appointment. Once paperwork has been reviewed clinic will contact you. Tera Maher MD [Primary Care Provider, [facility]] - 01/16/25 9:15 am Discharge Diet: Cardiac Discharge Activity: Resume usual activity Patient Instructions: GI Post Discharge Instructions w/ Anesthesia, Opioid Safety, Pain Management Activity Restrictions/Additional Instructions: - For your esophageal stricture, continue to chew food thoroughly, protein shakes once a day, when taking your pills please drink plenty of fluids, chin tuck, aspiration precautions - Referral sent for GI in [place] - For your heart stent, continue aspirin, Plavix - If any recurrent chest pain go to the emergency room - Please follow-up with cardiology - For your GI bleed, please have your primary care provider monitor your hemoglobin - If you develop bloody or black stools please go to emergency room - Please continue Protonix, Carafate - Please follow-up with GI in [place] - Please continue to hold rosuvastatin until you see cardiology - For your rhabdomyolysis please follow-up with primary care, drink plenty of leg to lie balance fluids - For your type 2 diabetes please use insulin as prescribed - For your myositis, please use steroid taper as prescribed - Monitor for hypoglycemia -Please monitor your blood sugars closely -Monitor your blood sugars 3 times daily as after meals -Please record your blood sugars, and a blood sugar log -For your NovoLog -Please inject blood sugar after meals based on sliding scale provided -Do not inject insulin if you do not eat as hypoglycemia kills -This is a NovoLog sliding scale -Insulin sliding ?fingerstick? Insulin ?141-180?0 units/sq 181-220?2 units/sq ?221-260?4 units/sq ?261-300 6 units/sq ?301-350?8 units/sq ?351-400 10 units/sq ?401-450?12 units/sq >450? 14units/sq -If your blood sugar is greater than 500 go to the emergency room -If your blood sugar is less than 60 or at anytime you feel lightheaded or dizzy or diaphoretic or have chest palpitations check your blood sugar, and eat a hard candy or drink orange juice and go immediately to the emergency room -Remember hypoglycemia kills, so if his blood sugar is less than 60 we have to increase it by taking in a sugary meal such as a hard candy or orange juice and go to the emergency room -If you have any questions please call us where here to help Discharge Attestations Time Spent in Discharge Care*: greater than 30 min Quality Metrics Clinical Quality Measures [ No reported AMI, CVA or VTE this stay] Coding Level of Care Code 37597 Total time (in minutes) for Discharge: 45 Diagnoses Unstable angina I20.0 Coronary artery disease I25.10 Essential hypertension I10 Dyslipidemia E78.5
--- NOTE | 2025-01-06 12:12 | PC.SOCIAL ---
IMM Updated Updated pt on IMM. No questions voiced. Provided pt a copy. Initialed, dated, & timed a copy & placed in chart.
--- NOTE | 2025-01-06 12:40 | P.PN_ITS ---
<Statement entered by Shaun Hickey M.D - 01/08/25 09:36> Patient was cared for in conjunction with an advanced practice practitioner.? I reviewed the chart and all pertinent data including imaging, telemetry, and laboratory results.? I discussed the patient in detail with the advanced practice practitioner.? Please see? their note for progress note, testing results and agreed upon plan of care for the patient. Subjective 2 Subjective: Patient doing well status post PCI of the left circumflex. Creatinine stable at 0.9. AST and ALT are still increased. Overall she is doing well. She denies any chest pain or shortness of breath. H&H is stable. Vitals/I&O/Wt Last Vital Signs Temp 98.2 F 01/06/25 06:00 Pulse 76 01/06/25 12:30 Resp 18 01/06/25 12:30 BP 147/60 01/06/25 12:30 Pulse Ox 97 01/06/25 12:30 O2 Del Method Room Air 01/05/25 20:17 O2 Flow Rate 2 01/04/25 23:23 01/05/25 01/06/25 01/06/25 22:59 06:59 14:59 Intake Total 400 / 760 120 / 120 Output Total 650 / 650 300 / 950 Balance -250 / 110 -300 / -190 120 / 120 Weight last 48 hrs Weight 139 lb 1.787 oz Weight 139 lb 1.787 oz Physical Exam 2 Narrative: General: No apparent distress, healthy appearing, well nourished HENMT: normoceophalic Muskuloskeletal: Full ROM Lymphatic: no lymphedema noted Respiratory: Normal respiratory effort, clear to auscultation bilaterally throughout all lung rashid, no use of accessory muscles Cardio: No JVD, regular rate, regular rhythm, S1 S2 normal, no murmurs, peripheral pulses 2+ radial palpated bilaterally Extremities: Full ROM, normal, normal capillary refill, no cyanosis or edema Neuro: Alert and oriented x4, no focal motor deficits Psych: Affect normal, denies suicidal ideation, mental status grossly normal Skin: Right groin site clean dry intact no signs or symptoms of hematoma present Urinary Catheter Management: Dwyer: Cath Placed During This Visit: yes, but has since been removed by the nurse Reason for Continuing Indwelling Catheter: Accurate Measurement of Urinary Output in Critically Ill Patients Urinary Catheter Date of Insertion: 01/03/25 Urinary Catheter Time of Insertion: 05:13 Date Urinary Catheter Removed: 01/05/25 Data 01/06/25 06:30 01/06/25 06:30 A&P Assessment and plan (1) Unstable angina: (2) Coronary artery disease: (3) Essential hypertension: (4) Dyslipidemia: Plan At this time patient is doing well status post PCI of the left circumflex. Patient may be discharged home from a cardiology standpoint on current dose of Coreg with aspirin and Plavix with repeat labs and f/u in the clinic in 1 week. PDMP PDMP Reviewed: Not Reviewed Attestations 2 Medical Necessity Statement*: Deferred to primary. Coding Level of Care Code Acute Code for [facility] Fwd Diagnoses Unstable angina I20.0 Coronary artery disease involving kake coronary artery of kake heart without angina pectoris I25.10 Coronary Disease-Associated Artery/Lesion type: kake artery [place] vs. transplanted heart: kake heart Associated angina: without angina Essential hypertension I10 Dyslipidemia E78.5
[2025-01-06] MEDS: insulin lispro 100 unit/1 mL SUBCUT (12:46)
[2025-01-06 15:29] LABS: CK-MB (CK-2) 59.9 ng/mL (0-5.0)
[2025-01-10 01:20] LABS: T3, Free, Dialysis 109 pg/dL (210-440); T3, Total Dialysis 41 ng/dL (76-181)
== END 2025-01-06 14:45 | disposition home or self-care (01) | DRG 981 ==
LOC: ER 22:36 → MEDSURG 22:53 → ICU 01-01 20:22
PROVIDERS: Internal Medicine; Nurse Practitioner Family; Specialist; Surgery; Admitting Provider Internal Medicine; Emergency Provider Student in an Organized Health Care Education/Training Program; PCP Family Medicine; Visit Provider Family Medicine
PROC: 027034Z Dilation of Coronary Artery, One Artery with Drug-eluting Intraluminal Device, Percutaneous Approach (ICD-10-PCS; principal; 2025-01-04 08:30)
PROC: 027034Z Dilation of Coronary Artery, One Artery with Drug-eluting Intraluminal Device, Percutaneous Approach (ICD-10-PCS; 2025-01-04 08:30)
PROC: 0DJ08ZZ Inspection of Upper Intestinal Tract, Via Natural or Artificial Opening Endoscopic (ICD-10-PCS; principal; 2025-01-04 12:30)
DX: M60.80 Other myositis, unspecified site (principal); J81.0 Acute pulmonary edema; J96.00 Acute respiratory failure, unspecified whether with hypoxia or hypercapnia; I25.110 Atherosclerotic heart disease of native coronary artery with unstable angina pectoris; M62.82 Rhabdomyolysis; N39.0 Urinary tract infection, site not specified; N17.9 Acute kidney failure, unspecified; B17.9 Acute viral hepatitis, unspecified; K92.1 Melena; I12.9 Hypertensive chronic kidney disease with stage 1 through stage 4 chronic kidney disease, or unspecified chronic kidney disease; E13.22 Other specified diabetes mellitus with diabetic chronic kidney disease; N18.9 Chronic kidney disease, unspecified; E78.5 Hyperlipidemia, unspecified; K22.2 Esophageal obstruction; B37.9 Candidiasis, unspecified; E87.6 Hypokalemia; K59.00 Constipation, unspecified; F17.210 Nicotine dependence, cigarettes, uncomplicated; F41.9 Anxiety disorder, unspecified; D64.9 Anemia, unspecified; E83.42 Hypomagnesemia; M51.369 Other intervertebral disc degeneration, lumbar region without mention of lumbar back pain or lower extremity pain; Z95.1 Presence of aortocoronary bypass graft; Z79.82 Long term (current) use of aspirin; Z79.84 Long term (current) use of oral hypoglycemic drugs
CPT/HCPCS: 36415; 36416; 51702; 70551; 71045; 71250; 72141; 74176; 76705; 80053; 80074; 81001; 82274; 82550; 82553; 82607; 82962; 82977; 83036; 83516; 83519; 83605; 83690; 83735; 84100; 84145; 84439; 84443; 84480; 84481; 84484; 85014; 85018; 85025; 85347; 85610; 85651; 85730; 86140; 86160; 86162; 86235; 86255; 86376; 86618; 86666; 86706; 86757; 87040; 87086; 87806; 93005; 93306; 93455; 94010; 94640; 94664; 96372; 96374; 96376; 97110; 97116; 97161; 97530; 99152; 99153; 99285; C1725; C1769; C1874; C1887; C1894; C9600; J0360; J0692; J0696; J1100; J1200; J1644; J1815; J1938; J2020; J2250; J2270; J2470; J2704; J2919; J3010; J3475; J3480; J3490; J7030; J7050; J7070; J7120; J7611; J9999; Q9967

== ENCOUNTER 2025-01-13 16:00 | Outpatient (CLI) | payer OTHER, SELFPAY ==
[2025-01-13 16:49] LABS: Basophils % 0.1 %; Hematocrit 24.8 % (36-47); Lymphocytes # 1.8 10^3/uL (0.8-4.8); Lymphocytes % 9.6 %; Mean Corpuscular Hemoglobin 31.8 pg (27-33); Mean Corpuscular Volume 102.5 fl (85-98); Mean Platelet Volume 11.7 fL (7.4-10.4); Monocytes # 0.6 10^3/uL (0.2-0.9); Monocytes % 3.2 %; Neutrophils # 16.08 10^3/uL (1.8-7.7); Neutrophils % 85.6 %; Nucleated Red Blood Cells % 0.1 %; Platelet Count 304 10^3/cmm (157-399); Red Blood Count 2.42 10^6/uL (3.85-5.65); Red Cell Distribution Width 15.7 % (12.1-15.1); White Blood Count 18.78 10^3/uL (3.29-11.43)
[2025-01-13 17:32] LABS: Alanine Aminotransferase 99 U/L (0-33); Albumin Level 3.2 g/dL (3.5-5.2); Alkaline Phosphatase 234 U/L (35-105); Anion Gap 19.7 (5-19); Aspartate Amino Transferase 32 U/L (0-32); Blood Urea Nitrogen 28 mg/dL (8-23); Calcium 8.2 mg/dL (8.5-10.5); Carbon Dioxide 19 mmol/L (22-29); Chloride 104 mmol/L (98-107); Globulin 2.6 g/dL (1.3-4.6); Glomerular Filtration Rate 55.6 mL/min (90-130); Glucose 209 mg/dL (65-115); Osmolality Calculated 300 mOsm/kg (285-295); Potassium 3.7 mmol/L (3.5-5.1); Sodium 139 mmol/L (136-145); Total Bilirubin 0.5 mg/dL (0.15-1.2); Total Protein 5.8 g/dL (6.6-8.7)
[2025-01-13 21:16] LABS: NT Pro B Type Natriuretic Pept > 70000 pg/mL (0-125)
== END 2025-01-13 16:01 | disposition home or self-care (01) ==
PROVIDERS: PCP Family Medicine; Visit Provider Nurse Practitioner Family
DX: I25.10 Atherosclerotic heart disease of native coronary artery without angina pectoris (principal); I10 Essential (primary) hypertension; Z09 Encounter for follow-up examination after completed treatment for conditions other than malignant neoplasm; Z95.1 Presence of aortocoronary bypass graft; F17.210 Nicotine dependence, cigarettes, uncomplicated
CPT/HCPCS: 36415; 80053; 83880; 85025; 99214

== ENCOUNTER 2025-01-23 11:38 | Outpatient (CLI) | payer OTHER, MEDICAID, SELFPAY ==
[2025-01-23 12:30] LABS: Basophils % 0.1 %; Eosinophils # 0.3 10^3/uL (0.0-0.8); Eosinophils % 2.9 %; Hematocrit 28.8 % (36-47); Lymphocytes # 0.9 10^3/uL (0.8-4.8); Lymphocytes % 9.4 %; Mean Corpuscular HGB Conc 30.9 g/dL (30-55); Mean Corpuscular Hemoglobin 33.2 pg (27-33); Mean Corpuscular Volume 107.5 fl (85-98); Mean Platelet Volume 11.2 fL (7.4-10.4); Monocytes # 0.3 10^3/uL (0.2-0.9); Monocytes % 2.7 %; Neutrophils # 8.12 10^3/uL (1.8-7.7); Neutrophils % 84.4 %; Nucleated Red Blood Cells % 0 %; Platelet Count 311 10^3/cmm (157-399); Red Blood Count 2.68 10^6/uL (3.85-5.65); White Blood Count 9.62 10^3/uL (3.29-11.43)
[2025-01-23 12:52] LABS: Anion Gap 16.4 (5-19); Blood Urea Nitrogen 20 mg/dL (8-23); Calcium 8.1 mg/dL (8.5-10.5); Carbon Dioxide 24 mmol/L (22-29); Chloride 105 mmol/L (98-107); Glomerular Filtration Rate 55.5 mL/min (90-130); Glucose 222 mg/dL (65-115); Osmolality Calculated 301 mOsm/kg (285-295); Potassium 4.4 mmol/L (3.5-5.1); Sodium 141 mmol/L (136-145)
== END 2025-01-23 11:39 | disposition home or self-care (01) ==
LOC: LAB 11:41
PROVIDERS: PCP Family Medicine; Visit Provider Nurse Practitioner Family
DX: I10 Essential (primary) hypertension (principal)
CPT/HCPCS: 36415; 80048; 85025

== ENCOUNTER → 2025-01-29 13:50 | Outpatient (BNVA) | payer OTHER, MEDICAID, SELFPAY | PROVIDERS: PCP Family Medicine; Visit Provider Nurse Practitioner Family | DX: I10 Essential (primary) hypertension (principal) | CPT/HCPCS: 36415; 80053; 82550; 83880; 85025 ==

== ENCOUNTER → 2025-04-15 15:07 | Outpatient (BNVA) | payer OTHER, MEDICAID, SELFPAY | PROVIDERS: PCP Family Medicine; Visit Provider Internal Medicine | DX: I10 Essential (primary) hypertension (principal); I50.9 Heart failure, unspecified | CPT/HCPCS: 36415; 80048; 85025 ==

== ENCOUNTER 2025-04-24 11:02 | Emergency (ER) | payer OTHER, MEDICAID, SELFPAY ==
--- OUTSIDE RECORDS SUMMARY | 2025-04-21 08:50 | XMS_ITS | Encounter Summary ---
Author Organization [facility] Address [address] [place] [address] Care Team Providers Care Public Health Assistant Name Role Phone Non-Staff, Physician Primary Care Provider Unava ilable Reason for Visit * Auth/Cert (Routine) Specialty Diagnoses / Procedures Referred By Contact Referred To Contact Gastroenterology Diagnoses Esophageal stricture Procedures EGD SC ESOPHAGOGASTRODUODENOSCOPY TRANSORAL DIAGNOSTIC SC EGD TRANSORAL BIOPSY SINGLE/MULTIPLE SC EGD BALLOON DILATION ESOPHAGUS <30 MM DIAM SC DILATION ESOPH UNGUIDED SOUND/BOUGIE 1/MULT PASS new request Alda Brand MD [address] [place] [address] Phone: tel:[phone] fax: [facility] Gastroenterology [facility] [address] [address] Phone: tel:[phone] fax:[phone] Referral ID Status Reason Start Date Expiration Date Visits Requested Visits Authorized [id number] Performing Department to Schedule 01/14/2025 02/14/2026 1 1 Encounter Details Date Type Department Care Team (Late st Contact Info) Description 04/21/2025 8:50 AM CDT - 04/21/2025 11:53 AM CDT Hospital Encounter [facility] Endoscopy [address] [place] [address] Toni Gomez, DO [address] [address] Discharge Disposition: Home or Self Care Social History Tobacco Use Types Packs/Day Years Used Date Smoking Tobacco: Former Cigarettes Q uit: 12/05/2008 Tobacco Cessation:Counseling Given: Not Answered Alcohol Use Standard Drinks/Week Comments No 0 (1 standard drink = 0.6 oz pur e alcohol) Feeling Safe Answer Date Recorded Are you in a relationship wi th someone who hurts you emotionally and/or physically? No 04/21/2025 Comments Unknown Sex and Gender Information Value Date Recorded Sex Assigned at Not on file Legal Sex Female 3:17 AM [employer] Gender Identity Not on file Sexual Orientation Not on file documented as of this encounter Last Filed Vital Signs Vital Sign Reading Time Taken Comments Blood Pressure 132/51 04/21/2025 11:42 AM CDT Pulse 55 04/21/2025 11:42 AM CDT Temperature - - Respiratory Rate 16 04/21/2025 11:42 AM CDT Oxygen Saturation 93% 04/21/2025 11:42 AM CDT Inhaled Oxygen Concentration - - Weight 57.6 kg (127 lb) 04/16/2025 9:12 AM CDT Height 160 cm (5' 3 ) 04/16/2025 9:12 AM CDT Body Mass Index 22.5 04/16/2025 9:12 AM CDT documented in this encounter Discharge Instructions * Discharge Instructions* Bri Conroy, RN - 04/21/2025 9:41 AM CDT Endoscopy Discharge Instructions Please read the instructions outlined below and refer to this sheet in the next few weeks. These discharge instructions provide you with general information on [facility] Your doctor may also give you specific instructions. While your treatment has been planned according to the most current medical practices available, unavoidable complications occasionally occur. If you have any problems or questions after discharge, please call your doctor. Your procedure today is: Gastroscopy with possible esophageal dilatation ACTIVITY You received sedation for your procedure today and we recommend the following: No driving or activity that requires concentration until the next day. Take frequent rest periods for the rest of the day today. Do not sign any important legal documents or operate any machinery until the next day. Due to the effects of sedation you will not have the same mental functionality as you normally do, therefore you should plan to rest at home today. It is recommended that you have a responsible adultstay with you the rest of the day today. NUTRITION Drink plenty of fluids. You may resume your normal diet. Begin with a light meal and progress to your normal diet. Avoid alcoholic beverages for 24 hours or as instructed by your caregiver. MEDICATIONS You should check with your physician before resuming any blood thinners or aspirin products. You may resume your normal medications unless your caregiver tells you otherwise WHAT YOU CAN EXPECT TODAY You may experience abdominal discomfort such as a feeling of fullness or ???gas?? pains. Walking will help expel (get rid of ) air and reduce the bloated feeling in your abdomen. FOLLOW UP Your doctor will notify you of your test results in the following ways: Your doctor may not call, but you will receive a letter in the mail with your results. Most results will post to your [email or web address] account. To sign up for [email or web address], go to [email or web address] Class[employer] [facility] [place] Now CALL A PHYSICIAN IMMEDIATELY FOR ANY OF THE FOLLOWING: Severe pain or excessive vomiting Vomiting or passing of blood Temperature greater than 101 or shaking chills Redness, tenderness and swelling at site of IV that persists greater than 48 hours RESULTS If specimens (polyp, biopsy, etc.) were taken the results could take several days. If you do not receive results within 10 days please call our office. A full report will be sent to your referring physician. [facility] - Gastroenterology [address], [address] Monday- 8am-5pm & Fridays 8am-12pm please call: [phone] After hours voicemail: [phone] [facility] Endoscopy - Lower Level [address] [phone] [facility] - [place] [address] [facility] Emergency Room [address] [facility] [address] [phone] Gastroenterologists Gage Mena, MD Douglas Adamson MD Chris Knudsen, MD Faizan Arana MD Gisela Ocasio Quinones, MD Julio Gallegos MD I have received instructions from a nurse prior to my procedure and I understand the plan of care when I go home today. We appreciate your trust and greatly value your feedback. Our goal is to provide you with the highest level of care and service. You may be randomly selected to participate in a telephone survey about your visit. Your feedback about the positive experiences and opportunities for us to better serve you is important to us. Thank you for choosing [facility] Endoscopy. documented in this encounter Medications at Time of Discharge clopidogreL (PLAVIX) 75 mg Tablet Take 75 mg by mouth daily. aspirin 81 mg Capsule 81 mg. furosemide (LASIX) 40 mg tablet Take 40 mg by mouth daily. 03/05/2025 traZODone (DESYREL) 50 mg tablet Take 1 Tablet by mouth daily. 03/05/2025 potassium CHLORIDE (MICRO-K EXTENCAPS) 10 mEq Extended Release capsule Take 10 mEq by mouth daily. pantoprazole (PROTONIX) 40 mg Tablet, Delayed Release (E.C.) Take 40 mg by mouth daily. 01/29/2025 multivitamin (DAILY-SRIDEVI) tablet Take 1 Tablet by mouth daily. lisinopriL (PRINIVIL) 2.5 mg tablet Take 2.5 mg by mouth daily. HYDROcodone-acet aminophen (NORCO) 7.5-325 mg Tablet Take 1 Tablet by mouth every 8 hours as needed for Pain (Back pain). 12/04/2024 carvediloL (COREG) 6.25 mg tablet Take 1 Tablet by mouth 2 times daily. 03/05/2025 Gas Relief, simethicone, 180 mg Capsule Take 1 Capsule by mouth daily. 03/12/2025 insulin aspart prot/insuln asp (INSULIN ASP PRT-INSULIN ASPART SUBCUT) Inject by subcutaneous injection. documented as of this encounter H&P Notes * Toni Gomez DO - 04/21/2025 10:58 AM CDT Endoscopy History and Physical This is a 65 y.o. female patient scheduled for EGD for the indication as listed: Dysphagia Patient had risks and benefits discussed for colonoscopy with polypectomy or intervention of bleeding if necessary. The risks which include but are not limited to bleeding, perforation, swallowing ofstomach contents into the lungs (aspiration) or problems with heart or lung function associated with the procedure or sedation, unexpected allergic reaction to the medication used, damage to neighboring organs, infection and missed abnormalities such as polyps or cancers. Patient was explained thatcertain co-morbidities may increase the risk of some complications. The exam does not eliminate thefuture risk of cancer. Alternatives include stools tests and imaging studies. Patient had risks and benefits discussed for EGD with SILVA capsule, biopsies, dilation, banding orintervention for bleeding if necessary. The risks which include but are not limited to unexpected allergic reaction to the medication used, a tear in the lining of the esophagus, stomach or small intestine, bleeding which may require transfusions, failure to diagnose as this is not a perfect test, infection, swallowing of stomach contents into the lungs (aspiration) or problems with heart or lungfunction associated with the procedure or sedation. Patient was explained that certain co-morbidities may increase the risk of some complications. Alternatives were discussed such as other tests or procedures along with medication trials. Explained to patient that treatment of complications may require hospitalization, antibiotics, additional procedures, blood transfusions, surgery or other measures deemed advisable for health and well-being. Past Medical History: Diagnosis Date Chest pain Coronary artery disease GERD (gastroesophageal reflux disease) Psychiatric disorder depression Unspecified disorder of lipoid metabolism Unspecified essential hypertension Vascular disease Past Surgical History: Procedure Laterality Date HX AORTIC STENT HX CORONARY STENT PLACEMENT pt states multiple stents, HX VASCULAR PROCEDURE OTHER SC CABG W/ARTERIAL GRAFT SINGLE ARTERIAL GRAFT N/A 02/12/2009 CORONARY ARTERY BYPASS GRAFT WITH SOPHIA performed by Mack Boyd II, MD at [facility] MAIN OR SC UNLISTED PROCEDURE VASCULAR SURGERY 02/12/2009 SAPHENOUS VEIN HARVEST OPEN performed by Mack Boyd II, MD at [facility] MAIN OR Allergies Allergen Reactions Niacin Rash and Other (See Comments) PT ALSO STATES SENSATION OF SKIN BEING ON FIRE Prednisone Abdominal Pain Oral only Social History Socioeconomic History Marital status: Spouse name: Not on file Number of children: Not on file Years of education: Not on file Highest education level: Not on file Occupational History Not on file Tobacco Use Smoking status: Former Current packs/day: 0.00 Types: Cigarettes Quit date: 12/05/2008 Years since quittin.3 Smokeless tobacco: Not on file Substance and Sexual Activity Alcohol use: No Drug use: No Sexual activity: Not on file Other Topics Concern Not on file Social History Narrative Not on file Social Drivers of Health Food Insecurity: Not on file Transportation Needs: Not on file Feeling Safe: Not At Risk (04/21/2025) Feeling Safe Patient has indicated abuse: : No Housing Stability: Not on file Medications Prior to Admission Medication Sig Dispense Refill Last Dose/Taking clopidogreL (PLAVIX) 75 mg Tablet Take 75 mg by mouth daily. 04/16/2025 aspirin 81 mg Capsule 81 mg. 04/20/2025 furosemide (LASIX) 40 mg tablet Take 40 mg by mouth daily. 04/20/2025 traZODone (DESYREL) 50 mg tablet Take 1 Tablet by mouth daily. 04/20/2025 potassium CHLORIDE (MICRO-K EXTENCAPS) 10 mEq Extended Release capsule Take 10 mEq by mouth daily. 04/20/2025 pantoprazole (PROTONIX) 40 mg Tablet, Delayed Release (E.C.) Take 40 mg by mouth daily. 04/20/2025 multivitamin (DAILY-SRIDEVI) tablet Take 1 Tablet by mouth daily. Past Week HYDROcodone-acetaminophen (NORCO) 7.5-325 mg Tablet Take 1 Tablet by mouth every 8 hours as needed for Pain (Back pain). 04/20/2025 carvediloL (COREG) 6.25 mg tablet Take 1 Tablet by mouth 2 times daily. 04/21/2025 Morning Gas Relief, simethicone, 180 mg Capsule Take 1 Capsule by mouth daily. Past Week insulin aspart prot/insuln asp (INSULIN ASP PRT-INSULIN ASPART SUBCUT) Inject by subcutaneous injection. 04/20/2025 lisinopriL (PRINIVIL) 2.5 mg tablet Take 2.5 mg by mouth daily. Unknown No family history on file. Physical Exam: General appearance/mental status patient alert and oriented in time place and person Neurological system within normal limits ASA Classification: ASA 3 - Patient with moderate systemic disease with functional limitations Mental Status Alert Lungs: normal respiratory effort and no acute respiratory distress Heart: regular rate Abdomen: Soft, non-tender Assessment: Plan: Will proceed with the above mentioned procedure as scheduled. documented in this encounter Procedure Notes * Toni Gomez DO - 04/21/2025 11:20 AM CDTAssociated Order(s): UPPER ENDOSCOPY REPORT [facility] GI Patient Name: Torie Belle Procedure Date: 04/21/2025 Date of : 1960 Admit Type: Outpatient Age: 65 Attending MD: Toni Gomez DO, Procedure: Upper GI endoscopy Providers: Toni Gomez DO Referring MD: Alda Brand Medicines: Propofol per Anesthesia Complications: No immediate complications. Procedure: After obtaining informed consent, the endoscope was passed under direct vision. Throughout the procedure, the patient's blood pressure, pulse, and oxygen saturations were monitored continuously. The Endoscope was introduced through the mouth, and advanced to the second part of duodenum. The upper GI endoscopy was accomplished without difficulty. The patient tolerated the procedure well. Estimated Blood Loss: Estimated blood loss was minimal. Findings: A moderate Schatzki ring was found in the lower third of the esophagus. A TTS dilator was passed through the scope. Dilation with a 12-13.5-15 mm x 5.5 cm CRE balloon (to a maximum balloon size of 15 mm) and a 15-16.5-18 mm x 5.5 cm CRE balloon (to a maximum balloon size of 16.5 mm) dilator was performed. The dilation site was examined and showed mild mucosal disruption and mild improvement in luminal narrowing. The Z-line was regular and was found 40 cm from the incisors. Scattered mild inflammation characterized by erosions and erythema was found in the gastric body and in the gastric antrum. Biopsies were taken with a cold forceps for histology. The examined duodenum was normal. Impression: - Moderate Schatzki ring. Dilated with a 12-13.5-15 mm x 5.5 cm CRE balloon (to a maximum balloon size of 15 mm). Dilated with a 15-16.5-18 mm x 5.5 cm CRE balloon (to a maximum balloon size of 16.5 mm). - Z-line regular, 40 cm from the incisors. - Gastritis, characterized by erosions and erythema. Biopsied. - Normal examined duodenum. Recommendation: - Patient has a contact number available for emergencies. The signs and symptoms of potential delayed complications were discussed with the patient. Return to normal activities tomorrow. Written discharge instructions were provided to the patient. - Resume previous diet. - Continue present medications. - Await pathology results. Toni Gomez DO 04/21/2025 11:20:09 AM Number of Addenda: 0 Note Initiated On: 04/21/2025 10:54 AM Scope Withdrawal Time Scope In: Scope Out: [address] [place], [place] documented in this encounter OR Notes * Patricia-OP - Alyx Dickinson RN - 04/16/2025 9:18 AM CDT EGD Your procedure date is 04/21/[address] Gomez at [facility] Endoscopy [address] [place] [address] You have an arrival time of 9:00 AM. You must bring a responsible adult school bus driver/custodian who is here the entire time you are here. We also ask that you have an adult who can stay with you the rest of the day because of the sedation. Nothing to eat or drink after midnight except a small sip of water with morning meds the nurse specified you could have. If you have an afternoon appt, may have clear liquids up to 2 hours prior to procedure arrival time. May take heart, blood pressure or seizure meds with sip of water only. Nothing by mouth (including clear liquids) for 2 hours prior to procedure arrival time. No diabetic meds the morning of the procedure.Patient was told by heart doctor to hold Plavix for5 days. Do not bring any jewelry or valuables to your appointment. No driving a vehicle or operating heavy machinery and/or making important decisions for 24 hours after your procedure. Denies recent or pending surgery. If you wear oxygen and have a portable tank, please bring it with you the day of your procedure. Bring only your school bus driver/custodian the day of your procedure. Appointment time and location verified. documented in this encounter Plan of Treatment Not on file documented as of this encounter Procedures Procedure Name Priority Date/Time Associated Diagnosis Comments UPPER ENDOSCOPY REPORT 11:20 AM CDT PATHOLOGY Pathology 04/21/2025 11:08 AM CDT SC ESOPHAGOGASTRODUODENOSCOP Y TRANSORAL DIAGNOSTIC 04/21/2025 10:00 AM CDT Esophageal stricture Case Notes Procedure :EGD Special Notes: Dx: Esophageal stricture BT:plavix (clopidrogrel) 5 days BT managed by: Dr. Mast Diabetic: YES Diabetic/WT med:NONE LOC & REASON:Hosp / meds BMI: 25.2 Last Procedure date & location NA Referring Provider ALDA BRAND GI Doc:Any Insurance: [facility] Last GI appt NA documented in this encounter Results * UPPER ENDOSCOPY REPORT (04/21/2025 11:20 AM CDT) Narrative Procedure Note Toni Gomez DO - 04/21/2025 11:20 AM CDT [facility] GI Patient Name: Torie Belle Procedure Date: 04/21/2025 Date of : 1960 Admit Type: Outpatient Age: 65 Attending MD: Toni Gomez DO, Procedure: Upper GI endoscopy Providers: Toni Gomez DO Referring MD: Alda Brand Medicines: Propofol per Anesthesia Complications: No immediate complications. Procedure: After obtaining informed consent, the endoscope was passed under direct vision. Throughout the procedure, the patient's blood pressure, pulse, and oxygen saturations were monitored continuously. The Endoscope was introduced through the mouth, and advanced to the second part of duodenum. The upper GI endoscopy was accomplished without difficulty. The patient tolerated the procedure well. Estimated Blood Loss: Estimated blood loss was minimal. Findings: A moderate Schatzki ring was found in the lower third of the esophagus. A TTS dilator was passed through the scope. Dilation with a 12-13.5-15 mm x 5.5 cm CRE balloon (to a maximum balloon size of 15 mm) and a 15-16.5-18 mm x 5.5 cm CRE balloon (to a maximum balloon size of 16.5 mm) dilator was performed. The dilation site was examined and showed mild mucosal disruption and mild improvement in luminal narrowing. The Z-line was regular and was found 40 cm from the incisors. Scattered mild inflammation characterized by erosions and erythema was found in the gastric body and in the gastric antrum. Biopsies were taken with a cold forceps for histology. The examined duodenum was normal. Impression: - Moderate Schatzki ring. Dilated with a 12-13.5-15 mm x 5.5 cm CRE balloon (to a maximum balloon size of 15 mm). Dilated with a 15-16.5-18 mm x 5.5 cm CRE balloon (to a maximum balloon size of 16.5 mm). - Z-line regular, 40 cm from the incisors. - Gastritis, characterized by erosions and erythema. Biopsied. - Normal examined duodenum. Recommendation: - Patient has a contact number available for emergencies. The signs and symptoms of potential delayed complications were discussed with the patient. Return to normal activities tomorrow. Written discharge instructions were provided to the patient. - Resume previous diet. - Continue present medications. - Await pathology results. Toni Gomez DO 04/21/2025 11:20:09 AM Number of Addenda: 0 Note Initiated On: 04/21/2025 10:54 AM Scope Withdrawal Time Scope In: Scope Out: [address] [place] Toni Gomez DO GI PROCEDURE ORDERABLES Final Result * PATHOLOGY (04/21/2025 11:08 AM CDT) CASE REPORT Surgical Pathology Report Case: [id number] Authorizing Provider: Toni Gomez DO Collected: 04/21/2025 11:08 AM Ordering Location: [facility] Received: 04/21/2025 01:27 PM Endoscopy Pathologist: Arya Horner MD Specimen: Stomach 8:20 AM CDT [facility] FINAL DIAGNOSIS A. Stomach, biopsy - Gastric oxyntic mucosa with focal superficial erosion and associated acute and chronic inflammation - Negative for intestinal metaplasia - Negative for H. pylori by immunohistochemistry Arya Horner MD [id number] 5 8:20 AM CDT [facility] at 0820 CDT GROSS DESCRIPTION A. Received in formalin labeled Barbra -stomach rule out H. pylori are two fragments of tissue up to 5 cm. The specimen is submitted in toto in A1. Grossed by: Marisa Navarro MS, PA ([facility])CM 5 8:20 AM CDT [facility] OPERATIVE PROCEDURE 1: ESOPHAGOGASTRODUODENOSCO PY 5 8:20 AM CDT [facility] CLINICAL INFORMATION A R/o H Pylori 8:20 AM T [facility] COMMENT The [employer] voice-activated dictation system may have been used in the creation of this report. Inherent to this system is the possibility of errors in syntax, grammar, punctuation, or other areas that could impact interpretation. If there are interpretive questions about the report, please contact the performing pathologist. Unless gross only is specified in the diagnosis, the microscopic examination substantiates the above cited diagnosis. The performance characteristics of all immunohistochemical stains cited in this report (if any) were determined by the Diagnostic Immunohistochemistry Laboratory of [facility] in compliance with CLIA'88 regulations. Some of these tests rely on the use of analyte specific reagents and are subject to specific labeling requirements by the FDA. All controls show appropriate reactivity. This testing was developed by the Diagnostic Immunohistochemistry Laboratory of [facility]. It has not been cleared or approved by the FDA. The FDA has determined that such clearance or approval is not necessary. 5 8:20 AM CDT [facility] Tissue ENTIRE STOMACH / Unknown Collection / Unknown 04/21/2025 11:08 AM CDT 04/21/2025 1:27 PM CDT Comment:R/o H Pylori Toni Gomez DO PATHOLOGY/CYTOLOGY ORDE CHANG Final Result [facility] CLIA # [id number] [address] [address] [place] [address] documented in this encounter Visit Diagnoses Not on filedocumented in this encounter Administered Medications Inactive Administered Medications - up to 3 most recent administrations Medication Order MAR Action Action Date Dose Rate Site sodium chloride 0.9 % infusion IV, at 125 mL/hr, CONTINUOUS, Starting on Mon04/21/25 at 0945, Until Mon04/21/25 at 1353, Routine documented in this encounter Active and Recently Administered Medications Times are shown in CDT. Continuous Medication Order 04/19/2025 04/20/2025 04/21/2025 sodium chloride 0.9 % infusion IV, at 125 mL/hr, CONTINUOUS, Starting on Mon04/21/25 at 0945, Until 04/21/25 at 1353, Routine 0945 (Due) documented in this encounter Care Teams Public Health Assistant Relationship Specialty Start Date End Date Non-Staff, Physician NO ADDRESS ON FILE PCP - General 07/27/07 documented as of this encounter
--- OUTSIDE RECORDS SUMMARY | 2025-04-21 10:00 | XMS_ITS | Encounter Summary ---
Author Organization [facility] Address [address] [place] [address] Care Team Providers Care Automotive Electrical Fitter Name Role Phone Non-Staff, Physician Primary Care Provider Unava ilable Reason for Visit * Auth/Cert (Routine) Specialty Diagnoses / Procedures Referred By Contact Referred To Contact Gastroenterology Diagnoses Esophageal stricture Procedures EGD NM ESOPHAGOGASTRODUODENOSCOPY TRANSORAL DIAGNOSTIC NM EGD TRANSORAL BIOPSY SINGLE/MULTIPLE NM EGD BALLOON DILATION ESOPHAGUS <30 MM DIAM NM DILATION ESOPH UNGUIDED SOUND/BOUGIE 1/MULT PASS new request Alda Brand MD [address] [place] [address] Phone: tel:[phone] fax:[phone] [facility] Gastroenterology [facility] [address] [address] Phone: tel:[phone] fax:[phone] Referral ID Status Reason Start Date Expiration Date Visits Requested Visits Authorized [id number] Performing Department to Schedule 01/14/2025 02/14/2026 1 1 Encounter Details Date Type Department Care Team (Late st Contact Info) Description 04/21/2025 10:00 AM CDT - 04/21/2025 10:20 AM CDT Surgery [facility] Endoscopy [address] [place] [address] Toni Gomez, DO [address] [address] ESOPHAGOGASTRODUODENOSCOPY Surgery Details Date/Time Status Location OR Service Patient Class Case Class Case Type Trauma Case? 04/21/2025 10:00 AM Posted [facility] ENDO NM 02 Gastroenterology Outpatient Elective No Panel 1 Procedure LRB Anes Op Region Wound Class Comments ESOPHAGOGASTRODUODENOSCOPY N/A Monit ored Anesthetic Care Esophagus Procedure :EGD Special Notes: Dx: Esophageal stricture BT:plavix (clopidrogrel) 5 days BT managed by: Dr. Mast Diabetic: YES Diabetic/WT med:NONE LOC & REASON:Hosp / meds BMI: 25.2 Last Procedure date & location NA Referring Provider ALDA BRAND GI Doc:Any Insurance: [employer] / dELiAs Last GI appt NA Surgeon Surgeon Role Service Panel Toni Gomez, DO Primary Gastroenterolo gy 1 Case Notes Procedure :EGD Special Notes: Dx: Esophageal stricture BT:plavix (clopidrogrel) 5 days BT managed by: Dr. 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 Your doctor may also give you specific [...] results. Most results will post to your Snapdeal account. To sign up for Snapdeal, go to [email or web address] [place] Now CALL A PHYSICIAN IMMEDIATELY FOR [...] will be sent to your referring physician. [facility] - Gastroenterology [address] [place] [address], [address] Monday- 8am-5pm & Fridays 8am-12pm please call: [phone] After hours voicemail: [phone] [facility] Endoscopy - Lower Level [address] [phone] [facility] Endoscopy - [place] [address] [facility] Sai.1300 [facility] Emergency Room [address] [phone] Gastroenterologists Gage Mena, MD Douglas Adamson MD [...] important to us. Thank you for choosing [facility] Endoscopy. documented in this encounter Medications at [...] states multiple stents, HX VASCULAR PROCEDURE OTHER NM CABG W/ARTERIAL GRAFT SINGLE ARTERIAL GRAFT N/A 02/12/2009 CORONARY ARTERY BYPASS GRAFT WITH SOPHIA performed by Mack Boyd II, MD at [facility] MAIN OR NM UNLISTED PROCEDURE VASCULAR SURGERY 02/12/2009 SAPHENOUS VEIN HARVEST OPEN performed by Mack Boyd II, MD at [facility] MAIN OR Allergies Allergen Reactions [...] 11:20 AM CDTAssociated Order(s): UPPER ENDOSCOPY REPORT [facility] GI Patient Name: Torie Belle Procedure Date: [...] Withdrawal Time Scope In: Scope Out: [address] [place], [place] documented in this encounter OR Notes * Patricia-OP - Alyx Dickinson RN - 04/16/2025 9:18 AM CDT EGD Your procedure date is 04/21/[address] Gomez at [facility] Endoscopy [address] [place] [address] You have an arrival time of 9:00 AM. You must bring a responsible adult cattle driver who is here the entire time you [...] day of your procedure. Bring only your cattle driver the day of your procedure. Appointment time and location verified. documented in this encounter Plan of Treatment Not on file documented as of this encounter Procedures Procedure Name Priority Date/Time Associated Diagnosis Comments UPPER ENDOSCOPY REPORT 11:20 AM CDT PATHOLOGY Pathology 04/21/2025 11:08 AM CDT NM ESOPHAGOGASTRODUODENOSCOP Y TRANSORAL DIAGNOSTIC 04/21/2025 10:00 AM CDT Esophageal stricture Case Notes Procedure :EGD Special Notes: Dx: Esophageal stricture BT:plavix (clopidrogrel) 5 days BT managed by: Dr. Mast Diabetic: YES Diabetic/WT med:NONE LOC & REASON:Hosp / meds BMI: 25.2 Last Procedure date & location NA Referring Provider ALDA BRAND GI Doc:Any Insurance: [facility] Last GI appt NA documented in this encounter Results * UPPER ENDOSCOPY REPORT (04/21/2025 11:20 AM CDT) Narrative Procedure Note Toni Gomez, - 04/21/2025 11:20 AM CDT [facility] GI Patient Name: Torie Belle Procedure Date: [...] Withdrawal Time Scope In: Scope Out: [address] [place], [place] Toni Gomez DO GI PROCEDURE ORDERABLES Final Result * PATHOLOGY (04/21/2025 11:08 AM CDT) CASE REPORT Surgical Pathology Report Case: [id number] Authorizing Provider: Toni Gomez DO Collected: 04/21/2025 11:08 AM Ordering Location: [facility] Received: 04/21/2025 01:27 PM Endoscopy Pathologist: Arya Horner MD Specimen: Stomach 5 8:20 AM CDT [facility] FINAL DIAGNOSIS A. Stomach, biopsy - Gastric oxyntic mucosa with focal superficial erosion and associated acute and chronic inflammation - Negative for intestinal metaplasia - Negative for H. pylori by immunohistochemistry Arya Horner MD [id number] 5 8:20 AM CDT [facility] at 0820 CDT GROSS DESCRIPTION A. Received in formalin labeled Barbra -stomach rule out H. pylori are two fragments of tissue up to 5 cm. The specimen is submitted in toto in A1. Grossed by: Marisa Navarro MS, PA ([facility])CM 5 8:20 AM CDT [facility] OPERATIVE PROCEDURE 1: ESOPHAGOGASTRODUODENOSCO PY 5 8:20 AM CDT [facility] CLINICAL INFORMATION A R/o H Pylori 5 8:20 AM T [facility] COMMENT The [employer] voice-activated dictation system may have been used [...] determined by the Diagnostic Immunohistochemistry Laboratory of [facility] in compliance with CLIA'88 regulations. Some of these tests rely on the use of analyte specific reagents and are subject to specific labeling requirements by the FDA. All controls show appropriate reactivity. This testing was developed by the Diagnostic Immunohistochemistry Laboratory of [facility]. It has not been cleared or approved by the FDA. The FDA has determined that such clearance or approval is not necessary. 8:20 AM CDT [facility] Tissue ENTIRE STOMACH / Unknown Collection / Unknown 04/21/2025 11:08 AM CDT 04/21/2025 1:27 PM CDT Comment:R/o H Pylori Toni Gomez DO PATHOLOGY/CYTOLOGY ORDE CHANG Final Result Performing Organization Address City/State/[facility] Co de Phone Number [facility] CLIA # [id number] [facility] [address] documented in this encounter Visit Diagnoses Not [...] at 0945, Until Mon04/21/25 at 1353, Routine 0945 (Due) documented in this encounter Care Teams Automotive Electrical Fitter Relationship Specialty Start Date End Date Non-Staff, Physician NO ADDRESS ON FILE PCP - General 07/27/07 documented as of this encounter
--- OUTSIDE RECORDS SUMMARY | 2025-04-21 10:56 | XMS_ITS | Encounter Summary ---
Author Organization [facility] Address [address] [place] [address] Care Team Providers Care Senior Sales Consultant Name Role Phone Non-Staff, Physician Primary Care Provider Unava ilable Reason for Visit * Auth/Cert (Routine) Specialty Diagnoses / Procedures Referred By Contact Referred To Contact Gastroenterology Diagnoses Esophageal stricture Procedures EGD IL ESOPHAGOGASTRODUODENOSCOPY TRANSORAL DIAGNOSTIC IL EGD TRANSORAL BIOPSY SINGLE/MULTIPLE IL EGD BALLOON DILATION ESOPHAGUS <30 MM DIAM IL DILATION ESOPH UNGUIDED SOUND/BOUGIE 1/MULT PASS new request Filipe Islas MD [address] [place] [address] Phone: tel:[phone] fax: [facility] [address] [place] [address] Phone: tel:[phone] fax:[phone] Referral ID Status Reason Start Date Expiration Date Visits Requested Visits Authorized [id number] Performing Department to Schedule 01/14/2025 02/14/2026 1 1 Encounter Details Date Type Department Care Team (Late st Contact Info) Description 04/21/2025 10:56 AM CDT Anesthesia Event [facility] Endoscopy [address] [place] [address] Nereida Richardson MD [address] [place], [place] [address] Radha Jaffe CRNA [address] [place] [address] Anesthesia Record Procedure Summary Procedure Name Responsible Anesthesiologist Anesthesia Start Time Anesthesia Stop Time ESOPHAGOGASTRODUODENOSCOPY (Esophagus) Nereida Richardson MD 04/21/25 1056 04/21/25 1119 Events Date Time Event Comment 04/21/2025 1054 AN Equip Check Anesthesia eq uipment and materials checked in accordance with local policy. 1056 In Room This event disp lays the In Room time documented in the Surgical Log. Deleting this event will not remove it from the log but will remove it from the Grid and Graph timeline. 1056 An Start 1056 An Start Data 1103 Pre-Induction Immediate pre- induction anesthetic assessment performed. Vital signs as noted on graphic. 1103 An Induction 1105 Procedure Start This event d isplays the Procedure Start time documented in the Surgical Log. Deleting this event will not remove it from the log but will remove it from the Grid and Graph timeline. 1105 Anesthesia Ready 1116 Procedure Stop This event di splays the Procedure Stop time documented in the Surgical Log. Deleting this event will not remove it from the log but will remove it from the Grid and Graph timeline. 1119 An Stop 1119 Hand-off to Receiving Clinic ada 1119 an stop data 1120 Out of Room This event disp lays the Out of Room time documented in the Surgical Log. Deleting this event will not remove it from the log but will remove it from the Grid and Graph timeline. 1122 Meds Name Total lidocaine PF (XYLOCAINE MPF) 2% injectio n 2 mL propofol (DIPRIVAN) 10 mg/mL injection 230 mg * Agents Name O2 O2 * Blood No blood administrations on file. Lines, Drains, and Airways Type Details Placement Removal Peripheral IV Orientation: Left; Location: Wrist; Gauge: 22 gauge; Insertion Attempts: 1; Removal Indication: no longer indicated; Removal Interventions: pressure dressing, direct pressure, catheter intact 04/21/25 1032 by Greer Fish RN 04/21/25 1134 by Han Zaman RN documented in this encounter Social History Tobacco Use Types Packs/Day Years Used Date Smoking Tobacco: Former Cigarettes Q uit: 12/05/2008 Alcohol Use Standard Drinks/Week Comments No 0 (1 standard drink = 0.6 oz pur e alcohol) Feeling Safe Answer Date Recorded Are you in a relationship wi th someone who hurts you emotionally and/or physically? 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 female : 1960 Preoperative Diagnosis Esophageal stricture Scheduled Procedure ESOPHAGOGASTRODUODENOSCOPY BP 132/51 (BP Location: Left arm) Pulse (!) 55 Resp 16 Ht 5' 3 (1.6 m) Wt 57.6 kg (127 lb) SpO2 93% BMI 22.50 kg/m?? Stable respiratory function, airway patent. Stable cardiovascular function Appropriate mental status. Normothermic. Pain controlled. Adequate hydration. Satisfactory post anesthesia course. No anesthesia complications noted. Signature: Nereida Richardson MD Date: 04/21/2025 Time: 4:18 PM No notable events documented. Nereida Richardson MD * Anesthesia Handoff - Radha Jaffe CRNA - 04/21/2025 11:18 AM CDT Post-Anesthetic transfer of care report elements to appropriate post-anesthesia recovery environment completed in accordance with procedure. I completed my handoff to the receiving nurse during which we: 1. Identified the patient 2. Identified the responsible provider 3. Reviewed the pertinent medical history 4. Discussed the surgical course 5. Reviewed intra-op anesthesia management and issues during anesthesia 6. Set expectations for post-procedure period 7. Orders as necessary and appropriate for continuation of care are present in Epic. 8. Allowed opportunity for questions and acknowledgement of understanding. Vital Signs: Vitals Value Taken Time BP Temp Resp SpO2 Pulse Heart Rate BP 140/60, HR 52, RR 20, sats 100%, temp 97.5 11:18 AM Radha Jaffe CRNA * Anesthesia Preprocedure Evaluation - Nereida Richardson MD - 04/21/2025 10:58 AM CDT Relevant Problems CARDIOVASCULAR (+) CAD (coronary artery disease) Anesthesia Evaluation Anesthesia Plan ASA Final: 3 MAC Preanesthesia Evaluation Torie Belle is a 65 y.o. female Date: 04/21/2025 Discussed with: Patient Scheduled Procedure ESOPHAGOGASTRODUODENOSCOPY Allergies Allergen Reactions Niacin Rash and Other (See Comments) PT ALSO STATES SENSATION OF SKIN BEING ON FIRE Prednisone Abdominal Pain Oral only Patient Active Problem List Diagnosis Date Noted S/P CABG (coronary artery bypass graft) 02/16/2009 CAD (coronary artery disease) 02/16/2009 Past Medical History: Diagnosis Date Chest pain Coronary artery disease GERD (gastroesophageal reflux disease) Psychiatric disorder depression Unspecified disorder of lipoid metabolism Unspecified essential hypertension Vascular disease Past Surgical History: Procedure Laterality Date HX AORTIC STENT HX CORONARY STENT PLACEMENT pt states multiple stents, HX VASCULAR PROCEDURE OTHER IL CABG W/ARTERIAL GRAFT SINGLE ARTERIAL GRAFT N/A 02/12/2009 CORONARY ARTERY BYPASS GRAFT WITH SOPHIA performed by Mack Boyd II, MD at [facility] MAIN OR [place] UNLISTED PROCEDURE VASCULAR SURGERY 02/12/2009 SAPHENOUS VEIN HARVEST OPEN performed by Mack Boyd II, MD at [facility] OR No current facility-administered medications on file prior to encounter. Current Outpatient Medications on File Prior to Encounter Medication Sig Dispense Refill clopidogreL (PLAVIX) 75 mg Tablet Take 75 mg by mouth daily. aspirin 81 mg Capsule 81 mg. furosemide (LASIX) 40 mg tablet Take 40 mg by mouth daily. traZODone (DESYREL) 50 mg tablet Take 1 Tablet by mouth daily. potassium CHLORIDE (MICRO-K EXTENCAPS) 10 mEq Extended Release capsule Take 10 mEq by mouth daily. pantoprazole (PROTONIX) 40 mg Tablet, Delayed Release (E.C.) Take 40 mg by mouth daily. multivitamin (DAILY-SRIDEVI) tablet Take 1 Tablet by mouth daily. HYDROcodone-acetaminophen (NORCO) 7.5-325 mg Tablet Take 1 Tablet by mouth every 8 hours as needed for Pain (Back pain). carvediloL (COREG) 6.25 mg tablet Take 1 Tablet by mouth 2 times daily. Gas Relief, simethicone, 180 mg Capsule Take 1 Capsule by mouth daily. insulin aspart prot/insuln asp (INSULIN ASP PRT-INSULIN ASPART SUBCUT) Inject by subcutaneous injection. lisinopriL (PRINIVIL) 2.5 mg tablet Take 2.5 mg by mouth daily. Physical Exam: Airway Class: II (soft palate, uvula, fauces visible) Pulmonary: Non labored, clear to auscultation Cardiac: regular rate and rhythm Neuro: alert Pertinent lab: No results found for this visit on 04/21/25 (from the past 24 hours). The risks and benefits of the proposed anesthetic have been discussed with patient/designee. The patient/designee has agreed to MAC with GENERAL Anesthesia as a backup. Anesthesia guideline orders initiated. Monitors: Standard ASA monitors Nereida Richardson MD * Anesthesia Procedure Notes - Radha Jaffe CRNA - 04/21/2025 10:55 AM CDT Associated Order(s): Airway Airway Date/Time: 04/21/2025 10:55 AM Location: OR Plan: elective intubation Patient Identity Confirmed by: Verbally with patient Airway: not difficult Staffing Performed: DALILA/CAA Authorized by: Nereida Richardson MD Performed by: Radha Jaffe CRNA Indications and Patient Condition: Indications for Airway Management: Anesthesia Sedation Level: sedation Preoxygenated: yes Plan to extubate at end of case: Yes Final Airway Details: Final Airway Type: Mask documented in this encounter Plan of Treatment Not on file documented as of this encounter Procedures Procedure Name Priority Date/Time Associated Diagnosis Comments ANESTHESIA AIRWAY Routine 04/21/2025 10: 55 AM CDT documented in this encounter Results * Airway (04/21/2025 10:55 AM CDT) Narrative Radha Jaffe CRNA - 04/21/2025 10:55 AM CDT Radha Jaffe CRNA 04/21/2025 10:55 AM Airway Date/Time: 04/21/2025 10:55 AM Location: OR Plan: elective intubation Patient Identity Confirmed by: Verbally with patient Airway: not difficult Staffing Performed: DALILA/CAA Authorized by: Nereida Richardson MD Performed by: Radha Jaffe CRNA Indications and Patient Condition: Indications for Airway Management: Anesthesia Sedation Level: sedation Preoxygenated: yes Plan to extubate at end of case: Yes Final Airway Details: Final Airway Type: Mask Nereida Richadrson MD PROCEDURE/MINOR SURGICAL ORD ERABLES Final Result documented in this encounter Visit Diagnoses Not on filedocumented in this encounter Administered Medications Inactive Administered Medications - up to 3 most recent administrations Medication Order MAR Action Action Date Dose Rate Site lidocaine PF 2% (XYLOCAINE MPF) injection IV, INTRA-PROCEDURE PRN, Starting on Mon04/21/25 at 1104, Until Mon04/21/25 at 1119, Routine, Anesthesia Intra-op Given 04/21/2025 11:04 AM CDT 2 mL propofoL (DIPRIVAN) injection IV, INTRA-PROCEDURE PRN, Starting on Mon04/21/25 at 1103, Until Mon04/21/25 at 1119, Anesthesia Intra-op Given 04/21/2025 11:13 AM CDT 50 mg Given 04/21/2025 11:10 AM CDT 50 mg Given 04/21/2025 11:08 AM CDT 50 mg documented in this encounter Care Teams Senior Sales Consultant Relationship Specialty Start Date End Date Non-Staff, Physician NO ADDRESS ON FILE PCP - General 07/27/07 documented as of this encounter
--- OUTSIDE RECORDS SUMMARY | 2025-04-24 11:07 | XMS_ITS | Encounter Summary ---
Author Organization [facility] Address [address] [place] [address] Care Team Providers Care Ticketer Name Role Phone Non-Staff, Physician Primary Care Provider Unava ilable Encounter Details Date Type Department Care Team (Late st Contact Info) Description 07/26/2007 Outpatient Historical HIS IN BED Sj Ed, Physician NO ADDRESS ON FILE Eliel Taylor MD [address] [place], [place] [address] Baron Delgado MD [address] [facility] [address] [place] [id number] Intermediate Coronary Syndrome (CMS/HCC) Social History Tobacco Use Types Packs/Day Years Used Date Smoking Tobacco: Never Assessed Comments Unknown Sex and Gender Information Value Date Recorded Sex Assigned at Not on file 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 Gender Identity Not on file Sexual Orientation Not on file documented as of this encounter Plan of Treatment Not on file documented as of this encounter Procedures Procedure Name Priority Date/Time Associated Diagnosis Comments CARDIAC ENZYMES Routine 07/27/2007 6:55 AM DRY SAND MOLDER CARDIAC ENZYMES Routine 07/27/2007 12:40 AM DRY SAND MOLDER PT AND APTT Routine 07/26/2007 7:00 PM DRY SAND MOLDER CARDIAC ENZYMES Routine 07/26/2007 7:00 PM DRY SAND MOLDER CBC WITH DIFFERENTIAL Routine 07/26/2007 7:00 PM DRY SAND MOLDER BRAIN NATRIURETIC PEPTIDE, BNP OR PROBNP Routine 07/26/2007 7:00 PM DRY SAND MOLDER BASIC METABOLIC PANEL Routine 07/26/2007 7:00 PM DRY SAND MOLDER documented in this encounter Results * CARDIAC ENZYMES (07/27/2007 6:55 AM DRY SAND MOLDER) TROPONIN I 0.1 0.0 - 1.3 ng/mL INTERFACE SYSTEM CKMB 2.0 0.0 - 5.0 ng/mL INTERFACE SYSTEM 07/27/2007 6:55 AM DRY SAND MOLDER us Eliel Taylor MD CHEMISTRY ORDERABLES Edited Performing Organization Address City/[facility] Phone Number INTERFACE SYSTEM Refer to clinic/hospital department * CARDIAC ENZYMES (07/27/2007 12:40 AM DRY SAND MOLDER) TROPONIN I 0.2 0.0 - 1.3 ng/mL INTERFACE SYSTEM CKMB 1.8 0.0 - 5.0 ng/mL INTERFACE SYSTEM 07/27/2007 12:4 0 AM DRY SAND MOLDER us Eliel Taylor MD CHEMISTRY ORDERABLES Edited Performing Organization Address [facility] de Phone Number INTERFACE SYSTEM Refer to clinic/hospital department * (ABNORMAL) BRAIN NATRIURETIC PEPTIDE, BNP OR PROBNP (07/26/2007 7:00 PM DRY SAND MOLDER) BRAIN NATRIURETIC PEPTIDE 227(H) 0 - 125 pg/mL INTERFACE SYSTEM 07/26/2007 7:00 PM DRY SAND MOLDER us Eliel Taylor MD CHEMISTRY ORDERABLES Edited Performing Organization Address [facility] Co de Phone Number INTERFACE SYSTEM Refer to clinic/hospital department * (ABNORMAL) PT AND APTT (07/26/2007 7:00 PM DRY SAND MOLDER) PROTIME 14.8 13.0 - 15.7 Secs INTERFACE SYSTEM INR 1.0 INTERFACE SYSTEM PTT 62.0(H) 21.6 - 35.6 Secs INTERFACE SYSTEM 07/26/2007 7:00 PM DRY SAND MOLDER us Eliel Taylor MD HEMATOLOGY ORDERABLES Edited Performing Organization Address [facility] Phone Number INTERFACE SYSTEM Refer to clinic/hospital department * CARDIAC ENZYMES (07/26/2007 7:00 PM DRY SAND MOLDER) TROPONIN I 0.3 0.0 - 1.3 ng/mL INTERFACE SYSTEM CKMB 2.3 0.0 - 5.0 ng/mL INTERFACE SYSTEM 07/26/2007 7:00 PM DRY SAND MOLDER us Eliel Taylor MD CHEMISTRY ORDERABLES Edited Performing Organization Address [facility] Phone Number INTERFACE SYSTEM Refer to clinic/hospital department * (ABNORMAL) BASIC METABOLIC PANEL (07/26/2007 7:00 PM DRY SAND MOLDER) GLUCOSE 84 70 - 110 mg/dL INTERFACE SYSTEM BUN 19(H) 7 - 17 mg/dL INTERFACE SYSTEM CREATININE 0.7 0.7 - 1.2 mg/dL INTERFACE SYSTEM SODIUM 141 136 - 145 mEq/L INTERFACE SYSTEM POTASSIUM 3.6 3.5 - 5.0 mEq/L INTERFACE SYSTEM CHLORIDE 109 95 - 110 mEq/L INTERFACE SYSTEM CO2 25 22 - 32 mmol/l INTERFACE SYSTEM CALCIUM 9.3 8.4 - 10.5 mg/dL INTERFACE SYSTEM ANION GAP 11 9 - 20 mEq/L INTERFACE SYSTEM OSMOLALITY, CALCULATED 290 275 - 295 mOsm/Kg INTERFACE SYSTEM 07/26/2007 7:00 PM DRY SAND MOLDER us Eliel Taylor MD CHEMISTRY ORDERABLES Edited Performing Organization Address [facility] Phone Number INTERFACE SYSTEM Refer to clinic/hospital department * (ABNORMAL) CBC WITH DIFFERENTIAL (07/26/2007 7:00 PM DRY SAND MOLDER) WBC 7.7 4.5 - 11.0 K/ul INTERFACE SYSTEM RBC 4.41 4.20 - 5.40 Mil/ul INTERFACE SYSTEM HEMOGLOBIN 13.1 12.0 - 16.0 g/dL INTERFACE SYSTEM HEMATOCRIT 39.4 36.0 - 46.0 % INTERFACE SYSTEM MCV 89.3 84.0 - 103.0 Fl INTERFACE SYSTEM MCH 29.7 27.0 - 34.0 pg INTERFACE SYSTEM MCHC 33.2 30.0 - 35.0 g/dL INTERFACE SYSTEM RDW 13.7 11.0 - 14.5 % INTERFACE SYSTEM PLATELETS 298 140 - 440 K/ul INTERFACE SYSTEM MPV 10.9 8.9 - 12.8 Fl INTERFACE SYSTEM NEUTROPHILS 38.9(L) 42.2 - 75.2 % INTERFACE SYSTEM LYMPHOCYTES 46.2(H) 24.0 - 44.0 % INTERFACE SYSTEM MONOCYTES 11.6(H) 2.0 - 10.0 % INTERFACE SYSTEM EOSINOPHILS 3.0 0.0 - 7.0 % INTERFACE SYSTEM BASOPHILS 0.3 0.0 - 1.0 % INTERFACE SYSTEM NEUTROPHIL ABSOLUTE 3.0 2.0 - 8.0 K/ul INTERFACE SYSTEM LYMPHOCYTE ABSOLUTE 3.5 1.2 - 4.0 K/ul INTERFACE SYSTEM MONOCYTE ABSOLUTE 0.9(H) 0.1 - 0.6 K/ul INTERFACE SYSTEM EOSINOPHIL ABSOLUTE 0.2 0.0 - 0.7 K/ul INTERFACE SYSTEM BASOPHILS ABSOLUTE 0.0 0.0 - 0.2 K/ul INTERFACE SYSTEM 07/26/2007 7:00 PM DRY SAND MOLDER us Eliel Taylor MD HEMATOLOGY ORDERABLES Edited INTERFACE SYSTEM Refer to clinic/hospital department documented in this encounter Visit Diagnoses Diagnosis Intermediate coronary syndrome (CMS/HCC) Intermediate coronary syndrome documented in this encounter Care Teams Ticketer Relationship Specialty Start Date End Date Non-Staff, Physician NO ADDRESS ON FILE PCP - General 07/27/07 documented as of this encounter
--- OUTSIDE RECORDS SUMMARY | 2025-04-24 11:07 | XMS_ITS | Clinical Summary ---
Author Organization [facility] Address [address] [facility] Attn: [place] [address] Care Team Providers Care Synthetic Chemist Name Role Phone Non-Staff, Physician Primary Care Provider Unava ilable Allergies Active Allergy Reactions Criticality Noted Date Comments Niacin Rash,Other (See Comments) Low 04/21/2025 PT ALSO STATES SENSATION OF SKIN BEING ON FIRE Prednisone Abdominal Pain Low 04/16/2025 Oral only Medications clopidogreL (PLAVIX) 75 mg Tablet Take 75 mg by mouth daily. Active aspirin 81 mg Capsule 81 mg. Active furosemide (LASIX) 40 mg tablet Take 40 mg by mouth daily. 5 Active traZODone (DESYREL) 50 mg tablet Take 1 Tablet by mouth daily. 5 Active potassium CHLORIDE (MICRO-K EXTENCAPS) 10 mEq Extended Release capsule Take 10 mEq by mouth daily. Active pantoprazole (PROTONIX) 40 mg Tablet, Delayed Release (E.C.) Take 40 mg by mouth daily. 5 Active multivitamin (DAILY-SRIDEVI) tablet Take 1 Tablet by mouth daily. Active lisinopriL (PRINIVIL) 2.5 mg tablet Take 2.5 mg by mouth daily. Active HYDROcodone-cheyanne taminophen (NORCO) 7.5-325 mg Tablet Take 1 Tablet by mouth every 8 hours as needed for Pain (Back pain). 5 Active carvediloL (COREG) 6.25 mg tablet Take 1 Tablet by mouth 2 times daily. 5 Active Gas Relief, simethicone, 180 mg Capsule Take 1 Capsule by mouth daily. 5 Active insulin aspart prot/insuln asp (INSULIN ASP PRT-INSULIN ASPART SUBCUT) Inject by subcutaneous injection. Active Active Problems Problem Noted Date Diagnosed Date S/P CABG (coronary artery bypass graft) 02/17/20 09 CAD (coronary artery disease) 02/16/2009 Encounters Date Type Department Care Team Description 5 External Device Data STL ABSTRACTION Provider, Abstract 5 External Device Data STL ABSTRACTION Provider, Abstract 5 10:56 AM CDT Anesthesia Event [facility] Endoscopy [address] [place] [address] Nereida Richardson MD Nalder, Mary Ann, DALILA 5 10:00 AM CDT - 5 10:20 AM CDT Surgery [facility] Endoscopy [address] [place] [id number] Toni Gomez, DO ESOPHAGOGASTRODUODENOSCOPY 5 8:50 AM CDT - 5 11:53 AM CDT Hospital Encounter [facility] Endoscopy [address] [place] [phone] Toni Gomez, DO Discharge Disposition: Home or Self Care 5 External Device Data STL ABSTRACTION Provider, Abstract 5 External Device Data STL ABSTRACTION Provider, Abstract 5 External Device Data STL ABSTRACTION Provider, Abstract 5 4:04 PM CDT - 5 11:59 PM CDT Hospital Encounter [facility] [address] [facility] [address] [place] [id number] Tera Arroyo, Discharge Disposition: Home or Self Care 5 Orders Only [facility] Admitting [address] [facility] [address] [place] [phone] Tera Arroyo, DO Lumbar spondylosis (Primary Dx) from Last 3 Months Social History Tobacco Use Types Packs/Day Years Used Date Smoking Tobacco: Former Cigarettes Q uit: 12/05/2008 Tobacco Cessation:Counseling Given: Not Answered Alcohol Use Standard Drinks/Week Comments No 0 (1 standard drink = 0.6 oz pur e alcohol) Feeling Safe Answer Date Recorded Are you in a relationship wi th someone who hurts you emotionally and/or physically? 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 Gender Identity Not on file Sexual Orientation Not on file Last Filed Vital Signs Vital Sign Reading [...] Mass Index 22.5 04/16/2025 9:12 AM CDT Plan of Treatment Health Maintenance Due Date Last Done Comments DIABETES ANNUAL FOOT EXAM 1977 DIABETES ANNUAL RETINAL EXAM 1977 DIABETES MICROALBUMIN ANNUAL SCREEN 1977 LDL CHOLESTEROL ANNUAL 1977 BREAST CANCER SCREENING 1999 FIT-DNA Q 3 years 01/19/2004 FIT/FOBT Q 1 year 01/19/2004 Flex Sig/CT Colonography Q 5 years 01/19/2004 DIABETES HBA1C Q 6 MONTHS 08/14/2009 02/11/2009 RSV VACCINE (60+ or ) (1 - Risk 60-74 years 1-dose series) 2019 PNEUMOCOCCAL VACCINE 50+ YEA RS (2 of 2 - PCV) 11/06/2022 11/06/2021, 06/01/2020 OSTEOPOROSIS SCREENING 01/19/2024 [place] Preventative Visit/Annual Wellness Visit 08/07/2024 INFLUENZA VACCINE (#1) 2025 , 05/13/2022, 05/07/2021, Additional history exists COVID-19 Vaccine (3 - 2023-2 5 season) 2025 06/12/2024, 05/12/2023 DTAP/TDAP/TD VACCINES (2 - T d or Tdap) 12/22/2031 12/21/2021 COLORECTAL SCREENING 04/20/2033 04/20/2023 Colorectal Cancer Screening 04/20/2033 ZOSTER VACCINE Completed 08/09/2018, 05/10/2018 Medical Devices Implanted Type Area Galley Hand Device Identifier Shelf Expiration Date Model / Serial / Lot Log [id number] - Bard Patches, Pledgets, Hui, Fabrics - 1 - [place] Ptfe Thck 1.6mmx2.5x2.5cm [id number] Implanted:Qty: 1 on 02/12/2009 Graft CR [employer]ARD- [employer] 11/05/2013 [id number] / / [id number] Log [id number] - Vein Marker - 1 - Ring Vein Marking 10mm [id number] Implanted:Qty: 2 on 02/12/2009 Other TELEFLEX- PILL WECK OSSEO L P [id number] / / [id number] Procedures Procedure Name Priority Date/Time Associated Diagnosis Comments UPPER ENDOSCOPY REPORT 11:20 AM CDT PATHOLOGY Pathology 04/21/2025 11:08 AM CDT ANESTHESIA AIRWAY Routine 04/21/2025 10:55 AM CDT WA ESOPHAGOGASTRODUODENOSCOP Y TRANSORAL DIAGNOSTIC 04/21/2025 10:00 AM CDT Esophageal stricture Case Notes Procedure :EGD Special Notes: Dx: Esophageal stricture BT:plavix (clopidrogrel) 5 days BT managed by: Dr. Mast Diabetic: YES Diabetic/WT med:NONE LOC & REASON:Hosp / meds BMI: 25.2 Last Procedure date & location NA Referring Provider ALDA BRAND GI Doc:Any Insurance: [facility] Last GI appt NA MRI LUMBAR WO CONTRAST Routine 4:42 PM CDT Lumbar spondylosis from Last 3 Months Results * UPPER ENDOSCOPY REPORT (04/21/2025 11:20 AM CDT) Narrative Procedure Note Toni Gomez DO - 04/21/2025 11:20 AM CDT [facility] GI Patient Name: Torie Belle Procedure Date: [...] Time Scope In: Scope Out: [address] [place], [place] Toni Gomez DO GI PROCEDURE ORDERABLES Final Result * PATHOLOGY (04/21/2025 11:08 AM CDT) CASE REPORT Surgical Pathology Report Case: [id number] Authorizing Provider: Toni Gomez DO Collected: 04/21/2025 11:08 AM Ordering Location: [facility] Received: 04/21/2025 01:27 PM Endoscopy Pathologist: Arya Horner MD Specimen: Stomach 5 8:20 AM CDT [facility] FINAL DIAGNOSIS A. Stomach, biopsy - Gastric oxyntic mucosa with focal superficial erosion and associated acute and chronic inflammation - Negative for intestinal metaplasia - Negative for H. pylori by immunohistochemistry Arya Horner MD [id number] 5 8:20 AM CDT [facility] at 0820 CDT GROSS DESCRIPTION A. Received in formalin labeled Barbra -stomach rule out H. pylori are two fragments of tissue up to 5 cm. The specimen is submitted in toto in A1. Grossed by: Marisa Navarro MS, PA (ASCP)CM 5 8:20 AM CDT [facility] OPERATIVE PROCEDURE 1: ESOPHAGOGASTRODUODENOSCO PY 5 8:20 AM CDT [facility] CLINICAL INFORMATION A R/o H Pylori 5 8:20 AM CDT [facility] COMMENT The Levlr voice-activated dictation system may have been used [...] determined by the Diagnostic Immunohistochemistry Laboratory of [facility] in compliance with CLIA'88 regulations. Some of these tests rely on the use of analyte specific reagents and are subject to specific labeling requirements by the FDA. All controls show appropriate reactivity. This testing was developed by the Diagnostic Immunohistochemistry Laboratory of [facility]. It has not been cleared or approved by the FDA. The FDA has determined that such clearance or approval is not necessary. 8:20 AM CDT [facility] Tissue ENTIRE STOMACH / Unknown Collection / Unknown 04/21/2025 11:08 AM CDT 04/21/2025 1:27 PM CDT Comment:R/o H Pylori Toni Gomez DO PATHOLOGY/CYTOLOGY ORDE RABLES Final Result [facility] CLIA # [id number] [address] [place] [id number] * Airway (04/21/2025 10:55 AM CDT) Narrative [...] Airway Details: Final Airway Type: Mask Nereida Richardson MD PROCEDURE/MINOR SURGICAL ORD ERABLES Final Result * MRI LUMBAR WO CONTRAST (04/02/2025 4:42 PM CDT) Anatomical Region Laterality Modality Spine Magnetic Resonan ce 04/02/2025 4:43 PM CDT Impressions 04/03/2025 4:09 PM CDT IMPRESSION: 1. Very mild degenerative changes of the lumbar spine without high-grade lumbar canal or foraminal stenosis. 2. Additional details as above. Narrative 04/03/2025 4:09 PM CDT EXAM: MRI LUMBAR WO CONTRAST DATE/TIME OF EXAM: 04/02/2025 4:42 PM REASON FOR STUDY: LUMBAR SPONDYLOSIS DIAGNOSIS: Lumbar spondylosis COMPARISON: None INTRAVENOUS CONTRAST: None TECHNIQUE: MR Lumbar spine performed without intravenous contrast. FINDINGS: For the purposes of this dictation, the last well formed intervertebral disc space will be labeled L5-S1. Bones: No evidence of an acute fracture. Chronic L3 anterior, superior endplate fracture versus Schmorl's node without marrow edema. The bones appear demineralized. Endplate marrow (Modic) changes: No significant endplate marrow change. Alignment: Slight anterolisthesis L4 on L5. Conus: The conus medullaris terminates at L1 vertebral body level. Soft Tissue: No acute abnormality. T12-L1: No significant intervertebral disc space narrowing. No significant canal or foraminal stenosis. L1-L2: No significant intervertebral disc space narrowing. No significant canal or foraminal stenosis. L2-L3: Moderate intervertebral disc space narrowing. Mild annular bulge. Facet arthropathy. Mild bilateral foraminal stenosis. L3-L4: No significant intervertebral disc space narrowing. Shallow disc bulge. Facet arthropathy. Mild bilateral foraminal stenosis. L4-L5: Mild anterolisthesis. No significant intervertebral disc space narrowing. Shallow disc bulge. Facet arthropathy. No significant canal or foraminal stenosis. L5-S1: No significant intervertebral disc space narrowing. Small central protrusion. Facet arthropathy. No significant canal or foraminal stenosis. Procedure Note Candace Arteaga MD - 04/03/2025 EXAM: MRI LUMBAR WO CONTRAST DATE/TIME OF EXAM: 04/02/2025 4:42 PM REASON FOR STUDY: LUMBAR SPONDYLOSIS DIAGNOSIS: Lumbar spondylosis COMPARISON: None INTRAVENOUS CONTRAST: None TECHNIQUE: MR Lumbar spine performed without intravenous contrast. FINDINGS: For the purposes of this dictation, the last well formed intervertebral disc space will be labeled L5-S1. Bones: No evidence of an acute fracture. Chronic L3 anterior, superior endplate fracture versus Schmorl's node without marrow edema. The bones appear demineralized. Endplate marrow (Modic) changes: No significant endplate marrow change. Alignment: Slight anterolisthesis L4 on L5. Conus: The conus medullaris terminates at L1 vertebral body level. Soft Tissue: No acute abnormality. T12-L1: No significant intervertebral disc space narrowing. No significant canal or foraminal stenosis. L1-L2: No significant intervertebral disc space narrowing. No significant canal or foraminal stenosis. L2-L3: Moderate intervertebral disc space narrowing. Mild annular bulge. Facet arthropathy. Mild bilateral foraminal stenosis. L3-L4: No significant intervertebral disc space narrowing. Shallow disc bulge. Facet arthropathy. Mild bilateral foraminal stenosis. L4-L5: Mild anterolisthesis. No significant intervertebral disc space narrowing. Shallow disc bulge. Facet arthropathy. No significant canal or foraminal stenosis. L5-S1: No significant intervertebral disc space narrowing. Small central protrusion. Facet arthropathy. No significant canal or foraminal stenosis. IMPRESSION: 1. Very mild degenerative changes of the lumbar spine without high-grade lumbar canal or foraminal stenosis. 2. Additional details as above. Tera Arroyo DO MR ORDERABLES Final Resu lt from Last 3 Months Insurance [facility] DUAL COMPLETE PPO [facility] [id number] MEDICAID [place] Advance Directives For more information, please contact: [phone] * Full Code (Latest Code Status on File) Date Activated Date Inactivated Comments 04/21/2025 9:40 AM 04/21/2025 1:58 PM Care Teams Synthetic Chemist Relationship Specialty Start Date End Date Non-Staff, Physician NO ADDRESS ON FILE PCP - General 07/27/07
--- OUTSIDE RECORDS SUMMARY | 2025-04-24 11:07 | XMS_ITS | Clinical Summary ---
Author Organization [facility] Address [address] [place] [address] Care Team Providers Care Animal Care Technician Name Role Phone Non-Staff, Physician Primary Care Provider Unava ilable Allergies No known active allergies Medications metoprolol tartrate (LOPRESSOR) 25 mg Oral Tab Take 25 mg by mouth 2 times daily. Active niacin (NIASPAN) 500 mg Oral TbSR Take 500 mg by mouth daily at bedtime. Active atorvastatin (LIPITOR) 80 mg Oral Tab Take 80 mg by mouth Daily LATE. Active lisinopril (PRINIVIL) 2.5 mg Oral Tab Take 2.5 mg by mouth daily. Active ranitidine HCl (ZANTAC) 150 mg Oral Cap Take 150 mg by mouth 2 times daily. Active clopidogrel (PLAVIX) 75 mg Oral Tab Take 75 mg by mouth daily. Active multivitamin (DAILY-SRIDEVI) Oral Tab Take 1 Tab by mouth daily. Active aspirin (ECOTRIN EC) 81 mg Oral TbEC Take 1 Tab by mouth daily. 30 Tab 3 02/18/2009 Active metformin (GLUCOPHAGE) 500 mg Oral Tab Take 1 Tab by mouth 2 times daily with meals. 60 Tab 3 02/18/2009 Active oxycodone-acetam inophen (PERCOCET) 5-325 mg Oral Tab Take 1-2 Tabs by mouth every 4 hours as needed for Pain. 50 Tab 0 02/18/2009 Active potassium chloride (KLOR-CON,K-TAB) 10 mEq Oral TbSR Take 2 Tabs by mouth daily. 60 Tab 3 02/18/2009 Active furosemide (LASIX) 20 mg Oral Tab Take 2 Tabs by mouth daily. 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 Gender Identity Not on file Sexual Orientation Not on file Last Filed Vital Signs Vital Sign Reading Time Taken Comments Blood Pressure 102/62 02/18/2009 4:16 AM CDT Pulse 81 02/18/2009 4:16 AM CDT Temperature 36.2 C (97.2 F) 02/18/2009 4:16 AM CDT Respiratory Rate 18 02/18/2009 4:16 AM CDT Oxygen Saturation 98% 02/18/2009 4:16 AM CDT Inhaled Oxygen Concentration - - Weight 77.8 kg (171 lb 8.3 oz) 02/18/2009 4:16 A M CDT Height 160 cm (5' 3 ) 02/12/2009 5:01 AM CDT Body Mass Index 30.38 02/12/2009 5:01 AM CDT Plan of Treatment Health Maintenance Due Date Last Done Comments DTAP/TDAP/TD VACCINES (1 - Tdap) 1978 BREAST CANCER SCREENING 1999 COLORECTAL SCREENING 01/19/2004 Colorectal Cancer Screening 01/19/2004 FIT-DNA Q 3 years 01/19/2004 FIT/FOBT Q 1 year 01/19/2004 Flex Sig/CT Colonography Q 5 years 01/19/2004 PNEUMOCOCCAL VACCINE 50+ YEARS (1 of 1 - PCV) 01/19/20 09 ZOSTER VACCINE (1 of 2) 2009 RSV VACCINE (60+ or ) (1 - Risk 60-74 years 1-dose series) 2019 OSTEOPOROSIS SCREENING 01/19/2024 INFLUENZA VACCINE (#1) 2025 Medical Devices Implanted Type Area Extended Day Teacher Device Identifier Shelf Expiration Date Model / Serial / Lot Log [id number] - Bard Patches, Pledgets, Hui, Fabrics - 1 - [place] Ptfe Thck 1.6mmx2.5x2.5cm [id number] Implanted:Qty: 1 on 02/12/2009 at [facility] Graft CR [employer]- [employer] 11/05/2013 [id number] / / [id number] Log [id number] - Vein Marker - 1 - Ring Vein Marking 10mm [id number] Implanted:Qty: 2 on 02/12/2009 at [facility] Other TELEFLEX- PILL WECK JOSE L P [id number] / / [id number] [place] [address] Advance Directives For more information, please contact: [phone] * Full Code (Latest Code Status on File) Date Activated Date Inactivated Comments 02/12/2009 2:41 PM 02/13/2009 11:10 AM * Full Code Date Activated Date Inactivated Comments 02/12/2009 5:02 AM 02/12/2009 2:41 PM Care Teams Animal Care Technician Relationship Specialty Start Date End Date Non-Staff, Physician NO ADDRESS ON FILE PCP - General 07/27/07
--- OUTSIDE RECORDS SUMMARY | 2025-04-24 11:08 | XMS_ITS | Encounter Summary ---
Author Organization [facility] Address 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
--- OUTSIDE RECORDS SUMMARY | 2025-04-24 11:08 | XMS_ITS | Encounter Summary ---
Author Organization [facility] Address 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
[2025-04-24 11:13] VITALS: BP 123/60; PULSE 61; TEMP 36.3; O2SAT 96; BMI 22.1
[2025-04-24] MEDS: tetanus-dipt-pertussis 0.5 mL SDV IM (11:34)
[2025-04-24 11:43] LABS: Hematocrit 26.5 % (36-47); Hemoglobin 7.60 g/dL (11.27-16.99); Mean Corpuscular HGB Conc 28.7 g/dL (30-55); Mean Corpuscular Hemoglobin 22.2 pg (27-33); Mean Corpuscular Volume 77.3 fl (85-98); Nucleated Red Blood Cells % 0.3 %; Platelet Count 318 10^3/cmm (157-399); Red Blood Count 3.43 10^6/uL (3.85-5.65); White Blood Count 7.53 10^3/uL (3.29-11.43)
--- NOTE | 2025-04-24 11:48 | W.ED.RECABL ---
HPI - Recheck/Abnormal Lab/Rx General: Chief Complaint: Recheck/Abnormal Lab/Rx Stated Complaint: abn labs Time Seen by Provider: 04/24/25 11:20 History of Present Illness: 65-year-old female presents to the emergency room for low hemoglobin. She had hemoglobin drawn a couple days ago and her hemoglobin is down to 7.3. She recently got multiple scratches on her arms from getting into a thorn patch to rescue one of her pets. She is on Plavix. She does have chronic anemia issues. Her anemia is microcytic. Vital signs are stable she is not having any active chest pain or shortness of breath. Related Data Home Medications ?Medication ?Instructions ?Recorded ?Confirmed diphenhydramine HCl 25 mg capsule 25 mg PO BID PRN Allergy Symptoms 08/26/19 04/15/25 (Benadryl) albuterol sulfate 90 mcg/actuation See Rx Instructions .Route 12/29/24 04/15/25 aerosol inhaler .COMPLEX PRN Shortness Of Breath Previous Rx's ?Medication ?Instructions ?Recorded Diabetic Shoes #1 ea 07/18/22 Heated and molding inserts #1 ea 07/18/22 alcohol swabs (Alcohol Pads) See Rx Instructions .Route 02/16/23 .COMPLEX #100 pad hydrocodone 7.5 mg-acetaminophen 1 tab PO Q12H PRN pain 30 days #46 05/26/23 325 mg tablet tabs Toe alignment splint #1 ea 07/24/23 nitroglycerin 0.4 mg sublingual 0.4 mg sublingual Q5M PRN chest 08/23/23 tablet pain #25 tabs diabetic shoes with 3 inserts #1 ea 06/03/24 lancets 28 gauge (Easy Touch #100 ea 06/12/24 Safety Lancets) aspirin 81 mg tablet,delayed 81 mg PO QDAY #90 tabs 01/13/25 release (Adult Low Dose Aspirin) carvedilol 6.25 mg tablet 6.25 mg PO BID #60 tabs 01/13/25 clopidogrel 75 mg tablet 75 mg PO DAILY #90 tabs 01/13/25 citalopram 40 mg tablet 40 mg PO DAILY 60 days #60 tabs 01/16/25 insulin aspart U-100 100 unit/mL See Rx Instructions .Route 01/16/25 (3 mL) subcutaneous pen (Novolog .COMPLEX #15 mL FlexPen U-100 Insulin aspart) pantoprazole 40 mg tablet,delayed 40 mg PO QDAY #60 tabs 01/16/25 release (Protonix) pen needle, diabetic 31 gauge x #100 ea 01/16/25/16 (Pen Needle) alprazolam 0.5 mg tablet 0.5 mg PO BID PRN sleep #45 tabs 02/05/25 trazodone 50 mg tablet See Rx Instructions .Route 02/05/25 .COMPLEX #90 tabs furosemide 40 mg tablet (Lasix) 40 mg PO DAILY #90 tabs 02/14/25 blood glucose control, normal #1 ea 02/17/25 (OneTouch Ultra Control solution) blood sugar diagnostic (OneTouch #50 ea 02/17/25 Ultra Test strips) blood-glucose meter (OneTouch #1 ea 02/17/25 Ultra2 Meter) simethicone 180 mg capsule (Gas-X 180 mg PO DAILY #30 caps 03/12/25 Ultra-Strength) Contour Plus Blue Meter #1 ea 03/31/25 Contour Plus Test Strips #100 ea 03/31/25 cyclobenzaprine 10 mg tablet 10 mg PO BID PRN Muscle Spasm #30 04/18/25 tabs mupirocin 2 % topical ointment 1 applic topical BID #22 grams 04/24/25 (Centany) Allergies Allergy/AdvReac Type Severity Reaction Status Date / Time niacin (From Niaspan Allergy Intermediate ADR-Itching Verified 04/24/25 11:19 Extended-Release) prednisone AdvReac Intermediate ADR-Gastrointestinal Verified 04/24/25 11:19 Upset Review of Systems Const: Denies: fever(s) or chills Card: Denies: chest pain Resp: Denies: dyspnea GI: Denies: abdominal pain : Denies: dysuria, urinary frequency or urinary urgency Musc: Denies: neck pain or back pain Skin/Breast: Denies: rash PFSH ED PFSH: Medical History GERD (gastroesophageal reflux disease) AWILDA (obstructive sleep apnea) Lower extremity edema Chronic pain Chest pain Moderate major depression Lumbar disc disease Coracoid impingement of right shoulder Traumatic injury of foot Tobacco abuse ASHD (arteriosclerotic heart disease) Carotid stenosis, bilateral Dyslipidemia Essential hypertension Anxiety Depression Diabetes 1.5, managed as type 2 Renal insufficiency Lumbar disc disease Surgical History S/P CABG (coronary artery bypass graft) S/P carotid endarterectomy Carotid endarterectomy on the left Family History Sister Cancer stomach Mother No problems noted. Sister No problems noted. Other CAD (coronary artery disease) Dementia Depression Diabetes Heart disease Hyperlipidemia Hypertension Hypothyroidism Stroke TIA (transient ischemic attack) Denies family history of Immunodeficiency disorder Autoimmune disease Clotting disorder Chronic kidney disease (CKD) Lung disease Social History Smoking and tobacco/nicotine status: current every day tobacco/nicotine user cigarettes Packs smoked per day: 0.5 Alcohol intake: never Substance/Drug Use: never Household members: spouse Marital status: Number of children: 0 Current occupational status: retired and disabled Previous occupational history: [employer] Current gender identity: Female Lynette/Nondenominational: Shinto Special lynette needs: No Agree to transfusion: Yes Physical Exam Const: COMMON NORMALS: no acute distress GENERAL APPEARANCE: cooperative and comfortable ORIENTATION/CONSCIOUSNESS: Yes awake, Yes oriented to person, Yes oriented to place and Yes oriented to time HENMT: COMMON NORMALS: normocephalic, atraumatic and hearing grossly normal bilaterally HEAD & SCALP: normocephalic and atraumatic Resp: COMMON NORMALS: normal respiratory effort, No retractions, No use of accessory muscles and clear to auscultation bilaterally AUSCULTATION: clear to auscultation bilaterally Cardio: COMMON NORMALS: regular rate, regular rhythm and No murmurs present (Cardio) RATE: regular rate RHYTHM: regular rhythm GI: COMMON NORMALS: Soft to palpation and No hepatosplenomegaly present AUSCULTATION: Yes normoactive bowel sounds PALPATION: Yes Soft to palpation, No Tenderness to palpation present (GI), No Guarding due to palpation present (GI) and Yes No hepatosplenomegaly present Extremity: COMMON NORMALS: normal to inspection, capillary refill normal, no clubbing, cyanosis or edema, no calf tenderness and no pedal edema Neuro: SENSORIUM/ORIENTATION: Yes oriented to person, Yes oriented to place and Yes oriented to time Skin: OTHER: Multiple superficial wounds scratches and puncture wounds on the arms bilaterally some on the left forearm have oozing these were treated with silver nitrate. Course Vital Signs: Vital signs: Vital Signs Temperature 97.4 F L 04/24/25 11:13 Pulse Rate 60 04/24/25 12:28 Blood Pressure 141/94 04/24/25 12:28 Pulse Oximetry 97 04/24/25 12:28 Oxygen Delivery Me thod Room Air 04/24/25 11:13 MDM - Recheck/Abnormal Lab/Rx Medical Decision Making Wounds on the arm were treated with silver nitrate to control bleeding then were bandaged. Tetanus updated. Patient was discharged from the ER to outpatients for transfusion of 1 unit of packed red blood cells. Follow-up with primary care regarding her chronic anemia. Medical Records I reviewed the patient's medical records. Lab Data I reviewed the patient's lab results. 04/24/25 11:33 04/24/25 11:33 Laboratory Results WBC 7.53 10^3/uL (3.29-11.43) 04/24/25 11:33 RBC 3.43 10^6/uL (3.85-5.65) L 04/24/25 11:33 Hgb 7.60 g/dL (11.27-16.99) L 04/24/25 11:33 Hct 26.5 % (36-47) L 04/24/25 11:33 MCV 77.3 fl (85-98) L 04/24/25 11:33 MCH 22.2 pg (27-33) L 04/24/25 11:33 MCHC 28.7 g/dL (30-55) L 04/24/25 11:33 RDW 19.4 % (12.1-15.1) H 04/24/25 11:33 Plt Count 318 10^3/cmm (157-399) 04/24/25 11:33 MPV 11.2 fL (7.4-10.4) H 04/24/25 11:33 Neut % (Auto) 54.6 % 04/24/25 11:33 Lymph % (Auto) 30.9 % 04/24/25 11:33 [place] % (Auto) 11.3 % 04/24/25 11:33 Eos % (Auto) 2.4 % 04/24/25 11:33 Baso % (Auto) 0.5 % 04/24/25 11:33 Neut # (Auto) 4.11 10^3/uL (1.8-7.7) 04/24/25 11:33 Lymph # (Auto) 2.3 10^3/uL (0.8-4.8) 04/24/25 11:33 [place] # (Auto) 0.9 10^3/uL (0.2-0.9) 04/24/25 11:33 Eos # (Auto) 0.2 10^3/uL (0.0-0.8) 04/24/25 11:33 Baso # (Auto) 0.0 10^3/uL (0.0-0.1) 04/24/25 11:33 Nucleated RBC % (auto) 0.3 % 04/24/25 11:33 Nucleated RBCs # 0.0 /100WBC 04/24/25 11:33 Sodium 137 mmol/L (136-145) 04/24/25 11:33 Potassium 4.2 mmol/L (3.5-5.1) 04/24/25 11:33 Chloride 101 mmol/L (98-107) 04/24/25 11:33 Carbon Dioxide 22 mmol/L (22-29) 04/24/25 11:33 Anion Gap 18.2 (5-19) 04/24/25 11:33 BUN 20 mg/dL (8-23) 04/24/25 11:33 Creatinine 1.0 mg/dL (0.5-0.9) H 04/24/25 11:33 GFR Calculation 55.5 mL/min (90-130) L 04/24/25 11:33 Glucose 166 mg/dL (65-115) H 04/24/25 11:33 Calculated Osmolality 290 mOsm/kg (285-295) 04/24/25 11:33 Calcium 8.8 mg/dL (8.5-10.5) 04/24/25 11:33 Magnesium 2.1 mg/dL (1.7-2.3) 04/24/25 11:33 Total Bilirubin 0.8 mg/dL (0.15-1.2) 04/24/25 11:33 AST 24 U/L (0-32) 04/24/25 11:33 ALT 26 U/L (0-33) 04/24/25 11:33 Alkaline Phosphatase 473 U/L (35-105) H 04/24/25 11:33 Total Protein 7.5 g/dL (6.6-8.7) 04/24/25 11:33 Albumin 3.4 g/dL (3.5-5.2) L 04/24/25 11:33 Globulin 4.1 g/dL (1.3-4.6) 04/24/25 11:33 Blood Type Cancelled 04/24/25 11:53 Rho(D) Type Cancelled 04/24/25 11:53 Antibody Screen Cancelled 04/24/25 11:53 No radiology studies performed this visit Discharge Plan Discharge Patient Disposition: Home Clinical Impression: Anemia Condition: Stable Prescriptions: New mupirocin [Centany] 2 % ointment 1 applic topical BID Qty: 22 0RF No Action diphenhydramine HCl [Benadryl] 25 mg capsule 25 mg PO BID PRN (Reason: Allergy Symptoms) (DME) Diabetic Shoes See Rx Instructions .Route .MEDSUPPLY Qty: 1 0RF Rx Instructions: As directed by [facility]avia (DME) Heated and molding inserts See Rx Instructions .Route .MEDSUPPLY Qty: 1 0RF Rx Instructions: As directed to [facility] [place] nitroglycerin 0.4 mg tablet, sublingual 0.4 mg sublingual Q5M PRN (Reason: chest pain) Qty: 25 5RF Rx Instructions: do not exceed 3 doses per episode (DME) lancets [Easy Touch Safety Lancets] 28 gauge misc See Rx Instructions .Route Qty: 100 11RF Rx Instructions: Use once a day clopidogrel 75 mg tablet 75 mg PO DAILY Qty: 90 3RF aspirin [Adult Low Dose Aspirin] 81 mg tablet,delayed release (DR/EC) 81 mg PO QDAY Qty: 90 3RF carvedilol 6.25 mg tablet 6.25 mg PO BID Qty: 60 5RF (DME) Toe alignment splint See Rx Instructions .Route .MEDSUPPLY Qty: 1 0RF Rx Instructions: As directed citalopram 40 mg tablet 40 mg PO DAILY 60 Days Qty: 60 1RF insulin aspart U-100 [Novolog FlexPen U-100 Insulin] 100 unit/mL (3 mL) insulin pen See Rx Instructions .ROUTE .COMPLEX MDD 30 Qty: 15 3RF Rx Instructions: Inject, subcu, 3 times daily, after meals, based on low-dose insulin sliding scale pantoprazole [Protonix] 40 mg tablet,delayed release (DR/EC) 40 mg PO QDAY Qty: 60 2RF Rx Instructions: take daily once twice daily bottle is complete (DME) pen needle, diabetic [Pen Needle] 31 gauge x 5/16 needle See Rx Instructions .MEDSUPPLY Qty: 100 12RF Rx Instructions: Use as directed for insulin administration. TID furosemide [Lasix] 40 mg tablet 40 mg PO DAILY Qty: 90 1RF Rx Instructions: Take one tablet twice daily for seven days, then take one tablet daily alcohol swabs [Alcohol Pads] Pads, Medicated See Rx Instructions .ROUTE .COMPLEX Qty: 100 5RF Dose Instruction: USE TO TEST BLOOD GLUCOSE ONCE DAILY Rx Instructions: USE TO TEST BLOOD GLUCOSE ONCE DAILY hydrocodone-acetaminophen 7.5-325 mg tablet 1 tab PO Q12H PRN (Reason: pain) 30 Days Qty: 46 0RF Rx Instructions: may take 1/2 during day and 1 at bedtime as needed (DME) diabetic shoes with 3 inserts See Rx Instructions .Route .MEDSUPPLY Qty: 1 0RF Rx Instructions: As directed trazodone 50 mg tablet See Rx Instructions .ROUTE .COMPLEX Qty: 90 0RF Dose Instruction: TAKE 1 TABLET BY MOUTH EVERY DAY Rx Instructions: TAKE 1 TABLET BY MOUTH EVERY DAY alprazolam 0.5 mg tablet 0.5 mg PO BID PRN (Reason: sleep) Qty: 45 4RF (DME) OneTouch Ultra Test Strip See Rx Instructions .Route Qty: 50 11RF Rx Instructions: Use once a day (DME) blood glucose control, normal [OneTouch Ultra Control] Solution See Rx Instructions .ROUTE .COMPLEX Qty: 1 6RF Dose Instruction: USE TO CALIBRATE METER Rx Instructions: USE TO CALIBRATE METER (DME) blood-glucose meter [OneTouch Ultra2 Meter] Mis See Rx Instructions .ROUTE .COMPLEX Qty: 1 6RF Dose Instruction: USE TO TEST BLOOD GLUCOSE Rx Instructions: USE TO TEST BLOOD GLUCOSE simethicone [Gas-X Ultra-Strength] 180 mg capsule 180 mg PO DAILY Qty: 30 2RF (DME) Contour Plus Blue Meter See Rx Instructions .Route .MEDSUPPLY Qty: 1 3RF Rx Instructions: As directed (DME) Contour Plus Test Strips See Rx Instructions .Route .MEDSUPPLY Qty: 100 1RF Rx Instructions: As directed cyclobenzaprine 10 mg tablet 10 mg PO BID PRN (Reason: Muscle Spasm) Qty: 30 0RF albuterol sulfate 90 mcg/actuation HFA aerosol inhaler See Rx Instructions .ROUTE .COMPLEX PRN (Reason: Shortness Of Breath) Rx Instructions: INHALE TWO PUFFS EVERY 6 HOURS NEEDED FOR SHORTNESS OF BREATH Discharge Orders: Discharge ED (Routine); Ordered 04/24/25 Ordered By: Parish Paz Referrals: Tera Maher MD [Primary Care Provider, Family Practice] Discharge Diet: Usual diet Discharge Activity: Resume usual activity Patient Instructions: Opioid Safety, Pain Management, Patient Portal & [place] Instructions Activity Restrictions/Additional Instructions: Thank you for choosing [facility] for your healthcare needs today. It is very important that you follow up as instructed or that you return to the Emergency Department should you have concerns or if your condition changes or worsens in any way. Emergency department visits are focused on emergent conditions, in some cases you may require further evaluation on an outpatient basis. You were seen in the emergency room with concerns over anemia. The anemia is chronic your hemoglobin is less than 8 will discharge you from the ER have you go to outpatient Tony transfuse 1 unit of packed red blood cells. For the multiple superficial abrasions on your arms your tetanus was updated the wounds that are still oozing were treated with silver nitrate recommend you apply topical antibiotic ointment that was prescribed to the wounds until they are healed. (Please note that included in your discharge packet is information concerning opioid safety and pain management. 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
[2025-04-24 12:04] LABS: Alanine Aminotransferase 26 U/L (0-33); Albumin Level 3.4 g/dL (3.5-5.2); Alkaline Phosphatase 473 U/L (35-105); Anion Gap 18.2 (5-19); Aspartate Amino Transferase 24 U/L (0-32); Blood Urea Nitrogen 20 mg/dL (8-23); Calcium 8.8 mg/dL (8.5-10.5); Carbon Dioxide 22 mmol/L (22-29); Chloride 101 mmol/L (98-107); Creatinine Clr Calc Pharmacy 47.2795; Globulin 4.1 g/dL (1.3-4.6); Glucose 166 mg/dL (65-115); Magnesium 2.1 mg/dL (1.7-2.3); Osmolality Calculated 290 mOsm/kg (285-295); Potassium 4.2 mmol/L (3.5-5.1); Sodium 137 mmol/L (136-145); Total Protein 7.5 g/dL (6.6-8.7)
[2025-04-24 12:28] VITALS: BP 141/94; PULSE 60; O2SAT 97
[2025-04-24] MEDS: neomycin-poly-bacitracin oint 0.9 gm Pkt 1 APPLIC TOPICAL (12:28)
--- NOTE | 2025-04-24 12:28 | PC.NURSE ---
applied MARIANNE to pt's wounder per provider order, wrapped with gauze and kerlix
== END 2025-04-24 12:29 | disposition home or self-care (01) ==
PROVIDERS: Emergency Provider Family Medicine; PCP Family Medicine
DX: D64.9 Anemia, unspecified (principal); Z79.02 Long term (current) use of antithrombotics/antiplatelets; Z79.82 Long term (current) use of aspirin; Z79.4 Long term (current) use of insulin; F17.210 Nicotine dependence, cigarettes, uncomplicated; Z95.1 Presence of aortocoronary bypass graft; E78.5 Hyperlipidemia, unspecified; I10 Essential (primary) hypertension; E13.9 Other specified diabetes mellitus without complications
CPT/HCPCS: 36415; 80053; 83735; 85025; 90471; 90715; 99284; J9999

== ENCOUNTER 2025-04-24 13:03 | Oncology outpatient (recurring) (ONCR) | payer OTHER, MEDICAID, SELFPAY ==
[2025-04-24 14:12] VITALS: BP 134/55; PULSE 62; RESP 16; TEMP 36.6; O2SAT 98
[2025-04-24 14:28] VITALS: BP 148/66; PULSE 65; RESP 16; TEMP 36.4; O2SAT 97
[2025-04-24 14:47] VITALS: BP 149/69; PULSE 66; RESP 16; TEMP 36.9; O2SAT 93
[2025-04-24 15:17] VITALS: BP 153/66; PULSE 63; RESP 16; TEMP 36.8; O2SAT 92
[2025-04-24 16:12] VITALS: BP 149/72; PULSE 66; RESP 16; TEMP 36.8
[2025-04-24 16:22] VITALS: BP 149/72; PULSE 66; RESP 16; TEMP 36.8; O2SAT 93
== END 2025-05-06 23:59 | disposition home or self-care (01) ==
PROVIDERS: PCP Family Medicine; Visit Provider Family Medicine
DX: D64.9 Anemia, unspecified (principal)
CPT/HCPCS: 36430; 86850; 86900; 86920; P9016

== ENCOUNTER → 2025-05-16 11:21 | Outpatient (BNVA) | payer OTHER, MEDICAID, SELFPAY | PROVIDERS: PCP Family Medicine; Visit Provider Family Medicine | DX: E13.9 Other specified diabetes mellitus without complications (principal); D64.9 Anemia, unspecified | CPT/HCPCS: 80053; 83036; 83550; 85025 ==

== ENCOUNTER 2025-06-05 08:59 | Oncology outpatient (recurring) (ONCR) | payer OTHER, MEDICAID, SELFPAY ==
[2025-05-22 08:43] LABS: Hematocrit 26.4 % (36-47); Hemoglobin 7.40 g/dL (11.27-16.99)
[2025-05-22 10:30] VITALS: BP 115/71; PULSE 65; TEMP 36.5; O2SAT 91
[2025-05-22 10:45] VITALS: BP 115/51; PULSE 63; TEMP 36.7; O2SAT 90
[2025-05-22 11:00] VITALS: BP 116/71; PULSE 67; TEMP 36.5; O2SAT 93
[2025-05-22 11:30] VITALS: BP 117/66; PULSE 68; TEMP 36.3; O2SAT 97
[2025-05-22 12:25] VITALS: BP 122/63; PULSE 67; RESP 16; TEMP 36.7; O2SAT 97
[2025-05-22 12:29] VITALS: BP 122/63; PULSE 67; RESP 16; TEMP 36.7; O2SAT 97
[2025-05-26] MEDS: iron sucrose 200 MG in sodium chloride 0.9% (100 ml) 100 ML IV (14:25)
[2025-05-26 15:08] VITALS: BP 148/66; PULSE 90; RESP 18; TEMP 36.5; O2SAT 93
[2025-05-28 13:26] VITALS: BP 131/65; PULSE 74; RESP 16; TEMP 36.6; O2SAT 97
[2025-05-28] MEDS: iron sucrose 200 MG/100 ML BAG IV (13:45)
[2025-05-28 14:23] VITALS: BP 137/66; PULSE 72; TEMP 36.2; O2SAT 92
[2025-05-30] MEDS: iron sucrose 200 MG/100 ML BAG IV (08:57)
[2025-06-03] MEDS: iron sucrose 200 MG/100 ML BAG IV (12:14)
[2025-06-03 13:45] VITALS: BP 136/88; PULSE 94; RESP 18; TEMP 36.9; O2SAT 89
[2025-06-05 09:37] LABS: Hematocrit 42.0 % (36-47); Hemoglobin 12.00 g/dL (11.27-16.99); Mean Corpuscular HGB Conc 28.6 g/dL (30-55); Mean Corpuscular Hemoglobin 24.6 pg (27-33); Mean Corpuscular Volume 86.2 fl (85-98); Nucleated Red Blood Cells % 1.2 %; Platelet Count 425 10^3/cmm (157-399); Red Blood Count 4.87 10^6/uL (3.85-5.65); White Blood Count 8.51 10^3/uL (3.29-11.43)
[2025-06-05 10:07] VITALS: BP 134/72; PULSE 72; RESP 17; TEMP 36.3; O2SAT 93
[2025-06-05] MEDS: iron sucrose 200 MG/100 ML BAG IV (10:12)
[2025-06-05 10:51] VITALS: BP 146/71; PULSE 75; RESP 17; TEMP 36.3; O2SAT 91
== END 2025-06-06 23:59 | disposition home or self-care (01) ==
PROVIDERS: PCP Family Medicine; Visit Provider Family Medicine
DX: D64.9 Anemia, unspecified; Z79.899 Other long term (current) drug therapy; Z53.9 Procedure and treatment not carried out, unspecified reason
CPT/HCPCS: 36430; 85014; 85018; 85025; 86850; 86900; 86920; 96365; J1756; P9016

== ENCOUNTER → 2025-06-13 12:10 | Outpatient (BNVA) | payer OTHER, MEDICAID, SELFPAY | PROVIDERS: PCP Family Medicine; Visit Provider Family Medicine | DX: D64.9 Anemia, unspecified (principal) | CPT/HCPCS: 80053; 82728; 83550; 85025 ==

== ENCOUNTER 2025-06-26 16:05 | Outpatient (CLI) | payer OTHER, MEDICAID, SELFPAY ==
[2025-06-26 18:02] LABS: Alanine Aminotransferase 18 U/L (0-33); Albumin Level 3.2 g/dL (3.5-5.2); Alkaline Phosphatase 156 U/L (35-105); Anion Gap 14.9 (5-19); Aspartate Amino Transferase 20 U/L (0-32); Blood Urea Nitrogen 24 mg/dL (8-23); Calcium 8.8 mg/dL (8.5-10.5); Carbon Dioxide 30 mmol/L (22-29); Chloride 103 mmol/L (98-107); Globulin 3.6 g/dL (1.3-4.6); Glucose 169 mg/dL (65-115); Osmolality Calculated 306 mOsm/kg (285-295); Potassium 3.9 mmol/L (3.5-5.1); Sodium 144 mmol/L (136-145); Total Protein 6.8 g/dL (6.6-8.7)
== END 2025-06-26 16:06 | disposition home or self-care (01) ==
LOC: LAB 16:06
PROVIDERS: PCP Family Medicine; Visit Provider Internal Medicine
DX: I10 Essential (primary) hypertension (principal); N18.32 Chronic kidney disease, stage 3b
CPT/HCPCS: 36415; 80053; 83880; 85025

== ENCOUNTER 2025-07-22 11:47 | Outpatient (CLI) | payer OTHER, MEDICAID, SELFPAY ==
--- NOTE | 2025-07-22 11:54 | USCV_ITS ---
Torie Belle Age: 65 Gender: F : 1960 Exam Date: 07/22/2025 12:24 Ordering Phys: Shaun Hickey M.D ([email or web address]) Technologist: Exam Location: [facility] [place] Indication: cp sob BP: 153 / 61 HR: 66 Rhythm: Sinus Technical Quality: Adequate MEASUREMENTS (Male / Female) Normal Values 2D ECHO LV Diastolic Diameter PLAX 5.8 cm 4.2 - 5.9 / 3.9 - 5.3 cm IVS Diastolic Thickness 1.3 cm 0.6 - 1.0 / 0.6 - 0.9 cm IVS Systolic Thickness 1.5 cm LVPW Diastolic Thickness 1.3 cm 0.6 - 1.0 / 0.6 - 0.9 cm LVPW Systolic Thickness 1.7 cm LVOT Diameter 2.0 cm LV Ejection Fraction 2D Teich 29.4 % LV Ejection Fraction MOD 4C 42.4 % LV Ejection Fraction MOD 2C 43.9 % LV Ejection Fraction 2C AL 41.7 % LA Diameter 4.6 cm RA Systolic Volume 4C AL 26.1 ml RA Systolic Volume 4C MOD 22.8 ml Aorta at Sinotubular Diameter 2.6 cm M-MODE LA Ao Ratio MM 1.8 AV Cusp Separation MM 1.7 cm DOPPLER AV Peak Velocity 274.4 cm/s LVOT Peak Velocity 96.0 cm/s AV Area Cont Eq vti 2.3 cm squared AV Area Cont Eq pk 1.1 cm squared TV Peak Velocity 301.5 cm/s TR Peak Velocity 304.0 cm/s TR Peak Gradient 37.0 mmHg TV Peak E Velocity 69.0 cm/s PV Peak Velocity 69.0 cm/s FINDINGS Left Ventricle Moderately increased left ventricular cavity size. Severely decreased left ventricular systolic function. Left ventricular ejection fraction is estimated at 29 %. Global left ventricular hypokinesis. Right Ventricle Normal right ventricular size and systolic function. Right Atrium Normal right atrial size. Left Atrium Moderately increased left atrial size. IA Septum Normal appearance of the interatrial septum. Mitral Valve Moderately thickened mitral valve. No mitral valve stenosis. Severe mitral valve regurgitation. Aortic Valve Moderate aortic valve calcification. Mild aortic valve stenosis, mean gradient 5.5 mmHg, JANEE 2.3 cm squared. Mild aortic valve regurgitation. Tricuspid Valve [id number] tricuspid valve regurgitation. Pulmonic Valve Normal pulmonic valve structure. No pulmonic valve stenosis or regurgitation. Pericardium No pericardial effusion. Aorta Normal diameter of the aortic root and ascending thoracic aorta. IVC Normal IVC diameter. CONCLUSIONS Moderately increased left ventricular cavity size. Severely decreased left ventricular systolic function. Left ventricular ejection fraction is estimated at 29 %. Global left ventricular hypokinesis. Moderately increased left atrial size. Moderately thickened mitral valve. No mitral valve stenosis. Severe mitral valve regurgitation. Moderate aortic valve calcification. Mild aortic valve stenosis, mean gradient 5.5 mmHg, JANEE 2.3 cm squared. Mild aortic valve regurgitation. [id number] tricuspid valve regurgitation. There is no pericardial effusion. Right atrial pressure is around 10 mm of mercury. Flavio Rios MD (Electronically Signed) Final Date: 31 July 2025 15:54 S
[2025-07-22 14:00] LABS: Anion Gap 8.9 (5-19); Blood Urea Nitrogen 16 mg/dL (8-23); Calcium 8.9 mg/dL (8.5-10.5); Carbon Dioxide 36 mmol/L (22-29); Chloride 101 mmol/L (98-107); Glucose 191 mg/dL (65-115); Osmolality Calculated 298 mOsm/kg (285-295); Potassium 4.9 mmol/L (3.5-5.1); Sodium 141 mmol/L (136-145)
== END 2025-07-22 11:48 | disposition home or self-care (01) ==
LOC: RAD 11:48
PROVIDERS: PCP Family Medicine; Visit Provider Internal Medicine
DX: N18.32 Chronic kidney disease, stage 3b (principal); I50.9 Heart failure, unspecified; I10 Essential (primary) hypertension; I51.7 Cardiomegaly; I51.89 Other ill-defined heart diseases; R93.1 Abnormal findings on diagnostic imaging of heart and coronary circulation; I34.0 Nonrheumatic mitral (valve) insufficiency; I35.8 Other nonrheumatic aortic valve disorders; I35.0 Nonrheumatic aortic (valve) stenosis; I35.1 Nonrheumatic aortic (valve) insufficiency; I07.1 Rheumatic tricuspid insufficiency
CPT/HCPCS: 36415; 80048; 83880; 93306